=== PATIENT | female | born 1975 | race Caucasian/White ===

== ENCOUNTER 2023-04-03 15:00 | Oncology outpatient (recurring) (ONCR) | payer MEDICARE, OTHER, SELFPAY ==
[2023-03-27 15:33] VITALS: BP 137/63; PULSE 91; RESP 17; TEMP 36.7; O2SAT 95
[2023-03-27] MEDS: sodium chloride 0.9% 250 ML 35 ML IV (16:10)
[2023-03-27] MEDS: ferric carboxy (IVPB) 750 MG in sodium chloride 0.9% (100 ml) 100 ML 345 MG IV (16:11)
[2023-03-27 16:50] VITALS: BP 132/68; PULSE 84; RESP 18; TEMP 36.6; O2SAT 98
[2023-04-03 15:00] VITALS: BP 132/61; PULSE 77; RESP 16; TEMP 36.9; O2SAT 95
[2023-04-03] MEDS: ferric carboxy (IVPB) 750 MG in sodium chloride 0.9% (100 ml) 100 ML 345 MG IV (15:15)
[2023-04-03] MEDS: sodium chloride 0.9% 250 ML 75 ML IV (15:15)
[2023-04-03 15:56] VITALS: BP 117/72; PULSE 76; TEMP 36.7; O2SAT 94
== END 2023-04-11 23:59 | disposition home or self-care (01) ==
PROVIDERS: PCP Nurse Practitioner; Visit Provider Internal Medicine Medical Oncology
DX: K50.90 Crohn's disease, unspecified, without complications (principal); D50.9 Iron deficiency anemia, unspecified; Z79.899 Other long term (current) drug therapy
CPT/HCPCS: 96365; 99204; J1439; J7050

== ENCOUNTER 2023-07-22 11:00 | Oncology outpatient (recurring) (ONCR) | payer MEDICARE, OTHER, SELFPAY ==
[2023-07-18 14:13] LABS: Basophils % 0.2 %; Eosinophils # 0.3 10^3/uL (0.0-0.8); Eosinophils % 4.2 %; Hematocrit 22.8 % (36-47); Mean Corpuscular HGB Conc 31.6 g/dL (30-55); Mean Corpuscular Hemoglobin 35.1 pg (27-33); Mean Corpuscular Volume 111.2 fl (85-98); Mean Platelet Volume 10.8 fL (7.4-10.4); Monocytes # 0.5 10^3/uL (0.2-0.9); Monocytes % 7.9 %; Neutrophils # 3.38 10^3/uL (1.8-7.7); Neutrophils % 52.4 %; Nucleated Red Blood Cells # 0.1 /100WBC; Nucleated Red Blood Cells % 1.7 %; Platelet Count 36 10^3/cmm (157-399); Red Blood Count 2.05 10^6/uL (3.85-5.65); Red Cell Distribution Width 21.2 % (12.1-15.1); White Blood Count 6.45 10^3/uL (3.29-11.43)
[2023-07-18 14:14] LABS: Reticulocyte % 3.9 % (0.5-2.0)
[2023-07-18 14:25] LABS: LAB Peripheral Smear Sent for Review
[2023-07-18 14:43] LABS: Alanine Aminotransferase 11 U/L (0-33); Albumin Level 3.4 g/dL (3.5-5.2); Alkaline Phosphatase 99 U/L (35-105); Anion Gap 14.3 (5-19); Aspartate Amino Transferase 23 U/L (0-32); Blood Urea Nitrogen 8 mg/dL (6-20); Calcium 8.5 mg/dL (8.5-10.5); Carbon Dioxide 22 mmol/L (22-29); Chloride 105 mmol/L (98-107); Glomerular Filtration Rate 75.9 mL/min (90-130); Glucose 120 mg/dL (65-115); Lactate Dehydrogenase 901 U/L (135-214); Osmolality Calculated 286 mOsm/kg (285-295); Potassium 3.3 mmol/L (3.5-5.1); Sodium 138 mmol/L (136-145); Total Bilirubin 0.6 mg/dL (0.15-1.2); Total Protein 6.4 g/dL (6.6-8.7)
[2023-07-18 14:58] LABS: Vitamin B12 1169 pg/mL (232-1245)
[2023-07-19] VITALS (11 sets, daily range): BP systolic 82–139; BP diastolic 47–71; PULSE 62–78; RESP 16; TEMP 36.3–36.9; O2SAT 93–97
[2023-07-19] MEDS: acetaminophen 325 mg Tablet 650 MG PO (08:32)
[2023-07-19] MEDS: diphenhydrAMINE 25 mg Capsule PO (08:32)
[2023-07-19] MEDS: sodium chloride 0.9% 500 ML 999 ML IV (08:34)
[2023-07-22 11:19] VITALS: BP 105/71; PULSE 64; RESP 18; TEMP 36.4; O2SAT 94
[2023-07-22 11:51] LABS: Reticulocyte % 8.8 % (0.5-2.0)
[2023-07-22 11:52] LABS: Basophils % 0.4 %; Eosinophils # 0.3 10^3/uL (0.0-0.8); Hematocrit 32.5 % (36-47); Lymphocytes # 1.4 10^3/uL (0.8-4.8); Lymphocytes % 20.6 %; Mean Corpuscular HGB Conc 31.4 g/dL (30-55); Mean Corpuscular Hemoglobin 32.5 pg (27-33); Mean Corpuscular Volume 103.5 fl (85-98); Mean Platelet Volume 9.8 fL (7.4-10.4); Monocytes # 0.8 10^3/uL (0.2-0.9); Monocytes % 11.1 %; Neutrophils # 4.37 10^3/uL (1.8-7.7); Neutrophils % 62.5 %; Nucleated Red Blood Cells % 0.3 %; Platelet Count 86 10^3/cmm (157-399); Red Blood Count 3.14 10^6/uL (3.85-5.65); Red Cell Distribution Width 26.2 % (12.1-15.1)
[2023-07-22 12:09] LABS: Lactate Dehydrogenase 548 U/L (135-214)
[2023-07-22 12:58] LABS: Folate Level 3.5 ng/mL (4.8-37.3)
[2023-07-22 21:35] LABS: Methylmalonic Acid 564 nmol/L (87-318)
== END 2023-08-11 23:59 | disposition home or self-care (01) ==
PROVIDERS: PCP Nurse Practitioner; Visit Provider Internal Medicine Medical Oncology
DX: D64.9 Anemia, unspecified (principal)
CPT/HCPCS: 36415; 36430; 80053; 80503; 82607; 82746; 83010; 83615; 83921; 85025; 85045; 86850; 86870; 86880; 86900; 86902; 86920; 96365; 99215; J0640; J7040; P9016

== ENCOUNTER 2023-08-29 09:43 | Oncology outpatient (recurring) (ONCR) | payer MEDICARE, OTHER, SELFPAY ==
[2023-08-29 10:00] VITALS: BP 119/69; PULSE 73; RESP 16; TEMP 36.7; O2SAT 97
[2023-08-29 10:09] LABS: Basophils # 0.1 10^3/uL (0.0-0.1); Eosinophils # 0.4 10^3/uL (0.0-0.8); Eosinophils % 5.9 %; Hematocrit 35.7 % (36-47); Lymphocytes # 1.4 10^3/uL (0.8-4.8); Mean Corpuscular HGB Conc 31.4 g/dL (30-55); Mean Corpuscular Hemoglobin 29.9 pg (27-33); Mean Corpuscular Volume 95.5 fl (85-98); Mean Platelet Volume 9.6 fL (7.4-10.4); Monocytes # 0.4 10^3/uL (0.2-0.9); Monocytes % 7.2 %; Neutrophils # 3.85 10^3/uL (1.8-7.7); Neutrophils % 62.6 %; Nucleated Red Blood Cells % 0 %; Platelet Count 81 10^3/cmm (157-399); Red Blood Count 3.74 10^6/uL (3.85-5.65); Red Cell Distribution Width 16.9 % (12.1-15.1); White Blood Count 6.14 10^3/uL (3.29-11.43)
[2023-08-29 10:23] LABS: Alanine Aminotransferase 10 U/L (0-33); Albumin Level 3.4 g/dL (3.5-5.2); Alkaline Phosphatase 92 U/L (35-105); Anion Gap 12.7 (5-19); Aspartate Amino Transferase 21 U/L (0-32); Blood Urea Nitrogen 7 mg/dL (6-20); Carbon Dioxide 24 mmol/L (22-29); Chloride 108 mmol/L (98-107); Globulin 3.5 g/dL (1.3-4.6); Glomerular Filtration Rate 75.9 mL/min (90-130); Glucose 139 mg/dL (65-115); Lactate Dehydrogenase 214 U/L (135-214); Osmolality Calculated 292 mOsm/kg (285-295); Potassium 3.7 mmol/L (3.5-5.1); Sodium 141 mmol/L (136-145); Total Bilirubin 0.6 mg/dL (0.15-1.2); Total Protein 6.9 g/dL (6.6-8.7)
== END 2023-09-11 23:59 | disposition home or self-care (01) ==
PROVIDERS: PCP Nurse Practitioner; Visit Provider Internal Medicine Medical Oncology
DX: D50.8 Other iron deficiency anemias (principal)
CPT/HCPCS: 36415; 80053; 82746; 83615; 85025

== ENCOUNTER 2025-01-08 08:00 | Oncology outpatient (recurring) (ONCR) | payer MEDICARE, OTHER, SELFPAY ==
[2025-01-01 10:17] VITALS: BP 104/63; PULSE 53; RESP 18; TEMP 36.3; O2SAT 93
[2025-01-01] MEDS: iron sucrose 300 MG in sodium chloride 0.9% (100 ml) 100 ML 200 MG IV (11:18)
== END 2025-01-09 23:59 | disposition home or self-care (01) ==
PROVIDERS: PCP Nurse Practitioner; Visit Provider Internal Medicine
DX: Z53.9 Procedure and treatment not carried out, unspecified reason (principal)
CPT/HCPCS: 96365; J1756

== ENCOUNTER 2025-01-09 15:02 | Inpatient (IN) | payer MEDICARE, OTHER, SELFPAY ==
[2025-01-09] VITALS (30 sets, daily range): BP systolic 74–131; BP diastolic 47–75; PULSE 112–170; RESP 22–35; TEMP 37.1–39.4; O2SAT 93–96
--- NOTE | 2025-01-09 15:21 | XRR_ITS ---
PROCEDURE INFORMATION: Exam: XR Chest Exam date and time: 01/09/2025 4:03 PM Age: 49 years old Clinical indication: Other: Possible sepsis TECHNIQUE: Imaging protocol: Radiologic exam of the chest. Views: 1 view. COMPARISON: No relevant prior studies available. FINDINGS: Lungs: Unremarkable. No consolidation or mass. Pleural spaces: Unremarkable. No pleural effusion. No pneumothorax. Heart/Mediastinum: Unremarkable. No cardiomegaly. Bones/joints: Unremarkable. XR/XR chest 1V portable [id number] IMPRESSION: No acute findings.
--- NOTE | 2025-01-09 15:25 | W.ED.WEAKNES ---
HPI - Weakness General: Chief complaint: Weakness Stated complaint: n/v, fever, lethargy Time Seen by Provider: 01/09/25 15:11 History of Present Illness: Patient states that she has whole body aches and pain and fever. She states this all started the night after she had iron transfusion done Saturday 8 days ago. She states that she hurts all over. Her entire body hurts. She has achiness fever. She has abdominal pain. No itching or rash. PFSH ED PFSH: Medical History Hypothyroidism History of anemia due to vitamin B12 deficiency History of sepsis (2013) History of supraventricular tachycardia Iron deficiency anemia Crohn's disease Psoriasis Lupus Fibromyalgia Hypertension Hyperlipemia Hemorrhoids GERD (gastroesophageal reflux disease) Surgical History History of section History of cholecystectomy H/O partial resection of colon Ileocolonic resection in 2001, in 2009, and in 2014 History of total hysterectomy with bilateral salpingo-oophorectomy (BSO) (07/2015) IRENE/BSO with redo of ileocolonic anastomosis History of ventral hernia repair History of hemorrhoidectomy Social History Smoking and tobacco/nicotine status: current every day tobacco/nicotine user cigarettes Packs smoked per day: 0.05 Alcohol intake: never Physical Exam Narrative: EXAM NARRATIVE: Patient appears uncomfortable and anxious in moderate distress. Neck is supple and she is moving her neck freely and nodding her head and she touches her chin to her chest that she sits up. No signs of trauma to her head. She has very dry mucous membranes. Normal conjunctiva. Patient very anxious and constantly moving in the bed. She has diminished breath sounds with bilateral expiratory wheezing bilaterally. Heart regular rhythm with tachycardia. No murmur on auscultation. Abdomen is soft with no significant tenderness guarding or rebound. Skin is free of evident rash in exposed areas. No calf tenderness or pitting edema. She moves her arms and legs freely. No tenderness on her legs. No CVA tenderness. No vertebral tenderness on her neck or back. No pharyngeal erythema. Speech is clear. Course Vital Signs: Vital signs: Vital Signs Temperature 103.0 F H 01/09/25 15:05 Pulse Rate 115 H 01/09/25 17:45 Respiratory Rate 22 H 01/09/25 16:25 Blood Pressure 99/47 01/09/25 17:45 Pulse Oximetry 94 01/09/25 17:45 Oxygen Delivery Me thod Room Air 01/09/25 17:45 MDM - Weakness Medical Decision Making Patient presents complaining of bad reaction to an iron infusion which she received on Saturday 8 days ago. She states she did fine during the infusion and that night developed fever body aches and malaise and hurting all over and has been still feeling bad since then. She denies vomiting or diarrhea. Denies dysuria. On review of systems she has had some tick bites off and on but denies any rash. She does have a headache on review of systems but she states everything hurts. She has no meningeal signs. She does states she has had coughing runny nose sore throat. Patient is tachycardic. She states she is on an immune suppressant for her Crohn's. Differential would include sepsis, adverse reaction to the iron infusion, pneumonia, viral illness, intra-abdominal infection, extremity broad differential. I ordered 30 cc/kg normal saline IV fluid bolus, hydrocodone 5 mg p.o. with acetaminophen, CBC CMP blood cultures lactic. Certainly patient could have bacteremia from her iron infusion as well. Will empirically treat with Zosyn 4.5 g IV. Patient has a reported history of rash to iodine so we will get a noncontrast CT abdomen pelvis. Patient reports abdominal pain but has a benign exam. 16:29 01/09/25 pt hemodynamic status and tissue perfusion reassessed. Patient's heart rate is improved. Patient lactic was elevated. Patient INR is elevated despite patient stating that she is not anticoagulated and denies liver disease. Liver enzymes are elevated. Digoxin level was not elevated. White blood cell count was within normal limits. Patient is anemic and has significant thrombocytopenia. now present. Has been and patient denies any history of liver problems although they do remember that she had splenomegaly in the past. She has no alcohol history. Patient CT showed splenomegaly and cirrhosis of the liver and possible early pneumonia with some groundglass opacities. No other definite acute process per radiology. Plan to admit the patient for probable sepsis. I added vancomycin. I consulted with Dr. Viera who will accept and continue patient care. Lab Data 01/09/25 15:20 01/09/25 15:20 Radiology Impressions Chest X-Ray 01/09/25 15:21 IMPRESSION: No acute findings. Abdomen/Pelvis CT 01/09/25 15:33 IMPRESSION: 1. Findings suggesting hepatic cirrhosis 2. Prominent splenomegaly which could be related to portal hypertension 3. Periumbilical hernia next lines small areas of ground-glass density in the right lung base could represent developing pneumonia Laboratory Results WBC 5.47 10^3/uL (3.29-11.43) 01/09/25 15:20 RBC 4.41 10^6/uL (3.85-5.65) 01/09/25 15:20 Hgb 9.10 g/dL (11.27-16.99) L 01/09/25 15:20 Hct 28.8 % (36-47) L 01/09/25 15:20 MCV 65.3 fl (85-98) L 01/09/25 15:20 MCH 20.6 pg (27-33) L 01/09/25 15:20 MCHC 31.6 g/dL (30-55) 01/09/25 15:20 RDW 24.5 % (12.1-15.1) H 01/09/25 15:20 Plt Count 30 10^3/cmm (157-399) L 01/09/25 15:20 MPV Not Reportable 01/09/25 15:20 Neut % (Auto) 65.0 % 01/09/25 15:20 Lymph % (Auto) 28.7 % 01/09/25 15:20 [place] % (Auto) 4.6 % 01/09/25 15:20 Eos % (Auto) 0.2 % 01/09/25 15:20 Baso % (Auto) 0.4 % 01/09/25 15:20 Neut # (Auto) 3.56 10^3/uL (1.8-7.7) 01/09/25 15:20 Lymph # (Auto) 1.6 10^3/uL (0.8-4.8) 01/09/25 15:20 [place] # (Auto) 0.3 10^3/uL (0.2-0.9) 01/09/25 15:20 Eos # (Auto) 0.0 10^3/uL (0.0-0.8) 01/09/25 15:20 Baso # (Auto) 0.0 10^3/uL (0.0-0.1) 01/09/25 15:20 Nucleated RBC % (auto) 0 % 01/09/25 15:20 Nucleated RBCs # 0.0 /100WBC 01/09/25 15:20 PT 28.20 SECONDS (12.1-14.9) H 01/09/25 15:20 INR 2.47 (0.8-1.2) H 01/09/25 15:20 APTT 52.0 SECONDS (23.9-36.7) H 01/09/25 15:20 Sodium 123 mmol/L (136-145) L 01/09/25 15:20 Potassium 2.6 mmol/L (3.5-5.1) L* 01/09/25 15:20 Chloride 87 mmol/L (98-107) L 01/09/25 15:20 Carbon Dioxide 21 mmol/L (22-29) L 01/09/25 15:20 Anion Gap 17.6 (5-19) 01/09/25 15:20 BUN 8 mg/dL (6-20) 01/09/25 15:20 Creatinine 0.9 mg/dL (0.5-0.9) 01/09/25 15:20 GFR Calculation 66.0 mL/min (90-130) L 01/09/25 15:20 Glucose 79 mg/dL (65-115) 01/09/25 15:20 Calculated Osmolality 253 mOsm/kg (285-295) L 01/09/25 15:20 Lactic Acid 4.3 mmol/L (0.5-2.2) H* 01/09/25 15:20 Calcium 7.6 mg/dL (8.5-10.5) L 01/09/25 15:20 Total Bilirubin 1.6 mg/dL (0.15-1.2) H 01/09/25 15:20 AST 331 U/L (0-32) H 01/09/25 15:20 ALT 96 U/L (0-33) H 01/09/25 15:20 Alkaline Phosphatase 137 U/L (35-105) H 01/09/25 15:20 Total Protein 5.8 g/dL (6.6-8.7) L 01/09/25 15:20 Albumin 2.8 g/dL (3.5-5.2) L 01/09/25 15:20 Globulin 3.0 g/dL (1.3-4.6) 01/09/25 15:20 Urine Color Dark yellow (Yellow) A 01/09/25 15:50 Urine Appearance Cloudy (CLEAR) A 01/09/25 15:50 Urine pH 5.5 (5-7) 01/09/25 15:50 Ur Specific [place] 1.016 (1.005-1.030) 01/09/25 15:50 Urine Protein 1+ (Negative) A 01/09/25 15:50 Urine Glucose (UA) Negative (Normal) 01/09/25 15:50 Urine Ketones Negative (Negative) 01/09/25 15:50 Urine Blood 2+ (Negative) A 01/09/25 15:50 Urine Nitrate Negative (Negative) 01/09/25 15:50 Urine Bilirubin 1+ (Negative) H 01/09/25 15:50 Urine Urobilinogen 1.0 mg/dL (Negative) 01/09/25 15:50 Ur Leukocyte Esterase Negative (Negative) 01/09/25 15:50 Urine RBC 11-20 /hpf (0-2) H 01/09/25 15:50 Urine WBC 0-5 /hpf (0-5) 01/09/25 15:50 Ur Squamous Epith Cells 0-5 /hpf (0-5) 01/09/25 15:50 Amorphous Sediment Not Reportable 01/09/25 15:50 Urine Bacteria None seen /hpf (NONE) 01/09/25 15:50 Hyaline Casts 9.51 /lpf 01/09/25 15:50 Fine Granular Casts 0-4 /lpf H 01/09/25 15:50 Urine Mucus Trace /hpf 01/09/25 15:50 Digoxin 0.5 ng/mL (0.6-1.2) L 01/09/25 15:20 Influenza A (PCR) Negative (Negative) 01/09/25 15:59 Influenza Type B (PCR) Negative (Negative) 01/09/25 15:59 RSV (PCR) Negative (Negative) 01/09/25 15:59 SARS-CoV-2 (PCR) Negative (Negative) 01/09/25 15:59 All radiology interpretation(s) finalized by discharge Discharge Plan Discharge Patient Disposition: Admitted As Inpatient Clinical Impression: Sepsis Condition: Stable Coding Level of Care Code ED 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 [employer]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 Related Data Home Medications ?Medication ?Instructions ?Recorded ?Confirmed cholecalciferol (vitamin D3) 50 50 mcg PO .weekly 03/26/23 07/19/23 mcg (2,000 unit) capsule cyanocobalamin (vitamin B-12) See Rx Instructions PO .weekly 03/26/23 07/19/23 1,000 mcg capsule digoxin 250 mcg (0.25 mg) tablet 250 mcg PO DAILY 03/26/23 07/19/23 diltiazem HCl 120 mg capsule,24 120 mg PO DAILY 03/26/23 07/19/23 hr,extended release hydrocortisone acetate 25 mg 25 mg [place] DAILY 03/26/23 07/19/23 rectal suppository (Anucort-HC) levothyroxine 50 mcg tablet 50 mcg PO DAILY 03/26/23 07/19/23 (Synthroid) lidocaine swish and swallow 2% PO 03/26/23 07/19/23 mesalamine 1.2 gram tablet,delayed 2.4 g PO DAILY 03/26/23 07/19/23 release methotrexate sodium 2.5 mg tablet 2.5 mg PO DAILY 03/26/23 07/19/23 metoprolol succinate 100 mg 100 mg PO DAILY 03/26/23 07/19/23 tablet,extended release 24 hr omeprazole 20 mg capsule,delayed 20 mg PO DAILY 03/26/23 07/19/23 release ondansetron HCl 8 mg tablet 8 mg PO Q12H 03/26/23 07/19/23 pregabalin 150 mg capsule 150 mg PO BID 03/26/23 07/19/23 prenat.vits,otto,lbu-zpes-thqqp 1 tab PO DAILY 03/26/23 07/19/23 sulfasalazine 500 mg tablet 0.5 g PO TID PRN 03/26/23 07/19/23 tizanidine 4 mg capsule 4 mg PO BID PRN 03/26/23 07/19/23 tramadol 50 mg tablet 50 mg PO TID PRN 03/26/23 07/19/23 ustekinumab 90 mg/mL subcutaneous See Rx Instructions SUBCUT .COMPLEX 03/26/23 07/19/23 syringe (Stelara) Allergies Allergy/AdvReac Type Severity Reaction Status Date / Time vedolizumab (From [facility]) Allergy Severe anaphylaxis Verified 07/19/23 10:40 iodine Allergy rash Verified 07/19/23 10:40 Mercaptiourine analogues Allergy Severe Unknown Uncoded 07/19/23 10:40 Norflex Allergy Severe hives Uncoded 07/19/23 10:40 Protonix Allergy Severe hives Uncoded 07/19/23 10:40 Remicade Allergy Severe anaphylaxis Uncoded 07/19/23 10:40 Humira Allergy Intermediate Unknown Uncoded 07/19/23 10:40 Orphenadrine Allergy Intermediate unknown Uncoded 07/19/23 10:40 cimzia Allergy Unknown Uncoded 07/19/23 10:40 lasix Allergy hives Uncoded 07/19/23 10:40
--- NOTE | 2025-01-09 15:30 | ECG_ITS ---
[facility] Test Date: 2025-01-09 Pat Name: Lilian Mabry Department: Room: Gender: Female Vp Site: : 1975 Requested By: Blayne Mullins Order Number: [id number] Macario MD: MICKEY FERGUSON Measurements Intervals [place] Rate: 112 P: 82 [place]: 153 QRS: -11 QRSD: 121 T: 70 QT: 314 QTc: 429 Interpretive Statements SINUS TACHYCARDIA POSSIBLE LEFT ATRIAL ENLARGEMENT [-0.1mV P-WAVE IN V1/V2] MODERATE INTRAVENTRICULAR CONDUCTION DELAY [110+ ms QRS DURATION] MINIMAL ST DEPRESSION [0.025+ mV ST DEPRESSION] ABNORMAL RHYTHM ECG No previous ECG available for comparison Electronically Signed On 01-13-2025 23:01:29 CDT by MICKEY FERGUSON [email or web address]
--- NOTE | 2025-01-09 15:33 | CTR_ITS ---
PROCEDURE INFORMATION: Exam: CT Abdomen And Pelvis Without Contrast Exam date and time: 01/09/2025 4:15 PM Age: 49 years old Clinical indication: Abdominal pain; Generalized TECHNIQUE: Imaging protocol: Computed tomography of the abdomen and pelvis without contrast. Radiation optimization: All CT scans at this facility use at least one of these dose optimization techniques: automated exposure control; mA and/or kV adjustment per patient size (includes targeted exams where dose is matched to clinical indication); or iterative reconstruction. COMPARISON: CR (CHEST, ) 01/09/2025 4:03 PM RADIATION DOSE METRICS: Total DLP (mGy-cm): 806.12 FINDINGS: Lungs: A few small areas of ground-glass density can be seen in the right lung base laterally. Liver: The liver demonstrates an irregular contour and parenchymal heterogeneity consistent with cirrhosis. I see no liver mass. Gallbladder and biliary ducts: The gallbladder has been resected. Pancreas: Normal. No ductal dilation. Spleen: Prominent splenomegaly is noted. Adrenal glands: Normal. No mass. Kidneys and ureters: Normal. No hydronephrosis. Stomach and bowel: Unremarkable. No obstruction. No mucosal thickening. Appendix: No evidence of appendicitis. Intraperitoneal space: Unremarkable. No free air. No significant fluid collection. Vasculature: Unremarkable. No abdominal aortic aneurysm. Lymph nodes: Unremarkable. No enlarged lymph nodes. Urinary bladder: A Chery catheter is in good position within the bladder. Reproductive: Unremarkable as visualized. Bones/joints: Unremarkable. No acute fracture. Soft tissues: There is a small periumbilical hernia containing mesenteric fat. CT/CT abdomen pelvis wo con [id number] IMPRESSION: 1. Findings suggesting hepatic cirrhosis 2. Prominent splenomegaly which could be related to portal hypertension 3. Periumbilical hernia next lines small areas of ground-glass density in the right lung base could represent developing pneumonia
[2025-01-09 15:38] LABS: Basophils % 0.4 %; Eosinophils % 0.2 %; Hematocrit 28.8 % (36-47); Lymphocytes # 1.6 10^3/uL (0.8-4.8); Lymphocytes % 28.7 %; Mean Corpuscular HGB Conc 31.6 g/dL (30-55); Mean Corpuscular Hemoglobin 20.6 pg (27-33); Mean Corpuscular Volume 65.3 fl (85-98); Monocytes # 0.3 10^3/uL (0.2-0.9); Monocytes % 4.6 %; Neutrophils # 3.56 10^3/uL (1.8-7.7); Nucleated Red Blood Cells % 0 %; Platelet Count 30 10^3/cmm (157-399); Red Blood Count 4.41 10^6/uL (3.85-5.65); Red Cell Distribution Width 24.5 % (12.1-15.1); White Blood Count 5.47 10^3/uL (3.29-11.43)
[2025-01-09 15:52] LABS: INR 2.47 (0.8-1.2)
[2025-01-09 15:58] LABS: Alanine Aminotransferase 96 U/L (0-33); Albumin Level 2.8 g/dL (3.5-5.2); Alkaline Phosphatase 137 U/L (35-105); Anion Gap 17.6 (5-19); Aspartate Amino Transferase 331 U/L (0-32); Blood Urea Nitrogen 8 mg/dL (6-20); Calcium 7.6 mg/dL (8.5-10.5); Carbon Dioxide 21 mmol/L (22-29); Chloride 87 mmol/L (98-107); Creatinine Clr Calc Pharmacy 81.7375; Glucose 79 mg/dL (65-115); Osmolality Calculated 253 mOsm/kg (285-295); Sodium 123 mmol/L (136-145); Total Bilirubin 1.6 mg/dL (0.15-1.2); Total Protein 5.8 g/dL (6.6-8.7)
[2025-01-09 15:59] LABS: Digoxin 0.5 ng/mL (0.6-1.2)
[2025-01-09 16:05] LABS: Lactic Sepsis W/Reflex 4.3 mmol/L (0.5-2.2); Potassium 2.6 mmol/L (3.5-5.1)
[2025-01-09 16:07] LABS: Bilirubin Urine 1+ (Negative); Blood Urine 2+ (Negative); Glucose Urine UA Negative (Normal); Ketones Urine Negative (Negative); Leukocyte Esterase Urine Negative (Negative); Nitrate Urine Negative (Negative); Protein Urine 1+ (Negative); Specific Gravity, Urine 1.016 (1.005-1.030); Urine Appearance Cloudy (CLEAR); Urine Color Dark Yellow (Yellow); pH Urine 5.5 (5-7)
[2025-01-09 16:12] LABS: Add Urine Microscopic? YES; Bacteria Urine None Seen /hpf; Hyaline Casts Urine 9.51 /lpf; Squamous Epithelial Cell Urine 0-5 /hpf (0-5); WBC Urine 0-5 /hpf (0-5)
[2025-01-09 16:18] LABS: Reflex Lactate Order REFLEX LACTIC ORDERD
[2025-01-09] MEDS: HYDROcodone-acetaminophen 5-325 mg Tablet 1 TAB PO (16:21)
[2025-01-09] MEDS: piperacillin-tazobactam 4.5 GM in sodium chloride 0.9% (plus) 50 ML IV (16:21)
[2025-01-09] MEDS: potassium chloride ER 20 mEq Tablet 40 MEQ PO (16:21)
[2025-01-09 16:30] LABS: Add Urine Culture? Yes; Fine Granular Casts Urine 0-4 /lpf; Mucus Urine TRACE /hpf; UA Slide Review UA Slide Review Perf
[2025-01-09 17:00] LABS: Influenza A NEGATIVE (Negative); Influenza B NEGATIVE (Negative); Respiratory Syncytial Virus Ce NEGATIVE (Negative); SARS-CoV-2 PCR NEGATIVE (Negative)
[2025-01-09] MEDS: sodium chloride 0.9% 500 ML 999 ML IV (18:19)
[2025-01-09] MEDS: vancomycin 1,500 MG/300 ML PIGGYBACK 200 MG IV (18:19)
--- NOTE | 2025-01-09 18:27 | W.ED.WEAKNES ---
HPI - Weakness General: Chief complaint: Weakness Stated complaint: n/v, fever, lethargy Time Seen by Provider: 01/09/25 15:11 PFSH ED PFSH: Medical History Hypothyroidism History of anemia due to vitamin B12 deficiency History of sepsis (2013) History of supraventricular tachycardia Iron deficiency anemia Crohn's disease Psoriasis Lupus Fibromyalgia Hypertension Hyperlipemia Hemorrhoids GERD (gastroesophageal reflux disease) Surgical History History of section History of cholecystectomy H/O partial resection of colon Ileocolonic resection in 2001, in 2009, and in 2014 History of total hysterectomy with bilateral salpingo-oophorectomy (BSO) (07/2015) IRENE/BSO with redo of ileocolonic anastomosis History of ventral hernia repair History of hemorrhoidectomy Social History Smoking and tobacco/nicotine status: current every day tobacco/nicotine user cigarettes Packs smoked per day: 0.05 Alcohol intake: never Course Vital Signs: Vital signs: Vital Signs Temperature 103.0 F H 01/09/25 15:05 Pulse Rate 115 H 01/09/25 17:45 Respiratory Rate 22 H 01/09/25 16:25 Blood Pressure 99/47 01/09/25 17:45 Pulse Oximetry 94 01/09/25 17:45 Oxygen Delivery Me thod Room Air 01/09/25 17:45 MDM - Weakness Lab Data 01/09/25 15:20 01/09/25 15:20 Radiology Impressions Chest X-Ray 01/09/25 15:21 IMPRESSION: No acute findings. Abdomen/Pelvis CT 01/09/25 15:33 IMPRESSION: 1. Findings suggesting hepatic cirrhosis 2. Prominent splenomegaly which could be related to portal hypertension 3. Periumbilical hernia next lines small areas of ground-glass density in the right lung base could represent developing pneumonia Laboratory Results WBC 5.47 10^3/uL (3.29-11.43) 01/09/25 15:20 RBC 4.41 10^6/uL (3.85-5.65) 01/09/25 15:20 Hgb 9.10 g/dL (11.27-16.99) L 01/09/25 15:20 Hct 28.8 % (36-47) L 01/09/25 15:20 MCV 65.3 fl (85-98) L 01/09/25 15:20 MCH 20.6 pg (27-33) L 01/09/25 15:20 MCHC 31.6 g/dL (30-55) 01/09/25 15:20 RDW 24.5 % (12.1-15.1) H 01/09/25 15:20 Plt Count 30 10^3/cmm (157-399) L 01/09/25 15:20 MPV Not Reportable 01/09/25 15:20 Neut % (Auto) 65.0 % 01/09/25 15:20 Lymph % (Auto) 28.7 % 01/09/25 15:20 [place] % (Auto) 4.6 % 01/09/25 15:20 Eos % (Auto) 0.2 % 01/09/25 15:20 Baso % (Auto) 0.4 % 01/09/25 15:20 Neut # (Auto) 3.56 10^3/uL (1.8-7.7) 01/09/25 15:20 Lymph # (Auto) 1.6 10^3/uL (0.8-4.8) 01/09/25 15:20 [place] # (Auto) 0.3 10^3/uL (0.2-0.9) 01/09/25 15:20 Eos # (Auto) 0.0 10^3/uL (0.0-0.8) 01/09/25 15:20 Baso # (Auto) 0.0 10^3/uL (0.0-0.1) 01/09/25 15:20 Nucleated RBC % (auto) 0 % 01/09/25 15:20 Nucleated RBCs # 0.0 /100WBC 01/09/25 15:20 PT 28.20 SECONDS (12.1-14.9) H 01/09/25 15:20 INR 2.47 (0.8-1.2) H 01/09/25 15:20 APTT 52.0 SECONDS (23.9-36.7) H 01/09/25 15:20 Sodium 123 mmol/L (136-145) L 01/09/25 15:20 Potassium 2.6 mmol/L (3.5-5.1) L* 01/09/25 15:20 Chloride 87 mmol/L (98-107) L 01/09/25 15:20 Carbon Dioxide 21 mmol/L (22-29) L 01/09/25 15:20 Anion Gap 17.6 (5-19) 01/09/25 15:20 BUN 8 mg/dL (6-20) 01/09/25 15:20 Creatinine 0.9 mg/dL (0.5-0.9) 01/09/25 15:20 GFR Calculation 66.0 mL/min (90-130) L 01/09/25 15:20 Glucose 79 mg/dL (65-115) 01/09/25 15:20 Calculated Osmolality 253 mOsm/kg (285-295) L 01/09/25 15:20 Lactic Acid 4.3 mmol/L (0.5-2.2) H* 01/09/25 15:20 Calcium 7.6 mg/dL (8.5-10.5) L 01/09/25 15:20 Total Bilirubin 1.6 mg/dL (0.15-1.2) H 01/09/25 15:20 AST 331 U/L (0-32) H 01/09/25 15:20 ALT 96 U/L (0-33) H 01/09/25 15:20 Alkaline Phosphatase 137 U/L (35-105) H 01/09/25 15:20 Total Protein 5.8 g/dL (6.6-8.7) L 01/09/25 15:20 Albumin 2.8 g/dL (3.5-5.2) L 01/09/25 15:20 Globulin 3.0 g/dL (1.3-4.6) 01/09/25 15:20 Urine Color Dark yellow (Yellow) A 01/09/25 15:50 Urine Appearance Cloudy (CLEAR) A 01/09/25 15:50 Urine pH 5.5 (5-7) 01/09/25 15:50 Ur Specific [place] 1.016 (1.005-1.030) 01/09/25 15:50 Urine Protein 1+ (Negative) A 01/09/25 15:50 Urine Glucose (UA) Negative (Normal) 01/09/25 15:50 Urine Ketones Negative (Negative) 01/09/25 15:50 Urine Blood 2+ (Negative) A 01/09/25 15:50 Urine Nitrate Negative (Negative) 01/09/25 15:50 Urine Bilirubin 1+ (Negative) H 01/09/25 15:50 Urine Urobilinogen 1.0 mg/dL (Negative) 01/09/25 15:50 Ur Leukocyte Esterase Negative (Negative) 01/09/25 15:50 Urine RBC 11-20 /hpf (0-2) H 01/09/25 15:50 Urine WBC 0-5 /hpf (0-5) 01/09/25 15:50 Ur Squamous Epith Cells 0-5 /hpf (0-5) 01/09/25 15:50 Amorphous Sediment Not Reportable 01/09/25 15:50 Urine Bacteria None seen /hpf (NONE) 01/09/25 15:50 Hyaline Casts 9.51 /lpf 01/09/25 15:50 Fine Granular Casts 0-4 /lpf H 01/09/25 15:50 Urine Mucus Trace /hpf 01/09/25 15:50 Digoxin 0.5 ng/mL (0.6-1.2) L 01/09/25 15:20 Influenza A (PCR) Negative (Negative) 01/09/25 15:59 Influenza Type B (PCR) Negative (Negative) 01/09/25 15:59 RSV (PCR) Negative (Negative) 01/09/25 15:59 SARS-CoV-2 (PCR) Negative (Negative) 01/09/25 15:59 Discharge Plan Discharge Patient Disposition: Admitted As Inpatient Clinical Impression: Sepsis Condition: Stable Coding Level of Care Code 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 Fwd Related Data Home Medications ?Medication ?Instructions ?Recorded ?Confirmed cholecalciferol (vitamin D3) 50 50 mcg PO .weekly 03/26/23 07/19/23 mcg (2,000 unit) capsule cyanocobalamin (vitamin B-12) See Rx Instructions PO .weekly 03/26/23 07/19/23 1,000 mcg capsule digoxin 250 mcg (0.25 mg) tablet 250 mcg PO DAILY 03/26/23 07/19/23 diltiazem HCl 120 mg capsule,24 120 mg PO DAILY 03/26/23 07/19/23 hr,extended release hydrocortisone acetate 25 mg 25 mg [place] DAILY 03/26/23 07/19/23 rectal suppository (Anucort-HC) levothyroxine 50 mcg tablet 50 mcg PO DAILY 03/26/23 07/19/23 (Synthroid) lidocaine swish and swallow 2% PO 03/26/23 07/19/23 mesalamine 1.2 gram tablet,delayed 2.4 g PO DAILY 03/26/23 07/19/23 release methotrexate sodium 2.5 mg tablet 2.5 mg PO DAILY 03/26/23 07/19/23 metoprolol succinate 100 mg 100 mg PO DAILY 03/26/23 07/19/23 tablet,extended release 24 hr omeprazole 20 mg capsule,delayed 20 mg PO DAILY 03/26/23 07/19/23 release ondansetron HCl 8 mg tablet 8 mg PO Q12H 03/26/23 07/19/23 pregabalin 150 mg capsule 150 mg PO BID 03/26/23 07/19/23 prenat.vits,otto,pmz-pvqz-coxds 1 tab PO DAILY 03/26/23 07/19/23 sulfasalazine 500 mg tablet 0.5 g PO TID PRN 03/26/23 07/19/23 tizanidine 4 mg capsule 4 mg PO BID PRN 03/26/23 07/19/23 tramadol 50 mg tablet 50 mg PO TID PRN 03/26/23 07/19/23 ustekinumab 90 mg/mL subcutaneous See Rx Instructions SUBCUT .COMPLEX 03/26/23 07/19/23 syringe (Stelara) Allergies Allergy/AdvReac Type Severity Reaction Status Date / Time vedolizumab (From [facility]) Allergy Severe anaphylaxis Verified 07/19/23 10:40 iodine Allergy rash Verified 07/19/23 10:40 Mercaptiourine analogues Allergy Severe Unknown Uncoded 07/19/23 10:40 Norflex Allergy Severe hives Uncoded 07/19/23 10:40 Protonix Allergy Severe hives Uncoded 07/19/23 10:40 Remicade Allergy Severe anaphylaxis Uncoded 07/19/23 10:40 Humira Allergy Intermediate Unknown Uncoded 07/19/23 10:40 Orphenadrine Allergy Intermediate unknown Uncoded 07/19/23 10:40 cimzia Allergy Unknown Uncoded 07/19/23 10:40 lasix Allergy hives Uncoded 07/19/23 10:40
--- NOTE | 2025-01-09 18:29 | PM.HP ---
Providers/Chief Complaint Chief Complaint: n/v, lethargy, ams History of Present Illness Lilian Mabry is a 49 year old female with a past medical history of hypothyroidism, history of Crohn's disease, history of psoriasis on Stelara, on methotrexate, history of hypertension, hyperlipidemia, GERD, history of septic shock in 2013 resulting in cardiac arrest and prolonged intubation source of infection was potentially a port. Patient has a history of iron deficiency anemia, she chronically gets iron infusions, she had iron infusion on Saturday, after receiving iron infusion family reports that she was reporting feeling sick, fatigue, malaise. Her symptoms persisted throughout the week, fatigue, malaise, body aches and pains,, they tell me that she looked well yesterday, they played cards yesterday evening, she went to bed, she woke up a couple times throughout the night which is not unusual for her, but when she woke up this morning, she was confused, lethargic at times, complaining of fatigue, malaise, fevers, chills, throughout the week she has not had any other specific complaints no headache, blurry vision, no neck pain, no chest pain, no shortness of breath, currently patient is alert to person, not to place, time, she is diffusely encephalopathic fever of 103, pulse 115, blood pressure is 80/60, MAP is 55, respiratory is 22, she is 94% on room air -Discussed with family members at bedside, currently patient is in septic shock -Etiology possibly related to pneumonia seen on CT of the chest -But I believe she needs a further workup for the source of infection - She is immunocompromise as she is on Stelara, methotrexate - She does have reported tick bites according to family - She has not had any dysuria, no hematuria, CT scan of abdomen pelvis does not have any evidence of obstructive uropathy, her UA is relatively within normal limits - Currently Kernig sign negative, Brudzinski sign negative, no significant neck stiffness on examination - She did receive an iron infusion on Saturday, bilateral arms look clean and dry, - No history of IV drug use - Discussed with family her transaminitis, will do liver ultrasound, further workup - Her INR is also elevated 2.47, her CT scan shows evidence of liver cirrhosis profoundly does not report any history of liver cirrhosis, -Discussed her thrombocytopenia, no current signs of bleeding -Her thrombocytopenia, and transaminitis could be indicator of a tickborne illness, no visible rashes on examination -[place], no cat bites, no dog bites, does not have any other animals - Respiratory viral, within normal limits - Jourdan with family that currently her status is critical, prognosis guarded, will admit to ICU for septic shock - Discussed with ER provider, for central line placement as patient is likely going to require pressors - She has been given the sepsis bolus, given vancomycin, Zosyn Review of Systems General: Reports: ROS unobtainable due to mental status Medications/Allergies Home Medications ?Medication ?Instructions ?Recorded ?Confirmed ?Last Taken ?Type cholecalciferol (vitamin D3) 50 50 mcg PO .weekly 03/26/23 07/19/23 Unknown History mcg (2,000 unit) capsule cyanocobalamin (vitamin B-12) See Rx Instructions PO .weekly 03/26/23 07/19/23 Unknown History 1,000 mcg capsule digoxin 250 mcg (0.25 mg) tablet 250 mcg PO DAILY 03/26/23 07/19/23 Unknown History diltiazem HCl 120 mg capsule,24 120 mg PO DAILY 03/26/23 07/19/23 Unknown History hr,extended release hydrocortisone acetate 25 mg 25 mg AK DAILY 03/26/23 07/19/23 Unknown History rectal suppository (Anucort-HC) levothyroxine 50 mcg tablet 50 mcg PO DAILY 03/26/23 07/19/23 Unknown History (Synthroid) lidocaine swish and swallow 2% PO 03/26/23 07/19/23 Unknown History mesalamine 1.2 gram tablet,delayed 2.4 g PO DAILY 03/26/23 07/19/23 Unknown History release methotrexate sodium 2.5 mg tablet 2.5 mg PO DAILY 03/26/23 07/19/23 Unknown History metoprolol succinate 100 mg 100 mg PO DAILY 03/26/23 07/19/23 Unknown History tablet,extended release 24 hr omeprazole 20 mg capsule,delayed 20 mg PO DAILY 03/26/23 07/19/23 Unknown History release ondansetron HCl 8 mg tablet 8 mg PO Q12H 03/26/23 07/19/23 Unknown History pregabalin 150 mg capsule 150 mg PO BID 03/26/23 07/19/23 Unknown History prenat.vits,otto,clo-gvoa-eeafe 1 tab PO DAILY 03/26/23 07/19/23 Unknown History sulfasalazine 500 mg tablet 0.5 g PO TID PRN 03/26/23 07/19/23 Unknown History tizanidine 4 mg capsule 4 mg PO BID PRN 03/26/23 07/19/23 Unknown History tramadol 50 mg tablet 50 mg PO TID PRN 03/26/23 07/19/23 Unknown History ustekinumab 90 mg/mL subcutaneous See Rx Instructions SUBCUT .COMPLEX 03/26/23 07/19/23 Unknown History syringe (Stelara) Allergies Allergy/AdvReac Type Severity Reaction Status Date / Time vedolizumab (From [facility]) Allergy Severe anaphylaxis Verified 07/19/23 10:40 iodine Allergy rash Verified 07/19/23 10:40 Mercaptiourine analogues Allergy Severe Unknown Uncoded 07/19/23 10:40 Norflex Allergy Severe hives Uncoded 07/19/23 10:40 Protonix Allergy Severe hives Uncoded 07/19/23 10:40 Remicade Allergy Severe anaphylaxis Uncoded 07/19/23 10:40 Humira Allergy Intermediate Unknown Uncoded 07/19/23 10:40 Orphenadrine Allergy Intermediate unknown Uncoded 07/19/23 10:40 cimzia Allergy Unknown Uncoded 07/19/23 10:40 lasix Allergy hives Uncoded 07/19/23 10:40 PFSH Acute PFSH: Medical History Hypothyroidism History of anemia due to vitamin B12 deficiency History of sepsis (2013) History of supraventricular tachycardia Iron deficiency anemia Crohn's disease Psoriasis Lupus Fibromyalgia Hypertension Hyperlipemia Hemorrhoids GERD (gastroesophageal reflux disease) Surgical History History of section History of cholecystectomy H/O partial resection of colon Ileocolonic resection in 2001, in 2009, and in 2014 History of total hysterectomy with bilateral salpingo-oophorectomy (BSO) (07/2015) IRENE/BSO with redo of ileocolonic anastomosis History of ventral hernia repair History of hemorrhoidectomy Social History Smoking and tobacco/nicotine status: current every day tobacco/nicotine user cigarettes Packs smoked per day: 0.05 Alcohol intake: never Vitals/I&O/Wt Last Vital Signs Temp 103.0 F H 01/09/25 15:05 Pulse 115 H 01/09/25 17:45 Resp 22 H 01/09/25 16:25 BP 99/47 01/09/25 17:45 Pulse Ox 94 01/09/25 17:45 O2 Del Method Room Air 01/09/25 17:45 01/09/25 01/09/25 01/09/25 06:59 14:59 22:59 Intake Total 2839.58 / 2839.58 Balance 2839.58 / 2839.58 Weight last 48 hrs Weight 92.986 kg Physical Exam Const: COMMON NORMALS: no acute distress EXAM LIMITATIONS: altered mental status ORIENTATION/CONSCIOUSNESS: Yes awake, Yes confused and Yes patient obtunded; not oriented to person, not oriented to place and not oriented to time HENMT: COMMON NORMALS: normocephalic HEAD & SCALP: normocephalic Eye: COMMON NORMALS: Equal, round and reactive pupils present Neck/C-Spine: COMMON NORMALS: no JVD Lymph: LYMPHATIC: lymphedema Chest: COMMONS NORMALS: normal inspection of the chest Resp: COMMON NORMALS: normal respiratory effort, No retractions, No use of accessory muscles and clear to auscultation bilaterally AUSCULTATION: crackles and wheezes Cardio: COMMON NORMALS: regular rate, regular rhythm, S1 normal heart sound present and S2 normal heart sound present RATE: tachycardic RHYTHM: regular rhythm HEART SOUNDS: S1 normal heart sound present and S2 normal heart sound present GI: COMMON NORMALS: Normal to inspection, nondistended, normoactive bowel sounds present and Soft to palpation : COMMON NORMALS: Yes no CVA tenderness Extremity: COMMON NORMALS: no calf tenderness and no pedal edema Neuro: OTHER: Cannot do neurologic testing due to diffuse encephalopathy Skin: NARRATIVE SKIN EXAM: Sepsis examination, completed 01/09/2025 at 6:20 PM DP PT pulses diminished bilaterally, cap refill less than 2 seconds, mottling bilateral extremities Urinary Catheter Management: Chery: Cath Placed During This Visit: yes Reason for Continuing Indwelling Catheter: Accurate Measurement of Urinary Output in Critically Ill Patients Urinary Catheter Date of Insertion: 01/09/25 Data 01/09/25 15:20 01/09/25 15:20 Micro: Microbiology 01/09/25 15:30 Blood Culture - Preliminary Blood SPECIMEN COLLECTED 01/09/25 15:20 Blood Culture - Preliminary Blood SPECIMEN COLLECTED A&P Assessment and plan (1) Septic shock: (2) Tick borne fever: (3) Transaminitis: (4) Thrombocytopenia: (5) Elevated INR: (6) Hyponatremia: (7) Pneumonia: (8) Lactic acid acidosis: (9) Encephalopathy: Plan Septic shock - Etiology unclear - Potentially due to pneumonia, given CT abdomen findings - Potentially tickborne illness, given transaminitis, thrombocytopenia - She does report symptoms started when she had her iron infusions, possible blood borne infection after infusion? - Kernig's sign, Brudunski sign negative, but certainly is encephalopathic, meningitis could be playing a role given her immunocompromise state - Admit to ICU -Follow blood cultures, sputum cultures, urine cultures - Placed on Levophed - Patient MAP in the 65 - Status post sepsis bolus in the emergency room - Vancomycin, Zosyn Pneumonia - Seen on CT scan abdomen pelvis - She is on room air - Sputum culture - Blood culture - Vancomycin - Zosyn Tickborne illness -With thrombocytopenia, transaminitis - Could not find a tick on her but family reports recent tick bites - Tick panel - Start IV doxycycline Acute hyponatremia, monitor serum sodiums every 4 hours Hypokalemia, replace IV Acute on chronic anemia, monitor - LDH, haptoglobin, peripheral smear Lactic acidosis, likely secondary to sepsis Transaminitis - HIV, acute hep panel, liver ultrasound Acute encephalopathy - Neurochecks, NIH stroke scale - Possible meningitis? Vancomycin, Zosyn, Decadron - Will consider LP based on clinical progress - Also could be tickborne encephalitis Symptoms started after iron transfusion? - Possible blood-borne infection - Possible endocarditis, cardiac echo fullcode lovenox for dvt prophylaxis rerelatively contraindicated given thrombocytopenia PDMP PDMP Reviewed: Not Reviewed Attestations Medical Necessity Statement*: Patient requires hospitalization, inpatient, greater than 2 midnights for septic shock, acute encephalopathy, transaminitis, SHAWN, acute renal failure, Coding Level of Care Code Critical Care >/= 30 minutes Critical care time (in minutes): 45 The high probability of a clinically significant, sudden or life threatening deterioration, as referenced in this documentation, required my full and direct attention, intervention and personal management. The critical care time shown is in addition to time spent performing any reported separately billable procedures and includes the following: [x] Data and vital sign review and interpretation [x] Patient assessment, examination and intervention [x] Medication orders and management [x] Patient/Family updates as able [x] Care Coordination and Documentation. Diagnoses Septic shock A41.9; R65.21 Tick borne fever A93.8 Transaminitis R74.01 Thrombocytopenia D69.6 Elevated INR R79.1 Hyponatremia E87.1 Pneumonia J18.9 Lactic acid acidosis E87.20 Encephalopathy G93.40
--- NOTE | 2025-01-09 18:31 | CTR_ITS ---
PROCEDURE INFORMATION: Exam: CT Chest Without Contrast; Diagnostic Exam date and time: 01/09/2025 7:14 PM Age: 49 years old Clinical indication: Shortness of breath; Prior surgery; Surgery date: 6+ months; Surgery type: Gb; SOB with hypoxia and sepsis. RT central line in place. TECHNIQUE: Imaging protocol: Diagnostic computed tomography of the chest without contrast. Radiation optimization: All CT scans at this facility use at least one of these dose optimization techniques: automated exposure control; mA and/or kV adjustment per patient size (includes targeted exams where dose is matched to clinical indication); or iterative reconstruction. COMPARISON: CR (CHEST, ) 01/09/2025 7:05 PM RADIATION DOSE METRICS: Total DLP (mGy-cm): 472.47 FINDINGS: Tubes, catheters and devices: There is a right jugular venous catheter with tip in the right atrium. Lungs: Patchy multifocal alveolar opacities present throughout the left and right lung. Pleural spaces: Unremarkable. No pneumothorax. No pleural effusion. Heart: Unremarkable. No cardiomegaly. No pericardial effusion. Coronary arteries: No significant coronary artery calcification appreciated. Lymph nodes: Unremarkable. No enlarged lymph nodes. Vasculature: Unremarkable. No aortic aneurysm. Bones/joints: Unremarkable. No acute fracture. Soft tissues: Unremarkable. Other findings: Incompletely imaged hepatosplenomegaly. Examination limited by respiratory motion artifact. CT/CT chest wo con [id number] IMPRESSION: Bilateral patchy multifocal airspace disease concerning for multifocal pneumonia.
--- NOTE | 2025-01-09 18:31 | CTR_ITS ---
PROCEDURE INFORMATION: Exam: CT Head Without Contrast Exam date and time: 01/09/2025 7:11 PM Age: 49 years old Clinical indication: Altered mental status/memory loss; Lethargy with sepsis. ; Additional info: AMS TECHNIQUE: Imaging protocol: Computed tomography of the head without contrast. Radiation optimization: All CT scans at this facility use at least one of these dose optimization techniques: automated exposure control; mA and/or kV adjustment per patient size (includes targeted exams where dose is matched to clinical indication); or iterative reconstruction. COMPARISON: No relevant prior studies available. RADIATION DOSE METRICS: Total DLP (mGy-cm): 1055.51 FINDINGS: Brain: Normal. No hemorrhage. Unremarkable white matter. No mass effect. Cerebral ventricles: No ventriculomegaly. Paranasal sinuses: Visualized sinuses are unremarkable. No fluid levels. Mastoid air cells: Visualized mastoid air cells are well aerated. Bones: Unremarkable. No acute fracture. Soft tissues: Unremarkable. CT/CT head wo con* [id number] IMPRESSION: No acute intracranial abnormality.
[2025-01-09 18:34] LABS: Reticulocyte % 1.5 % (0.5-2.0)
[2025-01-09 18:40] LABS: Erythrocyte Sedimentation Rate 23 mm/hr (0-15); LAB Peripheral Smear Sent for Review
[2025-01-09] MEDS: lidocaine 1% 5 ML in potassium chloride premix 100 ML 26.25 ML IV (18:45)
[2025-01-09 18:48] LABS: HIV 1 & 2 Antibody Non-Reactive (Non-Reactiv); HIV 1 & 2 Antigen Non-Reactive (Non-Reactiv)
[2025-01-09 18:54] LABS: Thyroid Stimulating Hormone 1.78 uIU/mL (0.27-4.20)
[2025-01-09 19:04] LABS: Reflex FDPQ test REFLEX FDP QUEST TES
[2025-01-09 19:05] LABS: C Reactive Protein 43.7 mg/L (0.0-4.9); Iron 29 ug/dL (37-145); Lactate Dehydrogenase 671 U/L (135-214); Lipase 189 U/L (13-60); Sodium 125 mmol/L (136-145)
--- NOTE | 2025-01-09 19:05 | XRR_ITS ---
PROCEDURE INFORMATION: Exam: XR Chest Exam date and time: 01/09/2025 7:05 PM Age: 49 years old Clinical indication: Other vascular access device placement or adjustment; Central line, non-tunnelled; Central line confirmation; Additional info: Central line placement TECHNIQUE: Imaging protocol: Radiologic exam of the chest. Views: 1 view. COMPARISON: CR (CHEST, ) 01/09/2025 4:03 PM FINDINGS: Tubes, catheters and devices: There is a new right-sided venous catheter with tip in the region of the right atrium. Lungs: Patchy bilateral multifocal alveolar opacities present. Pleural spaces: Unremarkable. No pleural effusion. No pneumothorax. Heart/Mediastinum: Unremarkable. No cardiomegaly. Bones/joints: Unremarkable. XR/XR chest 1V portable [id number] IMPRESSION: 1. Right-sided venous catheter as detailed. 2. Multifocal airspace disease.
[2025-01-09 19:18] LABS: Ferritin 1149 ng/mL (15-150)
[2025-01-09 19:25] LABS: Partial Thromboplastin Time 57.6 SECONDS (23.9-36.7)
[2025-01-09 19:26] LABS: Fibrinogen 212 mg/dL (174-498)
[2025-01-09 19:27] LABS: INR 2.99 (0.8-1.2)
[2025-01-09 19:28] LABS: Gamma Glutamyl Transferase 27 U/L (5-36)
[2025-01-09 19:28] LABS: D Dimer 2.73 ug/mLFEU (0-0.59)
[2025-01-09 19:29] LABS: Troponin(5th) Baseline 13 ng/L (0-10)
[2025-01-09 19:31] LABS: Lactic Acid level (Lactate) 3.3 mmol/L (0.5-2.2)
[2025-01-09 19:44] LABS: ABG PCO2 24.8 mmHg (35-45); ABG PH Result 7.48 (7.35-7.45); Arterial Blood Gas Hematocrit 25.4 % (37-47); Base Excess ABG -4.4 mmol/L (-2.0-2.0); Blood Gas Allen Test Pos; Blood Gas Operator Identificat gerca; Blood Gas Sample Site Radial, left; Blood Gas Sample Type Arterial; HCO3 ABG 18.3 mmol/L (22-26); Oxygen Device ROOM AIR; PO2 FiO2 Ratio Arterial Blood 342
--- NOTE | 2025-01-09 20:20 | ECG_ITS ---
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
[2025-01-09] MEDS: dexamethasone 10 mg/mL INJ IVP (20:24)
[2025-01-09] MEDS: doxycycline 100 MG in sodium chloride 0.9% (plus) 100 ML IV (20:24)
[2025-01-09 20:49] LABS: Troponin 5 2HR 15.85 ng/L (0-10); Troponin 5 2HR Delta 2.85 ABS# (0-10)
[2025-01-09] MEDS: albumin 25 G/100 ML BAG 60 G IV (22:04)
[2025-01-09] MEDS: famotidine 20 mg/2 mL INJ IVP (22:04)
[2025-01-09 23:26] LABS: MRSA PCR OZH (swab) NOT DETECTED (Not Detecte)
[2025-01-09] MEDS: sodium chlor 0.9% + KCl 40 mEq 40 MEQ/1,000 ML BAG 250 MEQ IV (23:28)
[2025-01-10] VITALS (86 sets, daily range): BP systolic 93–154; BP diastolic 45–71; PULSE 76–123; RESP 15–37; TEMP 36.3–36.9; O2SAT 91–100
--- NOTE | 2025-01-10 00:40 | P.PN_ITS ---
Subjective 2 Subjective: Called to evaluate patient with altered mental status, possible septic picture and severe electrolyte abnormalities patient had IV and oral potassium in the ER but last several hours in the ICU had been withdrawn and nearly obtunded. On my evaluation she is answering questions and tells me that she has some abdominal pain worse than usual. She has had headache and pain in her neck but not really stiffness. Patient has history of lupus and Crohn's disease. She tells me she has had 5 abdominal surgeries Patient noted to develop while in my presence SVT with heart rate 170. This was treated with 9 mg of adenosine to sinus tachycardia Vitals/I&O/Wt Last Vital Signs Temp 98.8 F 01/09/25 19:40 Pulse 114 H 01/10/25 00:15 Resp 28 H 01/10/25 00:15 BP 119/51 01/10/25 00:15 Pulse Ox 94 01/10/25 00:15 O2 Del Method Room Air 01/09/25 23:38 01/09/25 01/09/25 01/10/25 14:59 22:59 06:59 Intake Total 3639.58 / 3639.58 Balance 3639.58 / 3639.58 Weight last 48 hrs Weight 96.5 kg Weight 92.986 kg Physical Exam 2 Narrative: General well-developed chronically ill-appearing female in no acute cardiopulmonary distress CV regular rhythm tachycardic Lungs clear to auscultation bilaterally Abdomen diminished bowel tones soft tender mostly in the right abdomen. Negative for rebound Calves skin turgor diminished Urinary Catheter Management: Chery: Cath Placed During This Visit: yes Reason for Continuing Indwelling Catheter: Accurate Measurement of Urinary Output in Critically Ill Patients Urinary Catheter Date of Insertion: 01/09/25 Data 01/09/25 15:20 01/09/25 15:20 Micro: Microbiology 01/09/25 15:30 Blood Culture - Preliminary Blood SPECIMEN COLLECTED 01/09/25 15:20 Blood Culture - Preliminary Blood SPECIMEN COLLECTED A&P Assessment and plan (1) Septic shock: Last sodium 125 potassium 2.6 this was at 1500. Will draw new labs including magnesium and phosphorus. Replace with sodium chloride +40 mg potassium chloride per liter at 250 cc an hour for [address] with contrast scan of the abdomen with abdominal pain history of Crohn's and elevated lipase and LFTs. Pancreas read as normal (2) Tick borne fever: Suspected tickborne fever with thrombocytopenia and elevated LFTs elevated sed rate (3) Transaminitis: As above consider CT scan of the abdomen (4) Thrombocytopenia: Platelet count 30 heparin stopped (5) Elevated INR: INR 2.99 (6) Hyponatremia: Saline bolus as above consider hypertonic saline though mentation has cleared (7) Pneumonia: Continue with antibiotics (8) Lactic acid acidosis: Repeat lactic acid pending (9) Encephalopathy: Improved (10) Hypokalemia: Aggressive replacement and check magnesium level (11) SVT (supraventricular tachycardia): This was treated successfully with adenosine 9 mg PDMP PDMP Reviewed: Not Reviewed Attestations 2 Medical Necessity Statement*: Patient is critically ill and will require greater than 2 additional midnights in hospital Coding Level of Care Code Critical Care >/= 30 minutes Diagnoses Septic shock A41.9; R65.21 Tick borne fever A93.8 Transaminitis R74.01 Thrombocytopenia D69.6 Elevated INR R79.1 Hyponatremia E87.1 Pneumonia J18.9 Lactic acid acidosis E87.20 Encephalopathy G93.40 Hypokalemia E87.6 SVT (supraventricular tachycardia) I47.10 Time Spent (min) 45
[2025-01-10] MEDS: adenosine 3 mg/mL SDV 2mL 9 MG IVP (00:45)
[2025-01-10] MEDS: dexamethasone 10 mg/mL INJ IVP ×5 (00:45→23:50)
[2025-01-10] MEDS: piperacillin-tazobactam 3.375 GM in sodium chloride 0.9% (plus) 50 ML IV ×4 (00:46→23:51)
[2025-01-10] MEDS: morphine 4 mg/mL SDV 1 mL 2 MG IVP ×2 (00:46→20:37)
[2025-01-10 00:57] LABS: Chol HDL Ratio 5.33 mg/dL (0.0-4.40); Cholesterol 32 mg/dL (0-200); HDL Cholesterol 6 mg/dL (60-100); LDL Cholesterol Calculated 10 mg/dL (50-129); LDL HDL Ratio 1.67 RATIO (0.00-3.22); Sodium 129 mmol/L (136-145); Triglycerides 81 mg/dL (0-150)
[2025-01-10 00:58] LABS: Amphetamines Screen Urine Negative (Negative); Barbiturates Screen Urine Negative (Negative); Benzodiazepines Screen Urine Negative (Negative); Cocaine Screen Urine Negative (Negative); Opiate Screen Urine Positive (Negative); PCP Screen Urine Negative (Negative); THC Screen Urine Negative (Negative)
[2025-01-10 01:36] LABS: Basophils % 0.2 %; Hematocrit 22.2 % (36-47); Lymphocytes # 1.6 10^3/uL (0.8-4.8); Lymphocytes % 32.2 %; Mean Corpuscular HGB Conc 31.1 g/dL (30-55); Mean Corpuscular Hemoglobin 20.6 pg (27-33); Mean Corpuscular Volume 66.3 fl (85-98); Monocytes # 0.2 10^3/uL (0.2-0.9); Monocytes % 3.7 %; Neutrophils # 3.05 10^3/uL (1.8-7.7); Neutrophils % 62.7 %; Nucleated Red Blood Cells % 0 %; Platelet Count 45 10^3/cmm (157-399); Red Blood Count 3.35 10^6/uL (3.85-5.65); Red Cell Distribution Width 24.7 % (12.1-15.1); White Blood Count 4.87 10^3/uL (3.29-11.43)
[2025-01-10 01:59] LABS: Alanine Aminotransferase 76 U/L (0-33); Albumin Level 2.6 g/dL (3.5-5.2); Alkaline Phosphatase 92 U/L (35-105); Aspartate Amino Transferase 234 U/L (0-32); Blood Urea Nitrogen 7 mg/dL (6-20); Calcium 6.8 mg/dL (8.5-10.5); Carbon Dioxide 15 mmol/L (22-29); Chloride 98 mmol/L (98-107); Creatinine Clr Calc Pharmacy 125.0677; Globulin 2.3 g/dL (1.3-4.6); Glomerular Filtration Rate 105.4 mL/min (90-130); Glucose 81 mg/dL (65-115); Lactic Sepsis W/Reflex 3.1 mmol/L (0.5-2.2); Osmolality Calculated 265 mOsm/kg (285-295); Sodium 129 mmol/L (136-145); Total Bilirubin 1.7 mg/dL (0.15-1.2); Total Protein 4.9 g/dL (6.6-8.7)
[2025-01-10 02:02] LABS: Troponin 5 6HR 15.37 ng/L (0-10); Troponin 5 6HR Delta 2.37 ng/L (0-12)
[2025-01-10] MEDS: potassium chloride ER 20 mEq Tablet 40 MEQ PO (02:05)
[2025-01-10 02:08] LABS: Anion Gap 19.6 (5-19); Potassium 3.6 mmol/L (3.5-5.1)
--- NOTE | 2025-01-10 02:11 | XRR_ITS ---
PROCEDURE INFORMATION: Exam: XR Chest Exam date and time: 01/10/2025 2:11 AM Age: 49 years old Clinical indication: Other vascular access device placement or adjustment; Central line, non-tunnelled; Prior surgery; Surgery date: 6+ months; Surgery type: Gb; Check S/P retraction of RT central line. ; Additional info: Placement verify TECHNIQUE: Imaging protocol: Radiologic exam of the chest. Views: 1 view. COMPARISON: CT chest [facility] [id number] 01/09/2025 7:14 PM FINDINGS: Tubes, catheters and devices: Right-sided venous catheter with tip in the region of the low SVC. Lungs: Continued subtle patchy alveolar opacities noted throughout the lungs. Pleural spaces: Unremarkable. No pleural effusion. No pneumothorax. Heart/Mediastinum: The heart is stable in size. Bones/joints: Unremarkable. XR/XR chest 1V portable [id number] IMPRESSION: Right-sided venous catheter as detailed.
[2025-01-10 02:12] LABS: NT Pro B Type Natriuretic Pept 482 pg/mL (0-125); Procalcitonin 0.69 ng/mL (0-0.5)
[2025-01-10] MEDS: adenosine 3 mg/mL SDV 2mL 6 MG IVP (02:14)
[2025-01-10 02:24] LABS: Magnesium 1.5 mg/dL (1.7-2.3); Phosphorus 1.5 mg/dL (2.5-4.5)
[2025-01-10 02:28] LABS: Slide Review Slide Review Perform
[2025-01-10 02:29] LABS: Creatine Phosphokinase 339 U/L (26-192)
--- NOTE | 2025-01-10 02:35 | PC.NURSE ---
Patient came to ICU unit with central line placed. When drawing blood from line patient went into SVT with heart rate ranging from 175-185. Pads placed on patient and Dr. Joens at bedside ordered 9 of adenosine. Patient responded well and Heart rate went back to 90's. More labs were ordered and upon pulling second blood draw, patient then went into SVT again. 6 of adenosine ordered and also successful. Dr. Jones reviewed xray and pulled line back 6 cm. Line flushed and drawn from with no issues. new xray obtained for verification.
[2025-01-10 03:17] LABS: Reflex Lactate Order REFLEX LACTIC ORDERD
[2025-01-10 03:36] LABS: Adenovirus Not Detected (NOT DETECT); Chlamydia Pneumoniae Not Detected (NOT DETECT); Coronavirus 229E,HKU1,NL63,OC4 Not Detected (NOT DETECT); Human Metapneumovirus Not Detected (NOT DETECT); Human Rhinovirus/Enterovirus Not Detected (NOT DETECT); Influenza A Not Detected (NOT DETECT); Influenza A H1 Not Detected (NOT DETECT); Influenza A H1-2009 Not Detected (NOT DETECT); Influenza A H3 Not Detected (NOT DETECT); Influenza B Not Detected (NOT DETECT); Mycoplasma Pneumoniae Not Detected (NOT DETECT); Parainfluenza Virus Type 1 Not Detected (NOT DETECT); Parainfluenza Virus Type 2 Not Detected (NOT DETECT); Parainfluenza Virus Type 3 Not Detected (NOT DETECT); Parainfluenza Virus Type 4 Not Detected (NOT DETECT); Respiratory Syncytial Virus A Not Detected (NOT DETECT); Respiratory Syncytial Virus B Not Detected (NOT DETECT); SARS-COV-2 Not Detected (NOT DETECT)
[2025-01-10] MEDS: albumin 25 G/100 ML BAG 60 G IV ×3 (03:45→20:30)
[2025-01-10] MEDS: sodium chlor 0.9% + KCl 40 mEq 40 MEQ/1,000 ML BAG 250 MEQ IV (04:04)
[2025-01-10] MEDS: magnesium sulfate premix 4 GM/100 ML PREMIX IV (04:28)
[2025-01-10 04:39] LABS: Estmated Average Glucose 97
[2025-01-10 04:56] LABS: Basophils % 0.4 %; Hematocrit 21.6 % (36-47); Lymphocytes # 1.7 10^3/uL (0.8-4.8); Lymphocytes % 36.6 %; Mean Corpuscular Hemoglobin 20.7 pg (27-33); Mean Corpuscular Volume 66.9 fl (85-98); Monocytes # 0.1 10^3/uL (0.2-0.9); Monocytes % 2.8 %; Neutrophils # 2.72 10^3/uL (1.8-7.7); Neutrophils % 58.9 %; Nucleated Red Blood Cells % 0 %; Platelet Count 42 10^3/cmm (157-399); Red Blood Count 3.23 10^6/uL (3.85-5.65); Red Cell Distribution Width 24.6 % (12.1-15.1); White Blood Count 4.62 10^3/uL (3.29-11.43)
[2025-01-10 05:07] LABS: INR 3.54 (0.8-1.2)
--- NOTE | 2025-01-10 05:10 | ECG_ITS ---
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1975 Requested By: Chin Viera Order Number: [id number] Renaldo MD: MICKEY FERGUSON Measurements Intervals [place] Rate: 111 P: 82 ME: 151 QRS: -9 QRSD: 108 T: 52 QT: 371 QTc: 506 Interpretive Statements SINUS TACHYCARDIA POSSIBLE LEFT ATRIAL ENLARGEMENT [-0.1mV P-WAVE IN V1/V2] MINIMAL ST DEPRESSION [0.025+ mV ST DEPRESSION] ABNORMAL RHYTHM ECG Compared to ECG 01/09/2025 22:39:56 ST (T wave) deviation now present T-wave abnormality no longer present Electronically Signed On 01-13-2025 23:02:12 CDT by MICKEY FERGUSON [email or web address]
[2025-01-10 05:17] LABS: Alanine Aminotransferase 70 U/L (0-33); Albumin Level 2.6 g/dL (3.5-5.2); Alkaline Phosphatase 112 U/L (35-105); Aspartate Amino Transferase 215 U/L (0-32); Blood Urea Nitrogen 7 mg/dL (6-20); C Reactive Protein 41.5 mg/L (0.0-4.9); Calcium 6.8 mg/dL (8.5-10.5); Carbon Dioxide 17 mmol/L (22-29); Creatinine Clr Calc Pharmacy 125.0677; Globulin 2.5 g/dL (1.3-4.6); Glomerular Filtration Rate 105.4 mL/min (90-130); Glucose 89 mg/dL (65-115); Magnesium 1.5 mg/dL (1.7-2.3); Phosphorus 1.4 mg/dL (2.5-4.5); Total Bilirubin 1.7 mg/dL (0.15-1.2); Total Protein 5.1 g/dL (6.6-8.7)
[2025-01-10 05:25] LABS: Lactic Acid level (Lactate) 2.6 mmol/L (0.5-2.2)
[2025-01-10] MEDS: vancomycin 1,250 MG/250 ML PIGGYBACK 166.67 MG IV (05:38)
[2025-01-10 05:40] LABS: Hepatitis A Antibody IgM Non-Reactive (Nonreactive); Hepatitis B Core IgM Non-Reactive (Nonreactive); Hepatitis B Surface Antigen Non-Reactive (Nonreactive); Hepatitis C Virus Antibody Non-Reactive (Nonreactive)
[2025-01-10 05:53] LABS: Chloride 100 mmol/L (98-107); Osmolality Calculated 267 mOsm/kg (285-295); Sodium 130 mmol/L (136-145)
[2025-01-10] MEDS: doxycycline 100 MG in sodium chloride 0.9% (plus) 100 ML IV ×2 (06:03→17:35)
[2025-01-10 06:21] LABS: Slide Review Slide Review Perform
[2025-01-10 08:32] LABS: Sodium 131 mmol/L (136-145)
[2025-01-10] MEDS: levothyroxine 100 mcg SDV 25 MCG IVP (08:38)
[2025-01-10] MEDS: famotidine 20 mg/2 mL INJ IVP ×2 (08:39→20:31)
[2025-01-10] MEDS: potassium phosphate (mMol PO4) 30 MMOL in sodium chloride 0.9% (100 ml) 100 ML 25 MMOL IV (08:50)
--- NOTE | 2025-01-10 09:43 | PHA.VACGOAL ---
Vancomycin Goal - Goal Vancomycin Goal:: 15-20 mg/L Vancomycin Indication:: Other (SEPSIS) - Therapy Current therapy:: Pip/Tazo Day of therpy:: Day [1]of [] . Actual body weight (kg): 101 kg - Data Labs: WBC 4.62 10^3/uL (3.29-11.43) 01/10/25 04:00 RBC 3.23 10^6/uL (3.85-5.65) L 01/10/25 04:00 Hgb 6.70 g/dL (11.27-16.99) L 01/10/25 04:00 Hct 21.6 % (36-47) L 01/10/25 04:00 MCV 66.9 fl (85-98) L 01/10/25 04:00 MCH 20.7 pg (27-33) L 01/10/25 04:00 MCHC 31.0 g/dL (30-55) 01/10/25 04:00 RDW 24.6 % (12.1-15.1) H 01/10/25 04:00 Sodium 131 mmol/L (136-145) L 01/10/25 07:51 Potassium 4.0 mmol/L (3.5-5.1) 01/10/25 04:00 Chloride 100 mmol/L (98-107) 01/10/25 04:00 Carbon Dioxide 17 mmol/L (22-29) L 01/10/25 04:00 Anion Gap 17.0 (5-19) 01/10/25 04:00 BUN 7 mg/dL (6-20) 01/10/25 04:00 Creatinine 0.6 mg/dL (0.5-0.9) 01/10/25 04:00 GFR Calculation 105.4 mL/min (90-130) 01/10/25 04:00 Treatment plan:: new consult Regimen:: New start vancomycin for sepsis. Load dose of 1500 mg given in ER. Started on maintenance dose of 1250 mg q12h received one dose @0530. Due to improvement in renal function dose adjusted to 1500 mg q12h.
[2025-01-10] MEDS: acyclovir 1,000 MG in sodium chloride 0.9% 250 ML 270 MG IV ×2 (11:57→20:30)
--- NOTE | 2025-01-10 13:30 | P.PN_ITS ---
Subjective 2 Subjective: - Overnight events noted - Patient was seen this morning she is a lert to person, not to place, not to time she can follow commands - She is much more alert awake - She does report tick bites, denies any neck pain, no chest pain, no shortness of breath, does have abdominal pain complaints, denies drug use - Does have a cough, - Had a discussion with patient's iraida bingham about patient's clinical status Vitals/I&O/Wt Last Vital Signs Temp 98 F 01/10/25 12:00 Pulse 104 H 01/10/25 12:15 Resp 31 H 01/10/25 12:15 BP 125/58 01/10/25 12:15 Pulse Ox 97 01/10/25 12:15 O2 Del Method Room Air 01/09/25 23:38 01/09/25 01/10/25 01/10/25 22:59 06:59 14:59 Intake Total 3639.58 / 3639.58 1430 / 5069.58 1605 / 1605 Output Total 1700 / 1700 Balance 3639.58 / 3639.58 -270 / 3369.58 1605 / 1605 Weight last 48 hrs Weight 101 kg Weight 96.5 kg Weight 92.986 kg Physical Exam 2 Const: COMMON NORMALS: no acute distress EXAM LIMITATIONS: altered mental status ORIENTATION/CONSCIOUSNESS: Yes awake, Yes oriented to person and Yes confused; not oriented to place and not oriented to time Eye: OTHER: Pupils equal round reactive to light Neck/C-Spine: OTHER: Oral lesions seen, on the roof of the mouth, herpetic like lesions Lymph: OTHER: # Cervical lymphadenopathy Resp: COMMON NORMALS: normal respiratory effort, No retractions and No use of accessory muscles AUSCULTATION: crackles and wheezes Cardio: COMMON NORMALS: regular rate, regular rhythm, S1 normal heart sound present and S2 normal heart sound present RATE: regular rate RHYTHM: r egular rhythm HEART SOUNDS: S1 normal heart sound present and S2 normal heart sound present GI: COMMON NORMALS: Normal to inspection, nondistended, normoactive bowel sounds present and non-tender Extremity: COMMON NORMALS: no pedal edema Neuro: SENSORIUM/ORIENTATION: Yes oriented to person, No oriented to place and No oriented to time Skin: NARRATIVE SKIN EXAM: No visible tics OTHER: Sepsis examination, done 01/10/2025 at 9 AM, DP PT pulses are palpable, cap refill less than 2 seconds, no mottling Urinary Catheter Management: Chery: Cath Placed During This Visit: yes Reason for Continuing Indwelling Catheter: Accurate Measurement of Urinary Output in Critically Ill Patients Urinary Catheter Date of Insertion: 01/09/25 Data 01/10/25 13:26 01/10/25 07:51 Micro: Microbiology 01/09/25 15:50 Urine Culture - Preliminary Urine,Clean Catch 01/09/25 15:30 Blood Culture - Preliminary Blood SPECIMEN COLLECTED 01/09/25 15:20 Blood Culture - Preliminary Blood SPECIMEN COLLECTED A&P Assessment and plan (1) Septic shock: (2) Tick borne fever: (3) Transaminitis: (4) Thrombocytopenia: (5) Elevated INR: (6) Hyponatremia: (7) Pneumonia: (8) Lactic acid acidosis: (9) Encephalopathy: (10) Herpetic lesion: (11) SVT (supraventricular tachycardia): (12) Acute anemia: Plan Septic shock -Immunocompromise state on Stelara - Etiology -Multifactorial from multifocal pneumonia seen on CT chest - Potentially tickborne illness, given transaminitis, thrombocytopenia - She does report symptoms started when she had her iron infusions, possible blood borne infection after infusion? - Kernig's sign, Brudunski sign negative, but certainly is encephalopathic, meningitis could be playing a role given her immunocompromise state - Admit to ICU -Follow blood cultures, sputum cultures, urine cultures - Currently off Levophed - Patient MAP in the 65 - Status post sepsis bolus in the emergency room - Vancomycin, Zosyn Multifocal pneumonia CT chest - CT/CT chest wo con [id number] IMPRESSION: Bilateral patchy multifocal airspace disease concerning for multifocal pneumonia. - She is on room air - Sputum culture - Blood culture - Vancomycin - Zosyn - Given that she is on Stelara, will do fungal workup, Aspergillus, histo, blasto, coccidioidomycosis, PCP Tickborne illness -With thrombocytopenia, transaminitis - Could not find a tick on her but family reports recent tick bites - Tick panel - IV doxycycline Oral herpetic like lesions - The roof of her mouth - History of immunocompromise state on Stelara - Start IV acyclovir Acute hyponatremia, monitor serum sodiums every 4 hours Hypokalemia, hypophosphatemia, hypomagnesemia replace overnight Acute on chronic anemia, -Receiving 2 units PRBC - LDH 671, haptoglobin 98, peripheral smear Lactic acidosis, likely secondary to sepsis Transaminitis - HIV within normal limits, acute hep panel within normal limits, liver ultrasound hepatic steatosis Acute encephalopathy - Neurochecks, NIH stroke scale - Possible meningitis? Vancomycin, Zosyn, for now continue Decadron - Will consider LP based on clinical progress - Also could be tickborne encephalitis Symptoms started after iron transfusion? - Possible blood-borne infection -Follow blood cultures - Possible endocarditis, cardiac echo no significant valvular vegetations seen fullcode lovenox for dvt prophylaxis rerelatively contraindicated given thrombocytopenia, anemia PDMP PDMP Reviewed: Not Reviewed Attestations 2 Medical Necessity Statement*: Patient requires hospitalization for pneumonia, septic shock, tickborne illness, acute hyponatremia acute anemia, acute thrombocytopenia, acute encephalopathy Diagnoses Septic shock A41.9; R65.21 Tick borne fever A93.8 Transaminitis R74.01 Thrombocytopenia D69.6 Elevated INR R79.1 Hyponatremia E87.1 Pneumonia J18.9 Lactic acid acidosis E87.20 Encephalopathy G93.40 Herpetic lesion B00.9 SVT (supraventricular tachycardia) I47.10 Acute anemia D64.9
[2025-01-10 14:00] LABS: Sodium 131 mmol/L (136-145)
--- NOTE | 2025-01-10 16:28 | PC.PHAR ---
Addendum entered by Lashanda Fitch 01/11/25 16:20: Pt gets medications through [facility] [phone] ( for Life) Pts tramadol 50mg tid 90day supply 12/24/24 #240 delivered, and Lyrica 150mg bid 90day supply #180 delivered. Original Note: Patient states she is taking some medications listed. Some patient wasn't sure of. I called [facility] listed on Profile and Lucas has no medication current for patient. I also phoned [facility],since that is who Patient stats she uses. I spoke to multiple people and they couldn't Verfy with me ,since the address and Phone number didn't match what they had on file .
[2025-01-10] MEDS: vancomycin 1,500 MG/300 ML PIGGYBACK 200 MG IV (16:50)
[2025-01-10] MEDS: water for injection-sterile 10 ML 10000 ML (16:51)
--- NOTE | 2025-01-10 18:19 | USR_ITS ---
PROCEDURE INFORMATION: Exam: US Abdomen, Limited; Right Upper Quadrant Exam date and time: 01/10/2025 8:54 AM Age: 49 years old Clinical indication: Condition or disease; Liver condition; Other: Tranamnitis; Prior surgery; Surgery date: 6+ months; Surgery type: Unsure of dates. Patient had gb removed and has history of multiple colon surgeries TECHNIQUE: Imaging protocol: Real time ultrasound of the abdomen with image documentation. Limited exam focused on the right upper quadrant. COMPARISON: CT abdomen pelvis con [id number] 01/09/2025 4:15 PM FINDINGS: Liver: Hepatic steatosis. No masses. Liver span is 17 cm. Gallbladder: Cholecystectomy. Biliary ducts: Normal. No stones. CBD 6 mm. Pancreas: Not visible due to bowel gas.. Right kidney: Normal. No mass. No hydronephrosis. 3.9 cm x 4.5 cm x 12 cm US/US liver [id number] IMPRESSION: 1. No acute findings. 2. Hepatic steatosis. 3. Status post cholecystectomy
--- NOTE | 2025-01-10 18:19 | PC.NURSE ---
2 units of blood transfused today some confusion at times but more awake, has had lg soft bm ramon in color linen change and jaycee care done here and talked with doctor about status at this time small amts of thicken liquids taken
[2025-01-10 18:28] LABS: Sodium 130 mmol/L (136-145)
--- NOTE | 2025-01-10 18:31 | USCV_ITS ---
Raghavendra Lilian Age: 49 Gender: F : 1975 Exam Date: 01/10/2025 09:15 Ordering Phys: Chin Viera MD Technologist: Tito Clark Exam Location[place] [facility] [place]ication: edocarditis BP: 131 / 63 HR: 108 Rhythm: Sinus Technical Quality: Adequate MEASUREMENTS (Male / Female) Normal Values 2D ECHO LV Diastolic Diameter PLAX 4.0 cm 4.2 - 5.9 / 3.9 - 5.3 cm IVS Diastolic Thickness 1.0 cm 0.6 - 1.0 / 0.6 - 0.9 cm IVS Systolic Thickness 1.3 cm LVPW Diastolic Thickness 2.1 cm 0.6 - 1.0 / 0.6 - 0.9 cm LVPW Systolic Thickness 2.3 cm LVOT Diameter 2.0 cm LV Ejection Fraction 2D Teich 68.3 % LV Ejection Fraction MOD 4C 78.4 % LV Ejection Fraction MOD 2C 68.3 % LV Ejection Fraction 2C AL 67.2 % LA Diameter 3.4 cm RA Systolic Volume 4C AL 50.4 ml RA Systolic Volume 4C MOD 49.2 ml LA Sys Volume AL 60.3 cm cubed LA Sys Volume Index AL 27.6 cm cubed/m squared Aorta at Sinotubular Diameter 2.0 cm IVC Diameter 2.0 cm M-MODE LA Ao Ratio MM 1.2 AV Cusp Separation MM 1.9 cm DOPPLER AV Peak Velocity 251.3 cm/s LVOT Peak Velocity 167.0 cm/s AV Area Cont Eq vti 2.5 cm squared AV Area Cont Eq pk 2.2 cm squared MV Peak Velocity 118.0 cm/s MV Area PHT 6.9 cm squared Mitral E to A Ratio 1.0 TV Peak Velocity 370.5 cm/s TR Peak Velocity 437.0 cm/s TR Peak Gradient 76.4 mmHg TR Mean Velocity 347.0 cm/s TR Mean Gradient 50.5 mmHg TR Velocity Time Integral 86.8 cm PV Peak Velocity 219.0 cm/s RV Ejection Time 0.3 s FINDINGS Left Ventricle Left ventricle is normal size. LV systolic function is normal with EF of 60-65%. No regional wall abnormalities are seen. Right Ventricle Normal in size and function Right Atrium Normal in size Left Atrium Dilated Mitral Valve Structurally normal valve. Trace mitral regurgitation. Aortic Valve Grossly normal. Mild aortic stenosis with mean gradient of 12 mmHg Tricuspid Valve Mild tricuspid regurgitation. RVSP is 35-40 mmHg. This is consistent with mild pulmonary hypertension. Pulmonic Valve Not well visualized. Pericardium Normal Aorta Normal in size IVC Appears to be normal CONCLUSIONS LV systolic function is normal with EF of 60-65% Left atrial dilation Trace mitral regurgitation Mild aortic stenosis Mild tricuspid regurgitation Mild pulmonary hypertension No comparison studies are available. Chandler Alaniz MD (Electronically Signed) Final Date: 10 January 2025 11:51 S
[2025-01-10 19:32] LABS: Hematocrit 25.3 % (36-47)
[2025-01-10 19:50] LABS: Sodium 131 mmol/L (136-145)
[2025-01-11] VITALS (98 sets, daily range): BP systolic 114–158; BP diastolic 60–115; PULSE 95–119; RESP 16–32; TEMP 36.6–37.2; O2SAT 74–100
[2025-01-11 00:21] LABS: Sodium 134 mmol/L (136-145)
[2025-01-11 03:21] LABS: Procalcitonin 0.54 ng/mL (0-0.5)
[2025-01-11 03:22] LABS: Creatine Phosphokinase 244 U/L (26-192); Sodium 135 mmol/L (136-145)
[2025-01-11] MEDS: acyclovir 1,000 MG in sodium chloride 0.9% 250 ML 270 MG IV ×3 (04:10→20:56)
[2025-01-11] MEDS: albumin 25 G/100 ML BAG 60 G IV ×2 (04:10→11:57)
[2025-01-11] MEDS: vancomycin 1,500 MG/300 ML PIGGYBACK 200 MG IV ×2 (04:10→15:05)
[2025-01-11 05:34] LABS: Basophils % 0.2 %; Hematocrit 22.5 % (36-47); Lymphocytes # 2.7 10^3/uL (0.8-4.8); Lymphocytes % 45.8 %; Mean Corpuscular HGB Conc 31.6 g/dL (30-55); Mean Corpuscular Hemoglobin 21.7 pg (27-33); Mean Corpuscular Volume 68.8 fl (85-98); Monocytes # 0.3 10^3/uL (0.2-0.9); Monocytes % 4.2 %; Neutrophils # 2.89 10^3/uL (1.8-7.7); Neutrophils % 48.3 %; Nucleated Red Blood Cells % 0 %; Platelet Count 60 10^3/cmm (157-399); Red Blood Count 3.27 10^6/uL (3.85-5.65); Red Cell Distribution Width 25.5 % (12.1-15.1); White Blood Count 5.98 10^3/uL (3.29-11.43)
[2025-01-11 05:56] LABS: Alanine Aminotransferase 49 U/L (0-33); Albumin Level 3.2 g/dL (3.5-5.2); Alkaline Phosphatase 78 U/L (35-105); Anion Gap 16.8 (5-19); Aspartate Amino Transferase 99 U/L (0-32); Blood Urea Nitrogen 8 mg/dL (6-20); C Reactive Protein 29.6 mg/L (0.0-4.9); Calcium 7.6 mg/dL (8.5-10.5); Carbon Dioxide 16 mmol/L (22-29); Chloride 107 mmol/L (98-107); Creatinine Clr Calc Pharmacy 153.8637; Globulin 2.4 g/dL (1.3-4.6); Glomerular Filtration Rate 130.1 mL/min (90-130); Glucose 125 mg/dL (65-115); INR 3.45 (0.8-1.2); Magnesium 2.5 mg/dL (1.7-2.3); Osmolality Calculated 282 mOsm/kg (285-295); Phosphorus 1.3 mg/dL (2.5-4.5); Potassium 3.8 mmol/L (3.5-5.1); Sodium 136 mmol/L (136-145); Total Bilirubin 2.1 mg/dL (0.15-1.2); Total Protein 5.6 g/dL (6.6-8.7)
[2025-01-11] MEDS: doxycycline 100 MG in sodium chloride 0.9% (plus) 100 ML IV ×2 (06:12→18:07)
[2025-01-11] MEDS: dexamethasone 10 mg/mL INJ IVP ×2 (06:12→11:58)
[2025-01-11 06:44] LABS: Slide Review Slide Review Perform
[2025-01-11] MEDS: levothyroxine 100 mcg SDV 25 MCG IVP (07:52)
[2025-01-11] MEDS: piperacillin-tazobactam 3.375 GM in sodium chloride 0.9% (plus) 50 ML IV ×2 (07:52→15:06)
[2025-01-11] MEDS: famotidine 20 mg/2 mL INJ IVP ×2 (07:52→20:57)
[2025-01-11] MEDS: potassium phosphate (mMol PO4) 30 MMOL in sodium chloride 0.9% (100 ml) 100 ML 25 MMOL IV ×2 (07:52→11:57)
[2025-01-11 11:37] LABS: C.Diff PCR (Lab) NEGATIVE (Negative)
--- NOTE | 2025-01-11 11:47 | PC.SOCIAL ---
IMM Updated Updated pt on IMM. No questions voiced. Provided pt a copy. Initialed, dated, & timed a copy & placed in chart.
[2025-01-11] MEDS: HYDROmorphone 0.5 MG/0.5 ML INJ IVP (12:46)
--- NOTE | 2025-01-11 16:08 | P.PN_ITS ---
Subjective 2 Subjective: -Patient seen this morning - She is alert to person, to place, not to time, she follows commands - Denies any fevers, chills, no cough - Has no abdominal pain complaints - Nursing staff actually found a [place] [address] [place] tick on patient's right chest which was removed - Patient PDMKendrick was seen, she is given tr amadol 90-day supply, 540 tablets which works up to 6 tabs a day - Confirm with patient's that cassy hartmann uses 100 mg of tramadol every 8 hours - Confirmed with patient's that she uses Lyrica 150 mg every 8 hours - Potentially patient has persistent enc ephalopathy could be from drug withdrawals, will resume her home medications Vitals/I&O/Wt Last Vital Signs Temp 99.0 F 01/11/25 12:00 Pulse 98 01/11/25 13:47 Resp 16 01/11/25 12:15 BP 123/70 01/11/25 12:15 Pulse Ox 100 01/11/25 12:00 O2 Del Method Room Air 01/11/25 04:00 01/11/25 01/11/25 01/11/25 06:59 14:59 22:59 Intake Total 720 / 4435 1040 / 1040 Output Total 1400 / 1700 Balance -680 / 2735 1040 / 1040 Weight last 48 hrs Weight 100.5 kg Weight 101 kg Weight 96.5 kg Physical Exam 2 Const: COMMON NORMALS: no acute distress ORIENTATION/CONSCIOUSNESS: Yes awake, Yes oriented to person and Yes oriented to place; not oriented to time Resp: COMMON NORMALS: normal respiratory effort, No retractions, No use of accessory muscles and clear to auscultation bilaterally AUSCULTATION: clear to auscultation bilaterally Cardio: COMMON NORMALS: regular rate, regular rhythm, S1 normal heart sound present and S2 normal heart sound present RATE: regular rate RHYTHM: r egular rhythm HEART SOUNDS: S1 normal heart sound present and S2 normal heart sound present GI: COMMON NORMALS: Normal to inspection, nondistended, normoactive bowel sounds present and non-tender Extremity: COMMON NORMALS: no pedal edema Neuro: SENSORIUM/ORIENTATION: Yes oriented to person, Yes oriented to place and No oriented to time Psych: COMMON NORMALS: mental status grossly normal Urinary Catheter Management: Chery: Cath Placed During This Visit: yes Reason for Continuing Indwelling Catheter: Accurate Measurement of Urinary Output in Critically Ill Patients Urinary Catheter Date of Insertion: 01/09/25 Data 01/11/25 04:30 01/11/25 04:30 Micro: Microbiology 01/09/25 15:50 Urine Culture - Final Urine,Clean Catch 01/09/25 15:30 Blood Culture - Preliminary Blood NEGATIVE TO DATE 01/09/25 15:20 Blood Culture - Preliminary Blood NEGATIVE TO DATE 01/10/25 12:05 Bacterial Antigens - Final Urine,Clean Catch A&P Assessment and plan (1) Septic shock: (2) Tick borne fever: (3) Transaminitis: (4) Thrombocytopenia: (5) Elevated INR: (6) Hyponatremia: (7) Pneumonia: (8) Lactic acid acidosis: (9) Encephalopathy: (10) Herpetic lesion: (11) SVT (supraventricular tachycardia): (12) Acute anemia: Plan Septic shock, resolving -Immunocompromise state on Stelara - Etiology -Multifactorial from multifocal pneumonia seen on CT chest - tickborne illness, given transaminitis, thrombocytopenia, tickborne encephalitis - She does report symptoms started when she had her iron infusions, possible blood borne infection after infusion? - Kernig's sign, Brudunski sign negative, but certainly is encephalopathic, meningitis could be playing a role given her immunocompromise state - Admit to ICU -Follow blood cultures, sputum cultures, urine cultures - Currently off Levophed - Patient MAP in the 65 - Status post sepsis bolus in the emergency room - Vancomycin, Zosyn Multifocal pneumonia CT chest - CT/CT chest wo con [id number] IMPRESSION: Bilateral patchy multifocal airspace disease concerning for multifocal pneumonia. - She is on room air - Sputum culture - Blood culture - Vancomycin - Zosyn - Given that she is on Stelara, will do fungal workup, Aspergillus, histo, blasto, coccidioidomycosis, PCP Tickborne illness -With thrombocytopenia, transaminitis -Potentially tickborne encephalitis - Tape was removed off patient 01/11/2025, [place] tick - Tick panel - IV doxycycline Oral herpetic like lesions - The roof of her mouth - History of immunocompromise state on Stelara - Start IV acyclovir Acute hyponatremia, resolving Hypokalemia, hypophosphatemia, hypomagnesemia Acute on chronic anemia, -Receiving 2 units PRBC, hemoglobin 7.1 - LDH 671, haptoglobin 98, peripheral smear Lactic acidosis, likely secondary to sepsis Transaminitis - HIV within normal limits, acute hep panel within normal limits, liver ultrasound hepatic steatosis Acute encephalopathy - Neurochecks, NIH stroke scale - Possible meningitis? unlikely - Will consider LP based on clinical progress - Also could be tickborne encephalitis -possible drug withdrawal, will resume Lyrica, resume tramadol Symptoms started after iron transfusion? - Possible blood-borne infection -Follow blood cultures - Possible endocarditis, cardiac echo no significant valvular vegetations seen fullcode lovenox for dvt prophylaxis rerelatively contraindicated given thrombocytopenia, anemia Plan IV antibiotics, resume home Lyrica, Ultram, monitor clinical status PDMP PDMP Reviewed: Last Reviewed 01/11/25 15:44 by Chin Viera MD Attestations 2 Medical Necessity Statement*: Patient requires hospitalization for acute encephalopathy, multifocal pneumonia, tickborne illness,, septic shock, transaminitis Diagnoses Septic shock A41.9; R65.21 Tick borne fever A93.8 Transaminitis R74.01 Thrombocytopenia D69.6 Elevated INR R79.1 Hyponatremia E87.1 Pneumonia J18.9 Lactic acid acidosis E87.20 Encephalopathy G93.40 Herpetic lesion B00.9 SVT (supraventricular tachycardia) I47.10 Acute anemia D64.9
[2025-01-11] MEDS: pregabalin 150 mg Capsule PO (16:53)
[2025-01-11 17:00] LABS: HSV 1 IGG Type Specific AB <0.90 index; HSV 2 IGG Type Specific AB <0.90 index
--- NOTE | 2025-01-11 21:35 | ECG_ITS ---
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 Measurements Intervals [place] Rate: 106 P: 73 [place]: 151 QRS: -4 QRSD: 113 T: 52 QT: 386 QTc: 515 Interpretive Statements SINUS TACHYCARDIA MODERATE INTRAVENTRICULAR CONDUCTION DELAY [110+ ms QRS DURATION] Compared to ECG 01/10/2025 05:10:44 Intraventricular conduction delay now present ST (T wave) deviation no longer present Electronically Signed On 01-12-2025 11:35:05 CDT by Chandler Alaniz M.D. [email or web address]
[2025-01-11] MEDS: TRAMadol 50 mg Tablet 100 MG PO (22:03)
[2025-01-12] VITALS (100 sets, daily range): BP systolic 97–161; BP diastolic 49–95; PULSE 79–128; RESP 16–101; TEMP 36.2–37.2; O2SAT 88–100
[2025-01-12] MEDS: pregabalin 150 mg Capsule PO ×3 (00:31→15:17)
[2025-01-12] MEDS: piperacillin-tazobactam 3.375 GM in sodium chloride 0.9% (plus) 50 ML IV ×3 (00:31→15:17)
[2025-01-12 03:00] LABS: Basophils % 0.2 %; Lymphocytes # 2.9 10^3/uL (0.8-4.8); Lymphocytes % 48.7 %; Mean Corpuscular HGB Conc 32.2 g/dL (30-55); Mean Corpuscular Hemoglobin 22.9 pg (27-33); Mean Corpuscular Volume 71.1 fl (85-98); Mean Platelet Volume 9.9 fL (7.4-10.4); Monocytes # 0.3 10^3/uL (0.2-0.9); Monocytes % 5.2 %; Neutrophils # 2.63 10^3/uL (1.8-7.7); Neutrophils % 44.4 %; Nucleated Red Blood Cells % 0 %; Platelet Count 69 10^3/cmm (157-399); Red Blood Count 2.53 10^6/uL (3.85-5.65); Red Cell Distribution Width 25.8 % (12.1-15.1); White Blood Count 5.93 10^3/uL (3.29-11.43)
[2025-01-12 03:16] LABS: INR 3.88 (0.8-1.2)
[2025-01-12 03:34] LABS: Alanine Aminotransferase 40 U/L (0-33); Albumin Level 3.3 g/dL (3.5-5.2); Alkaline Phosphatase 64 U/L (35-105); Anion Gap 14.7 (5-19); Aspartate Amino Transferase 70 U/L (0-32); Blood Urea Nitrogen 6 mg/dL (6-20); C Reactive Protein 14.3 mg/L (0.0-4.9); Calcium 7.9 mg/dL (8.5-10.5); Carbon Dioxide 18 mmol/L (22-29); Chloride 110 mmol/L (98-107); Creatinine Clr Calc Pharmacy 127.8695; Globulin 1.9 g/dL (1.3-4.6); Glomerular Filtration Rate 105.4 mL/min (90-130); Glucose 113 mg/dL (65-115); Magnesium 2.2 mg/dL (1.7-2.3); Osmolality Calculated 286 mOsm/kg (285-295); Phosphorus 1.7 mg/dL (2.5-4.5); Potassium 3.7 mmol/L (3.5-5.1); Sodium 139 mmol/L (136-145); Total Bilirubin 1.8 mg/dL (0.15-1.2); Total Protein 5.2 g/dL (6.6-8.7)
[2025-01-12 03:35] LABS: Creatine Phosphokinase 209 U/L (26-192); Lactate (Lactic Acid level) 1.9 mmol/L (0.5-2.2); Vancomycin Trough 14.9 ug/mL (10-15)
[2025-01-12 03:36] LABS: Procalcitonin 0.35 ng/mL (0-0.5)
[2025-01-12 03:57] LABS: Slide Review Slide Review Perform
[2025-01-12] MEDS: FUROsemide 10 mg/mL SDV 4mL 40 MG IVP (05:18)
[2025-01-12] MEDS: vancomycin 1,500 MG/300 ML PIGGYBACK 200 MG IV ×2 (05:34→15:17)
[2025-01-12] MEDS: acyclovir 1,000 MG in sodium chloride 0.9% 250 ML 270 MG IV ×3 (05:35→19:18)
[2025-01-12] MEDS: doxycycline 100 MG in sodium chloride 0.9% (plus) 100 ML IV ×2 (06:11→17:54)
[2025-01-12] MEDS: levothyroxine 100 mcg SDV 25 MCG IVP (07:47)
[2025-01-12] MEDS: TRAMadol 50 mg Tablet 100 MG PO ×3 (07:47→20:10)
[2025-01-12] MEDS: famotidine 20 mg/2 mL INJ IVP ×2 (07:47→20:10)
[2025-01-12 08:19] LABS: Lyme AB Screen <0.90 index
[2025-01-12] MEDS: HYDROmorphone 0.5 MG/0.5 ML INJ 0.25 MG IVP (10:26)
[2025-01-12] MEDS: FUROsemide 10 mg/mL SDV 2mL 20 MG IVP (14:02)
--- NOTE | 2025-01-12 15:16 | P.PN_ITS ---
Subjective 2 Subjective: Patient was seen this morning, she is much more alert to person, to place, not to time, she can follow commands, she tells me that she uses Lyrica 150 mg twice daily, but when she is in severe pain she increases it to 3 times daily and may be she tells me that she does that a few times a week, she does tell me that she uses tramadol 100 mg 3 times daily scheduled for her pain, she also uses mesalamine for her pain, without it she continues to have significant pain, denies any knowledge of liver dysfunction, no history of hemoptysis, Vitals/I&O/Wt Last Vital Signs Temp 98.9 F 01/12/25 15:01 Pulse 119 H 01/12/25 15:01 Resp 18 01/12/25 15:01 BP 153/95 01/12/25 15:01 Pulse Ox 95 01/12/25 14:44 O2 Del Method Room Air 01/11/25 04:00 01/12/25 01/12/25 01/12/25 06:59 14:59 22:59 Intake Total 390 / 2280 1711 / 1711 Output Total 1000 / 2850 3000 / 3000 Balance -610 / -570 -1289 / -1289 Weight last 48 hrs Weight 99.5 kg Weight 100.5 kg Physical Exam 2 Const: COMMON NORMALS: no acute distress ORIENTATION/CONSCIOUSNESS: Yes awake, Yes oriented to person, Yes oriented to place and Yes confused; not oriented to time Resp: COMMON NORMALS: normal respiratory effort, No retractions, No use of accessory muscles and clear to auscultation bilaterally AUSCULTATION: clear to auscultation bilaterally Cardio: COMMON NORMALS: regular rate, regular rhythm, S1 normal heart sound present and S2 normal heart sound present RATE: regular rate RHYTHM: r egular rhythm HEART SOUNDS: S1 normal heart sound present and S2 normal heart sound present GI: COMMON NORMALS: Normal to inspection, nondistended, normoactive bowel sounds present and non-tender Extremity: COMMON NORMALS: no pedal edema Neuro: SENSORIUM/ORIENTATION: Yes oriented to person, Yes oriented to place and No oriented to time Psych: COMMON NORMALS: mental status grossly normal Urinary Catheter Management: Chery: Cath Placed During This Visit: yes Reason for Continuing Indwelling Catheter: Accurate Measurement of Urinary Output in Critically Ill Patients Urinary Catheter Date of Insertion: 01/09/25 Data 01/12/25 02:55 01/12/25 02:55 A&P Assessment and plan (1) Septic shock: (2) Tick borne fever: (3) Transaminitis: (4) Thrombocytopenia: (5) Elevated INR: (6) Hyponatremia: (7) Pneumonia: (8) Lactic acid acidosis: (9) Encephalopathy: (10) Herpetic lesion: (11) SVT (supraventricular tachycardia): (12) Acute anemia: Plan Septic shock, resolved -Immunocompromise state on Stelara - Etiology -Multifactorial from multifocal pneumonia seen on CT chest - tickborne illness, given transaminitis, thrombocytopenia, tickborne encephalitis - She does report symptoms started when she had her iron infusions, possible blood borne infection after infusion? - Kernig's sign, Brudunski sign negative, but certainly is encephalopathic, meningitis could be playing a role given her immunocompromise state - If hemoglobin trend is reasonable will moved to medical floors -Follow blood cultures, sputum cultures, urine cultures - Currently off Levophed - Patient MAP in the 65 - Status post sepsis bolus in the emergency room - Vancomycin, Zosyn Multifocal pneumonia CT chest - CT/CT chest wo con [id number] IMPRESSION: Bilateral patchy multifocal airspace disease concerning for multifocal pneumonia. - She is on room air - Sputum culture - Blood culture - Vancomycin - Zosyn - Given that she is on Stelara, will do fungal workup, Aspergillus, histo, blasto, coccidioidomycosis, PCP Tickborne illness -With thrombocytopenia, transaminitis, anemia -Potentially tickborne encephalitis - Tape was removed off patient 01/11/2025, [place] tick - Tick panel - IV doxycycline Oral herpetic like lesions - The roof of her mouth - History of immunocompromise state on Stelara - IV acyclovir Acute hyponatremia, resolving Hypokalemia, hypophosphatemia, hypomagnesemia, will replace Liver dysfunction/liver cirrhosis -INR 3.88 -PLT 69K -hemoglobin 5.8 -albumin 3.3 - Acute on chronic anemia - History of Crohn's disease, history of macrocytosis, history of anemia associate with methotrexate and sulfasalazine, -She has received blood transfusion in the past -Receiving 2 units PRBC, hemoglobin 7.1 -Hemoglobin 5.4 will need another 4 units of PRBC - LDH 671, haptoglobin 98, peripheral smear Lactic acidosis, likely secondary to sepsis, resolving Transaminitis - HIV within normal limits, acute hep panel within normal limits, liver ultrasound hepatic steatosis Acute encephalopathy, resolving - Neurochecks, NIH stroke scale - Possible meningitis? unlikely - Will consider LP based on clinical progress - Also could be tickborne encephalitis, likely given tick found on patient -possible drug withdrawal, will resume Lyrica, resume tramadol, mentation significantly improved after resuming home medications Symptoms started after iron transfusion? - Possible blood-borne infection -Follow blood cultures - Possible endocarditis, cardiac echo no significant valvular vegetations seen fullcode lovenox for dvt prophylaxis rerelatively contraindicated given thrombocytopenia, anemia Plan IV antibiotics, resume home Lyrica, Ultram, monitor clinical status, consult general surgery for EGD, transfuse to units PRBC, 1 unit FFP, vitamin K, spoke to general surgery PDMP PDMP Reviewed: Last Reviewed 01/11/25 15:44 by Chin Viera MD Attestations 2 Medical Necessity Statement*: Patient requires hospitalization for acute anemia, pneumonia, tickborne illness, thrombocytopenia, concern for liver dysfunction, acute encephalopathy Diagnoses Septic shock A41.9; R65.21 Tick borne fever A93.8 Transaminitis R74.01 Thrombocytopenia D69.6 Elevated INR R79.1 Hyponatremia E87.1 Pneumonia J18.9 Lactic acid acidosis E87.20 Encephalopathy G93.40 Herpetic lesion B00.9 SVT (supraventricular tachycardia) I47.10 Acute anemia D64.9
--- NOTE | 2025-01-12 16:39 | PM.CONSULT ---
Providers/Reason For Consult Consulting Physician/Specialty*: General Surgery Reason for Consult*: Possible upper GI bleed Attending Physician: Chin Viera MD History of Present Illness History of Present Illness Lilian Mabry is a 49 year old female With multiple comorbidities who was admitted to the hospital with tickborne fever and sepsis. She has been noted to have iron deficiency anemia, negative bloody stools. Patient has required multiple blood transfusions during admission. Due to this findings I have been requested to proceed with upper endoscopy to rule out upper GI bleeding as a source of anemia. Patient endorses not seeing any blood in the stool having no abdominal pain but she states that she has had additional endoscopies in the past. Review of Systems General: Reports: 10 or more systems reviewed and unremarkable except in HPI and below Medications/Allergies Home Medications ?Medication ?Instructions ?Recorded ?Confirmed ?Last Taken ?Type cholecalciferol (vitamin D3) 50 50 mcg PO .weekly 03/26/23 01/10/25 Unknown History mcg (2,000 unit) capsule cyanocobalamin (vitamin B-12) See Rx Instructions PO .weekly 03/26/23 01/10/25 Unknown History 1,000 mcg capsule digoxin 250 mcg (0.25 mg) tablet 250 mcg PO DAILY 03/26/23 01/10/25 Unknown History diltiazem HCl 120 mg capsule,24 120 mg PO DAILY 03/26/23 01/10/25 Unknown History hr,extended release levothyroxine 50 mcg tablet 50 mcg PO DAILY 03/26/23 01/10/25 Unknown History (Synthroid) mesalamine 1.2 gram tablet,delayed 2.4 g PO DAILY 03/26/23 01/10/25 Unknown History release methotrexate sodium 2.5 mg tablet 2.5 mg PO DAILY 03/26/23 01/10/25 Unknown History metoprolol succinate 100 mg 100 mg PO DAILY 03/26/23 01/10/25 Unknown History tablet,extended release 24 hr omeprazole 20 mg capsule,delayed 20 mg PO DAILY 03/26/23 01/10/25 Unknown History release pregabalin 150 mg capsule 150 mg PO BID 03/26/23 01/10/25 Unknown History sulfasalazine 500 mg tablet 0.5 g PO TID 03/26/23 01/10/25 Unknown History tizanidine 4 mg capsule 4 mg PO BID PRN Pain 03/26/23 01/10/25 Unknown History tramadol 50 mg tablet 50 mg PO TID PRN Sleep 03/26/23 01/10/25 Unknown History ustekinumab 90 mg/mL subcutaneous See Rx Instructions SUBCUT .COMPLEX 03/26/23 01/10/25 Unknown History syringe (Stelara) vit no.95-ferrous 1 tab PO DAILY 01/10/25 01/10/25 Unknown History fumarate 28 mg-folic acid 800 mcg tablet () Allergies Allergy/AdvReac Type Severity Reaction Status Date / Time vedolizumab (From [employer]) Allergy Severe anaphylaxis Verified 07/19/23 10:40 iodine Allergy rash Verified 07/19/23 10:40 Mercaptiourine analogues Allergy Severe Unknown Uncoded 07/19/23 10:40 Norflex Allergy Severe hives Uncoded 07/19/23 10:40 Protonix Allergy Severe hives Uncoded 07/19/23 10:40 Remicade Allergy Severe anaphylaxis Uncoded 07/19/23 10:40 Humira Allergy Intermediate Unknown Uncoded 07/19/23 10:40 Orphenadrine Allergy Intermediate unknown Uncoded 07/19/23 10:40 cimzia Allergy Unknown Uncoded 07/19/23 10:40 lasix Allergy hives Uncoded 07/19/23 10:40 Current Medications Generic Name Dose Route Start Last Admin Trade Name Freq PRN Reason Stop Dose Admin Famotidine 20 mg 01/09/25 21:08 01/12/25 07:47 Famotidine 20 Mg/2 Ml Inj IVP 20 mg Q12H ALISIA Administration Hydromorphone HCl 0.25 mg 01/12/25 08:49 01/12/25 10:26 Hydromorphone 0.5 Mg/0.5 Ml Inj IVP 0.25 mg Q12H PRN Administration break through pain Doxycycline Hyclate 100 mg/ 100 mls @ 100 mls/hr 01/09/25 18:30 01/12/25 08:18 Sodium Chloride IV Infused Q12H ALISIA Infusion Protocol Piperacillin Sod/Tazobactam 50 mls @ 12.5 mls/hr 01/10/25 00:01 01/12/25 15:17 Sod 3.375 gm/ Sodium Chloride IV 12.5 mls/hr Q8H ALISIA Administration Vancomycin HCl 1,500 mg in 300 mls @ 200 mls/hr 01/10/25 16:00 01/12/25 15:17 Vancocin IV 200 mls/hr Q12H ALISIA Administration Acyclovir 1,000 mg/ Sodium 270 mls @ 270 mls/hr 01/10/25 11:30 01/12/25 12:59 Chloride IV Infused Q8H ALISIA Infusion Levothyroxine Sodium 25 mcg 01/10/25 09:00 01/12/25 07:47 Levothyroxine 100 Mcg Sdv IVP 25 mcg DAILY ALISIA Administration Tramadol HCl 100 mg 01/12/25 15:00 01/12/25 14:02 Tramadol 50 Mg Tablet PO 100 mg TID ALISIA Administration PFSH Acute PFSH: Medical History Hypothyroidism History of anemia due to vitamin B12 deficiency History of sepsis (2013) History of supraventricular tachycardia Iron deficiency anemia Crohn's disease Psoriasis Lupus Fibromyalgia Hypertension Hyperlipemia Hemorrhoids GERD (gastroesophageal reflux disease) Surgical History History of section History of cholecystectomy H/O partial resection of colon Ileocolonic resection in 2001, in 2009, and in 2014 History of total hysterectomy with bilateral salpingo-oophorectomy (BSO) (07/2015) IRENE/BSO with redo of ileocolonic anastomosis History of ventral hernia repair History of hemorrhoidectomy Social History Smoking and tobacco/nicotine status: current every day tobacco/nicotine user cigarettes Packs smoked per day: 0.05 Alcohol intake: never Vitals/I&O/Wt Last Vital Signs Temp 98.9 F 01/12/25 15:01 Pulse 119 H 01/12/25 15:01 Resp 18 01/12/25 15:01 BP 153/95 01/12/25 15:01 Pulse Ox 95 01/12/25 14:44 O2 Del Method Room Air 01/11/25 04:00 01/12/25 01/12/25 01/12/25 06:59 14:59 22:59 Intake Total 390 / 2280 1711 / 1711 Output Total 1000 / 2850 3000 / 3000 Balance -610 / -570 -1289 / -1289 Weight last 48 hrs Weight 219 lb 5.759 oz Weight 221 lb 9.033 oz Physical Exam GI: OTHER: Abdomen soft nontender nondistended Urinary Catheter Management: Chery: Cath Placed During This Visit: yes Reason for Continuing Indwelling Catheter: Accurate Measurement of Urinary Output in Critically Ill Patients Urinary Catheter Date of Insertion: 01/09/25 Data 01/12/25 02:55 01/12/25 02:55 A&P Assessment and plan (1) Transaminitis: (2) Elevated INR: (3) Lactic acid acidosis: (4) Acute anemia: Plan This is a 49-year-old female with possible anemia due to GI bleeding. Requested to proceed with upper endoscopy. After discussion of all risk benefits including the risk of perforation, injury to adjacent structures, injury to soft tissue of mouth and pharynx, injury to teeth, lack of bleeding control. I have decided to proceed with upper endoscopy with possible bleeding control. Patient will be kept n.p.o. after midnight and we will proceed with endoscopic evaluation tomorrow morning. In the interim she is receiving blood transfusion we will continue to monitor the hemoglobin and hemodynamic status PDMP PDMP Reviewed: Not Reviewed Coding Level of Care Code Acute Code for Chg Fwd Diagnoses Transaminitis R74.01 Elevated INR R79.1 Lactic acid acidosis E87.20 Acute anemia D64.9
[2025-01-12] MEDS: phytonadione (ADULT) 10 MG in sodium chloride 0.9% 50 ML 153 MG IV (17:04)
[2025-01-12] MEDS: dilTIAZem 30 mg Tablet PO ×2 (17:05→21:34)
[2025-01-12 17:21] LABS: Vitamin B12 905 pg/mL (232-1245)
[2025-01-12 19:00] LABS: Hematocrit 29.7 % (36-47)
[2025-01-12] MEDS: acetaminophen 325 mg Tablet 650 MG PO (19:16)
[2025-01-13] VITALS (10 sets, daily range): BP systolic 98–128; BP diastolic 47–72; PULSE 80–114; RESP 16–20; TEMP 36.1–37.2; O2SAT 90–93
[2025-01-13] MEDS: piperacillin-tazobactam 3.375 GM in sodium chloride 0.9% (plus) 50 ML IV ×3 (00:05→14:55)
[2025-01-13] MEDS: dilTIAZem 30 mg Tablet PO ×4 (03:39→21:05)
[2025-01-13] MEDS: acyclovir 1,000 MG in sodium chloride 0.9% 250 ML 270 MG IV ×3 (03:39→21:05)
[2025-01-13] MEDS: vancomycin 1,500 MG/300 ML PIGGYBACK 200 MG IV ×2 (04:44→14:54)
[2025-01-13 05:33] LABS: Basophils % 0.4 %; Eosinophils # 0.1 10^3/uL (0.0-0.8); Eosinophils % 0.6 %; Hematocrit 28.5 % (36-47); Lymphocytes # 5.7 10^3/uL (0.8-4.8); Lymphocytes % 60.8 %; Mean Corpuscular HGB Conc 31.9 g/dL (30-55); Mean Corpuscular Hemoglobin 23.8 pg (27-33); Mean Corpuscular Volume 74.4 fl (85-98); Mean Platelet Volume 9.5 fL (7.4-10.4); Monocytes # 0.5 10^3/uL (0.2-0.9); Monocytes % 5.5 %; Neutrophils # 2.81 10^3/uL (1.8-7.7); Neutrophils % 30.3 %; Nucleated Red Blood Cells # 0.1 /100WBC; Nucleated Red Blood Cells % 0.9 %; Platelet Count 94 10^3/cmm (157-399); Red Blood Count 3.83 10^6/uL (3.85-5.65); White Blood Count 9.29 10^3/uL (3.29-11.43)
[2025-01-13 06:04] LABS: Anion Gap 15.2 (5-19); Blood Urea Nitrogen 5 mg/dL (6-20); Carbon Dioxide 20 mmol/L (22-29); Chloride 104 mmol/L (98-107); Glomerular Filtration Rate 88.2 mL/min (90-130); Glucose 68 mg/dL (65-115); Osmolality Calculated 278 mOsm/kg (285-295); Potassium 3.2 mmol/L (3.5-5.1); Sodium 136 mmol/L (136-145)
[2025-01-13 06:06] LABS: C Reactive Protein 14.7 mg/L (0.0-4.9)
[2025-01-13] MEDS: doxycycline 100 MG in sodium chloride 0.9% (plus) 100 ML IV ×2 (06:25→17:23)
[2025-01-13 06:45] LABS: Slide Review Slide Review Perform
--- NOTE | 2025-01-13 06:59 | W.PM.OPSUD ---
Surgery/Procedure H&P Update DATE OF PROCEDURE: January 13, 2025 DATE H&P PERFORMED: 01/12/25 H&P UPDATE INFORMATION: I have reviewed H&P completed within last 30 days, I have examined patient prior to procedure, No changes to prior documentation, Changes to prior documentation as noted here and Risks and benefits of the procedure reviewed PLANNED PROCEDURE: Operation Date: 01/13/25 13:05 Proposed Procedures p EGD WITH POSS BX AND BLEEDING CONTROL(Not Applicable) - Cristobal Frazier MD
[2025-01-13] MEDS: pregabalin 150 mg Capsule PO ×2 (08:45→21:05)
[2025-01-13] MEDS: TRAMadol 50 mg Tablet 100 MG PO ×3 (08:45→21:06)
[2025-01-13] MEDS: potassium chloride ER 20 mEq Tablet 40 MEQ PO (08:45)
[2025-01-13] MEDS: levothyroxine 100 mcg SDV 25 MCG IVP (08:46)
[2025-01-13] MEDS: famotidine 20 mg/2 mL INJ IVP ×2 (08:46→21:06)
--- NOTE | 2025-01-13 09:33 | PC.NURSE ---
This nurse gave report to HUY Carcamo in GI lab at 932am.
--- NOTE | 2025-01-13 09:42 | PC.SOCIAL ---
IMM Update Pg 2 of IMM updated. Copy provided at bedside.
--- NOTE | 2025-01-13 11:47 | PC.NURSE ---
Pt taken down to GI lab at 1140am.
[2025-01-13] MEDS: sodium chloride 0.9% 500 ML 999 ML IV (11:50)
--- NOTE | 2025-01-13 11:52 | ANES.PREANE2 ---
Pre-Anesthetic Assessment Height/Weight: Height 1.63 m Weight 95.708 kg Temp Pulse Resp BP Pulse Ox O2 Del Method 98.2 F 114 H 18 117/66 92 Room Air 01/13/25 07:46 01/13/25 07:46 01/13/25 07:46 01/13/25 07:46 01/13/25 07:46 01/13/25 07:46 Preop Diagnosis: anemia Operation Date: 01/13/25 13:05 Proposed Procedures p EGD WITH POSS BX AND BLEEDING CONTROL(Not Applicable) - Cristobal Frazier MD Familial anesthetic complications: none Was Beta Edith taken within 24 hours: Yes Was Clonidine taken within 24 hours: N/A Social Tobacco (hasnt smoked in 1 month) and No alcohol Exam alert and oriented x 3 Airway Submandibular: within normal limits Cervical ROM: within normal limits Mallampati: Class IV (very small mouth opening) Dentition: false Pulmonary Shortness of Breath CV/HEM Arrythmia (orthostatic SVT ) and Hypertension 2014 admitted with sepsis, coded in ICU once. None reported Hepatic None reported GI Gastroesophageal Reflux Disease Metabolic Thyroid Disease [facility] [place], [place] Fibromyalgia Lupus Neuropsych None reported Anesthetic Plan ASA status: 3 Anesthesia: Anesthesia Evaluation and MAC Medications/Allergies Home Medications ?Medication ?Instructions ?Recorded ?Confirmed ?Last Taken ?Type cholecalciferol (vitamin D3) 50 50 mcg PO .weekly 03/26/23 01/10/25 Unknown History mcg (2,000 unit) capsule cyanocobalamin (vitamin B-12) See Rx Instructions PO .weekly 03/26/23 01/10/25 Unknown History 1,000 mcg capsule digoxin 250 mcg (0.25 mg) tablet 250 mcg PO DAILY 03/26/23 01/10/25 Unknown History diltiazem HCl 120 mg capsule,24 120 mg PO DAILY 03/26/23 01/10/25 Unknown History hr,extended release levothyroxine 50 mcg tablet 50 mcg PO DAILY 03/26/23 01/10/25 Unknown History (Synthroid) mesalamine 1.2 gram tablet,delayed 2.4 g PO DAILY 03/26/23 01/10/25 Unknown History release methotrexate sodium 2.5 mg tablet 2.5 mg PO DAILY 03/26/23 01/10/25 Unknown History metoprolol succinate 100 mg 50 mg PO DAILY 03/26/23 01/13/25 Unknown History tablet,extended release 24 hr omeprazole 20 mg capsule,delayed 20 mg PO DAILY 03/26/23 01/10/25 Unknown History release pregabalin 150 mg capsule 150 mg PO BID 03/26/23 01/10/25 Unknown History sulfasalazine 500 mg tablet 0.5 g PO TID 03/26/23 01/10/25 Unknown History tizanidine 4 mg capsule 4 mg PO BID PRN Pain 03/26/23 01/10/25 Unknown History tramadol 50 mg tablet 50 mg PO TID PRN Sleep 03/26/23 01/10/25 Unknown History ustekinumab 90 mg/mL subcutaneous See Rx Instructions SUBCUT .COMPLEX 03/26/23 01/10/25 Unknown History syringe (Stelara) vit no.95-ferrous 1 tab PO DAILY 01/10/25 01/10/25 Unknown History fumarate 28 mg-folic acid 800 mcg tablet () Allergies Allergy/AdvReac Type Severity Reaction Status Date / Time vedolizumab (From [employer]) Allergy Severe anaphylaxis Verified 07/19/23 10:40 iodine Allergy rash Verified 07/19/23 10:40 Mercaptiourine analogues Allergy Severe Unknown Uncoded 07/19/23 10:40 Norflex Allergy Severe hives Uncoded 07/19/23 10:40 Protonix Allergy Severe hives Uncoded 07/19/23 10:40 Remicade Allergy Severe anaphylaxis Uncoded 07/19/23 10:40 Humira Allergy Intermediate Unknown Uncoded 07/19/23 10:40 Orphenadrine Allergy Intermediate unknown Uncoded 07/19/23 10:40 cimzia Allergy Unknown Uncoded 07/19/23 10:40 lasix Allergy hives Uncoded 07/19/23 10:40 Current Medications Generic Name Dose Route Start Last Admin Trade Name Freq PRN Reason Stop Dose Admin Acetaminophen 650 mg 01/09/25 21:08 01/12/25 19:16 Acetaminophen 325 Mg Tablet PO 650 mg On Hold: 01/13/25 11:45 Q6H PRN Administration Comment: Order held by Process Mild/Mod Pain Or Temp >/= 101 Transfer Diltiazem HCl 30 mg 01/12/25 16:00 01/13/25 08:45 Diltiazem 30 Mg Tablet PO 30 mg On Hold: 01/13/25 11:45 Q6H ALISIA Administration Comment: Order held by Process Transfer Famotidine 20 mg 01/09/25 21:08 01/13/25 08:46 Famotidine 20 Mg/2 Ml Inj IVP 20 mg On Hold: 01/13/25 11:45 Q12H ALISIA Administration Comment: Order held by Process Transfer Hydromorphone HCl 0.25 mg 01/12/25 08:49 01/12/25 10:26 Hydromorphone 0.5 Mg/0.5 Ml Inj IVP 0.25 mg On Hold: 01/13/25 11:45 Q12H PRN Administration Comment: Order held by Process break through pain Transfer Doxycycline Hyclate 100 mg/ 100 mls @ 100 mls/hr 01/09/25 18:30 01/13/25 07:33 Sodium Chloride IV Infused On Hold: 01/13/25 11:45 Q12H ALISIA Infusion Comment: Order held by Process Protocol Transfer Piperacillin Sod/Tazobactam 50 mls @ 12.5 mls/hr 01/10/25 00:01 01/13/25 08:47 Sod 3.375 gm/ Sodium Chloride IV 12.5 mls/hr On Hold: 01/13/25 11:45 Q8H ALISIA Administration Comment: Order held by Process Transfer Vancomycin HCl 1,500 mg in 300 mls @ 200 mls/hr 01/10/25 16:00 01/13/25 06:09 Vancocin IV Infused On Hold: 01/13/25 11:45 Q12H ALISIA Infusion Comment: Order held by Process Transfer Acyclovir 1,000 mg/ Sodium 270 mls @ 270 mls/hr 01/10/25 11:30 01/13/25 04:45 Chloride IV Infused On Hold: 01/13/25 11:45 Q8H ALISIA Infusion Comment: Order held by Process Transfer Sodium Chloride 500 mls @ 999 mls/hr 01/13/25 11:48 01/13/25 11:50 Sodium Chloride 0.9% IV 01/13/25 12:18 999 mls/hr .Q31M ONE Administration Levothyroxine Sodium 25 mcg 01/10/25 09:00 01/13/25 08:46 Levothyroxine 100 Mcg Sdv IVP 25 mcg On Hold: 01/13/25 11:45 DAILY ALISIA Administration Comment: Order held by Process Transfer Pregabalin 150 mg 01/13/25 08:00 01/13/25 08:45 Pregabalin 150 Mg Capsule PO 150 mg On Hold: 01/13/25 11:45 Q12H ALISIA Administration Comment: Order held by Process Transfer Tramadol HCl 100 mg 01/12/25 15:00 01/13/25 08:45 Tramadol 50 Mg Tablet PO 100 mg On Hold: 01/13/25 11:45 TID ALISIA Administration Comment: Order held by Process Transfer [facility] Anesthesia Medical History Hypothyroidism History of anemia due to vitamin B12 deficiency History of sepsis (2013) History of supraventricular tachycardia Iron deficiency anemia Crohn's disease Psoriasis Lupus Fibromyalgia Hypertension Hyperlipemia Hemorrhoids GERD (gastroesophageal reflux disease) Surgical History History of section History of cholecystectomy H/O partial resection of colon Ileocolonic resection in 2001, in 2009, and in 2014 History of total hysterectomy with bilateral salpingo-oophorectomy (BSO) (07/2015) IRENE/BSO with redo of ileocolonic anastomosis History of ventral hernia repair History of hemorrhoidectomy Social History Smoking and tobacco/nicotine status: current every day tobacco/nicotine user cigarettes Packs smoked per day: 0.05 Alcohol intake: never Data Anesthesia 01/13/25 04:57 01/13/25 04:57 Short CBC 01/12/25 01/12/25 01/13/25 Range/Units 02:55 18:45 04:57 WBC 5.93 9.29 (3.29-11.43) 10^3/uL Hgb 5.80 L* 9.40 L D 9.10 L (11.27-16.99) g/dL Hct 18.0 L* 29.7 L D 28.5 L (36-47) % MCV 71.1 L 74.4 L (85-98) fl Plt Count 69 L 94 L D (157-399) 10^3/cmm Neut % (Auto) 44.4 30.3 % Neut # (Auto) 2.63 2.81 (1.8-7.7) 10^3/uL BMP 01/12/25 01/13/25 02:55 04:57 Sodium 139 136 Potassium 3.7 3.2 L Chloride 110 H 104 Carbon Dioxide 18 L 20 L BUN 6 5 L Creatinine 0.6 0.7 Glucose 113 68 Calcium 7.9 L 8.0 L Cardiac Enzymes 01/12/25 Range/Units 02:55 Creatine Kinase 209 H (26-192) U/L Liver Function 01/12/25 Range/Units 02:55 Total Bilirubin 1.8 H (0.15-1.2) mg/dL AST 70 H (0-32) U/L ALT 40 H (0-33) U/L Alkaline Phosphatase 64 (35-105) U/L Albumin 3.3 L (3.5-5.2) g/dL Blood Bank 01/10/25 04:00 Blood Type A Positive Rho(D) Type Rh positive Antibody Screen Positive Coags 01/12/25 01/13/25 02:55 04:57 PT 40.10 H 20.00 H D INR 3.88 H 1.60 H C-Reactive Protein 14.3 H 14.7 H Cardiac Studies: Echocardiogram 01/10/25
--- NOTE | 2025-01-13 12:40 | ANE.PACU2 ---
Inpatient post-anesthesia follow up: Airway intact: Yes Vital signs: Temperature 98.3 F Pulse Rate 112 Respiratory Rate 18 Blood Pressure 115/72 Pulse Oximetry 93 Oxygen Delivery Me thod Room Air Oxygen Flow Rate Fraction of Inspir ed Oxygen Hydration adequate: Yes Nausea and vomiting: No Pain level: 1 Mental status: Baseline
[2025-01-13] MEDS: metoprolol tartrate 25 mg Tablet PO ×2 (13:26→21:15)
[2025-01-13] MEDS: HYDROmorphone 0.5 MG/0.5 ML INJ 0.25 MG IVP (13:27)
--- NOTE | 2025-01-13 16:27 | P.PN_ITS ---
Subjective 2 Subjective: Patient was seen this morning, she is alert awake, following all commands, family members are at bedside, denies any fevers, chills, no cough, no nausea, no vomiting, plans on EGD today Vitals/I&O/Wt Last Vital Signs Temp 98.7 F 01/13/25 16:08 Pulse 89 01/13/25 16:08 Resp 19 H 01/13/25 16:08 BP 125/71 01/13/25 16:08 Pulse Ox 93 01/13/25 16:08 O2 Del Method Room Air 01/13/25 16:08 01/13/25 01/13/25 01/13/25 06:59 14:59 22:59 Intake Total 620 / 4152 920 / 920 Output Total 800 / 6000 Balance -180 / -1848 920 / 920 Weight last 48 hrs Weight 95.708 kg Weight 99.5 kg Physical Exam 2 Const: COMMON NORMALS: no acute distress and patient oriented x3 Neck/C-Spine: OTHER: Right IJ central line in Resp: COMMON NORMALS: normal respiratory effort, No retractions, No use of accessory muscles and clear to auscultation bilaterally AUSCULTATION: clear to auscultation bilaterally Cardio: COMMON NORMALS: regular rate, regular rhythm, S1 normal heart sound present and S2 normal heart sound present RATE: regular rate RHYTHM: r egular rhythm HEART SOUNDS: S1 normal heart sound present and S2 normal heart sound present GI: COMMON NORMALS: Normal to inspection, nondistended, normoactive bowel sounds present and non-tender Extremity: COMMON NORMALS: no pedal edema Neuro: COMMON NORMALS: patient oriented x3 Psych: COMMON NORMALS: mental status grossly normal Urinary Catheter Management: Chery: Cath Placed During This Visit: yes Reason for Continuing Indwelling Catheter: Accurate Measurement of Urinary Output in Critically Ill Patients Urinary Catheter Date of Insertion: 01/09/25 Data 01/13/25 04:57 01/13/25 04:57 A&P Assessment and plan (1) Septic shock: (2) Tick borne fever: (3) Transaminitis: (4) Thrombocytopenia: (5) Elevated INR: (6) Hyponatremia: (7) Pneumonia: (8) Lactic acid acidosis: (9) Encephalopathy: (10) Herpetic lesion: (11) SVT (supraventricular tachycardia): (12) Acute anemia: Plan Septic shock, resolved -Immunocompromise state on Stelara - Etiology -Multifactorial from multifocal pneumonia seen on CT chest - tickborne illness, given transaminitis, thrombocytopenia, tickborne encephalitis - She does report symptoms started when she had her iron infusions, possible blood borne infection after infusion? - Kernig's sign, Brudunski sign negative, but certainly is encephalopathic, meningitis could be playing a role given her immunocompromise state -Follow blood cultures, sputum cultures, urine cultures - Currently off Levophed - Patient MAP in the 65 - Status post sepsis bolus in the emergency room - Vancomycin, Zosyn Multifocal pneumonia CT chest - CT/CT chest wo con [id number] IMPRESSION: Bilateral patchy multifocal airspace disease concerning for multifocal pneumonia. - She is on room air - Sputum culture - Blood culture - Vancomycin - Zosyn - Given that she is on Stelara, will do fungal workup, Aspergillus, histo, blasto, coccidioidomycosis, PCP Tickborne illness -With thrombocytopenia, transaminitis, anemia -Potentially tickborne encephalitis - Tape was removed off patient 01/11/2025, [place] tick - Tick panel - IV doxycycline Oral herpetic like lesions - The roof of her mouth - History of immunocompromise state on Stelara - IV acyclovir Acute hyponatremia, resolving Hypokalemia, hypophosphatemia, hypomagnesemia, will replace Liver dysfunction/liver cirrhosis -INR 3.88 -PLT 69K -hemoglobin 5.8 -albumin 3.3 - Acute on chronic anemia - History of Crohn's disease, history of macrocytosis, history of anemia associate with methotrexate and sulfasalazine, -She has received blood transfusion in the past -Receiving 2 units PRBC, hemoglobin 7.1 -Hemoglobin 5.4 will need another 2 units of PRBC, hgb 9, INR 1.6 - LDH 671, haptoglobin 98, peripheral smear - Plan for EGD today Lactic acidosis, likely secondary to sepsis, resolving Transaminitis - HIV within normal limits, acute hep panel within normal limits, liver ultrasound hepatic steatosis Acute encephalopathy, resolved - Neurochecks, NIH stroke scale - Possible meningitis? unlikely - Will consider LP based on clinical progress - Also could be tickborne encephalitis, likely given tick found on patient -possible drug withdrawal, will resume Lyrica, resume tramadol, mentation significantly improved after resuming home medications Symptoms started after iron transfusion? - Possible blood-borne infection -Follow blood cultures - Possible endocarditis, cardiac echo no significant valvular vegetations seen fullcode lovenox for dvt prophylaxis rerelatively contraindicated given thrombocytopenia, anemia, requiring 4 units of blood, Plan IV antibiotics, resume home Lyrica, Ultram, monitor clinical status, EGD, monitor hemoglobin, PT OT, plan on discharging today PDMP PDMP Reviewed: Last Reviewed 01/11/25 15:44 by Chin Viera MD Attestations 2 Medical Necessity Statement*: Patient requires hospitalization for septic shock, multifocal pneumonia, tickborne illness, oral hepatic lesion, acute on chronic anemia, acute encephalopathy Diagnoses Septic shock A41.9; R65.21 Tick borne fever A93.8 Transaminitis R74.01 Thrombocytopenia D69.6 Elevated INR R79.1 Hyponatremia E87.1 Pneumonia J18.9 Lactic acid acidosis E87.20 Encephalopathy G93.40 Herpetic lesion B00.9 SVT (supraventricular tachycardia) I47.10 Acute anemia D64.9
[2025-01-13 22:07] LABS: Fungitell 1-3-B Glucan Assay <31 pg/mL (<60); Interpretation Negative (Negative)
[2025-01-14] VITALS: BP 118/72; PULSE 80; RESP 16; TEMP 36.9; O2SAT 93
[2025-01-14] MEDS: piperacillin-tazobactam 3.375 GM in sodium chloride 0.9% (plus) 50 ML IV ×2 (00:32→07:13)
[2025-01-14] MEDS: HYDROmorphone 0.5 MG/0.5 ML INJ 0.25 MG IVP (02:12)
[2025-01-14] MEDS: vancomycin 1,500 MG/300 ML PIGGYBACK 200 MG IV (03:52)
[2025-01-14] MEDS: acyclovir 1,000 MG in sodium chloride 0.9% 250 ML 270 MG IV (03:52)
[2025-01-14] MEDS: dilTIAZem 30 mg Tablet PO ×2 (03:52→08:36)
[2025-01-14 04:00] VITALS: BP 118/60; PULSE 95; RESP 17; TEMP 37.1; O2SAT 91
[2025-01-14] MEDS: doxycycline 100 MG in sodium chloride 0.9% (plus) 100 ML IV (05:56)
[2025-01-14 06:41] LABS: Hematocrit 24.9 % (36-47); Mean Corpuscular HGB Conc 31.7 g/dL (30-55); Mean Corpuscular Hemoglobin 24.5 pg (27-33); Mean Corpuscular Volume 77.1 fl (85-98); Mean Platelet Volume 9.4 fL (7.4-10.4); Platelet Count 96 10^3/cmm (157-399); Red Blood Count 3.23 10^6/uL (3.85-5.65); Red Cell Distribution Width 26.2 % (12.1-15.1); White Blood Count 10.61 10^3/uL (3.29-11.43)
[2025-01-14 06:59] LABS: C Reactive Protein 38.8 mg/L (0.0-4.9)
[2025-01-14 07:02] LABS: INR 1.85 (0.8-1.2)
[2025-01-14 07:03] LABS: Anion Gap 13.4 (5-19); Blood Urea Nitrogen 5 mg/dL (6-20); Calcium 7.9 mg/dL (8.5-10.5); Carbon Dioxide 20 mmol/L (22-29); Chloride 104 mmol/L (98-107); Creatinine Clr Calc Pharmacy 107.5425; Glomerular Filtration Rate 88.2 mL/min (90-130); Glucose 83 mg/dL (65-115); Osmolality Calculated 274 mOsm/kg (285-295); Potassium 3.4 mmol/L (3.5-5.1); Sodium 134 mmol/L (136-145)
[2025-01-14 07:10] LABS: Procalcitonin 0.12 ng/mL (0-0.5)
[2025-01-14] MEDS: metoprolol tartrate 25 mg Tablet PO (07:12)
[2025-01-14] MEDS: levothyroxine 50 mcg Tablet PO (07:13)
[2025-01-14] MEDS: pregabalin 150 mg Capsule PO (07:13)
[2025-01-14] MEDS: TRAMadol 50 mg Tablet 100 MG PO (07:13)
[2025-01-14] MEDS: famotidine 20 mg/2 mL INJ IVP (07:13)
[2025-01-14 07:14] VITALS: BP 103/63; PULSE 98; RESP 16; TEMP 37; O2SAT 92
[2025-01-14 07:15] VITALS: PULSE 95
[2025-01-14] MEDS: digoxin 250 mcg Tablet PO (07:15)
[2025-01-14 07:53] LABS: Slide Review Slide Review Perform
[2025-01-14 07:56] LABS: Absolute Eosinophils 0.1 10^3/cmm (0.0-0.7); Eosinophils 1 %; Lymphocytes 44 %; Lymphocytes Absolute 4.7 10^3/cmm (1.2-3.4); Monocytes Absolute 0.7 10^3/cmm (0.1-0.6); Segmented Neutrophils 47 %; Total Cells Counted 100 (0-100)
[2025-01-14 07:57] LABS: Anisocytosis 1+; Microcytosis 1+; Platelet Estimate Decreased (Normal); Poikilocytosis Trace
--- NOTE | 2025-01-14 08:04 | P.DS_ITS ---
Discharge Providers Date of Admission: 01/09/25 18:06 Date of Discharge: January 14, 2025 Attending Provider at Admission: Chin Viera MD Attending Provider at Discharge: Chin Viera MD Diagnoses at Discharge Discharge Diagnosis (1) Septic shock: Status: Acute (2) Tick borne fever: Status: Acute (3) Transaminitis: Status: Acute (4) Thrombocytopenia: Status: Acute (5) Elevated INR: Status: Acute (6) Hyponatremia: Status: Acute (7) Pneumonia: Status: Acute (8) Lactic acid acidosis: Status: Acute (9) Encephalopathy: Status: Acute (10) Herpetic lesion: Status: Acute (11) SVT (supraventricular tachycardia): Status: Acute (12) Acute anemia: Status: Acute Reason for Visit Reason for Visit: n/v, lethargy, ams Hospital Course Hospital Course Lilian Mabry is a 49 year old female with a past medical history of hypothyroi dism, history of Crohn's disease, history of POTS syndrome on beta- blocke,/calcium channel joon/ digoxin history of psoriasis on Stelara, on methotrexate, history of hypertension, hyperlipidemia, GERD, history of septic shock in 2013 resulting in cardiac arrest and prolonged intubation source of infection was potentially a port. Patient has a history of iron deficiency anemia, she chronically gets iron infusions, she had iron infusion on Saturday, after receiving iron infusion family reports that she was reporting feeling sick, fatigue, malaise. Her symptoms persisted throughout the week, fatigue, malaise, body aches and pains,, they tell me that she looked well yesterday, they played cards yesterday evening, she went to bed, she woke up a couple times throughout the night which is not unusual for her, but when she woke up this morning, she was confused, lethargic at times, complaining of fatigue, malaise, fevers, chills, throughout the week she has not had any other specific compla ints no headache, blurry vision, no neck pain, no chest pain, no shortness of breath, currently patient is alert to person, not to place, time, she is diffusely encephalopathic fever of 103, pulse 115, blood pressure is 80/60, MAP is 55, respiratory is 22, she is 94% on room air -Discussed with family members at bedside, currently patient is in septic shock -Etiology possibly related to pneumonia seen on CT of the chest -But I believe she needs a further workup for the source of infection - She is immunocompromise as she is on Stelara, methotrexate - She does have reported tick bites according to family - She has not had any dysuria, no hematuria, CT scan of abdomen pelvis does not have any evidence of obstructive uropathy, her UA is relatively within normal limits - Currently Kernig sign negative, Brudzinski sign negative, no significant neck stiffness on examination - She did receive an iron infusion on Saturday, bilateral arms look clean and dry, - No history of IV drug use - Discussed with family her transaminitis, will do liver ultrasound, further workup - Her INR is also elevated 2.47, her CT scan shows evidence of liver cirrhosis profoundly does not report any history of liver cirrhosis, -Discussed her thrombocytopenia, no current signs of bleeding -Her thrombocytopenia, and transaminitis could be indicator of a tickborne illness, no visible rashes on examination -[place], no cat bites, no dog bites, does not have any other animals - Respiratory viral, within normal limits - Jourdan with family that currently her status is critical, prognosis guarded, will admit to ICU for septic shock - Discussed with ER provider, for central line placement as patient is likely going to require pressors - She has been given the sepsis bolus, given vancomycin, Zosyn Patient was admitted to [facility] for septic shock, with immunocompromised state on Stelara, etiology multifactorial from multifocal pneumonia, tickborne illness, monitor in the ICU. Multifocal pneumonia, blood culture negative, remains afebrile, completed IV antibiotic, discharged on p.o. antibiotics For tickborne illness, thrombocytopenia, transaminitis, anemia, concerns for tickborne encephalitis. Overall Clini improved with IV doxycycline, discharged on p.o. doxycycline, with close follow-up with primary care provider as outpatient. Patient was advised to monitor for ticks and remove them promptly. Patient was found to have oral hepatic like lesions, the roof of her mouth, with history of immunocompromise state on Stelara, managed on IV acyclovir, oral hepatic lesion has resolved discharged on p.o. acyclovir For liver dysfunction, liver cirrhosis, - Follow-up with primary care - Monitor INR, hemoglobin as outpatient Acute on chronic anemia - History of Crohn's disease, history of macrocytosis, history of anemia associate with methotrexate and sulfasalazine, -She has received blood transfusion in the past -Status post 4 units PRBC - LDH 661, haptoglobin 98, peripheral smear pending on discharge - EGD no significant evidence of bleeding - Concern for possible bone marrow pathology and iron deficiency anemia - Patient was advised to follow-up with primary care, referred to oncology for consideration of bone marrow biopsy Acute encephalopathy, resolved on discharge - Likely multifactorial from drug withdrawal, Lyrica/tramadol - Possible tickborne encephalitis -Sepsis from pneumonia - Alert and oriented x 3 on discharge, following all commands Patient's symptomatology started after a iron transfusion, her blood cultures so far negative, transthoracic echocardiogram showed no valvular vegetations Transaminitis, likely secondary to tickborne illness, monitor as outpatient Physical Exam Const: COMMON NORMALS: no acute distress and patient oriented x3 Eye: COMMON NORMALS: Equal, round and reactive pupils present PUPIL: Yes Equal, round and reactive pupils present Resp: COMMON NORMALS: normal respiratory effort, No retractions, No use of accessory muscles and clear to auscultation bilaterally AUSCULTATION: clear to auscultation bilaterally GI: COMMON NORMALS: Normal to inspection, nondistended, normoactive bowel sounds present and non-tender Extremity: COMMON NORMALS: no pedal edema Neuro: COMMON NORMALS: patient oriented x3, CN's II-XII intact bilaterally and moves all extremities Psych: COMMON NORMALS: mental status grossly normal Urinary Catheter Management: Chery: Cath Placed During This Visit: yes Reason for Continuing Indwelling Catheter: Other Urinary Catheter Date of Insertion: 01/09/25 Discharge Data Studies Completed and Pending Completed Studies During Hospitalization Category Date Time Status CT abdomen pelvis wo con [id number] Stat Cat Scan 01/09/25 15:[address] chest wo con [id number] Stat Cat Scan 01/09/25 18:[address] head wo con* [id number] Stat Cat Scan 01/09/25 18:31 Completed XR chest 1V portable [id number] Stat Exams 01/09/25 15:21 Completed XR chest 1V portable [id number] Stat Exams 01/09/25 19:05 Completed XR chest 1V portable [id number] Stat Exams 01/10/25 02:11 Completed CV. echo complete* [id number] Stat Ultrasound 01/10/25 18:31 Completed US liver [id number] Stat Ultrasound 01/10/25 18:19 Completed Pending at discharge Category Date Time Status Aspergillus AG,EIA,Serum Stat Lab 01/10/25 17:42 Received Basic Metabolic Panel AM LABS Lab 01/15/25 04:00 Ordered Blood Culture Stat Lab 01/09/25 15:30 Results C Reactive Protein AM LABS Lab 01/15/25 04:00 Ordered Coccidioides AB Immunodiffusio Routine Lab 01/10/25 17:42 Received Complete Blood Count w/Auto AM LABS Lab 01/15/25 04:00 Ordered Fibrinogen Degradation Product Routine Lab 01/09/25 19:04 Received Histoplasma Galactomannan Ag Routine Lab 01/10/25 13:43 Received MVista Blastomyces AG Quant Routine Lab 01/10/25 17:42 Received Occult Blood Stool [Immunochemical Fecal OCB] Routine Lab 01/12/25 07:44 Uncollected Pneumocystis PCP [Pneumocystis jiroveci Qual PCR] Lab 01/10/25 13:43 Ordered Routine Procalcitonin AM LABS Lab 01/15/25 04:00 Ordered Prothrombin Time INR AM LABS Lab 01/15/25 04:00 Ordered Uurjzdeksgu-NM-Ackq Plus Routine Lab 01/10/25 13:43 Received Sputum Culture and Gram Stain Stat Lab 01/09/25 18:19 Uncollected Tick Panel Stat Lab 01/09/25 18:01 Results Venous Blood Gas Stat Lab 01/10/25 01:26 Received Radiology Impressions Abdomen/Pelvis CT 01/09/25 15:33 IMPRESSION: 1. Findings suggesting hepatic cirrhosis 2. Prominent splenomegaly which could be related to portal hypertension 3. Periumbilical hernia next lines small areas of ground-glass density in the right lung base could represent developing pneumonia Chest CT 01/09/25 18:31 IMPRESSION: Bilateral patchy multifocal airspace disease concerning for multifocal pneumonia. Head CT 01/09/25 18:31 IMPRESSION: No acute intracranial abnormality. Chest X-Ray 01/10/25 02:11 IMPRESSION: Right-sided venous catheter as detailed. Liver Ultrasound 01/10/25 18:19 IMPRESSION: 1. No acute findings. 2. Hepatic steatosis. 3. Status post cholecystectomy Laboratory Results WBC 10.61 10^3/uL (3.29-11.43) 01/14/25 05:28 RBC 3.23 10^6/uL (3.85-5.65) L 01/14/25 05:28 Hgb 7.90 g/dL (11.27-16.99) L 01/14/25 05:28 Hct 24.9 % (36-47) L 01/14/25 05:28 MCV 77.1 fl (85-98) L 01/14/25 05:28 MCH 24.5 pg (27-33) L 01/14/25 05:28 MCHC 31.7 g/dL (30-55) 01/14/25 05:28 RDW 26.2 % (12.1-15.1) H 01/14/25 05:28 Plt Count 96 10^3/cmm (157-399) L 01/14/25 05:28 MPV 9.4 fL (7.4-10.4) 01/14/25 05:28 Neut % (Auto) 30.3 % 01/13/25 04:57 Lymph % (Auto) Not Reportable 01/14/25 05:28 [place] % (Auto) Not Reportable 01/14/25 05:28 Eos % (Auto) 0.6 % 01/13/25 04:57 Baso % (Auto) 0.4 % 01/13/25 04:57 Reticulocyte % (Auto) 1.5 % (0.5-2.0) 01/09/25 15:20 Neut # (Auto) 2.81 10^3/uL (1.8-7.7) 01/13/25 04:57 Lymph # (Auto) Not Reportable 01/14/25 05:28 [place] # (Auto) Not Reportable 01/14/25 05:28 Eos # (Auto) 0.1 10^3/uL (0.0-0.8) 01/13/25 04:57 Baso # (Auto) 0.0 10^3/uL (0.0-0.1) 01/13/25 04:57 Nucleated RBC % (auto) 0.9 % 01/13/25 04:57 Total Counted 100 (0-100) 01/14/25 05:28 Atypical Lymphs % 0.0 % (0-5) 01/14/25 05:28 Absolute Neutrophils 5.0 10^3/cmm (1.4-6.5) 01/14/25 05:28 Segmented Neutrophils 47 % 01/14/25 05:28 Band Neutrophils 0.0 % 01/14/25 05:28 Absolute Lymphocytes 4.7 10^3/cmm (1.2-3.4) H 01/14/25 05:28 Lymphocytes (Manual) 44 % 01/14/25 05:28 Monocytes (Manual) 7.0 % 01/14/25 05: Absolute Monocytes 0.7 10^3/cmm (0.1-0.6) H 01/14/25 05:28 Eosinophils (Manual) 1 % 01/14/25 05: Absolute Eosinophils 0.1 10^3/cmm (0.0-0.7) 01/14/25 05:28 Basophils (Manual) 0.0 % 01/14/25 05: Absolute Basophils 0.0 10^3/cmm (0.0-0.2) 01/14/25 05: Myelocytes 1.0 % 01/14/25 05: Nucleated RBCs 1.0 /100WBC (0-1) 01/14/25 05: Nucleated RBCs # 0.1 /100WBC 01/13/25 04:57 Platelet Estimate Decreased (Normal) L 01/14/25 05:28 Poikilocytosis Trace 01/14/25 05:28 Anisocytosis 1+ H 01/14/25 05:28 Microcytosis 1+ H 01/14/25 05:28 Peripher Smr Path Cons Sent for review 01/09/25 15:20 ESR 23 mm/hr (0-15) H 01/09/25 15:20 Haptoglobin 98.0 mg/L (30-200) 01/09/25 15:20 PT 22.40 SECONDS (12.1-14.9) H 01/14/25 05:28 INR 1.85 (0.8-1.2) H 01/14/25 05:28 APTT 57.6 SECONDS (23.9-36.7) H 01/09/25 18:01 Fibrinogen 212 mg/dL (174-498) 01/09/25 18:01 D-Dimer 2.73 ug/mLFEU (0-0.59) H 01/09/25 18:01 Specimen Type Arterial 01/09/25 19:32 Sample Site Radial, left 01/09/25 19:32 ABG pH 7.48 (7.35-7.45) H 01/09/25 19:32 ABG pCO2 24.8 mmHg (35-45) L 01/09/25 19:32 ABG pO2 72.0 mmHg (80.0-100.0) L 01/09/25 19:32 ABG PO2/FiO2 Ratio 342 01/09/25 19:32 ABG HCO3 18.3 mmol/L (22-26) L 01/09/25 19:32 ABG Base Excess -4.4 mmol/L (-2.0-2.0) L 01/09/25 19:32 Keanu Test Pos 01/09/25 19:32 Hematocrit 25.4 % (37-47) L 01/09/25 19:32 O2 Delivery Device Room air 01/09/25 19:32 FiO2 21.0 % 01/09/25 19:32 Information Systems Security Developer ID [email or web address] 01/09/25 19:32 Sodium 134 mmol/L (136-145) L 01/14/25 05:28 Potassium 3.4 mmol/L (3.5-5.1) L 01/14/25 05:28 Chloride 104 mmol/L (98-107) 01/14/25 05:28 Carbon Dioxide 20 mmol/L (22-29) L 01/14/25 05:28 Anion Gap 13.4 (5-19) 01/14/25 05:28 BUN 5 mg/dL (6-20) L 01/14/25 05:28 Creatinine 0.7 mg/dL (0.5-0.9) 01/14/25 05:28 GFR Calculation 88.2 mL/min (90-130) L 01/14/25 05:28 Glucose 83 mg/dL (65-115) 01/14/25 05:28 Estimat Average Glucose 97 01/09/25 15:20 Hemoglobin A1c 5.0 % (4.0-6.0) 01/09/25 15:20 Calculated Osmolality 274 mOsm/kg (285-295) L 01/14/25 05:28 Lactic Acid 3.1 mmol/L (0.5-2.2) H 01/10/25 01:26 Lactic Acid (Sepsis) 2.6 mmol/L (0.5-2.2) H 01/10/25 04:00 Lactate 1.9 mmol/L (0.5-2.2) 01/12/25 02:55 Calcium 7.9 mg/dL (8.5-10.5) L 01/14/25 05:28 Phosphorus 1.7 mg/dL (2.5-4.5) L 01/12/25 02:55 Magnesium 2.2 mg/dL (1.7-2.3) 01/12/25 02:55 Iron 29 ug/dL (37-145) L 01/09/25 15:20 Ferritin 1149 ng/mL (15-150) H 01/09/25 15:20 Total Bilirubin 1.8 mg/dL (0.15-1.2) H 01/12/25 02:55 GGT 27 U/L (5-36) 01/09/25 15:20 AST 70 U/L (0-32) H 01/12/25 02:55 ALT 40 U/L (0-33) H 01/12/25 02:55 Alkaline Phosphatase 64 U/L (35-105) 01/12/25 02:55 Lactate Dehydrogenase 671 U/L (135-214) H 01/09/25 15:20 Creatine Kinase 209 U/L (26-192) H 01/12/25 02:55 Troponin T Baseline 13 ng/L (0-10) H 01/09/25 18:01 Troponin T 120 Minute 15.85 ng/L (0-10) H 01/09/25 20:24 Delta Troponin T 2.85 ABS# (0-10) 01/09/25 20:24 Troponin T Hi Sens 6Hr 15.37 ng/L (0-10) H 01/10/25 01:26 Troponin T Hi Sens 6Hr Delta 2.37 ng/L (0-12) 01/10/25 01:26 C-Reactive Protein 38.8 mg/L (0.0-4.9) H 01/14/25 05:28 NT-Pro-B Natriuret Pep 482 pg/mL (0-125) H 01/10/25 01:26 Total Protein 5.2 g/dL (6.6-8.7) L 01/12/25 02:55 Albumin 3.3 g/dL (3.5-5.2) L 01/12/25 02:55 Globulin 1.9 g/dL (1.3-4.6) 01/12/25 02:55 Triglycerides 81 mg/dL (0-150) 01/09/25 00:23 Cholesterol 32 mg/dL (0-200) 01/09/25 00:23 LDL Cholesterol, Calc 10 mg/dL (50-129) L 01/09/25 00:23 HDL Cholesterol 6 mg/dL (60-100) L 01/09/25 00:23 LDL/HDL Ratio 1.67 RATIO (0.00-3.22) 01/09/25 00:23 Cholesterol/HDL Ratio 5.33 mg/dL (0.0-4.40) H 01/09/25 00:23 Lipase 189 U/L (13-60) H 01/09/25 15:20 Vitamin B12 905 pg/mL (232-1245) 01/12/25 02:55 Folate 2.0 ng/mL (4.8-37.3) L 01/12/25 02:55 Procalcitonin 0.12 ng/mL (0-0.5) 01/14/25 05:28 TSH 1.78 uIU/mL (0.27-4.20) 01/09/25 15:20 Urine Color Dark yellow (Yellow) A 01/09/25 15:50 Urine Appearance Cloudy (CLEAR) A 01/09/25 15:50 Urine pH 5.5 (5-7) 01/09/25 15:50 Ur Specific [place] 1.016 (1.005-1.030) 01/09/25 15:50 Urine Protein 1+ (Negative) A 01/09/25 15:50 Urine Glucose (UA) Negative (Normal) 01/09/25 15:50 Urine Ketones Negative (Negative) 01/09/25 15:50 Urine Blood 2+ (Negative) A 01/09/25 15:50 Urine Nitrate Negative (Negative) 01/09/25 15:50 Urine Bilirubin 1+ (Negative) H 01/09/25 15:50 Urine Urobilinogen 1.0 mg/dL (Negative) 01/09/25 15:50 Ur Leukocyte Esterase Negative (Negative) 01/09/25 15:50 Urine RBC 11-20 /hpf (0-2) H 01/09/25 15:50 Urine WBC 0-5 /hpf (0-5) 01/09/25 15:50 Ur Squamous Epith Cells 0-5 /hpf (0-5) 01/09/25 15:50 Amorphous Sediment Not Reportable 01/09/25 15:50 Urine Bacteria None seen /hpf (NONE) 01/09/25 15:50 Hyaline Casts 9.51 /lpf 01/09/25 15:50 Fine Granular Casts 0-4 /lpf H 01/09/25 15:50 Urine Mucus Trace /hpf 01/09/25 15:50 Nasal MRSA (PCR) Not detected (Not Detecte) 01/09/25 21:44 Vancomycin Trough 14.9 ug/mL (10-15) 01/12/25 02:55 Digoxin 0.5 ng/mL (0.6-1.2) L 01/09/25 15:20 Urine Opiates Screen Positive ng/mL (Negative) H 01/09/25 00:19 Ur Barbiturates Screen Negative ng/mL (Negative) 01/09/25 00:19 Ur Phencyclidine Scrn Negative ng/mL (Negative) 01/09/25 00:19 Ur Amphetamines Screen Negative ng/mL (Negative) 01/09/25 00:19 U Benzodiazepines Scrn Negative ng/mL (Negative) 01/09/25 00:19 Urine Cocaine Screen Negative ng/mL (Negative) 01/09/25 00:19 U Marijuana (THC) Screen Negative ng/mL (Negative) 01/09/25 00:19 Adenovirus (PCR) Not detected (NOT DETECT) 01/09/25 21:44 Lyme Ab (Western Blot) <0.90 index 01/09/25 18:01 C. pneumoniae DNA (PCR) Not detected (NOT DETECT) 01/09/25 21:44 C. difficile (PCR) Negative (Negative) 01/11/25 10:03 Coronavirus 229E (PCR) Not detected (NOT DETECT) 01/09/25 21:44 Hepatitis A IgM Ab Non-reactive (Nonreactive) 01/09/25 15:20 Hep Bs Antigen Non-reactive (Nonreactive) 01/09/25 15:20 Hep B Core IgM Ab Non-reactive (Nonreactive) 01/09/25 15:20 Hepatitis C Antibody Non-reactive (Nonreactive) 01/09/25 15:20 HSV I IgG Ab <0.90 index 01/10/25 13:26 HSV II IgG <0.90 index 01/10/25 13:26 HIV 1&2 Ab & HIV 1 Ag Non-reactive (Non-Reactiv) 01/09/25 15:20 HIV 1&2 Antibody Non-reactive (Non-Reactiv) 01/09/25 15:20 Human Metapneumovir PCR Not detected (NOT DETECT) 01/09/25 21:44 Influenza A (H1) PCR Not detected (NOT DETECT) 01/09/25 21:44 Influenza A (PCR) Negative (Negative) 01/09/25 15:59 Influ A (H1/09) PCR Not detected (NOT DETECT) 01/09/25 21:44 Influenza A (H3) PCR Not detected (NOT DETECT) 01/09/25 21:44 Influenza Type A (PCR) Not detected (NOT DETECT) 01/09/25 21:44 Influenza Type B (PCR) Not detected (NOT DETECT) 01/09/25 21:44 M. pneumoniae (PCR) Not detected (NOT DETECT) 01/09/25 21:44 Parainfluenza 1 (PCR) Not detected (NOT DETECT) 01/09/25 21:44 Parainfluenza 2 (PCR) Not detected (NOT DETECT) 01/09/25 21:44 Parainfluenza 3 (PCR) Not detected (NOT DETECT) 01/09/25 21:44 Parainfluenza 4 (PCR) Not detected (NOT DETECT) 01/09/25 21:44 RSV (PCR) Negative (Negative) 01/09/25 15:59 RSV Type A (PCR) Not detected (NOT DETECT) 01/09/25 21:44 RSV Type B (PCR) Not detected (NOT DETECT) 01/09/25 21:44 Entero/Rhino (PCR) Not detected (NOT DETECT) 01/09/25 21:44 SARS-CoV-2 (PCR) Not detected (NOT DETECT) 01/09/25 21:44 Beta-(1,3)-D-Glucan <31 pg/mL (<60) 01/09/25 18:01 B-(1,3)-D-Glucan Intrp Negative (Negative) 01/09/25 18:01 Blood Type A Positive 01/10/25 04:00 Rho(D) Type Rh positive 01/10/25 04:00 Antibody Screen Positive 01/10/25 04:00 Antibody Identification Anti-E 01/10/25 04:00 TONIA, Poly Interpret Negative 01/09/25 15:20 Crossmatch See Detail 01/10/25 04:00 Vitals Last Vital Signs Temp 98.6 F 01/14/25 07:14 Pulse 95 01/14/25 07:15 Resp 16 01/14/25 07:14 BP 103/63 01/14/25 07:14 Pulse Ox 92 01/14/25 07:14 O2 Del Method Room Air 01/14/25 07:14 Discharge Plan Discharge Patient Disposition: Home Condition: Stable Prescriptions: New metoprolol succinate 50 mg tablet extended release 24 hr 25 mg PO BID 30 Days Qty: 30 0RF doxycycline hyclate 100 mg tablet 100 mg PO BID 10 Days Qty: 20 0RF amoxicillin-pot clavulanate 875-125 mg tablet 1 tab PO BID 3 Days Qty: 6 0RF acyclovir 400 mg tablet 400 mg PO Q8H 5 Days Qty: 15 0RF Continued omeprazole 20 mg capsule,delayed release(DR/EC) 20 mg PO DAILY cholecalciferol (vitamin D3) 50 mcg (2,000 unit) capsule 50 mcg PO .weekly digoxin 250 mcg (0.25 mg) tablet 250 mcg PO DAILY pregabalin 150 mg capsule 150 mg PO BID tizanidine 4 mg capsule 4 mg PO BID PRN (Reason: Pain) sulfasalazine 500 mg tablet 0.5 g PO TID Rx Instructions: give with food (meal/snack) cyanocobalamin (vitamin B-12) 1,000 mcg capsule See Rx Instructions PO .weekly Rx Instructions: 1 ml inj orally WEEKLY; mesalamine 1.2 gram tablet,delayed release (DR/EC) 2.4 g PO DAILY diltiazem HCl 120 mg capsule,extended release 24 hr 120 mg PO DAILY levothyroxine [Synthroid] 50 mcg tablet 50 mcg PO DAILY PNV cmb#95-ferrous fumarate-FA [] 28 mg iron- 800 mcg Tablet 1 tab PO DAILY tramadol 100 mg Tablet 100 mg PO TID PRN (Reason: Pain (Scale Score 4-6)) Held Stelara 90 mg/mL syringe See Rx Instructions SUBCUT .COMPLEX Hold Instructions: Resume on 02/08/25. Rx Instructions: Q 28 days subcutaneously; Discontinued methotrexate sodium 2.5 mg tablet 2.5 mg PO DAILY metoprolol succinate 100 mg tablet extended release 24 hr 50 mg PO DAILY Discharge Orders: Discharge Order (Routine); Ordered 01/14/25 Ordered By: Chin Viera Other Ambulatory Orders: DME: Walker (Order) Location: None Selected Ordered By: Chin Viera Physical Therapy Eval and Treat Outpatient (Order) Timeframe: 2 Weeks Facility: [facility] - Location: Physical Therapy Ordered By: Chin Viera Physical Therapy Eval and Treat Outpatient (Order) Timeframe: 2 Weeks Facility: [facility] - Location: Physical Therapy Ordered By: Chin Viera Referrals: [facility] [Other] - 01/25/25 1:30 pm Referral Note: You have been referred to complete your physical therapy at the [facility]. Your first appt is on January 25. Leah Bermudez MD [Hospitalist, Oncology] - 01/20/25 7:30 am Referral Note: bone marrow biopsy appointment 7:30 for labs APPOINTMENT AT 8:30 WITH DOCTOR Discharge Diet: Cardiac Discharge Activity: Resume usual activity Patient Instructions: Anemia, Metoprolol (By mouth), Doxycycline (By mouth), Acyclovir (By mouth), Amoxicillin/Clavulanate Potassium (By mouth), Supraventricular Tachycardia (GEN), Hypokalemia (GEN), Sepsis (GEN), GI Post Discharge Instructions w/ Anesthesia, Opioid Safety Activity Restrictions/Additional Instructions: - Please follow-up with primary care provider - Please follow-up with oncology for anemia for consideration of bone marrow biopsy Discharge Attestations Time Spent in Discharge Care*: greater than 30 min Quality Metrics Clinical Quality Measures [ No reported AMI, CVA or VTE this stay] Coding Level of Care Code 96327 Total time (in minutes) for Discharge: 45 Diagnoses Septic shock A41.9; R65.21 Tick borne fever A93.8 Transaminitis R74.01 Thrombocytopenia D69.6 Elevated INR R79.1 Hyponatremia E87.1 Pneumonia J18.9 Lactic acid acidosis E87.20 Encephalopathy G93.40 Herpetic lesion B00.9 SVT (supraventricular tachycardia) I47.10 Acute anemia D64.9
[2025-01-14 09:05] LABS: Quantiferon Mitogen 0.54 IU/mL; Quantiferon Nil 0.03 IU/mL; Quantiferon Plus TB1 <0.00 IU/mL; Quantiferon Plus TB2 <0.00 IU/mL; Quantiferon TB Gold NEGATIVE (NEGATIVE)
--- NOTE | 2025-01-14 09:12 | PC.NURSE ---
D/C pending delivery of walker and ride home. to pick pt up.
[2025-01-14 11:13] VITALS: BP 110/60; PULSE 96; O2SAT 93
[2025-01-14 18:04] LABS: Blastomyces Antigen Interpret NEGATIVE; Blastomyces Antigen Result NONE DETECTED
[2025-01-14 19:04] LABS: RMSF IGG NOT DETECTED; RMSF IGM NOT DETECTED
[2025-01-14 21:14] LABS: E. Chaffeensis AB IGG <1:64; E. Chaffeensis AB IGM <1:20
[2025-01-15 17:58] LABS: Aspergillus AG,EIA,Serum NOT DETECTED; Aspergillus Galactomannan Inde <0.50
[2025-01-15 22:54] LABS: Histoplasma Galactomannan Ag <0.2 ng/mL
[2025-01-16 17:34] LABS: Coccidioides IgG Antibody NEGATIVE; Coccidioides IgM Antibody NEGATIVE
[2025-01-21 01:30] LABS: Fibrinogen Degradation Product 10 mcg/mL (LESS THAN 5)
== END 2025-01-14 11:14 | disposition home or self-care (01) | DRG 871 ==
LOC: ER 18:23 → ICU 18:35 → MEDSURG 01-12 23:39
PROVIDERS: Internal Medicine; Surgery; Admitting Provider Family Medicine; Emergency Provider Emergency Medicine; Visit Provider Family Medicine
PROC: 0DJ08ZZ Inspection of Upper Intestinal Tract, Via Natural or Artificial Opening Endoscopic (ICD-10-PCS; principal; 2025-01-13 13:05)
DX: A41.9 Sepsis, unspecified organism (principal); J18.9 Pneumonia, unspecified organism; R65.21 Severe sepsis with septic shock; K50.90 Crohn's disease, unspecified, without complications; G93.49 Other encephalopathy; E87.20 Acidosis, unspecified; A93.8 Other specified arthropod-borne viral fevers; E87.1 Hypo-osmolality and hyponatremia; I47.10 Supraventricular tachycardia, unspecified; D84.9 Immunodeficiency, unspecified; E03.9 Hypothyroidism, unspecified; M32.9 Systemic lupus erythematosus, unspecified; K21.9 Gastro-esophageal reflux disease without esophagitis; I10 Essential (primary) hypertension; R74.01 Elevation of levels of liver transaminase levels; B00.9 Herpesviral infection, unspecified; D69.6 Thrombocytopenia, unspecified; D64.9 Anemia, unspecified; D50.9 Iron deficiency anemia, unspecified; Z79.899 Other long term (current) drug therapy; Z88.8 Allergy status to other drugs, medicaments and biological substances; F17.210 Nicotine dependence, cigarettes, uncomplicated; E87.6 Hypokalemia
CPT/HCPCS: 12345; 36415; 36430; 36592; 36600; 43239; 51702; 70450; 71045; 71250; 74176; 76705; 80048; 80053; 80061; 80074; 80162; 80202; 80306; 80503; 81001; 82550; 82607; 82728; 82746; 82803; 82977; 83010; 83036; 83540; 83605; 83615; 83690; 83735; 83880; 84100; 84145; 84295; 84443; 84484; 85007; 85014; 85018; 85025; 85045; 85362; 85378; 85384; 85610; 85651; 85730; 86140; 86403; 86480; 86618; 86635; 86666; 86695; 86696; 86757; 86850; 86870; 86880; 86900; 86902; 86920; 86927; 87040; 87086; 87305; 87385; 87449; 87486; 87493; 87581; 87633; 87637; 87806; 92507; 92523; 92526; 92610; 93005; 93306; 94664; 96365; 96366; 96367; 96375; 96376; 97116; 97162; 97166; 97530; 97535; 99291; J0133; J0153; J1100; J1171; J1938; J2270; J2543; J2704; J3370; J3430; J3475; J3480; J3490; J7030; J7040; J7050; J9999; P9016; P9017; P9046

== ENCOUNTER 2025-01-10 05:00 | Outpatient (RCR) | payer MEDICARE, OTHER, SELFPAY | END 2025-02-08 23:59 | disposition home or self-care (01) | LOC: APT 05:00 | PROVIDERS: Visit Provider Family Medicine | DX: R53.1 Weakness (principal) | CPT/HCPCS: 97110; 97161 ==

== ENCOUNTER 2025-01-27 10:11 | Oncology outpatient (recurring) (ONCR) | payer MEDICARE, OTHER, SELFPAY ==
[2025-01-27 10:45] LABS: Basophils % 0.9 %; Eosinophils % 0.6 %; Hematocrit 29.7 % (36-47); Lymphocytes # 2.2 10^3/uL (0.8-4.8); Mean Corpuscular HGB Conc 30.6 g/dL (30-55); Mean Corpuscular Hemoglobin 27.6 pg (27-33); Monocytes # 0.2 10^3/uL (0.2-0.9); Monocytes % 6.2 %; Nucleated Red Blood Cells % 0 %; Platelet Count 31 10^3/cmm (157-399); Red Cell Distribution Width 31.6 % (12.1-15.1); White Blood Count 3.22 10^3/uL (3.29-11.43)
[2025-01-27 11:06] LABS: Alanine Aminotransferase 32 U/L (0-33); Albumin Level 2.9 g/dL (3.5-5.2); Alkaline Phosphatase 86 U/L (35-105); Anion Gap 16.1 (5-19); Aspartate Amino Transferase 60 U/L (0-32); Blood Urea Nitrogen 9 mg/dL (6-20); Calcium 8.5 mg/dL (8.5-10.5); Carbon Dioxide 21 mmol/L (22-29); Chloride 104 mmol/L (98-107); Ferritin 162 ng/mL (15-150); Glucose 130 mg/dL (65-115); Iron 66 ug/dL (37-145); Lactate Dehydrogenase 247 U/L (135-214); Osmolality Calculated 286 mOsm/kg (285-295); Percent Saturation 41.7 % (20-50); Potassium 3.1 mmol/L (3.5-5.1); Sodium 138 mmol/L (136-145); Total Bilirubin 1.3 mg/dL (0.15-1.2); Total Iron Binding Capacity 158 mcg/dl; Total Protein 5.9 g/dL (6.6-8.7); Unsaturated Iron Binding 92 ug/dL (112-347)
[2025-01-27 11:12] LABS: Neutrophils # 0.77 10^3/uL (1.8-7.7)
[2025-01-27 11:22] LABS: Vitamin B12 1419 pg/mL (232-1245)
== END 2025-02-08 23:59 | disposition home or self-care (01) ==
PROVIDERS: Internal Medicine; Visit Provider Internal Medicine
DX: D50.8 Other iron deficiency anemias (principal); D61.818 Other pancytopenia; D69.6 Thrombocytopenia, unspecified; K50.90 Crohn's disease, unspecified, without complications; E53.8 Deficiency of other specified B group vitamins; Z79.899 Other long term (current) drug therapy; Z72.0 Tobacco use
CPT/HCPCS: 36415; 80053; 82607; 82728; 82746; 83010; 83540; 83550; 83615; 85025; 99213

== ENCOUNTER 2025-02-09 05:00 | Outpatient (RCR) | payer MEDICARE, OTHER, SELFPAY | END 2025-03-11 23:59 | disposition home or self-care (01) | LOC: APT 05:00 | PROVIDERS: PCP Family Medicine; Visit Provider Family Medicine | DX: R53.1 Weakness (principal) | CPT/HCPCS: 97110 ==

== ENCOUNTER 2025-02-14 17:07 | Emergency (ER) | payer MEDICARE, OTHER, SELFPAY ==
[2025-02-14] VITALS (7 sets, daily range): BP systolic 102–141; BP diastolic 53–82; PULSE 61–109; RESP 18–24; TEMP 36.6–36.7; O2SAT 94–98; BMI 33.7
--- NOTE | 2025-02-14 17:20 | XRR_ITS ---
PROCEDURE INFORMATION: Exam: XR Right Wrist Exam date and time: 02/14/2025 5:43 PM Age: 49 years old Clinical indication: Injury or trauma; Fall; Other: RT wrist pain; Additional info: Trauma/fall/pain TECHNIQUE: Imaging protocol: Radiologic exam of the right wrist. Views: 3 or more views. COMPARISON: No relevant prior studies available. FINDINGS: Bones/joints: Comminuted intra-articular fracture of the distal right radial metaphysis and avulsion fracture of the right ulnar styloid. Soft tissues: Normal. XR/XR wrist RT min 3V* [id number] IMPRESSION: Comminuted intra-articular fracture of the distal right radial metaphysis and avulsion fracture of the right ulnar styloid.
--- OUTSIDE RECORDS SUMMARY | 2025-02-14 17:22 | XMS_ITS | Encounter Summary ---
Author Organization [facility] Address [address] [place] [address] Care Team Providers Care Heel Pricker Name Role Phone Kendrick Escobedo MD Primary Care Provider [phone] Encounter Details Date Type Department Care Team (Latest Contact Info) Description 12/22/[address] [facility] [address] [place] [id number] Cristobal Johnson MD NO ADDRESS ON FILE REGIONAL ENTERITIS NOS (CMS/HCC) (Primary Dx) Social History Tobacco Use Types Packs/Day Years Used Date Smoking Tobacco: Never Assessed Comments Unknown Sex and Gender Information Value Date Recorded Sex Assigned at Not on file Legal Sex Female 5:24 AM [employer]PLIT[employer] Gender Identity Not on file Sexual Orientation Not on file documented as of this encounter Plan of Treatment Not on file documented as of this encounter Visit Diagnoses Diagnosis Regional enteritis of unspecified site (CMS/HCC)- Primary Regional enteritis of unspecified site documented in this encounter Care Teams Heel Pricker Relationship Specialty Start Date End Date Kendrick Escobedo MD [address] [place] [address] [place] [id number] PCP - General Family Practice 05/09/15 documented as of this encounter
--- OUTSIDE RECORDS SUMMARY | 2025-02-14 17:22 | XMS_ITS | Encounter Summary ---
Author Organization [facility] Address [address] [place] [address] Care Team Providers Care Marking Clerk Name Role Phone Kendrick Escobedo MD Primary Care Provider [phone] Encounter Details Date Type Department Care Team (Latest Contact Info) Description 01/06/2005 Outpatient Historical [facility] Endoscopy [address] [place] [address] Cristobal Johnson MD NO ADDRESS ON FILE REGIONAL ENTERITIS NOS (CMS/HCC) (Primary Dx) Social History Tobacco Use Types Packs/Day Years Used Date Smoking Tobacco: Never Assessed Comments Unknown Sex and Gender Information Value Date Recorded Sex Assigned at Not on file Legal Sex Female 5:24 AM 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
--- OUTSIDE RECORDS SUMMARY | 2025-02-14 17:23 | XMS_ITS | Encounter Summary ---
Author Organization [facility] Address [address] [place] [address] Care Team Providers Care Loom Fixer Name Role Phone Kendrick Escobedo MD Primary Care Provider [phone] Encounter Details Date Type Department Care Team (Latest Contact Info) Description 11/21/2004 Outpatient [facility] Gastroenterology[address] [place] [address] Cristobal Johnson MD NO ADDRESS ON FILE REGIONAL ENTERITIS NOS (CMS/HCC) (Primary Dx) Social History Tobacco Use Types Packs/Day Years Used Date Smoking Tobacco: Never Assessed Comments Unknown Sex and Gender Information Value Date Recorded Sex Assigned at Not on file 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
--- OUTSIDE RECORDS SUMMARY | 2025-02-14 17:23 | XMS_ITS | Encounter Summary ---
Author Organization [facility] Address [address] [place] [address] Care Team Providers Care Artist Suspect Name Role Phone Kendrick Escobedo MD Primary Care Provider [phone] Encounter Details Date Type Department Care Team (Latest Contact Info) Description 06/19/2004 Outpatient Historical [facility] [place] [address] [place] [address] Maximilian Silverman MD NO ADDRESS ON FILE Excessive menstruation (Primary Dx) Social History Tobacco Use Types Packs/Day Years Used Date Smoking Tobacco: Never Assessed Comments Unknown Sex and Gender Information Value Date Recorded Sex Assigned at Not on file 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
--- OUTSIDE RECORDS SUMMARY | 2025-02-14 17:23 | XMS_ITS | Encounter Summary ---
Author Organization [facility] Address [address] [place] [address] Care Team Providers Care Structural Welder Name Role Phone Kendrick Escobedo MD Primary Care Provider [phone] Encounter Details Date Type Department Care Team (Latest Contact Info) Description 03/16/2004 Outpatient [facility] Gastroenterology[address] [place] [address] Cristobal Johnson MD NO ADDRESS ON FILE REGIONAL ENTERITIS NOS (CMS/HCC) (Primary Dx) Social History Tobacco Use Types Packs/Day Years Used Date Smoking Tobacco: Never Assessed Comments Unknown Sex and Gender Information Value Date Recorded Sex Assigned at Not on file 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
--- OUTSIDE RECORDS SUMMARY | 2025-02-14 17:23 | XMS_ITS | Encounter Summary ---
Author Organization [facility] Address [address] [place] [address] Care Team Providers Care Credit Collection Associate Name Role Phone Kendrick Escobedo MD Primary Care Provider [phone] Encounter Details Date Type Department Care Team (Latest Contact Info) Description 01/30/2005 Outpatient [facility] Gastroenterology[address] [place] [address] Cristobal Johnson MD NO ADDRESS ON FILE REGIONAL ENTERITIS NOS (CMS/HCC) (Primary Dx) Social History Tobacco Use Types Packs/Day Years Used Date Smoking Tobacco: Never Assessed Comments Unknown Sex and Gender Information Value Date Recorded Sex Assigned at Not on file 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
--- OUTSIDE RECORDS SUMMARY | 2025-02-14 17:23 | XMS_ITS | Encounter Summary ---
Author Organization [facility] Address [address] [place] [address] Care Team Providers Care Repairer Name Role Phone Kendrick Escobedo MD Primary Care Provider [phone] Encounter Details Date Type Department Care Team (Latest Contact Info) Description 09/09/2007 Outpatient Historical [facility] [place] [address] [place] [address] Cristobal Johnson MD NO ADDRESS ON FILE Regional Enteritis of Unspecified Site (CMS/HCC) Social History Tobacco Use Types Packs/Day Years Used Date Smoking Tobacco: Never Assessed Comments Unknown Sex and Gender Information Value Date Recorded Sex Assigned at Not on file 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 Gender Identity Not on file Sexual Orientation Not on file documented as of this encounter Plan of Treatment Not on file documented as of this encounter Procedures Procedure Name Priority Date/Time Associated Diagnosis Comments CT ABDOMEN PELVIS W CONTRAST Routine 09/10/2007 12:15 PM FIRE MARSHAL REFINERY POC CREATININE Routine 09/10/2007 12:12 PM FIRE MARSHAL REFINERY documented in this encounter Results * CT ABDOMEN PELVIS W CONTRAST (09/10/2007 12:15 PM FIRE MARSHAL REFINERY) Anatomical Region Laterality Modality Abdomen Other 09/10/2007 12:1 5 PM FIRE MARSHAL REFINERY Narrative 09/10/2007 12:[address] of the abdomen and pelvis was performed after 100 mL Optiray-240 contrast. The prior exam is September 24, 2005. There is some mild dependent atelectasis in the lung bases. There is no pleural or pericardial effusion. The adrenal glands are normal in size. The kidneys demonstrate symmetric and homogeneous enhancement. The abdominal aorta is normal in size. The gallbladder is contracted. The pancreas and spleen are unremarkable. The liver is homogeneous and there is no duct dilatation. No pathologically enlarged lymph nodes are identified in the retrocrural space, retroperitoneum or abdomen. There is a tiny fat-filled umbilical hernia. The there is abundant colonic stool. No focal bowel thickening or inflammatory changes are identified. There is a trace amount of fluid in the pelvis. Multiple small subcentimeter ovarian cysts are noted. The largest cyst is identified on the left with the greatest measurement of 1.4 cm. The bladder is nearly contracted but smooth in contour. No bony destructive changes are identified. Impression: 1. Ovarian follicular cyst with a trace amount of fluid in the pelvis. Otherwise unremarkable exam. No focal inflammatory changes or active inflammatory changes of Crohn's disease are identified. - Procedure Note Emma Cook - 09/10/2007 CT of the abdomen and pelvis was performed after 100 mL Optiray-240contrast. The prior exam is September 24, 2005. There is some mild dependent atelectasis in the lung bases. There is nopleural or pericardial effusion. The adrenal glands are normal in size. The kidneys demonstratesymmetric and homogeneous enhancement. The abdominal aorta is normal in size. The gallbladder iscontracted. The pancreas and spleen are unremarkable. The liver is homogeneous and there is no ductdilatation. No pathologically enlarged lymph nodes are identified in the retrocruralspace, retroperitoneum or abdomen. There is a tiny fat-filled umbilical hernia. The there isabundant colonic stool. No focal bowel thickening or inflammatory changes are identified. There is a traceamount of fluid in the pelvis. Multiple small subcentimeter ovarian cysts are noted. The largestcyst is identified on the left with the greatest measurement of 1.4 cm. The bladder is nearlycontracted but smooth in contour. No bony destructive changes are identified. Impression: 1. Ovarian follicular cyst with a trace amount of fluid in the pelvis.Otherwise unremarkable exam. No focal inflammatory changes or active inflammatory changes of Crohn'sdisease are identified. - Cristobal Johnson MD CT ORDERABLES Final Result * (ABNORMAL) POC CREATININE (09/10/2007 12:12 PM FIRE MARSHAL REFINERY) CREATININE POC 0.6(L) 0.7 - 1.2 mg/dL INTERFACE SYSTEM 09/10/2007 12:1 2 PM FIRE MARSHAL REFINERY Cristobal Johnson MD POINT OF CARE TESTING Edited INTERFACE SYSTEM Refer to clinic/hospital department documented in this encounter Visit Diagnoses Diagnosis Regional enteritis of unspecified site (CMS/HCC) Regional enteritis of unspecified site documented in this encounter Care Teams Repairer Relationship Specialty Start Date End Date Kendrick Escobedo MD [address] [place] [address] [place] [phone] PCP - General Family Practice 05/09/15 documented as of this encounter
--- OUTSIDE RECORDS SUMMARY | 2025-02-14 17:23 | XMS_ITS | Encounter Summary ---
Author Organization [facility] Address [address] [place] [address] Care Team Providers Care Telephone Worker Name Role Phone Kendrick Escobedo MD Primary Care Provider [phone] Encounter Details Date Type Department Care Team (Latest Contact Info) Description 07/24/2005 Outpatient [facility] Gastroenterology[address] [place] [address] Cristobal Johnson MD NO ADDRESS ON FILE REGIONAL ENTERITIS NOS (CMS/HCC) (Primary Dx) Social History Tobacco Use Types Packs/Day Years Used Date Smoking Tobacco: Never Assessed Comments Unknown Sex and Gender Information Value Date Recorded Sex Assigned at Not on file 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
--- OUTSIDE RECORDS SUMMARY | 2025-02-14 17:23 | XMS_ITS | Encounter Summary ---
Author Organization [facility] Address [address] [place] [address] Care Team Providers Care Tobacco Prevention Health Educator Name Role Phone Kendrick Escobedo MD Primary Care Provider [phone] Encounter Details Date Type Department Care Team (Latest Contact Info) Description 12/12/2004 Outpatient [facility] Gastroenterology[address] [place] [address] Cristobal Johnson MD NO ADDRESS ON FILE REGIONAL ENTERITIS NOS (CMS/HCC) (Primary Dx) Social History Tobacco Use Types Packs/Day Years Used Date Smoking Tobacco: Never Assessed Comments Unknown Sex and Gender Information Value Date Recorded Sex Assigned at Not on file 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
--- OUTSIDE RECORDS SUMMARY | 2025-02-14 17:23 | XMS_ITS | Encounter Summary ---
Author Organization [facility] Address [address] [place] [address] Care Team Providers Care Professor Of Theater Name Role Phone Kendrick Escobedo MD Primary Care Provider Encounter Details Date Type Department Care Team (Late st Contact Info) Description 04/08/2007 Outpatient Historical [facility] Endoscopy [address] 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
--- OUTSIDE RECORDS SUMMARY | 2025-02-14 17:23 | XMS_ITS | Encounter Summary ---
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
--- OUTSIDE RECORDS SUMMARY | 2025-02-14 17:23 | XMS_ITS | Encounter Summary ---
Author Organization [facility] Address [address] [place] [address] Care Team Providers Care Student Finance Advisor Name Role Phone Kendrick Escobedo MD Primary Care Provider [phone] Encounter Details Date Type Department Care Team (Latest Contact Info) Description 01/21/2007 Outpatient [facility] Gastroenterology[address] [place] [address] Cristobal Johnson MD NO ADDRESS ON FILE Regional Enteritis of Unspecified Site (CMS/HCC) (Primary Dx) Social History Tobacco Use Types Packs/Day Years Used Date Smoking Tobacco: Never Assessed Comments Unknown Sex and Gender Information Value Date Recorded Sex Assigned at Not on file 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
--- OUTSIDE RECORDS SUMMARY | 2025-02-14 17:23 | XMS_ITS | Encounter Summary ---
Author Organization [facility] Address [address] [place] [address] Care Team Providers Care Human Resources Temp Name Role Phone Kendrick Escobedo MD Primary Care Provider [phone] Encounter Details Date Type Department Care Team (Latest Contact Info) Description 08/17/2004 Outpatient Historical [facility] Multidisciplinary Chronic Pain [address] [place] [address] Tonny Olson MD [address] [facility] [address] [place] [address] HEADACHE (Primary Dx) Social History Tobacco Use Types Packs/Day Years Used Date Smoking Tobacco: Never Assessed Comments Unknown Sex and Gender Information Value Date Recorded Sex Assigned at Not on file 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
--- OUTSIDE RECORDS SUMMARY | 2025-02-14 17:23 | XMS_ITS | Encounter Summary ---
Author Organization [facility] Address [address] [place] [address] Care Team Providers Care Technical Services Manager Name Role Phone Kendrick Escobedo MD Primary Care Provider Encounter Details Date Type Department Care Team (Latest Contact Info) Description 09/25/2004 Outpatient Historical [facility] Multidisciplinary Chronic Pain [address] [place] [address] Timoteo Carmona MD [address] [place] [id number] CLASS MIGRAIN W/O MENTN INTRACTABLE (Primary Dx) Social History Tobacco Use Types Packs/Day Years Used Date Smoking Tobacco: Never Assessed Comments Unknown Sex and Gender Information Value Date Recorded Sex Assigned at Not on file 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
--- OUTSIDE RECORDS SUMMARY | 2025-02-14 17:23 | XMS_ITS | Encounter Summary ---
Author Organization [facility] Address [address] [place] [address] Care Team Providers Care Lead Former Name Role Phone Kendrick Escobedo MD Primary Care Provider [phone] Encounter Details Date Type Department Care Team (Late st Contact Info) Description 09/08/2007 Outpatient [facility] Gastroenterology[address] [place] [address] Cristobal Johnson MD NO ADDRESS ON FILE Social History Tobacco Use Types Packs/Day Years Used Date Smoking Tobacco: Never Assessed Comments Unknown Sex and Gender Information Value Date Recorded Sex Assigned at Not on file Legal Sex Female 5:24 AM FORENSIC PSYCHIATRIST Gender Identity Not on file Sexual Orientation Not on file documented as of this encounter Progress Notes * Cristobal Johnson MD - 09/08/2007 12:00 AM CST Patient Name: Lilian Mabry DOS: 09/08/2007 : 1975 VITALS: Weight: 189.0 pounds. Pulse: 80. BP: 110/70. HISTORY OF PRESENT ILLNESS: Lilian has had side effects with the Humira. She has joint pains and swelling. She stopped it and the joint pains and swelling got much better but the diarrhea comes back after stopping the Humira. She thinks the side effects with the Humira are too great to continue it. CURRENT MEDICATIONS: Pentasa 500 mg four tablets daily Ultram p.r.n. Nexium 40 mg daily Zoloft 50 mg daily PHYSICAL EXAMINATION: HEART: Regular rate and rhythm. LUNGS: Are clear to auscultation. ABDOMEN: Is soft but tender throughout. No guarding or rebound. EXTREMITIES: No clubbing, cyanosis, or edema. IMPRESSION: 1) Side effects from Humira including joint pain and swelling. 2) Active Crohns disease. PLAN: 1) Add Prednisone 10 mg daily, stop Humira, continue Pentasa. Get CT scan abdomen and pelvis. Follow up in the office in four weeks or sooner if needed. Cristobal Johnson M.D. Gastroenterology Electronically Signed by Cristobal Johnson M.D. 09/12/2007 16:36 , P, 220 Job #: Document #: [id number] cc: NSIC PSYCHIATRIST documented in this encounter Plan of Treatment Not on file documented as of this encounter Visit Diagnoses Not on filedocumented in this encounter Care Teams Lead Former Relationship Specialty Start Date End Date Kendrick Escobedo MD [address] [place] [address] [place] [phone] PCP - General Family Practice 05/09/15 documented as of this encounter
--- OUTSIDE RECORDS SUMMARY | 2025-02-14 17:23 | XMS_ITS | Encounter Summary ---
Author Organization [facility] Address [address] [place] [address] Care Team Providers Care Cad Manager Name Role Phone Kendrick Escobedo MD Primary Care Provider [phone] Encounter Details Date Type Department Care Team (Latest Contact Info) Description 04/18/2004 Outpatient [facility] Gastroenterology[address] [place] [address] Cristobal Johnson MD NO ADDRESS ON FILE REGIONAL ENTERITIS NOS (CMS/HCC) (Primary Dx) Social History Tobacco Use Types Packs/Day Years Used Date Smoking Tobacco: Never Assessed Comments Unknown Sex and Gender Information Value Date Recorded Sex Assigned at Not on file 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
--- OUTSIDE RECORDS SUMMARY | 2025-02-14 17:23 | XMS_ITS | Encounter Summary ---
Author Organization [facility] Address [address] [place] [address] Care Team Providers Care Detective Chief Name Role Phone Kendrick Escobedo MD Primary Care Provider [phone] Encounter Details Date Type Department Care Team (Latest Contact Info) Description 03/08/2005 Outpatient [facility] Gastroenterology[address] [place] [address] Cristobal Johnson MD NO ADDRESS ON FILE REGIONAL ENTERITIS NOS (CMS/HCC) (Primary Dx) Social History Tobacco Use Types Packs/Day Years Used Date Smoking Tobacco: Never Assessed Comments Unknown Sex and Gender Information Value Date Recorded Sex Assigned at Not on file 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
--- OUTSIDE RECORDS SUMMARY | 2025-02-14 17:23 | XMS_ITS | Encounter Summary ---
Author Organization [facility] Address [address] [place] [address] Care Team Providers Care Electric Motor Mechanic Name Role Phone Kendrick Escobedo MD Primary Care Provider [phone] Encounter Details Date Type Department Care Team (Late st Contact Info) Description 11/23/2004 Outpatient [facility] Gastroenterology[address] [place] [address] Cristobal Johnson MD NO ADDRESS ON FILE Social History Tobacco Use Types Packs/Day Years Used Date Smoking Tobacco: Never Assessed Comments Unknown Sex and Gender Information Value Date Recorded Sex Assigned at Not on file 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
--- OUTSIDE RECORDS SUMMARY | 2025-02-14 17:23 | XMS_ITS | Encounter Summary ---
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
--- OUTSIDE RECORDS SUMMARY | 2025-02-14 17:23 | XMS_ITS | Encounter Summary ---
Author Organization [facility] Address [address] [place] [address] Care Team Providers Care Conference And Event Organiser Name Role Phone Kendrick Escobedo MD Primary Care Provider [phone] Encounter Details Date Type Department Care Team (Late st Contact Info) Description 08/14/[address] 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
--- OUTSIDE RECORDS SUMMARY | 2025-02-14 17:23 | XMS_ITS | Encounter Summary ---
Author Organization [facility] Address [address] [place] [address] Care Team Providers Care Echo Technician Name Role Phone Kendrick Escobedo MD Primary Care Provider [phone] Encounter Details Date Type Department Care Team (Latest Contact Info) Description 07/16/2007 Inpatient Historical [facility] Endoscopy [address] 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
--- OUTSIDE RECORDS SUMMARY | 2025-02-14 17:23 | XMS_ITS | Clinical Summary ---
Author Organization [facility] Address [address] [facility] Attn: Epic Prelude ADT [place]EWEL [place]EVES [address] Care Team Providers Care Pets Salesperson Name Role Phone Kendrick Escobedo MD Primary Care Provider [phone] Allergies Active Allergy Reactions Criticality Noted Date Comments Adalimumab Rash Low 01/15/2008 Azathioprine Other (See Comments) 05/27/2008 Pancreatitis Certolizumab Pegol Other (See Comments) 015 Pt states brought on lupus Furosemide Hives High 01/06/2008 Infliximab Anaphylaxis High Influenza Virus Vaccines Itching,Nausea and Vomiting,Swelling Low Iodine Rash Low 08/03/2008 Mercaptopurine Analogues (Thiopurines) Pancytopenia Medium 12/30/2008 Orphenadrine Citrate Rash Low Pantoprazole Hives,Swelling,Cough High 09/06/2008 Pt states it is a severe reaction Vedolizumab Other (See Comments) 05/09/2015 Pt reports brought on coma Medications diltiaZEM (CARDIZEM) 120 mg Tablet Take 120 mg by mouth every 12 hours. 05/09/2015 Active pregabalin (LYRICA) 100 mg Capsule Take 100 mg by mouth every 12 hours. 07/08/2015 Active ondansetron (ZOFRAN) 4 mg Tablet Take 1 Tablet (4 mg) by mouth every 6 hours as needed for Nausea/Emes is. 30 Tablet 0 05/31/2015 Active tiZANidine (ZANAFLEX) 4 mg Tablet Take 4 mg by mouth 3 times daily. 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 Urticaria with remicade, imuran and 6mp caused nausea and increased lipase. Humira resulted in joint pain and swelling. TPMT activity is normal. Immunizations Immunization Administration Dates Next Due Influenza Seasonal Unspecified Formulation IM Social History Tobacco Use Types Packs/Day Years Used Date Smoking Tobacco: Every Day Cigarettes Smokeless Tobacco: Never Comments:Quit smoking: proce ss of quiting Alcohol Use Standard Drinks/Week Comments No 0 (1 standard drink = 0.6 oz pur e alcohol) Comments Unknown Sex and Gender Information Value Date Recorded Sex Assigned at Not on file Legal Sex Female 10:18 AM FURNITURE MOVER Gender Identity Not on file Sexual Orientation Not on file Last Filed Vital Signs Vital Sign Reading Time Taken Comments Blood Pressure 114/51 09/12/2015 10:41 AM FURNITURE MOVER Pulse 83 09/12/2015 10:41 AM FURNITURE MOVER Temperature 36.8 C (98.3 F) 07/18/2015 11:06 AM FURNITURE MOVER Respiratory Rate 16 07/18/2015 11:06 AM FURNITURE MOVER Oxygen Saturation - - Inhaled Oxygen Concentration - - Weight 89.4 kg (197 lb) 09/12/2015 10:41 AM FURNITURE MOVER Height 162.6 cm (5' 4 ) 09/12/2015 10:41 AM FURNITURE MOVER Body Mass Index 33.82 09/12/2015 10:41 AM FURNITURE MOVER Plan of Treatment Health Maintenance Due Date Last Done Comments DTAP/TDAP/TD VACCINES (1 - Tdap) 1992 HEPATITIS B VACCINES (1 of 3 - 19+ 3-dose series) 12/1991 BREAST CANCER SCREENING 12/05/2016 12/06/2015 FIT-DNA Q 3 years 2018 FIT/FOBT Q 1 year 2018 Flex Sig/CT Colonography Q 5 years 2018 ZOSTER VACCINE (1 of 2) 2023 COLORECTAL SCREENING 03/08/2025 03/08/2015 Colorectal Cancer Screening 03/08/2025 INFLUENZA VACCINE (#1) 2025 09/19/2005 Insurance MEDICARE PART A AND B FOR LIFE Care Teams Pets Salesperson Relationship Specialty Start Date End Date Kendrick Escobedo MD [address] [place] [address] [place] [phone] PCP - General Family Practice 05/09/15
--- OUTSIDE RECORDS SUMMARY | 2025-02-14 17:23 | XMS_ITS | Encounter Summary ---
Author Organization [facility] Address [address] [place] [address] Care Team Providers Care Senior Pricing Analyst Name Role Phone Kendrick Escobedo MD Primary Care Provider [phone] Encounter Details Date Type Department Care Team (Latest Contact Info) Description 06/19/2004 Outpatient Historical [facility] [address] [place] [address] Maximilian Silverman MD NO ADDRESS ON FILE Excessive menstruation (Primary Dx) Social History Tobacco Use Types Packs/Day Years Used Date Smoking Tobacco: Never Assessed Comments Unknown Sex and Gender Information Value Date Recorded Sex Assigned at Not on file 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
--- OUTSIDE RECORDS SUMMARY | 2025-02-14 17:23 | XMS_ITS | Encounter Summary ---
Author Organization [facility] Address [address] [place] [address] Care Team Providers Care R&D Engineer Name Role Phone Kendrick Escobedo MD Primary Care Provider [phone] Encounter Details Date Type Department Care Team (Late st Contact Info) Description 12/01/2004 Inpatient Historical [facility] Cristobal Johnson MD NO ADDRESS ON FILE ABDOMINAL PAIN EPIGASTRIC (Primary Dx) Social History Tobacco Use Types Packs/Day Years Used Date Smoking Tobacco: Never Assessed Comments Unknown Sex and Gender Information Value Date Recorded Sex Assigned at Not on file Legal Sex Female 5:24 AM FINANCE ADVISOR Gender Identity Not on file Sexual Orientation Not on file documented as of this encounter Plan of Treatment Not on file documented as of this encounter Procedures Procedure Name Priority Date/Time Associated Diagnosis Comments CBC WITH DIFFERENTIAL Routine 12/02/2004 3:30 AM CDT BASIC METABOLIC PANEL Routine 12/02/2004 3:30 AM CDT CBC WITH DIFFERENTIAL Routine 12/01/2004 10:36 AM CDT SEDIMENTATION RATE Routine 12/01/2004 10 :36 AM CDT LIPASE Routine 12/01/2004 10:36 AM CDT AMYLASE Routine 12/01/2004 10:36 AM CDT COMPREHENSIVE METABOLIC PANEL Routine 12/01/2004 10:36 AM CDT documented in this encounter Results * (ABNORMAL) BASIC METABOLIC PANEL (12/02/2004 3:30 AM CDT) GLUCOSE 129(H) 70 - 110 mg/dL INTERFACE SYSTEM BUN 6(L) 7 - 17 mg/dL INTERFACE SYSTEM CREATININE 0.9 0.7 - 1.2 mg/dL INTERFACE SYSTEM SODIUM 139 136 - 145 mEq/L INTERFACE SYSTEM POTASSIUM 4.0 3.5 - 5.0 mEq/L INTERFACE SYSTEM CHLORIDE 116(H) 95 - 110 mEq/L INTERFACE SYSTEM CO2 18(L) 22 - 32 mmol/l INTERFACE SYSTEM ANION GAP 9 9 - 20 mEq/L INTERFACE SYSTEM OSMOLALITY, CALCULATED 285 275 - 295 mOsm/Kg INTERFACE SYSTEM CALCIUM 8.8 8.4 - 10.5 mg/dL INTERFACE SYSTEM 12/02/2004 3:30 AM CDT Cristobal Johnson MD CHEMISTRY ORDERABLES Final Resu lt INTERFACE SYSTEM Refer to clinic/hospital department * (ABNORMAL) CBC WITH DIFFERENTIAL (12/02/2004 3:30 AM CDT) WBC 13.5(H) 4.5 - 11.0 K/ul INTERFACE SYSTEM RBC 4.45 4.20 - 5.40 Mil/ul INTERFACE SYSTEM HEMOGLOBIN 11.9(L) 12.0 - 16.0 g/dL INTERFACE SYSTEM HEMATOCRIT 39.7 36.0 - 46.0 % INTERFACE SYSTEM MCV 89.2 84.0 - 103.0 Fl INTERFACE SYSTEM MCH 26.7(L) 27.0 - 34.0 pg INTERFACE SYSTEM MCHC 30.0 30.0 - 35.0 g/dL INTERFACE SYSTEM RDW 13.9 11.0 - 14.5 percent(i nactive) INTERFACE SYSTEM PLATELETS 176 140 - 440 K/ul INTERFACE SYSTEM MPV 10.9 8.9 - 12.8 Fl INTERFACE SYSTEM NEUTROPHILS 76.8(H) 42.2 - 75.2 percent(i nactive) INTERFACE SYSTEM LYMPHOCYTES 17.4(L) 24.0 - 44.0 percent(i nactive) INTERFACE SYSTEM MONOCYTES 5.6 2.0 - 10.0 percent(i nactive) INTERFACE SYSTEM EOSINOPHILS 0.1 0.0 - 7.0 % INTERFACE SYSTEM BASOPHILS 0.1 0.0 - 1.0 percent(i nactive) INTERFACE SYSTEM NEUTROPHIL ABSOLUTE 10.3(H) 2.0 - 8.0 K/uL INTERFACE SYSTEM LYMPHOCYTE ABSOLUTE 2.3 1.2 - 4.0 K/ul INTERFACE SYSTEM MONOCYTE ABSOLUTE 0.8(H) 0.1 - 0.6 K/ul INTERFACE SYSTEM EOSINOPHIL ABSOLUTE 0.0 0.0 - 0.7 K/ul INTERFACE SYSTEM BASOPHILS ABSOLUTE 0.0 0.0 - 0.2 K/ul INTERFACE SYSTEM PERIPHERAL BLOOD SMEAR REVIEW Automated Diff INTERFACE SYSTEM 12/02/2004 3:30 AM CDT us Cristobal Johnson MD HEMATOLOGY ORDERABLES Final Res ult Performing Organization Address [facility] Phone Number INTERFACE SYSTEM Refer to clinic/hospital department * LIPASE (12/01/2004 10:36 AM CDT) LIPASE 56 23 - 300 IU/L INTERFACE SYSTEM 12/01/2004 10:3 6 AM CDT Cristobal Johnson MD CHEMISTRY ORDERABLES Final Resu lt Performing Organization Address [facility] Phone Number INTERFACE SYSTEM Refer to clinic/hospital department * (ABNORMAL) AMYLASE (12/01/2004 10:36 AM CDT) AMYLASE <30(L) 30 - 120 IU/L INTERFACE SYSTEM 12/01/2004 10:3 6 AM CDT us Cristobal Johnson MD CHEMISTRY ORDERABLES Final Resu lt Performing Organization Address [facility] Phone Number INTERFACE SYSTEM Refer to clinic/hospital department * (ABNORMAL) COMPREHENSIVE METABOLIC PANEL (12/01/2004 10:36 AM CDT) GLUCOSE 99 70 - 110 mg/dL INTERFACE SYSTEM BUN 8 7 - 17 mg/dL INTERFACE SYSTEM CREATININE 0.8 0.7 - 1.2 mg/dL INTERFACE SYSTEM SODIUM 141 136 - 145 mEq/L INTERFACE SYSTEM POTASSIUM 3.7 3.5 - 5.0 mEq/L INTERFACE SYSTEM CO2 20(L) 22 - 32 mmol/l INTERFACE SYSTEM CHLORIDE 112(H) 95 - 110 mEq/L INTERFACE SYSTEM CALCIUM 9.2 8.4 - 10.5 mg/dL INTERFACE SYSTEM ALKALINE PHOSPHATASE 66 38 - 126 IU/L INTERFACE SYSTEM TOTAL PROTEIN 7.1 6.3 - 8.2 g/dL INTERFACE SYSTEM ALBUMIN 3.9 3.5 - 5.0 g/dL INTERFACE SYSTEM AST 14 14 - 36 IU/L INTERFACE SYSTEM ALT 12 9 - 52 IU/L INTERFACE SYSTEM BILIRUBIN TOTAL 0.5 0.2 - 1.4 mg/dL INTERFACE SYSTEM GLOBULIN (CALC) 3.2 2.4 - 3.9 g/dL INTERFACE SYSTEM ANION GAP 13 9 - 20 mEq/L INTERFACE SYSTEM ALBUMIN/GLOBULIN RATIO 1.2 1.0 - 2.3 INTERFACE SYSTEM OSMOLALITY, CALCULATED 287 275 - 295 mOsm/Kg INTERFACE SYSTEM 12/01/2004 10:3 6 AM CDT Cristobal Johnson MD CHEMISTRY ORDERABLES Final Resu lt Performing Organization Address [facility] Phone Number INTERFACE SYSTEM Refer to clinic/hospital department * SEDIMENTATION RATE (12/01/2004 10:36 AM CDT) ESR (SEDIMENTATION RATE) 7 0 - 22 mm/hr INTERFACE SYSTEM 12/01/2004 10:3 6 AM CDT Cristobal Johnson MD HEMATOLOGY ORDERABLES Final Res ult Performing Organization Address [facility] Phone Number INTERFACE SYSTEM Refer to clinic/hospital department * (ABNORMAL) CBC WITH DIFFERENTIAL (12/01/2004 10:36 AM CDT) WBC 13.9(H) 4.5 - 11.0 K/ul INTERFACE SYSTEM RBC 4.76 4.20 - 5.40 Mil/ul INTERFACE SYSTEM HEMOGLOBIN 12.8 12.0 - 16.0 g/dL INTERFACE SYSTEM HEMATOCRIT 40.4 36.0 - 46.0 % INTERFACE SYSTEM MCV 84.9 84.0 - 103.0 Fl INTERFACE SYSTEM MCH 26.9(L) 27.0 - 34.0 pg INTERFACE SYSTEM MCHC 31.7 30.0 - 35.0 g/dL INTERFACE SYSTEM RDW 13.3 11.0 - 14.5 percent(i nactive) INTERFACE SYSTEM PLATELETS 286 140 - 440 K/ul INTERFACE SYSTEM MPV 9.9 8.9 - 12.8 Fl INTERFACE SYSTEM NEUTROPHILS 81.3(H) 42.2 - 75.2 percent(i nactive) INTERFACE SYSTEM LYMPHOCYTES 12.2(L) 24.0 - 44.0 percent(i nactive) INTERFACE SYSTEM MONOCYTES 6.0 2.0 - 10.0 percent(i nactive) INTERFACE SYSTEM EOSINOPHILS 0.3 0.0 - 7.0 % INTERFACE SYSTEM BASOPHILS 0.2 0.0 - 1.0 percent(i nactive) INTERFACE SYSTEM NEUTROPHIL ABSOLUTE 11.3(H) 2.0 - 8.0 K/uL INTERFACE SYSTEM LYMPHOCYTE ABSOLUTE 1.7 1.2 - 4.0 K/ul INTERFACE SYSTEM MONOCYTE ABSOLUTE 0.8(H) 0.1 - 0.6 K/ul INTERFACE SYSTEM EOSINOPHIL ABSOLUTE 0.0 0.0 - 0.7 K/ul INTERFACE SYSTEM BASOPHILS ABSOLUTE 0.0 0.0 - 0.2 K/ul INTERFACE SYSTEM PERIPHERAL BLOOD SMEAR REVIEW Automated Diff INTERFACE SYSTEM 12/01/2004 10:3 6 AM CDT us Cristobal Johnson MD HEMATOLOGY ORDERABLES Final Res ult INTERFACE SYSTEM Refer to clinic/hospital department documented in this encounter Visit Diagnoses Diagnosis Abdominal pain, epigastric- Primary documented in this encounter Care Teams R&D Engineer Relationship Specialty Start Date End Date Kendrick Escobedo MD [address] [place] [address] [place] [phone] PCP - General Family Practice 05/09/15 documented as of this encounter
--- OUTSIDE RECORDS SUMMARY | 2025-02-14 17:23 | XMS_ITS | Encounter Summary ---
Author Organization [facility] Address [address] [place] [address] Care Team Providers Care English Composition Teacher Name Role Phone Kendrick Escobedo MD Primary Care Provider [phone] Encounter Details Date Type Department Care Team (Latest Contact Info) Description 05/21/2005 Outpatient [facility] Gastroenterology[address] [place] [address] Cristobal Johnson MD NO ADDRESS ON FILE REGIONAL ENTERITIS NOS (CMS/HCC) (Primary Dx) Social History Tobacco Use Types Packs/Day Years Used Date Smoking Tobacco: Never Assessed Comments Unknown Sex and Gender Information Value Date Recorded Sex Assigned at Not on file Legal Sex Female 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
--- OUTSIDE RECORDS SUMMARY | 2025-02-14 17:23 | XMS_ITS | Encounter Summary ---
Author Organization [facility] Address [address] [place] [address] Care Team Providers Care Service Car Operator Name Role Phone Kendrick Escobedo MD Primary Care Provider Encounter Details Date Type Department Care Team (Latest Contact Info) Description 03/26/2005 Outpatient [facility] Gastroenterology[address] [place] [address] Cristobal Johnson MD NO ADDRESS ON FILE REGIONAL ENTERITIS NOS (CMS/HCC) (Primary Dx); Routine medical exam Social History Tobacco Use Types Packs/Day Years Used Date Smoking Tobacco: Never Assessed Comments Unknown Sex and Gender Information Value Date Recorded Sex Assigned at Not on file Legal Sex Female 5:24 AM SPRING INTERNSHIP Gender Identity Not on file Sexual Orientation Not on file documented as of this encounter Plan of Treatment Not on file documented as of this encounter Visit Diagnoses Diagnosis Regional enteritis of unspecified site (CMS/HCC)- Primary Regional enteritis of unspecified site Routine medical exam Routine general medical examination at a health care facility documented in this encounter Care Teams Service Car Operator Relationship Specialty Start Date End Date Kendrick Escobedo MD [address] [place] [address] [place] [address] PCP - General Family Practice 05/09/15 documented as of this encounter
--- OUTSIDE RECORDS SUMMARY | 2025-02-14 17:23 | XMS_ITS | Encounter Summary ---
Author Organization [facility] Address [address] [place] [address] Care Team Providers Care Loom Control Chain Builder Name Role Phone Kendrick Escobedo MD Primary Care Provider [phone] Encounter Details Date Type Department Care Team (Late st Contact Info) Description 04/06/2005 Inpatient Historical HIS IN BED Cristobal Johnson MD NO ADDRESS ON FILE JOINT PAIN-UNSPEC (Primary Dx) Social History Tobacco Use Types Packs/Day Years Used Date Smoking Tobacco: Never Assessed Comments Unknown Sex and Gender Information Value Date Recorded Sex Assigned at Not on file 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 Gender Identity Not on file Sexual Orientation Not on file documented as of this encounter Plan of Treatment Not on file documented as of this encounter Procedures Procedure Name Priority Date/Time Associated Diagnosis Comments URINALYSIS MICROSCOPY ONLY Routine 04/08/2005 8:29 AM CDT URINALYSIS W/REFLEX MICROSCOPIC Routine 04/08/2005 8:29 AM CDT DIFFERENTIAL, MANUAL Routine 04/08/2005 5:20 AM CDT CBC WITH DIFFERENTIAL Routine 04/08/2005 5:20 AM CDT COMPREHENSIVE METABOLIC PANEL Routine 04/08/2005 5:20 AM CDT RAPID STREP SCREEN WITH REFLEX CULTURE Routine 04/07/2005 9:57 AM CDT FATUMA SCREEN W/REFLEX Routine 04/06/2005 9 :53 AM CDT CBC WITH DIFFERENTIAL Routine 04/06/2005 9:49 AM CDT PROTIME-INR Routine 04/06/2005 9:49 AM CDT COMPREHENSIVE METABOLIC PANEL Routine 04/06/2005 9:49 AM CDT documented in this encounter Results * (ABNORMAL) URINALYSIS (04/08/2005 8:29 AM CDT) COLOR UA Pale Yellow Straw INTERFAC E SYSTEM CLARITY UA Clear Clear INTERFACE SYSTEM LEUKOCYTE ESTERASE UA NEGATIVE NEGATIVE INTERFACE SYSTEM NITRITE UA NEGATIVE NEGATIVE INTERFACE SYSTEM PH UA 6.5 5.0 - 9.0 INTERFACE SYSTEM PROTEIN UA NEGATIVE NEGATIVE INTERFACE SYSTEM Comment: As of 05 positive protein results obtained on routine urinalysis will not be confirmed by sulfosalicylic acid (SSA) precipitation. Current methodology for protein detection is highly sensitive for detection of albumin; therefore, confirmation is not necessary. GLUCOSE UA NEGATIVE NEGATIVE INTERFACE SYSTEM KETONES UA NEGATIVE NEGATIVE INTERFACE SYSTEM UROBILINOGEN UA 0.2 0.2 INTE RFACE SYSTEM BILIRUBIN UA NEGATIVE NEGATIVE INTERFA CE SYSTEM BLOOD UA Trace(A) NEGATIVE INTERFACE SYSTEM SPECIFIC GRAVITY UA 1.010 1.005 - 1.030 INTERFACE SYSTEM MICRO EXAM Yes(A) No INTERFACE SYSTEM 04/08/2005 8:29 AM CDT Cristobal Johnson MD URINE ORDERABLES Final Result INTERFACE SYSTEM Refer to clinic/hospital department * URINALYSIS MICROSCOPY ONLY (04/08/2005 8:29 AM CDT) WBC URINE 0-2 0 - 2 INTERFACE SYSTEM RBC UA 0-2 0 - 2 INTERFACE SYSTEM HYALINE CAST None Seen 0 - 2 INTERFA CE SYSTEM BACTERIA UA None Seen None Seen INTERFAC E SYSTEM 04/08/2005 8:29 AM CDT Cristobal Johnson MD URINE ORDERABLES Final Result Performing Organization Address [facility] de Phone Number INTERFACE SYSTEM Refer to clinic/hospital department * (ABNORMAL) DIFFERENTIAL, MANUAL (04/08/2005 5:20 AM CDT) NEUTROPHILS, SEG 83(H) 36 - 66 % INT ERFACE SYSTEM LYMPHOCYTES 13(L) 24 - 44 % INTERFAC E SYSTEM MONOCYTE 4 4 - 10 % INTERFACE SYSTEM PLATELET EST. Normal Normal INTERF FRANCHESCA SYSTEM RBC MORPHOLOGY Normal Normal INTER FACE SYSTEM 04/08/2005 5:20 AM CDT Cristobal Johnson MD HEMATOLOGY ORDERABLES COM Final Result Performing Organization Address [facility] Phone Number INTERFACE SYSTEM Refer to clinic/hospital department * (ABNORMAL) COMPREHENSIVE METABOLIC PANEL (04/08/2005 5:20 AM CDT) GLUCOSE 136(H) 70 - 110 mg/dL INTERFACE SYSTEM BUN 8 7 - 17 mg/dL INTERFACE SYSTEM CREATININE 0.7 0.7 - 1.2 mg/dL INTERFACE SYSTEM SODIUM 138 136 - 145 mEq/L INTERFACE SYSTEM POTASSIUM 3.8 3.5 - 5.0 mEq/L INTERFACE SYSTEM CO2 25 22 - 32 mmol/l INTERFACE SYSTEM CHLORIDE 102 95 - 110 mEq/L INTERFACE SYSTEM CALCIUM 9.1 8.4 - 10.5 mg/dL INTERFACE SYSTEM ALKALINE PHOSPHATASE 66 38 - 126 IU/L INTERFACE SYSTEM TOTAL PROTEIN 7.5 6.3 - 8.2 g/dL INTERFACE SYSTEM ALBUMIN 3.6 3.5 - 5.0 g/dL INTERFACE SYSTEM AST 34 14 - 36 IU/L INTERFACE SYSTEM ALT 18 9 - 52 IU/L INTERFACE SYSTEM BILIRUBIN TOTAL 0.4 0.2 - 1.4 mg/dL INTERFACE SYSTEM GLOBULIN (CALC) 3.9 2.4 - 3.9 g/dL INTERFACE SYSTEM ANION GAP 15 9 - 20 mEq/L INTERFACE SYSTEM ALBUMIN/GLOBULIN RATIO 0.9(L) 1.0 - 2.3 INTERFACE SYSTEM OSMOLALITY, CALCULATED 284 275 - 295 mOsm/Kg INTERFACE SYSTEM 04/08/2005 5:20 AM CDT Cristobal Johnson MD CHEMISTRY ORDERABLES Final Resu lt INTERFACE SYSTEM Refer to clinic/hospital department * (ABNORMAL) CBC WITH DIFFERENTIAL (04/08/2005 5:20 AM CDT) WBC 21.0(H) 4.5 - 11.0 K/ul INTERFACE SYSTEM RBC 4.18(L) 4.20 - 5.40 Mil/ul INTERFACE SYSTEM HEMOGLOBIN 11.0(L) 12.0 - 16.0 g/dL INTERFACE SYSTEM HEMATOCRIT 33.9(L) 36.0 - 46.0 % INTERFACE SYSTEM MCV 81.1(L) 84.0 - 103.0 Fl INTERFACE SYSTEM MCH 26.3(L) 27.0 - 34.0 pg INTERFACE SYSTEM MCHC 32.4 30.0 - 35.0 g/dL INTERFACE SYSTEM RDW 13.1 11.0 - 14.5 % INTERFACE SYSTEM PLATELETS 221 140 - 440 K/ul INTERFACE SYSTEM MPV 10.5 8.9 - 12.8 Fl INTERFACE SYSTEM NEUTROPHILS 86.2(H) 42.2 - 75.2 % INTERFACE SYSTEM LYMPHOCYTES 9.4(L) 24.0 - 44.0 % INTERFACE SYSTEM MONOCYTES 4.4 2.0 - 10.0 % INTERFACE SYSTEM NEUTROPHIL ABSOLUTE 18.1(H) 2.0 - 8.0 K/uL INTERFACE SYSTEM LYMPHOCYTE ABSOLUTE 2.0 1.2 - 4.0 K/ul INTERFACE SYSTEM MONOCYTE ABSOLUTE 0.9(H) 0.1 - 0.6 K/ul INTERFACE SYSTEM EOSINOPHIL ABSOLUTE 0.0 0.0 - 0.7 K/ul INTERFACE SYSTEM BASOPHILS ABSOLUTE 0.0 0.0 - 0.2 K/ul INTERFACE SYSTEM 04/08/2005 5:20 AM CDT Cristobal Johnson MD HEMATOLOGY ORDERABLES Final Res ult INTERFACE SYSTEM Refer to clinic/hospital department * RAPID STREP SCREEN WITH REFLEX CULTURE (04/07/2005 9:57 AM CDT) RAPID STREP SCREEN WITH REFLEX CULTURE Negative Negative INTERFACE SYSTEM 04/07/2005 9:57 AM CDT Cristobal Johnson MD MICROBIOLOGY - GENERAL ORDERABL ES Final Result Performing Organization Address City/[facility]/ZIP Co de Phone Number INTERFACE SYSTEM Refer to clinic/hospital department * FATUMA (04/06/2005 9:53 AM CDT) FATUMA Negative Negative INTERFACE SYSTEM 04/06/2005 9:53 AM CDT Physician Sj Ed CHEMISTRY ORDERABLES Final Resul t Performing Organization Address City/[facility] Co de Phone Number INTERFACE SYSTEM Refer to clinic/hospital department * PROTIME-INR (04/06/2005 9:49 AM CDT) PROTIME 13.7 12.4 - 14.9 Secs INTERFACE SYSTEM Comment: As of 04 note change in normal range. INR 1.0 INTERFACE SYSTEM Comment: Expected Values for INR: DVT/PE Goal INR 2.5; range 2.0 - 3.0 Valve Replacement Tissue Goal INR 2.5; range 2.0 - 3.0 Mechanical Goal INR 3.0; range 2.5 - 3.5 POST-AL Goal INR 2.5; range 2.0 - 3.0 or Goal 3.0; range 2.5 - 3.5 Atrial Fibrillation Goal INR 2.5; range 2.0 - 3.0 Ischemic Stroke Goal INR 2.5; range 2.0 - 3.0 For additional information see Guidelines for Anticoagulation available from the pharmacy [facility]. 04/06/2005 9:49 AM CDT us Physician Sj Ed HEMATOLOGY ORDERABLES Final Resu lt Performing Organization Address City/[facility] Co de Phone Number INTERFACE SYSTEM Refer to clinic/hospital department * (ABNORMAL) COMPREHENSIVE METABOLIC PANEL (04/06/2005 9:49 AM CDT) GLUCOSE 116(H) 70 - 110 mg/dL INTERFACE SYSTEM BUN 5(L) 7 - 17 mg/dL INTERFACE SYSTEM CREATININE 0.7 0.7 - 1.2 mg/dL INTERFACE SYSTEM SODIUM 141 136 - 145 mEq/L INTERFACE SYSTEM POTASSIUM 3.9 3.5 - 5.0 mEq/L INTERFACE SYSTEM CO2 19(L) 22 - 32 mmol/l INTERFACE SYSTEM CHLORIDE 112(H) 95 - 110 mEq/L INTERFACE SYSTEM CALCIUM 9.2 8.4 - 10.5 mg/dL INTERFACE SYSTEM ALKALINE PHOSPHATASE 65 38 - 126 IU/L INTERFACE SYSTEM TOTAL PROTEIN 7.7 6.3 - 8.2 g/dL INTERFACE SYSTEM ALBUMIN 4.1 3.5 - 5.0 g/dL INTERFACE SYSTEM AST 19 14 - 36 IU/L INTERFACE SYSTEM ALT 14 9 - 52 IU/L INTERFACE SYSTEM BILIRUBIN TOTAL 0.6 0.2 - 1.4 mg/dL INTERFACE SYSTEM GLOBULIN (CALC) 3.6 2.4 - 3.9 g/dL INTERFACE SYSTEM ANION GAP 14 9 - 20 mEq/L INTERFACE SYSTEM ALBUMIN/GLOBULIN RATIO 1.1 1.0 - 2.3 INTERFACE SYSTEM OSMOLALITY, CALCULATED 288 275 - 295 mOsm/Kg INTERFACE SYSTEM 04/06/2005 9:49 AM CDT Physician Sj Ed CHEMISTRY ORDERABLES Final Resul t Performing Organization Address City/State/[facility] Co de Phone Number INTERFACE SYSTEM Refer to clinic/hospital department * (ABNORMAL) CBC WITH DIFFERENTIAL (04/06/2005 9:49 AM CDT) WBC 21.2(H) 4.5 - 11.0 K/ul INTERFACE SYSTEM RBC 4.98 4.20 - 5.40 Mil/ul INTERFACE SYSTEM HEMOGLOBIN 13.3 12.0 - 16.0 g/dL INTERFACE SYSTEM HEMATOCRIT 40.3 36.0 - 46.0 % INTERFACE SYSTEM MCV 80.9(L) 84.0 - 103.0 Fl INTERFACE SYSTEM MCH 26.7(L) 27.0 - 34.0 pg INTERFACE SYSTEM MCHC 33.0 30.0 - 35.0 g/dL INTERFACE SYSTEM RDW 13.0 11.0 - 14.5 % INTERFACE SYSTEM PLATELETS 233 140 - 440 K/ul INTERFACE SYSTEM MPV 10.5 8.9 - 12.8 Fl INTERFACE SYSTEM NEUTROPHILS 84.3(H) 42.2 - 75.2 % INTERFACE SYSTEM LYMPHOCYTES 9.6(L) 24.0 - 44.0 % INTERFACE SYSTEM MONOCYTES 6.0 2.0 - 10.0 % INTERFACE SYSTEM BASOPHILS 0.1 0.0 - 1.0 % INTERFACE SYSTEM NEUTROPHIL ABSOLUTE 17.8(H) 2.0 - 8.0 K/uL INTERFACE SYSTEM LYMPHOCYTE ABSOLUTE 2.0 1.2 - 4.0 K/ul INTERFACE SYSTEM MONOCYTE ABSOLUTE 1.3(H) 0.1 - 0.6 K/ul INTERFACE SYSTEM EOSINOPHIL ABSOLUTE 0.0 0.0 - 0.7 K/ul INTERFACE SYSTEM BASOPHILS ABSOLUTE 0.0 0.0 - 0.2 K/ul INTERFACE SYSTEM PERIPHERAL BLOOD SMEAR REVIEW Automated Diff INTERFACE SYSTEM 04/06/2005 9:49 AM CDT us Physician Sj Ed HEMATOLOGY ORDERABLES Final Resu lt INTERFACE SYSTEM Refer to clinic/hospital department documented in this encounter Visit Diagnoses Diagnosis Pain in joint, site unspecified- Primary documented in this encounter Care Teams Loom Control Chain Builder Relationship Specialty Start Date End Date Kendrick Escobedo MD [address] [place] [address] [place] [address] PCP - General Family Practice 05/09/15 documented as of this encounter
--- OUTSIDE RECORDS SUMMARY | 2025-02-14 17:23 | XMS_ITS | Encounter Summary ---
Author Organization [facility] Address [address] [place] [address] Care Team Providers Care Remote Sensing Surveyor Name Role Phone Kendrick Escobedo MD Primary Care Provider [phone] Encounter Details Date Type Department Care Team (Late st Contact Info) Description 08/28/2004 Outpatient Historical [facility] Neurology [address], [address] [place] [address] Timoteo Carmona MD [address] [place] [address] CLASS MIGRAIN W/O MENTN INTRACTABLE (Primary Dx); Skin sensation disturb Social History Tobacco Use Types Packs/Day Years Used Date Smoking Tobacco: Never Assessed Comments Unknown Sex and Gender Information Value Date Recorded Sex Assigned at Not on file 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 Gender Identity Not on file Sexual Orientation Not on file documented as of this encounter Plan of Treatment Not on file documented as of this encounter Visit Diagnoses Diagnosis Migraine with aura, without mention of intractable migraine without mention of status migrainosus- Primary Skin sensation disturb Disturbance of skin sensation documented in this encounter Care Teams Remote Sensing Surveyor Relationship Specialty Start Date End Date Kendrick Escobedo MD [address] [place] [address] [place] [phone] PCP - General Family Practice 05/09/15 documented as of this encounter
--- OUTSIDE RECORDS SUMMARY | 2025-02-14 17:23 | XMS_ITS | Encounter Summary ---
Author Organization [facility] Address [address] [place] [address] Care Team Providers Care Burlap Bag Sewer Name Role Phone Kendrick Escobedo MD Primary Care Provider [phone] Encounter Details Date Type Department Care Team (Latest Contact Info) Description 12/21/2005 Outpatient [facility] Gastroenterology[address] [place] [address] Cristobal Johnson MD NO ADDRESS ON FILE Abdominal Pain, Unspecified Site (Primary Dx) Social History Tobacco Use Types Packs/Day Years Used Date Smoking Tobacco: Never Assessed Comments Unknown Sex and Gender Information Value Date Recorded Sex Assigned at Not on file 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
--- OUTSIDE RECORDS SUMMARY | 2025-02-14 17:23 | XMS_ITS | Encounter Summary ---
Author Organization [facility] Address [address] [place] [address] Care Team Providers Care Technician Automatic Name Role Phone Kendrick Escobedo MD Primary Care Provider [phone] Encounter Details Date Type Department Care Team (Latest Contact Info) Description 02/21/2004 Outpatient Historical HIS CANCELLED ADMISSION Cristobal Johnson MD NO ADDRESS ON FILE ADMINISTRTVE ENCOUNT NOS (Primary Dx) Social History Tobacco Use Types Packs/Day Years Used Date Smoking Tobacco: Never Assessed Comments Unknown Sex and Gender Information Value Date Recorded Sex Assigned at Not on file 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
--- OUTSIDE RECORDS SUMMARY | 2025-02-14 17:23 | XMS_ITS | Encounter Summary ---
Author Organization [facility] Address [address] [place] [address] Care Team Providers Care Dental Technician Metal Name Role Phone Kendrick Escobedo MD Primary Care Provider [phone] Encounter Details Date Type Department Care Team (Latest Contact Info) Description 04/13/2004 Outpatient Historical [facility] Imaging Services-[facility] [place] [address] [place] [address] Cristobal Johnson MD NO ADDRESS ON FILE OTHER LUNG DISEASE NEC (Primary Dx) Social History Tobacco Use Types Packs/Day Years Used Date Smoking Tobacco: Never Assessed Comments Unknown Sex and Gender Information Value Date Recorded Sex Assigned at Not on file 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
--- OUTSIDE RECORDS SUMMARY | 2025-02-14 17:23 | XMS_ITS | Encounter Summary ---
Author Organization [facility] Address [address] [place] [address] Care Team Providers Care Office Copy Selector Name Role Phone Kendrick Escobedo MD Primary Care Provider [phone] Encounter Details Date Type Department Care Team (Late st Contact Info) Description 10/31/2006 Outpatient Historical [facility] [address] [place] [address] Social History Tobacco Use Types Packs/Day Years Used Date Smoking Tobacco: Never Assessed Comments Unknown Sex and Gender Information Value Date Recorded Sex Assigned at Not on file 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
--- OUTSIDE RECORDS SUMMARY | 2025-02-14 17:23 | XMS_ITS | Encounter Summary ---
Author Organization [facility] Address [address] [place] [address] Care Team Providers Care Outpatient Coordinator Name Role Phone Kendrick Escobedo MD Primary Care Provider [phone] Encounter Details Date Type Department Care Team (Late st Contact Info) Description 10/03/2004 [facility] [address] [facility] [place] [address] Timoteo Carmona MD [address] [place] [address] Skin sensation disturb (Primary Dx) Social History Tobacco Use Types Packs/Day Years Used Date Smoking Tobacco: Never Assessed Comments Unknown Sex and Gender Information Value Date Recorded Sex Assigned at Not on file 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
--- OUTSIDE RECORDS SUMMARY | 2025-02-14 17:23 | XMS_ITS | Encounter Summary ---
Author Organization [facility] Address [address] [place] [address] Care Team Providers Care Spring Former Hand Name Role Phone Kendrick Escobedo MD Primary Care Provider [phone] Encounter Details Date Type Department Care Team (Latest Contact Info) Description 12/25/2005 Outpatient [facility] Gastroenterology[address] [place] [address] Cristobal Johnson MD NO ADDRESS ON FILE Abdominal Pain, Epigastric (Primary Dx); Regional Enteritis of Unspecified Site (CMS/HCC) Social History Tobacco Use Types Packs/Day Years Used Date Smoking Tobacco: Never Assessed Comments Unknown Sex and Gender Information Value Date Recorded Sex Assigned at Not on file 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
--- OUTSIDE RECORDS SUMMARY | 2025-02-14 17:23 | XMS_ITS | Encounter Summary ---
Author Organization [facility] Address [address] [place] [address] Care Team Providers Care Veterinary Toxicologist Name Role Phone Kendrick Escobedo MD Primary Care Provider [phone] Encounter Details Date Type Department Care Team (Latest Contact Info) Description 03/05/2005 Outpatient Historical [facility] Internal Medicine- [place] [address] [place] [address] Tonny Olson MD [address] [facility] [address] [place] [phone] ACUTE SINUSITIS NOS (Primary Dx) Social History Tobacco Use Types Packs/Day Years Used Date Smoking Tobacco: Never Assessed Comments Unknown Sex and Gender Information Value Date Recorded Sex Assigned at Not on file 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
--- OUTSIDE RECORDS SUMMARY | 2025-02-14 17:23 | XMS_ITS | Encounter Summary ---
Author Organization [facility] Address [address] [place] [address] Care Team Providers Care Surgeon Partner Name Role Phone Kendrick Escobedo MD Primary Care Provider [phone] Encounter Details Date Type Department Care Team (Latest Contact Info) Description 06/09/2004 Outpatient Historical [facility] Imaging Services-[place] [place] [address] [place] [address] Maximilian Silverman MD NO ADDRESS ON FILE EXCESSIVE MENSTRUATION (Primary Dx) Social History Tobacco Use Types Packs/Day Years Used Date Smoking Tobacco: Never Assessed Comments Unknown Sex and Gender Information Value Date Recorded Sex Assigned at Not on file 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
--- OUTSIDE RECORDS SUMMARY | 2025-02-14 17:23 | XMS_ITS | Encounter Summary ---
Author Organization [facility] Address [address] [place] [address] Care Team Providers Care Cable Systems Installer Name Role Phone Kendrick Escobedo MD Primary Care Provider [phone] Encounter Details Date Type Department Care Team (Late st Contact Info) Description 08/09/2008 Outpatient Historical [facility] Endoscopy [place] [address] [place] [address] Cristobal Johnson MD NO ADDRESS ON FILE Social History Tobacco Use Types Packs/Day Years Used Date Smoking Tobacco: Never Assessed Comments No Sex and Gender Information Value Date Recorded Sex Assigned at Not on file 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 Gender Identity Not on file Sexual Orientation Not on file documented as of this encounter Plan of Treatment Not on file documented as of this encounter Procedures Procedure Name Priority Date/Time Associated Diagnosis Comments PATHOLOGY Routine 08/17/2008 3:02 PM PAY STATION ATTENDANT documented in this encounter Results * PATHOLOGY (08/17/2008 3:02 PM PAY STATION ATTENDANT) PATHOLOGY/CYT OLOGY REPORT [facility] Anatomic Pathology Dept [address] [facility] [address] Patient: PASTOR BARBA Accn No: [id number] Collected: 08/17/2008 3:02:00 PM SURGICAL PATHOLOGY FINAL REPORT Diagnosis A. Small intestine, duodenal bulb, biopsy - mild nonspecific acute duodenitis. / B. Stomach, antrum, biopsy - mild chronic inflammation - no Helicobacter-lik e organisms identified with a Giemsa stain. Lena Craven M.D. (Electronically signed by) Verified: 08/18/08 RIMMAW/PRAVEEN Clinical Information None. Specimen Source ASmall Intestine, DUODENAL BULB BStomach, ANTRUM Microscopic Description Microscopic examination was performed. Gross Description Part A. Submitted in a container of formalin labelled Barba - #1 duodenal bulb biopsy are three bay tissue fragments ranging in size from 0.4 to 0.6 cm. The specimen is submitted entirely in A1. Part B. Submitted in a container of formalin labelled Barba - #2 antral biopsies are two bay tissue fragments measuring up to 0.8 cm. The specimen is submitted entirely in B1 with a Giemsa stain ordered. DLS/WLS INTERFACE SYSTEM 08/17/2008 3:02 PM PAY STATION ATTENDANT us Cristobal Johnson MD PATHOLOGY/CYTOLOGY ORDERABLES F inal Result INTERFACE SYSTEM Refer to clinic/hospital department documented in this encounter Visit Diagnoses Not on filedocumented in this encounter Care Teams Cable Systems Installer Relationship Specialty Start Date End Date Kendrick Escobedo MD [address] [place] [address] [place] [phone] PCP - General Family Practice 05/09/15 documented as of this encounter
--- OUTSIDE RECORDS SUMMARY | 2025-02-14 17:23 | XMS_ITS | Encounter Summary ---
Author Organization [facility] Address [address] [place] [address] Care Team Providers Care Document Management Analyst Name Role Phone Kendrick Escobedo MD Primary Care Provider [phone] Encounter Details Date Type Department Care Team (Latest Contact Info) Description 07/27/2004 Outpatient Historical [facility] Internal Medicine- [place] [address] [place] [phone] Tonny Olson MD [address] [facility] [address] [place] [phone] HEADACHE (Primary Dx) Social History Tobacco Use Types Packs/Day Years Used Date Smoking Tobacco: Never Assessed Comments Unknown Sex and Gender Information Value Date Recorded Sex Assigned at Not on file 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
--- OUTSIDE RECORDS SUMMARY | 2025-02-14 17:23 | XMS_ITS | Encounter Summary ---
Author Organization [facility] Address [address] [place] [address] Care Team Providers Care Clinical Informatics Spec Name Role Phone Kendrick Escobedo MD Primary Care Provider [phone] Encounter Details Date Type Department Care Team (Latest Contact Info) Description 11/06/2005 Outpatient [facility] Gastroenterology[address] [place] [address] Cristobal Johnson MD NO ADDRESS ON FILE Regional Enteritis of Unspecified Site (CMS/HCC) (Primary Dx) Social History Tobacco Use Types Packs/Day Years Used Date Smoking Tobacco: Never Assessed Comments Unknown Sex and Gender Information Value Date Recorded Sex Assigned at Not on file 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
--- OUTSIDE RECORDS SUMMARY | 2025-02-14 17:23 | XMS_ITS | Encounter Summary ---
Author Organization [facility] Address [address] [place] [address] Care Team Providers Care Landing Scaler Name Role Phone Kendrick Escobedo MD Primary Care Provider [phone] Encounter Details Date Type Department Care Team (Late st Contact Info) Description 07/16/2005 Outpatient Historical [facility] OBGYN-[place] A[place] [address] [place] [phone] Maximilian Silverman MD NO ADDRESS ON FILE Social History Tobacco Use Types Packs/Day Years Used Date Smoking Tobacco: Never Assessed Comments Unknown Sex and Gender Information Value Date Recorded Sex Assigned at Not on file 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
--- OUTSIDE RECORDS SUMMARY | 2025-02-14 17:23 | XMS_ITS | Encounter Summary ---
Author Organization [facility] Address [address] [place] [address] Care Team Providers Care Roll Or Tape Edge Machine Operator Name Role Phone Kendrick Escobedo MD Primary Care Provider [phone] Encounter Details Date Type Department Care Team (Latest Contact Info) Description 09/24/2005 Outpatient Historical 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
--- OUTSIDE RECORDS SUMMARY | 2025-02-14 17:23 | XMS_ITS | Encounter Summary ---
Author Organization [facility] Address [address] [place] [address] Care Team Providers Care Lending Advisor Name Role Phone Kendrick Escobedo MD Primary Care Provider [phone] Encounter Details Date Type Department Care Team (Late st Contact Info) Description 11/05/2003 Outpatient Historical [facility] Employee Health [address] [place] [phone] Norberto Mayes MD [address] [place] [address] Social History Tobacco Use Types Packs/Day Years Used Date Smoking Tobacco: Never Assessed Comments Unknown Sex and Gender Information Value Date Recorded Sex Assigned at Not on file Legal Sex Female 5:24 AM 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
--- OUTSIDE RECORDS SUMMARY | 2025-02-14 17:23 | XMS_ITS | Encounter Summary ---
Author Organization [facility] Address [address] [place] [address] Care Team Providers Care High School Football Coach Name Role Phone Kendrick Escobedo MD Primary Care Provider [phone] Encounter Details Date Type Department Care Team (Latest Contact Info) Description 12/19/2004 Outpatient [facility] Gastroenterology[address] [place] [address] Cristobal Johnson MD NO ADDRESS ON FILE REGIONAL ENTERITIS NOS (CMS/HCC) (Primary Dx) Social History Tobacco Use Types Packs/Day Years Used Date Smoking Tobacco: Never Assessed Comments Unknown Sex and Gender Information Value Date Recorded Sex Assigned at Not on file 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
--- OUTSIDE RECORDS SUMMARY | 2025-02-14 17:23 | XMS_ITS | Encounter Summary ---
Author Organization [facility] Address [address] [place] [address] Care Team Providers Care Truckload Checker Name Role Phone Kendrick Escobedo MD Primary Care Provider [phone] Encounter Details Date Type Department Care Team (Late st Contact Info) Description 03/23/2004 Outpatient [facility] Gastroenterology[address] [place] [address] Social History Tobacco Use Types Packs/Day Years Used Date Smoking Tobacco: Never Assessed Comments Unknown Sex and Gender Information Value Date Recorded Sex Assigned at Not on file Legal Sex Female 5:24 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
--- OUTSIDE RECORDS SUMMARY | 2025-02-14 17:23 | XMS_ITS | Encounter Summary ---
Author Organization [facility] Address [address] [place] [address] Care Team Providers Care Cone Runner Name Role Phone Kendrick Escobedo MD Primary Care Provider [phone] Encounter Details Date Type Department Care Team (Latest Contact Info) Description 03/05/2006 Outpatient Historical [facility] Endoscopy [address] [place] [address] Cristobal Johnson MD NO ADDRESS ON FILE Ulceration of Intestine (Primary Dx) Social History Tobacco Use Types Packs/Day Years Used Date Smoking Tobacco: Never Assessed Comments Unknown Sex and Gender Information Value Date Recorded Sex Assigned at Not on file Legal Sex Female 5:24 AM CSW Gender Identity Not on file Sexual Orientation Not on file documented as of this encounter Plan of Treatment Not on file documented as of this encounter Visit Diagnoses Diagnosis Ulceration of intestine- Primary documented in this encounter Care Teams Cone Runner Relationship Specialty Start Date End Date Kendrick Escobedo MD [address] [place] [address] [place] [phone] PCP - General Family Practice 05/09/15 documented as of this encounter
--- OUTSIDE RECORDS SUMMARY | 2025-02-14 17:23 | XMS_ITS | Encounter Summary ---
Author Organization [facility] Address [address] [place] [address] Care Team Providers Care Screen Tender Name Role Phone Kendrick Escobedo MD Primary Care Provider [phone] Encounter Details Date Type Department Care Team (Latest Contact Info) Description 10/24/2006 Outpatient Historical [facility] [address] [place] [address] Cristobal Johnson MD NO ADDRESS ON FILE Encounter for Long-Term (Current) Use of Steroids (Primary Dx) Social History Tobacco Use Types Packs/Day Years Used Date Smoking Tobacco: Never Assessed Comments Unknown Sex and Gender Information Value Date Recorded Sex Assigned at Not on file 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
--- OUTSIDE RECORDS SUMMARY | 2025-02-14 17:23 | XMS_ITS | Encounter Summary ---
Author Organization [facility] Address [address] [place] [address] Care Team Providers Care Inspector Integrated Circuits Name Role Phone Kendrick Escoebdo MD Primary Care Provider [phone] Encounter Details Date Type Department Care Team (Latest Contact Info) Description 07/13/2005 Outpatient Historical [facility] Imaging [facility] [address] [place] [address] Cristobal Johnson MD NO ADDRESS ON FILE REGIONAL ENTERITIS NOS (CMS/HCC) (Primary Dx) Social History Tobacco Use Types Packs/Day Years Used Date Smoking Tobacco: Never Assessed Comments Unknown Sex and Gender Information Value Date Recorded Sex Assigned at Not on file Legal Sex Female 5:24 AM FAMILY 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
--- OUTSIDE RECORDS SUMMARY | 2025-02-14 17:23 | XMS_ITS | Encounter Summary ---
Author Organization [facility] Address [address] [facility] Attn: Epic [place] [address] Care Team Providers Care Classroom Aide Name Role Phone Kendrick Escobedo MD Primary Care Provider [phone] Encounter Details Date Type Department Care Team (Late st Contact Info) Description 02/22/2006 Outpatient Historical Norberto Mayes MD [address] [place] [address] Social History Tobacco Use Types Packs/Day Years Used Date Smoking Tobacco: Never Assessed Comments Unknown Sex and Gender Information Value Date Recorded Sex Assigned at Not on file Legal Sex Female 5:24 AM MOVING PICTURE 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 Gender Identity Not on file Sexual Orientation Not on file documented as of this encounter Plan of Treatment Not on file documented as of this encounter Procedures Procedure Name Priority Date/Time Associated Diagnosis Comments RUBELLA IGG Routine 02/22/2006 8:23 PM CDT VARICELLA ZOSTER IGG Routine 02/22/2006 8:23 PM CDT documented in this encounter Results * VARICELLA ZOSTER IGG (02/22/2006 8:23 PM CDT) VZV IGG See Sep Report INTERFACE SYSTEM 02/22/2006 8:23 PM CDT us Norberto Mayes MD CHEMISTRY ORDERABLES Final Re sult Performing Organization Address City/[facility] de Phone Number INTERFACE SYSTEM Refer to clinic/hospital department * RUBELLA IGG (02/22/2006 8:23 PM CDT) RUBELLA IGG Immune Immune INTERFAC E SYSTEM 02/22/2006 8:23 PM CDT Norberto Mayes MD CHEMISTRY ORDERABLES Final Re sult Performing Organization Address [facility] de Phone Number INTERFACE SYSTEM Refer to clinic/hospital department documented in this encounter Visit Diagnoses Not on filedocumented in this encounter Care Teams Classroom Aide Relationship Specialty Start Date End Date Kendrick Escobedo MD [address] [place] [address] [place] [phone] PCP - General Family Practice 05/09/15 documented as of this encounter
--- OUTSIDE RECORDS SUMMARY | 2025-02-14 17:23 | XMS_ITS | Encounter Summary ---
Author Organization [facility] Address [address] [place] [address] Care Team Providers Care Car Stower Name Role Phone Kendrick Escobedo MD Primary Care Provider [phone] Encounter Details Date Type Department Care Team (Latest Contact Info) Description 10/26/2004 Outpatient Historical [facility] Internal Medicine- [place] [address] [facility] [address] [facility] [address] [place] [phone] Tonny Olson MD [address] [facility] [address] [place] [phone] LUMBAGO (Primary Dx) Social History Tobacco Use Types Packs/Day Years Used Date Smoking Tobacco: Never Assessed Comments Unknown Sex and Gender Information Value Date Recorded Sex Assigned at Not on file Legal Sex Female 5:24 AM 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
--- OUTSIDE RECORDS SUMMARY | 2025-02-14 17:23 | XMS_ITS | Encounter Summary ---
Author Organization [facility] Address [address] [place] [address] Care Team Providers Care Senior Ui Web Developer Name Role Phone Kendrick Escobedo MD Primary Care Provider [phone] Encounter Details Date Type Department Care Team (Latest Contact Info) Description 02/11/2004 Outpatient [facility] Gastroenterology[address] [place] [address] Cristobal Johnson MD NO ADDRESS ON FILE REGIONAL ENTERITIS NOS (CMS/HCC) (Primary Dx); GASTRODUODENAL DIS NEC; ABDOMINAL PAIN EPIGASTRIC Social History Tobacco Use Types Packs/Day Years Used Date Smoking Tobacco: Never Assessed Comments Unknown Sex and Gender Information Value Date Recorded Sex Assigned at Not on file 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 Sex Female 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 Gender Identity Not on file Sexual Orientation Not on file documented as of this encounter Plan of Treatment Not on file documented as of this encounter Visit Diagnoses Diagnosis Regional enteritis of unspecified site (CMS/HCC)- Primary Regional enteritis of unspecified site Other specified disorder of stomach and duodenum Abdominal pain, epigastric documented in this encounter Care Teams Senior Ui Web Developer Relationship Specialty Start Date End Date Kendrick Escobedo MD [address] [place] [address] [place] [address] PCP - General Family Practice 05/09/15 documented as of this encounter
--- OUTSIDE RECORDS SUMMARY | 2025-02-14 17:23 | XMS_ITS | Encounter Summary ---
Author Organization [facility] Address [address] [place] [address] Care Team Providers Care Digital Project Manager Name Role Phone Kendrick Escobedo MD Primary Care Provider Encounter Details Date Type Department Care Team (Late st Contact Info) Description 06/24/2008 Inpatient Historical HIS IN BED Cristobal Johnson MD NO ADDRESS ON FILE Regional Enteritis of Unspecified Site (CMS/HCC); Unspecified Migraine without Mention of Intractable Migraine; Tobacco Use Disorder; Dehydration; Intestinal Bypass or Anastomosis Status; Other Specified Disorder of Intestines; Encounter for Long-Term (Current) Use of Steroids Social History Tobacco Use Types Packs/Day Years Used Date Smoking Tobacco: Never Assessed Comments No Sex and Gender Information Value Date Recorded Sex Assigned at Not on file Legal Sex Female 5:24 AM OFFSET PLATE PREPARATION SUPERVISOR Gender Identity Not on file Sexual Orientation Not on file documented as of this encounter Plan of Treatment Not on file documented as of this encounter Procedures Procedure Name Priority Date/Time Associated Diagnosis Comments CBC WITH DIFFERENTIAL Routine 07/04/2008 4:11 AM OFFSET PLATE PREPARATION SUPERVISOR COMPREHENSIVE METABOLIC PANEL Routine 07/04/2008 4:11 AM OFFSET PLATE PREPARATION SUPERVISOR CBC WITH DIFFERENTIAL Routine 07/03/2008 6:41 AM OFFSET PLATE PREPARATION SUPERVISOR COMPREHENSIVE METABOLIC PANEL Routine 07/03/2008 6:41 AM OFFSET PLATE PREPARATION SUPERVISOR CBC WITH DIFFERENTIAL Routine 07/02/2008 6:13 AM OFFSET PLATE PREPARATION SUPERVISOR COMPREHENSIVE METABOLIC PANEL Routine 07/02/2008 6:13 AM OFFSET PLATE PREPARATION SUPERVISOR CBC WITH DIFFERENTIAL Routine 07/01/2008 5:41 AM OFFSET PLATE PREPARATION SUPERVISOR COMPREHENSIVE METABOLIC PANEL Routine 07/01/2008 5:41 AM OFFSET PLATE PREPARATION SUPERVISOR PATHOLOGY Routine 06/30/2008 8:03 AM OFFSET PLATE PREPARATION SUPERVISOR CBC WITH DIFFERENTIAL Routine 06/30/2008 5:40 AM OFFSET PLATE PREPARATION SUPERVISOR COMPREHENSIVE METABOLIC PANEL Routine 06/30/2008 5:40 AM OFFSET PLATE PREPARATION SUPERVISOR CBC WITH DIFFERENTIAL Routine 06/29/2008 5:24 AM OFFSET PLATE PREPARATION SUPERVISOR COMPREHENSIVE METABOLIC PANEL Routine 06/29/2008 5:24 AM OFFSET PLATE PREPARATION SUPERVISOR CT ABDOMEN PELVIS WO CONTRAST Routine 06/28/2008 1:34 PM OFFSET PLATE PREPARATION SUPERVISOR BASIC METABOLIC PANEL Routine 06/28/2008 6:25 AM OFFSET PLATE PREPARATION SUPERVISOR OCCULT BLOOD GUAIAC DIAGNOSTIC Routine 06/28/2008 2:15 AM OFFSET PLATE PREPARATION SUPERVISOR XR CHEST PA OR AP 1 VW Routine 8 5:16 PM OFFSET PLATE PREPARATION SUPERVISOR XR ABDOMEN W DECUB AND OR ERECT 2 VW Routine 06/27/2008 2:36 PM OFFSET PLATE PREPARATION SUPERVISOR LACTIC ACID Routine 06/27/2008 10:30 AM OFFSET PLATE PREPARATION SUPERVISOR CBC WITH DIFFERENTIAL Routine 06/27/2008 10:30 AM OFFSET PLATE PREPARATION SUPERVISOR C. DIFFICILE DETECTION Routine 8 4:00 PM OFFSET PLATE PREPARATION SUPERVISOR CBC WITH DIFFERENTIAL Routine 06/26/2008 6:23 AM OFFSET PLATE PREPARATION SUPERVISOR PROTIME-INR Routine 06/26/2008 6:23 AM OFFSET PLATE PREPARATION SUPERVISOR COMPREHENSIVE METABOLIC PANEL Routine 06/26/2008 6:23 AM OFFSET PLATE PREPARATION SUPERVISOR CT ABDOMEN PELVIS W CONTRAST Routine 06/25/2008 5:36 PM OFFSET PLATE PREPARATION SUPERVISOR US RIGHT UPR QUADRANT Routine 06/25/2008 10:47 AM OFFSET PLATE PREPARATION SUPERVISOR C. DIFFICILE DETECTION Routine 8 9:40 AM OFFSET PLATE PREPARATION SUPERVISOR CRYPTOSPORIDIUM ANTIGEN Routine 06/25/20 08 9:40 AM OFFSET PLATE PREPARATION SUPERVISOR GIARDIA ANTIGEN Routine 06/25/2008 9:40 AM OFFSET PLATE PREPARATION SUPERVISOR STOOL CULTURE W/SHIGA TOXIN Routine 06/25/2008 9:40 AM OFFSET PLATE PREPARATION SUPERVISOR LIPASE Routine 06/25/2008 4:52 AM OFFSET PLATE PREPARATION SUPERVISOR AMYLASE Routine 06/25/2008 4:52 AM OFFSET PLATE PREPARATION SUPERVISOR COMPREHENSIVE METABOLIC PANEL Routine 06/25/2008 4:52 AM OFFSET PLATE PREPARATION SUPERVISOR URINALYSIS MICROSCOPY ONLY Routine 06/24/2008 7:48 PM OFFSET PLATE PREPARATION SUPERVISOR URINALYSIS W/REFLEX MICROSCOPIC Routine 06/24/2008 7:48 PM OFFSET PLATE PREPARATION SUPERVISOR CBC WITH DIFFERENTIAL Stat 06/24/2008 3:45 PM OFFSET PLATE PREPARATION SUPERVISOR PROTIME-INR Stat 06/24/2008 3:45 PM OFFSET PLATE PREPARATION SUPERVISOR COMPREHENSIVE METABOLIC PANEL Stat 06/24/2008 3:45 PM OFFSET PLATE PREPARATION SUPERVISOR documented in this encounter Results * (ABNORMAL) COMPREHENSIVE METABOLIC PANEL (07/04/2008 4:11 AM OFFSET PLATE PREPARATION SUPERVISOR) ALKALINE PHOSPHATASE 41 25 - 100 U/L [facility] BUN 5(L) 7 - 17 mg/dL [facility] POTASSIUM 3.5 3.5 - 5.0 mEq/L [facility] TOTAL PROTEIN 5.6(L) 6.3 - 8.2 g/dL [facility] ANION GAP 10 9 - 20 mEq/L [facility] ALBUMIN/GLOBULIN RATIO 1.4 1.0 - 2.3 [facility] BILIRUBIN TOTAL 0.1(L) 0.3 - 1.2 mg/dL [facility] CREATININE 0.6(L) 0.7 - 1.2 mg/dL [facility] CHLORIDE 110 95 - 110 mEq/L [facility] AST 16 8 - 33 U/L [facility] SODIUM 140 136 - 145 mEq/L [facility] GLUCOSE 98 70 - 110 mg/dL [facility] OSMOLALITY, CALCULATED 284 275 - 295 mOsm/Kg [facility] ALBUMIN 3.3(L) 3.5 - 5.0 g/dL [facility] GLOBULIN (CALC) 2.3(L) 2.4 - 3.9 g/dL [facility] ALT 12 4 - 36 IU/L [facility] CALCIUM 8.5 8.4 - 10.5 mg/dL [facility] CO2 24 22 - 32 mmol/l [facility] Blood specimen (specimen) 07/04/2008 4:11 AM OFFSET PLATE PREPARATION SUPERVISOR 07/04/2008 4:22 AM OFFSET PLATE PREPARATION SUPERVISOR Cristobal Johnson MD CHEMISTRY ORDERABLES Edited INTERFACE SYSTEM Refer to clinic/hospital department [facility] CLIA# [id number] [address] [place] [address] * (ABNORMAL) CBC WITH DIFFERENTIAL (07/04/2008 4:11 AM OFFSET PLATE PREPARATION SUPERVISOR) WBC 13.5(H) 4.5 - 11.0 K/ul [facility] MCH 26.2(L) 27.0 - 34.[address] [facility] NEUTROPHIL ABSOLUTE 8.5(H) 2.0 - 8.0 K/ul [facility] NEUTROPHILS 62.7 42.2 - 75.2 % [facility] HEMATOCRIT 32.0(L) 36.0 - 46.0 % [facility] EOSINOPHILS 2.7 0.0 - 7.0 % [facility] PLATELETS 275 140 - 440 K/ul [facility] EOSINOPHIL ABSOLUTE 0.4 0.0 - 0.7 K/ul [facility] RBC 3.90(L) 4.20 - 5.40 Mil/ul [facility] LYMPHOCYTES 24.3 24.0 - 44.0 % [facility] MCHC 31.9 30.0 - 35.0 g/dL [facility] LYMPHOCYTE ABSOLUTE 3.3 1.2 - 4.0 K/ul [facility] MCV 82.1(L) 84.0 - 103.[address] [facility] MPV 9.4 8.9 - 12.[address] [facility] BASOPHILS ABSOLUTE 0.1 0.0 - 0.2 K/ul [facility] BASOPHILS 0.4 0.0 - 1.0 % [facility] HEMOGLOBIN 10.2(L) 12.0 - 16.0 g/dL [facility] RDW 14.4 11.0 - 14.5 % [facility] MONOCYTE ABSOLUTE 1.3(H) 0.1 - 0.6 K/ul [facility] MONOCYTES 9.9 2.0 - 10.0 % [facility] Blood specimen (specimen) 07/04/2008 4:11 AM OFFSET PLATE PREPARATION SUPERVISOR 07/04/2008 4:22 AM OFFSET PLATE PREPARATION SUPERVISOR us Cristobal Johnson MD HEMATOLOGY ORDERABLES Final Res ult INTERFACE SYSTEM Refer to clinic/hospital department [facility] CLIA# [id number] [address] [place] [phone] * (ABNORMAL) COMPREHENSIVE METABOLIC PANEL (07/03/2008 6:41 AM OFFSET PLATE PREPARATION SUPERVISOR) ALKALINE PHOSPHATASE 53 25 - 100 U/L [facility] CHLORIDE 109 95 - 110 mEq/L [facility] OSMOLALITY, CALCULATED 284 275 - 295 mOsm/Kg [facility] GLOBULIN (CALC) 2.4 2.4 - 3.9 g/dL [facility] TOTAL PROTEIN 6.0(L) 6.3 - 8.2 g/dL [facility] SODIUM 140 136 - 145 mEq/L [facility] BILIRUBIN TOTAL 0.2(L) 0.3 - 1.2 mg/dL [facility] CO2 25 22 - 32 mmol/l [facility] BUN 6(L) 7 - 17 mg/dL [facility] AST 21 8 - 33 U/L [facility] ALBUMIN/GLOBULIN RATIO 1.5 1.0 - 2.3 [facility] POTASSIUM 3.6 3.5 - 5.0 mEq/L [facility] Comment: Specimen slightly hemolyzed ANION GAP 10 9 - 20 mEq/L [facility] ALBUMIN 3.6 3.5 - 5.0 g/dL [facility] CREATININE 0.7 0.7 - 1.2 mg/dL [facility] ALT 11 4 - 36 IU/L [facility] CALCIUM 8.6 8.4 - 10.5 mg/dL [facility] GLUCOSE 92 70 - 110 mg/dL [facility] Blood specimen (specimen) 07/03/2008 6:41 AM OFFSET PLATE PREPARATION SUPERVISOR 07/03/2008 7:00 AM OFFSET PLATE PREPARATION SUPERVISOR us Cristobal Johnson MD CHEMISTRY ORDERABLES Final Resu lt INTERFACE SYSTEM Refer to clinic/hospital department [facility] CLIA# [id number] [address] [place] [phone] * (ABNORMAL) CBC WITH DIFFERENTIAL (07/03/2008 6:41 AM OFFSET PLATE PREPARATION SUPERVISOR) BASOPHILS ABSOLUTE 0.0 0.0 - 0.2 K/ul [facility] BASOPHILS 0.3 0.0 - 1.0 % [facility] HEMOGLOBIN 10.6(L) 12.0 - 16.0 g/dL [facility] RDW 14.4 11.0 - 14.5 % [facility] MONOCYTE ABSOLUTE 1.6(H) 0.1 - 0.6 K/ul [facility] MONOCYTES 11.8(H) 2.0 - 10.0 % [facility] WBC 13.4(H) 4.5 - 11.0 K/ul [facility] MCH 26.7(L) 27.0 - 34.[address] [facility] NEUTROPHIL ABSOLUTE 7.5 2.0 - 8.0 K/ul [facility] NEUTROPHILS 56.0 42.2 - 75.2 % [facility] HEMATOCRIT 32.9(L) 36.0 - 46.0 % [facility] EOSINOPHILS 2.4 0.0 - 7.0 % [facility] PLATELETS 271 140 - 440 K/ul [facility] EOSINOPHIL ABSOLUTE 0.3 0.0 - 0.7 K/ul [facility] RBC 3.97(L) 4.20 - 5.40 Mil/ul [facility] LYMPHOCYTES 29.5 24.0 - 44.0 % [facility] MCHC 32.2 30.0 - 35.0 g/dL [facility] LYMPHOCYTE ABSOLUTE 3.9 1.2 - 4.0 K/ul [facility] MCV 82.9(L) 84.0 - 103.[address] [facility] MPV 9.7 8.9 - 12.[address] [facility] Blood specimen (specimen) 07/03/2008 6:41 AM OFFSET PLATE PREPARATION SUPERVISOR 07/03/2008 7:00 AM OFFSET PLATE PREPARATION SUPERVISOR us Cristobal Johnson MD HEMATOLOGY ORDERABLES Final Res ult INTERFACE SYSTEM Refer to clinic/hospital department [facility] CLIA# [id number] [address] [place] [phone] * (ABNORMAL) COMPREHENSIVE METABOLIC PANEL (07/02/2008 6:13 AM OFFSET PLATE PREPARATION SUPERVISOR) BUN 6(L) 7 - 17 mg/dL [facility] AST 25 8 - 33 U/L [facility] CO2 28 22 - 32 mmol/l [facility] ALBUMIN/GLOBULIN RATIO 1.6 1.0 - 2.3 [facility] ALBUMIN 3.6 3.5 - 5.0 g/dL [facility] POTASSIUM 3.7 3.5 - 5.0 mEq/L [facility] Comment: Specimen slightly hemolyzed ANION GAP 7(L) 9 - 20 mEq/L [facility] CALCIUM 8.6 8.4 - 10.5 mg/dL [facility] CREATININE 0.7 0.7 - 1.2 mg/dL [facility] ALT 14 4 - 36 IU/L [facility] GLUCOSE 91 70 - 110 mg/dL [facility] CHLORIDE 109 95 - 110 mEq/L [facility] OSMOLALITY, CALCULATED 284 275 - 295 mOsm/Kg [facility] ALKALINE PHOSPHATASE 47 25 - 100 U/L [facility] GLOBULIN (CALC) 2.3(L) 2.4 - 3.9 g/dL [facility] SODIUM 140 136 - 145 mEq/L [facility] BILIRUBIN TOTAL 0.2(L) 0.3 - 1.2 mg/dL [facility] TOTAL PROTEIN 5.9(L) 6.3 - 8.2 g/dL [facility] Blood specimen (specimen) 07/02/2008 6:13 AM OFFSET PLATE PREPARATION SUPERVISOR 07/02/2008 6:31 AM OFFSET PLATE PREPARATION SUPERVISOR us Cristobal Johnson MD CHEMISTRY ORDERABLES Final Resu lt INTERFACE SYSTEM Refer to clinic/hospital department [facility] CLIA# [id number] [address] [place] [id number] * (ABNORMAL) CBC WITH DIFFERENTIAL (07/02/2008 6:13 AM OFFSET PLATE PREPARATION SUPERVISOR) [facility] Signature HEMOGLOBIN 10.8(L) 12.0 - 16.0 g/dL [facility] RDW 14.4 11.0 - 14.5 % [facility] MONOCYTE ABSOLUTE 1.5(H) 0.1 - 0.6 K/ul [facility] MONOCYTES 10.4(H) 2.0 - 10.0 % [facility] WBC 14.3(H) 4.5 - 11.0 K/ul [facility] MCH 26.3(L) 27.0 - 34.[address] [facility] NEUTROPHIL ABSOLUTE 9.3(H) 2.0 - 8.0 K/ul [facility] NEUTROPHILS 65.2 42.2 - 75.2 % [facility] HEMATOCRIT 34.2(L) 36.0 - 46.0 % [facility] EOSINOPHILS 1.1 0.0 - 7.0 % [facility] PLATELETS 293 140 - 440 K/ul [facility] EOSINOPHIL ABSOLUTE 0.2 0.0 - 0.7 K/ul [facility] RBC 4.11(L) 4.20 - 5.40 Mil/ul [facility] LYMPHOCYTES 23.0(L) 24.0 - 44.0 % [facility] MCHC 31.6 30.0 - 35.0 g/dL [facility] LYMPHOCYTE ABSOLUTE 3.3 1.2 - 4.0 K/ul [facility] MCV 83.2(L) 84.0 - 103.[address] [facility] MPV 9.6 8.9 - 12.[address] [facility] BASOPHILS ABSOLUTE 0.0 0.0 - 0.2 K/ul [facility] BASOPHILS 0.3 0.0 - 1.0 % [facility] Blood specimen (specimen) 07/02/2008 6:13 AM OFFSET PLATE PREPARATION SUPERVISOR 07/02/2008 6:31 AM OFFSET PLATE PREPARATION SUPERVISOR Cristobal Johnson MD HEMATOLOGY ORDERABLES Final Res ult INTERFACE SYSTEM Refer to clinic/hospital department [facility] CLIA# [id number] [facility] [address] [place] [address] * (ABNORMAL) COMPREHENSIVE METABOLIC PANEL (07/01/2008 5:41 AM OFFSET PLATE PREPARATION SUPERVISOR) CREATININE 0.7 0.7 - 1.2 mg/dL [facility] CALCIUM 9.0 8.4 - 10.5 mg/dL [facility] OSMOLALITY, CALCULATED 285 275 - 295 mOsm/Kg [facility] ALT 15 4 - 36 IU/L [facility] GLUCOSE 99 70 - 110 mg/dL [facility] CHLORIDE 107 95 - 110 mEq/L [facility] ALBUMIN/GLOBULIN RATIO 1.5 1.0 - 2.3 [facility] ALKALINE PHOSPHATASE 47 25 - 100 U/L [facility] SODIUM 140 136 - 145 mEq/L [facility] BILIRUBIN TOTAL 0.3 0.3 - 1.2 mg/dL [facility] TOTAL PROTEIN 6.3 6.3 - 8.2 g/dL [facility] BUN 6(L) 7 - 17 mg/dL [facility] AST 19 8 - 33 U/L [facility] CO2 26 22 - 32 mmol/l [facility] ANION GAP 11 9 - 20 mEq/L [facility] ALBUMIN 3.8 3.5 - 5.0 g/dL [facility] POTASSIUM 3.9 3.5 - 5.0 mEq/L [facility] GLOBULIN (CALC) 2.5 2.4 - 3.9 g/dL [facility] Blood specimen (specimen) 07/01/2008 5:41 AM OFFSET PLATE PREPARATION SUPERVISOR 07/01/2008 5:41 AM OFFSET PLATE PREPARATION SUPERVISOR us Cristobal Johnson MD CHEMISTRY ORDERABLES Final Resu lt INTERFACE SYSTEM Refer to clinic/hospital department [facility] CLIA# [id number] [facility] [place] [address] * (ABNORMAL) CBC WITH DIFFERENTIAL (07/01/2008 5:41 AM OFFSET PLATE PREPARATION SUPERVISOR) HEMOGLOBIN 11.3(L) 12.0 - 16.0 g/dL [facility] MONOCYTES 8.7 2.0 - 10.0 % [facility] RDW 14.1 11.0 - 14.5 % [facility] EOSINOPHIL ABSOLUTE 0.0 0.0 - 0.7 K/ul [facility] WBC 21.8(H) 4.5 - 11.0 K/ul [facility] NEUTROPHILS 78.2(H) 42.2 - 75.2 % [facility] MCH 26.5(L) 27.0 - 34.[address] [facility] LYMPHOCYTE ABSOLUTE 2.8 1.2 - 4.0 K/ul [facility] HEMATOCRIT 35.6(L) 36.0 - 46.0 % [facility] PLATELETS 354 140 - 440 K/ul [facility] BASOPHILS ABSOLUTE 0.0 0.0 - 0.2 K/ul [facility] BASOPHILS 0.1 0.0 - 1.0 % [facility] RBC 4.27 4.20 - 5.40 Mil/ul [facility] MCHC 31.7 30.0 - 35.0 g/dL [facility] MONOCYTE ABSOLUTE 1.9(H) 0.1 - 0.6 K/ul [facility] LYMPHOCYTES 13.0(L) 24.0 - 44.0 % [facility] MCV 83.4(L) 84.0 - 103.[address] [facility] NEUTROPHIL ABSOLUTE 17.0(H) 2.0 - 8.0 K/ul [facility] MPV 9.9 8.9 - 12.[address] [facility] Blood specimen (specimen) 07/01/2008 5:41 AM OFFSET PLATE PREPARATION SUPERVISOR 07/01/2008 5:41 AM OFFSET PLATE PREPARATION SUPERVISOR us Cristobal Johnson MD HEMATOLOGY ORDERABLES Final Res ult INTERFACE SYSTEM Refer to clinic/hospital department [facility] CLIA# [id number] [address] [place] [id number] * PATHOLOGY (06/30/2008 8:03 AM OFFSET PLATE PREPARATION SUPERVISOR) PATHOLOGY/CYT OLOGY REPORT [facility] Anatomic Pathology Dept [address] [place] [id number] Patient: LILIAN BARBA Accn No: [id number] Collected: 06/30/2008 8:03:00 AM SURGICAL PATHOLOGY FINAL REPORT Diagnosis A. Ileocolonic anastomosis, segmental resection - focal superficial colonic mucosal ulceration with benign lymphoid aggregates (see comment) - no other significant pathologic abnormalities identified. REV:Alcides Scott M.D. (Electronically signed by) Verified: 07/02/08 DD /[place] Pathologist Comment The features are nonspecific but may possibly represent focal residual Crohn's disease, given this patient's history. No perforation or features of pneumotosis intestinalis are identified. Clinical Information Pneumatosis. Specimen Source AColon, ILEOCOLIC ANASTOMOSIS Microscopic Description Microscopic examination was performed. Gross Description Part A. Submitted in a container of formalin labelled Barba, #1 ileocolic anastomosis is a bay segment of bowel measuring approximately 12 cm in length and up to 2.5 cm in diameter. The mucosal resection margins have been stapled closed. A fibrinous exudate is present on the serosal surface. Sectioning reveals a small amount of hemorrhagic fecal material. A previous anastomosis is identified located 2.5 cm from the nearest resection margin and 5.6 cm from the opposite resection margin. Surrounding the anastomosis are three erythematous ulcerations measuring up to 0.5 cm in diameter. The bowel wall measures up to 0.6 cm in thickness. No mass lesions are identified. Cassette Summary: A1-A2 - resection margins A3 - sections of anastomosis A4-A5 - sections of ulcerations A6 - random sections of bowel wall. DLS/TKB INTERFACE SYSTEM 06/30/2008 8:03 AM OFFSET PLATE PREPARATION SUPERVISOR us Calvin Manning MD PATHOLOGY/CYTOLOGY ORDERAB LES Final Result INTERFACE SYSTEM Refer to clinic/hospital department * (ABNORMAL) COMPREHENSIVE METABOLIC PANEL (06/30/2008 5:40 AM OFFSET PLATE PREPARATION SUPERVISOR) ANION GAP 7(L) 9 - 20 mEq/L [facility] CALCIUM 8.9 8.4 - 10.5 mg/dL [facility] CREATININE 0.7 0.7 - 1.2 mg/dL [facility] ALT 14 4 - 36 IU/L [facility] GLUCOSE 95 70 - 110 mg/dL [facility] CHLORIDE 109 95 - 110 mEq/L [facility] OSMOLALITY, CALCULATED 284 275 - 295 mOsm/Kg [facility] ALKALINE PHOSPHATASE 48 25 - 100 U/L [facility] GLOBULIN (CALC) 2.3(L) 2.4 - 3.9 g/dL [facility] SODIUM 140 136 - 145 mEq/L [facility] BILIRUBIN TOTAL 0.1(L) 0.3 - 1.2 mg/dL [facility] TOTAL PROTEIN 5.8(L) 6.3 - 8.2 g/dL [facility] BUN 5(L) 7 - 17 mg/dL [facility] AST 20 8 - 33 U/L [facility] CO2 28 22 - 32 mmol/l [facility] ALBUMIN/GLOBULIN RATIO 1.5 1.0 - 2.3 [facility] ALBUMIN 3.5 3.5 - 5.0 g/dL [facility] POTASSIUM 3.7 3.5 - 5.0 mEq/L [facility] Blood specimen (specimen) 06/30/2008 5:40 AM OFFSET PLATE PREPARATION SUPERVISOR 06/30/2008 5:56 AM OFFSET PLATE PREPARATION SUPERVISOR us Cristobal Johnson MD CHEMISTRY ORDERABLES Final Resu lt INTERFACE SYSTEM Refer to clinic/hospital department [facility] CLIA# [id number] [address] [place] [id number] * (ABNORMAL) CBC WITH DIFFERENTIAL (06/30/2008 5:40 AM OFFSET PLATE PREPARATION SUPERVISOR) MONOCYTES 8.1 2.0 - 10.0 % [facility] RDW 14.1 11.0 - 14.5 % [facility] MONOCYTE ABSOLUTE 1.3(H) 0.1 - 0.6 K/ul [facility] WBC 15.9(H) 4.5 - 11.0 K/ul [facility] NEUTROPHILS 63.4 42.2 - 75.2 % [facility] MCH 26.3(L) 27.0 - 34.[address] [facility] NEUTROPHIL ABSOLUTE 10.1(H) 2.0 - 8.0 K/ul [facility] HEMATOCRIT 35.4(L) 36.0 - 46.0 % [facility] PLATELETS 270 140 - 440 K/ul [facility] EOSINOPHIL ABSOLUTE 0.2 0.0 - 0.7 K/ul [facility] EOSINOPHILS 1.3 0.0 - 7.0 % [facility] PERIPHERAL BLOOD SMEAR REVIEW Automated Diff [facility] RBC 4.26 4.20 - 5.40 Mil/ul [facility] MCHC 31.6 30.0 - 35.0 g/dL [facility] LYMPHOCYTE ABSOLUTE 4.3(H) 1.2 - 4.0 K/ul [facility] LYMPHOCYTES 26.8 24.0 - 44.0 % [facility] MCV 83.1(L) 84.0 - 103.[address] [facility] BASOPHILS 0.4 0.0 - 1.0 % [facility] MPV 9.8 8.9 - 12.[address] [facility] BASOPHILS ABSOLUTE 0.1 0.0 - 0.2 K/ul [facility] HEMOGLOBIN 11.2(L) 12.0 - 16.0 g/dL [facility] Blood specimen (specimen) 06/30/2008 5:40 AM OFFSET PLATE PREPARATION SUPERVISOR 06/30/2008 5:56 AM OFFSET PLATE PREPARATION SUPERVISOR us Cristobal Johnson MD HEMATOLOGY ORDERABLES Final Res ult INTERFACE SYSTEM Refer to clinic/hospital department [facility] CLIA# [id number] [address] [place] [id number] * (ABNORMAL) COMPREHENSIVE METABOLIC PANEL (06/29/2008 5:24 AM OFFSET PLATE PREPARATION SUPERVISOR) GLOBULIN (CALC) 2.5 2.4 - 3.9 g/dL [facility] CREATININE 0.7 0.7 - 1.2 mg/dL [facility] CALCIUM 8.9 8.4 - 10.5 mg/dL [facility] OSMOLALITY, CALCULATED 287 275 - 295 mOsm/Kg [facility] ALT 12 4 - 36 IU/L [facility] GLUCOSE 94 70 - 110 mg/dL [facility] CHLORIDE 110 95 - 110 mEq/L [facility] ALBUMIN/GLOBULIN RATIO 1.4 1.0 - 2.3 [facility] ALKALINE PHOSPHATASE 54 25 - 100 U/L [facility] SODIUM 142 136 - 145 mEq/L [facility] BILIRUBIN TOTAL 0.1(L) 0.3 - 1.2 mg/dL [facility] TOTAL PROTEIN 6.1(L) 6.3 - 8.2 g/dL [facility] BUN 3(L) 7 - 17 mg/dL [facility] AST 20 8 - 33 U/L [facility] CO2 27 22 - 32 mmol/l [facility] ANION GAP 8(L) 9 - 20 mEq/L [facility] ALBUMIN 3.6 3.5 - 5.0 g/dL [facility] POTASSIUM 3.3(L) 3.5 - 5.0 mEq/L [facility] Blood specimen (specimen) 06/29/2008 5:24 AM OFFSET PLATE PREPARATION SUPERVISOR 06/29/2008 5:30 AM OFFSET PLATE PREPARATION SUPERVISOR Cristobal Johnson MD CHEMISTRY ORDERABLES Final Resu lt INTERFACE SYSTEM Refer to clinic/hospital department [facility] CLIA# [id number] [address] [place] [id number] * (ABNORMAL) CBC WITH DIFFERENTIAL (06/29/2008 5:24 AM OFFSET PLATE PREPARATION SUPERVISOR) WBC 14.4(H) 4.5 - 11.0 K/ul [facility] NEUTROPHILS 62.5 42.2 - 75.2 % [facility] MCH 26.7(L) 27.0 - 34.[address] [facility] NEUTROPHIL ABSOLUTE 9.0(H) 2.0 - 8.0 K/ul [facility] HEMATOCRIT 35.9(L) 36.0 - 46.0 % [facility] PLATELETS 309 140 - 440 K/ul [facility] EOSINOPHIL ABSOLUTE 0.2 0.0 - 0.7 K/ul [facility] EOSINOPHILS 1.4 0.0 - 7.0 % [facility] PERIPHERAL BLOOD SMEAR REVIEW Automated Diff [facility] RBC 4.31 4.20 - 5.40 Mil/ul [facility] MCHC 32.0 30.0 - 35.0 g/dL [facility] LYMPHOCYTE ABSOLUTE 4.0 1.2 - 4.0 K/ul [facility] LYMPHOCYTES 28.0 24.0 - 44.0 % [facility] MCV 83.3(L) 84.0 - 103.[address] [facility] BASOPHILS 0.3 0.0 - 1.0 % [facility] MPV 9.9 8.9 - 12.[address] [facility] BASOPHILS ABSOLUTE 0.0 0.0 - 0.2 K/ul [facility] HEMOGLOBIN 11.5(L) 12.0 - 16.0 g/dL [facility] MONOCYTES 7.8 2.0 - 10.0 % [facility] RDW 13.8 11.0 - 14.5 % [facility] MONOCYTE ABSOLUTE 1.1(H) 0.1 - 0.6 K/ul [facility] Blood specimen (specimen) 06/29/2008 5:24 AM OFFSET PLATE PREPARATION SUPERVISOR 06/29/2008 5:30 AM OFFSET PLATE PREPARATION SUPERVISOR us Cristobal Johnson MD HEMATOLOGY ORDERABLES Final Res ult Performing Organization Address City/State/[facility] Co de Phone Number INTERFACE SYSTEM Refer to clinic/hospital department [facility]# [id number] [address] [place] [address] * CT ABDOMEN PELVIS WO CONTRAST (06/28/2008 1:34 PM OFFSET PLATE PREPARATION SUPERVISOR) Anatomical Region Laterality Modality Abdomen Other 06/28/2008 1:3 4 PM OFFSET PLATE PREPARATION SUPERVISOR Narrative 06/28/2008 7:23 PM OFFSET PLATE PREPARATION SUPERVISOR Exam: CT Abdomen, Pelvis w/o Date/Time of Exam: Jun 28, 2008 1:34:18 PM History: Please see order comments. Crohn's. Abdominal pain. Vomiting. Technique: Examination consists of a helical CT scan of the abdomen and pelvis performed without IV contrast on a [employer] VCT helical CT scanner. No IV contrast was used. Comparison: 06/25/2008. Findings: Lung bases are unremarkable. Heart size appears within normal limits. Evaluation of the solid organs of the abdomen and pelvis is limited secondary to lack of IV contrast. The liver, gallbladder, pancreas, spleen, left and right adrenal glands and left and right kidneys are unremarkable in appearance. The stomach appears within normal limits. The small intestines appear within normal limits. Pneumatosis is present in the cecum. The colon and rectum appear within normal limits. The urinary bladder is unremarkable. The uterus appears within normal limits. No ventral or inguinal hernias are identified. No free intraperitoneal air is identified. Osseous structures appear within normal limits. No suspicious masses, fluid collections or lymphadenopathy is identified. Impressions: 1. Pneumatosis of the cecum, stable. 2. Remainder of examination is unremarkable. These findings were discussed with Dr. Truong Manning on 06/28/2008 at completion of dictation. - Dictated By: Maximilian Novak M.D., Ph.D. Electronically Signed By: Maximilian Novak M.D., Ph.D. Date Signed: 06/28/08 ABIEL Procedure Note Maximilian Novak - 06/28/2008 Exam: CT Abdomen, Pelvis w/o Date/Time of Exam: Jun 28, 2008 1:34:18 PM History: Please see order comments. Crohn's. Abdominal pain. Vomiting. Technique: Examination consists of a helical CT scan of the abdomen andpelvis performed without IV contrast on a [employer] VCT helical CT scanner. No IV contrast wasused. Comparison: 06/25/2008. Findings: Lung bases are unremarkable. Heart size appears within normallimits. Evaluation of the solid organs of the abdomen and pelvis is limitedsecondary to lack of IV contrast. The liver, gallbladder, pancreas, spleen, left and right adrenal glands andleft and right kidneys are unremarkable in appearance. The stomach appears within normal limits. Thesmall intestines appear within normal limits. Pneumatosis is present in the cecum. The colon and rectumappear within normal limits. The urinary bladder is unremarkable. The uterus appears within normal limits.No ventral or inguinal hernias are identified. No free intraperitoneal air is identified. Osseousstructures appear within normal limits. No suspicious masses, fluid collections or lymphadenopathy isidentified. Impressions: 1. Pneumatosis of the cecum, stable. 2. Remainder of examination is unremarkable. These findings were discussed with Dr. Truong Manning on 06/28/2008 atcompletion of dictation. - Dictated By: Maximilian Novak M.D., Ph.D. Electronically Signed By: Maximilian Novak M.D., Ph.D. Date Signed: 06/28/08 ABIEL us Cristobal Johnson MD CT ORDERABLES Final Result * (ABNORMAL) BASIC METABOLIC PANEL (06/28/2008 6:25 AM OFFSET PLATE PREPARATION SUPERVISOR) BUN 3(L) 7 - 17 mg/dL [facility] CO2 23 22 - 32 mmol/l [facility] OSMOLALITY, CALCULATED 290 275 - 295 mOsm/Kg [facility] POTASSIUM 3.3(L) 3.5 - 5.0 mEq/L [facility] CREATININE 0.7 0.7 - 1.2 mg/dL [facility] CALCIUM 8.7 8.4 - 10.5 mg/dL [facility] GLUCOSE 151(H) 70 - 110 mg/dL [facility] CHLORIDE 111(H) 95 - 110 mEq/L [facility] SODIUM 142 136 - 145 mEq/L [facility] ANION GAP 11 9 - 20 mEq/L [facility] Blood specimen (specimen) 06/28/2008 6:25 AM OFFSET PLATE PREPARATION SUPERVISOR 06/28/2008 6:32 AM OFFSET PLATE PREPARATION SUPERVISOR Cristobal Johnson MD CHEMISTRY ORDERABLES Final Resu lt Performing Organization Address [facility] de Phone Number INTERFACE SYSTEM Refer to clinic/hospital department [facility] CLIA# [id number] [facility] [place] [address] * OCCULT BLOOD, STOOL (06/28/2008 2:15 AM OFFSET PLATE PREPARATION SUPERVISOR) OCCULT BLOOD #[address] [facility] Stool specimen (specimen) 06/28/2008 2:15 AM OFFSET PLATE PREPARATION SUPERVISOR 06/28/2008 2:35 AM OFFSET PLATE PREPARATION SUPERVISOR Cristobal Johnson MD BODY FLUIDS AND STOOLS Final Re sult Performing Organization Address [facility] de Phone Number INTERFACE SYSTEM Refer to clinic/hospital department [facility] CLIA# [id number] [address] [place] [address] * XR CHEST PA OR AP (06/27/2008 5:16 PM OFFSET PLATE PREPARATION SUPERVISOR) Anatomical Region Laterality Modality Chest Other 06/27/2008 5:16 PM OFFSET PLATE PREPARATION SUPERVISOR Narrative 06/27/2008 6:16 PM OFFSET PLATE PREPARATION SUPERVISOR A portable chest at 1713 was obtained and no old study is available. There is a right subclavian central line with tip in the superior vena cava. No pneumothorax is identified. There is an indistinct patchy airspace opacity versus volume loss partially obscuring the left costophrenic angle. There is also a slightly more density in the medial aspect of the right lung base just inferior to the hilum concerning for additional area of airspace opacity in the medial aspect of the right lower lobe. These findings are new since the prior exam of April 06, 2005. Impression: 1. Central line as above. No pneumothorax. 2. Patchy hazy airspace opacities bilaterally. This is concerning for infiltrates. Continued followup is recommended. - Dictated By: Emma Cook M.D. Electronically Signed By: Emma Cook M.D. Date Signed: 06/27/08 Procedure Note Emma Cook - 06/27/2008 A portable chest at 1713 was obtained and no old study is available. There is a right subclavian central line with tip in the superior venacava. No pneumothorax is identified. There is an indistinct patchy airspace opacity versus volumeloss partially obscuring the left costophrenic angle. There is also a slightly more density in themedial aspect of the right lung base just inferior to the hilum concerning for additional area of airspaceopacity in the medial aspect of the right lower lobe. These findings are new since the prior exam ofApril 06, 2005. Impression: 1. Central line as above. No pneumothorax. 2. Patchy hazy airspace opacities bilaterally. This is concerning forinfiltrates. Continued followup is recommended. - Dictated By: Emma Cook M.D. Electronically Signed By: Emma Cook M.D. Date Signed: 06/27/08 Cristobal Johnson MD DIAGNOSTIC IMAGING ORDERABLES F inal Result * XR ABDOMEN W DECUB AND OR ERECT (06/27/2008 2:36 PM OFFSET PLATE PREPARATION SUPERVISOR) Anatomical Region Laterality Modality Abdomen Other 06/27/2008 2:36 PM OFFSET PLATE PREPARATION SUPERVISOR Narrative 06/28/2008 1:03 PM OFFSET PLATE PREPARATION SUPERVISOR No free air is identified on the upright view. Bowel gas pattern is unremarkable. Contrast in the left-sided of the abdomen apparently lies in the appendix. Apparent air persists in the wall. Some bowel wall thickening is probably present overlying the iliac crest of the right. Impression: Possible edema of the small bowel on the right. Clinical correlation is necessary. No free air is seen in the peritoneal cavity. - Dictated By: Darwin Delgado M.D. Electronically Signed By: Darwin Delgado M.D. Date Signed: 06/27/08 Procedure Note Darwin Delgado - 06/28/2008 No free air is identified on the upright view. Bowel gas pattern isunremarkable. Contrast in the left-sided of the abdomen apparently lies in the appendix. Apparent airpersists in the wall. Some bowel wall thickening is probably present overlying the iliac crestof the right. Impression: Possible edema of the small bowel on the right. Clinicalcorrelation is necessary. No free air is seen in the peritoneal cavity. - Dictated By: Darwin Delgado M.D. Electronically Signed By: Darwin Delgado M.D. Date Signed: 06/27/08 Cristobal Johnson MD DIAGNOSTIC IMAGING ORDERABLES F inal Result * LACTIC ACID (06/27/2008 10:30 AM OFFSET PLATE PREPARATION SUPERVISOR) LACTIC ACID 1.5 0.5 - 2.2 mEq/L [facility] Blood specimen (specimen) 06/27/2008 10:30 AM OFFSET PLATE PREPARATION SUPERVISOR 06/27/2008 10:38 AM OFFSET PLATE PREPARATION SUPERVISOR Cristobal Johnson MD CHEMISTRY ORDERABLES Final Resu lt INTERFACE SYSTEM Refer to clinic/hospital department [facility] CLIA# [id number] [address] [place] [address] * (ABNORMAL) CBC WITH DIFFERENTIAL (06/27/2008 10:30 AM OFFSET PLATE PREPARATION SUPERVISOR) LYMPHOCYTES 24.7 24.0 - 44.0 % [facility] MCHC 31.9 30.0 - 35.0 g/dL [facility] LYMPHOCYTE ABSOLUTE 2.4 1.2 - 4.0 K/ul [facility] MCV 83.5(L) 84.0 - 103.[address] [facility] MPV 9.5 8.9 - 12.[address] [facility] BASOPHILS ABSOLUTE 0.0 0.0 - 0.2 K/ul [facility] BASOPHILS 0.4 0.0 - 1.0 % [facility] HEMOGLOBIN 11.6(L) 12.0 - 16.0 g/dL [facility] RDW 13.9 11.0 - 14.5 % [facility] MONOCYTE ABSOLUTE 0.6 0.1 - 0.6 K/ul [facility] MONOCYTES 5.9 2.0 - 10.0 % [facility] WBC 9.8 4.5 - 11.0 K/ul [facility] MCH 26.6(L) 27.0 - 34.[address] [facility] NEUTROPHIL ABSOLUTE 6.7 2.0 - 8.0 K/ul [facility] NEUTROPHILS 68.3 42.2 - 75.2 % [facility] HEMATOCRIT 36.4 36.0 - 46.0 % [facility] EOSINOPHILS 0.7 0.0 - 7.0 % [facility] PLATELETS 273 140 - 440 K/ul [facility] EOSINOPHIL ABSOLUTE 0.1 0.0 - 0.7 K/ul [facility] RBC 4.36 4.20 - 5.40 Mil/ul [facility] Blood specimen (specimen) 06/27/2008 10:30 AM OFFSET PLATE PREPARATION SUPERVISOR 06/27/2008 10:35 AM OFFSET PLATE PREPARATION SUPERVISOR us Cristobal Johnson MD HEMATOLOGY ORDERABLES Final Res ult INTERFACE SYSTEM Refer to clinic/hospital department [facility] CLIA# [id number] [address] [place] [address] * CLOSTRIDIUM DIFFICILE TOXIN (06/26/2008 4:00 PM OFFSET PLATE PREPARATION SUPERVISOR) Pathologist [facility] C DIFFICILE TOXIN Negative Negative [facility] 06/26/2008 4:00 PM OFFSET PLATE PREPARATION SUPERVISOR 06/26/2008 4:27 PM OFFSET PLATE PREPARATION SUPERVISOR Cristobal Johnson MD MICROBIOLOGY - GENERAL ORDERABL ES Final Result INTERFACE SYSTEM Refer to clinic/hospital department [facility] CLIA# [id number] [address] [place] [address] * (ABNORMAL) COMPREHENSIVE METABOLIC PANEL (06/26/2008 6:23 AM OFFSET PLATE PREPARATION SUPERVISOR) Pathologist [facility] BILIRUBIN TOTAL 0.2(L) 0.3 - 1.2 mg/dL [facility] TOTAL PROTEIN 6.5 6.3 - 8.2 g/dL [facility] BUN 5(L) 7 - 17 mg/dL [facility] AST 25 8 - 33 U/L [facility] CO2 20(L) 22 - 32 mmol/l [facility] ALBUMIN/GLOBULIN RATIO 1.3 1.0 - 2.3 [facility] ALBUMIN 3.7 3.5 - 5.0 g/dL [facility] POTASSIUM 3.3(L) 3.5 - 5.0 mEq/L [facility] Comment: Slightly hemolyzed specimen; can cause a positive bias on test result. ANION GAP 12 9 - 20 mEq/L [facility] CALCIUM 9.1 8.4 - 10.5 mg/dL [facility] CREATININE 0.8 0.7 - 1.2 mg/dL [facility] ALT 17 4 - 36 IU/L [facility] GLUCOSE 102 70 - 110 mg/dL [facility] CHLORIDE 113(H) 95 - 110 mEq/L [facility] OSMOLALITY, CALCULATED 288 275 - 295 mOsm/Kg [facility] ALKALINE PHOSPHATASE 50 25 - 100 U/L [facility] GLOBULIN (CALC) 2.8 2.4 - 3.9 g/dL [facility] SODIUM 142 136 - 145 mEq/L [facility] Blood specimen (specimen) 06/26/2008 6:23 AM OFFSET PLATE PREPARATION SUPERVISOR 06/26/2008 6:30 AM OFFSET PLATE PREPARATION SUPERVISOR us Cristobal Johnson MD CHEMISTRY ORDERABLES Final Resu lt INTERFACE SYSTEM Refer to clinic/hospital department [facility] CLIA# [id number] [facility] [place] [address] * (ABNORMAL) CBC WITH DIFFERENTIAL (06/26/2008 6:23 AM OFFSET PLATE PREPARATION SUPERVISOR) EOSINOPHILS 0.1 0.0 - 7.0 % [facility] PLATELETS 296 140 - 440 K/ul [facility] EOSINOPHIL ABSOLUTE 0.0 0.0 - 0.7 K/ul [facility] RBC 4.48 4.20 - 5.40 Mil/ul [facility] LYMPHOCYTES 20.5(L) 24.0 - 44.0 % [facility] MCHC 31.8 30.0 - 35.0 g/dL [facility] LYMPHOCYTE ABSOLUTE 3.0 1.2 - 4.0 K/ul [facility] MCV 82.8(L) 84.0 - 103.[address] [facility] MPV 10.0 8.9 - 12.[address] [facility] BASOPHILS ABSOLUTE 0.0 0.0 - 0.2 K/ul [facility] BASOPHILS 0.2 0.0 - 1.0 % [facility] HEMOGLOBIN 11.8(L) 12.0 - 16.0 g/dL [facility] RDW 14.0 11.0 - 14.5 % [facility] MONOCYTE ABSOLUTE 1.4(H) 0.1 - 0.6 K/ul [facility] MONOCYTES 9.5 2.0 - 10.0 % [facility] WBC 14.4(H) 4.5 - 11.0 K/ul [facility] MCH 26.3(L) 27.0 - 34.[address] [facility] NEUTROPHIL ABSOLUTE 10.1(H) 2.0 - 8.0 K/ul [facility] NEUTROPHILS 69.7 42.2 - 75.2 % [facility] HEMATOCRIT 37.1 36.0 - 46.0 % [facility] Blood specimen (specimen) 06/26/2008 6:23 AM OFFSET PLATE PREPARATION SUPERVISOR 06/26/2008 6:30 AM OFFSET PLATE PREPARATION SUPERVISOR us Cristobal Johnson MD HEMATOLOGY ORDERABLES Final Res ult Performing Organization Address City/State/[facility] Co de Phone Number INTERFACE SYSTEM Refer to clinic/hospital department [facility]# [id number] [address] [place] [address] * PROTIME-INR (06/26/2008 6:23 AM OFFSET PLATE PREPARATION SUPERVISOR) PROTIME 15.8 12.8 - 15.[address] [facility] Comment:As of 2007 not e change in normal range. INR 1.1 [facility] Comment: Expected Values for INR: DVT/PE Goal INR 2.5; range 2.0 - 3.0 Valve Replacement Tissue Goal INR 2.5; range 2.0 - 3.0 Mechanical Goal INR 3.0; range 2.5 - 3.5 POST-AZ Goal INR 2.5; range 2.0 - 3.0 or Goal 3.0; range 2.5 - 3.5 Atrial Fibrillation Goal INR 2.5; range 2.0 - 3.0 Ischemic Stroke Goal INR 2.5; range 2.0 - 3.0 For additional information see Guidelines for Anticoagulation available from the pharmacy [facility] [phone] Blood specimen (specimen) 06/26/2008 6:23 AM OFFSET PLATE PREPARATION SUPERVISOR 06/26/2008 6:30 AM OFFSET PLATE PREPARATION SUPERVISOR us Cristobal Johnson MD HEMATOLOGY ORDERABLES Final Res ult INTERFACE SYSTEM Refer to clinic/hospital department [facility] CLIA# [id number] [facility] [place] [address] * CT ABDOMEN PELVIS W CONTRAST (06/25/2008 5:36 PM OFFSET PLATE PREPARATION SUPERVISOR) Anatomical Region Laterality Modality Abdomen Other 06/25/2008 5:36 PM OFFSET PLATE PREPARATION SUPERVISOR Narrative 06/26/2008 6:22 PM OFFSET PLATE PREPARATION SUPERVISOR CT of the abdomen and pelvis was performed after injection of 100 mL Optiray-240 contrast. The patient has pneumatosis of the cecum. Prominent gas in the wall of the cecum adjacent to a postoperative suture line is identified best seen on series 2 image 31 through 46. No definite extraluminal gas or free air is identified. The proximal ascending colon and transverse colon are unremarkable. Descending and sigmoid colon are also appropriate. There is no ileus or obstruction and no free fluid or abscess is identified. The lung bases are clear except for some mild dependent atelectasis. The liver is homogeneous in density and there is no duct dilatation. There is no portal venous gas. The spleen is homogeneous. The adrenal glands are normal in size. Gallbladder is fluid filled and the pancreas is unremarkable. The kidneys demonstrate symmetric and homogeneous enhancement. No adenopathy is identified. There are no thickened or dilated loops of small bowel. There is no free fluid in the pelvis. The bladder is smooth in contour. There is no inguinal hernia. Impression: 1. Pneumatosis of the cecum with postoperative changes. No free intraperitoneal air. No additional abnormality is identified. 2. The findings and/or imaging diagnoses in the above impression have been deemed a critical result by the interpreting radiologist and immediately reported as such to the ordering physician or appropriate licensed caregiver in accordance with current radiology department policy. - Dictated By: Emma Cook M.D. Electronically Signed By: Emma Cook M.D. Date Signed: 06/26/08 Procedure Note Emma Cook - 06/26/2008 CT of the abdomen and pelvis was performed after injection of 100 mLOptiray-240 contrast. The patient has pneumatosis of the cecum. Prominent gas in the wall of thececum adjacent to a postoperative suture line is identified best seen on series 2 image 31through 46. No definite extraluminal gas or free air is identified. The proximal ascending colonand transverse colon are unremarkable. Descending and sigmoid colon are also appropriate. There isno ileus or obstruction and no free fluid or abscess is identified. The lung bases are clear except for some mild dependent atelectasis. Theliver is homogeneous in density and there is no duct dilatation. There is no portal venous gas. The spleenis homogeneous. The adrenal glands are normal in size. Gallbladder is fluid filled and the pancreas isunremarkable. The kidneys demonstrate symmetric and homogeneous enhancement. No adenopathy isidentified. There are no thickened or dilated loops of small bowel. There is no free fluid in the pelvis. Thebladder is smooth in contour. There is no inguinal hernia. Impression: 1. Pneumatosis of the cecum with postoperative changes. No freeintraperitoneal air. No additional abnormality is identified. 2. The findings and/or imaging diagnoses in the above impression have beendeemed a critical result by the interpreting radiologist and immediately reported as such to theordering physician or appropriate licensed caregiver in accordance with current radiology departmentpolicy. - Dictated By: Emma Cook M.D. Electronically Signed By: Emma Cook M.D. Date Signed: 06/26/[address] ORDERABLES Final Result * US RIGHT UPR QUADRANT (06/25/2008 10:47 AM OFFSET PLATE PREPARATION SUPERVISOR) Anatomical Region Laterality Modality Abdomen Other 06/25/2008 10:4 7 AM OFFSET PLATE PREPARATION SUPERVISOR Narrative 06/26/2008 7:20 PM OFFSET PLATE PREPARATION SUPERVISOR Right Upper Quadrant Ultrasound Jun 25, 2008 10:47:45 AM Comparisons: 12/01/2004; 09/10/2007 (CT abdomen and pelvis). Clinical History: Regional enteritis. Findings: The liver is of coarsened echotexture. No focal hepatic lesions or perihepatic fluid collections are identified. There is no evidence for intra or extrahepatic biliary dilatation. Common bile duct measures 2.6 mm in diameter which is within normal limits. Gallbladder contains mild sludge. No gallbladder wall thickening or pericholecystic fluid collections are identified. A negative sonographic Martino's sign was noted. Right kidney is unremarkable in appearance and measures 11.3 cm in length which is within normal limits. The head and body of the pancreas appear within normal limits. The tail of the pancreas is obscured by overlying bowel gas. The upper abdominal aorta is unremarkable in appearance. Impressions: 1. Coarsened liver echotexture most consistent with fatty liver infiltration. However, other infiltrating processes may have same appearance and clinical correlation is suggested. 2. Gallbladder sludge. 3. The tail of the pancreas is obscured by overlying bowel gas. - Dictated By: Maximilian Novak M.D., Ph.D. Electronically Signed By: Maximilian Novak M.D., Ph.D. Date Signed: 06/26/08 HUGO Procedure Note Maximilian Novak - 06/26/2008 Right Upper Quadrant Ultrasound Jun 25, 2008 10:47:45 AM Comparisons: 12/01/2004; 09/10/2007 (CT abdomen and pelvis). Clinical History: Regional enteritis. Findings: The liver is of coarsened echotexture. No focal hepatic lesionsor perihepatic fluid collections are identified. There is no evidence for intra orextrahepatic biliary dilatation. Common bile duct measures 2.6 mm in diameter which is within normal limits.Gallbladder contains mild sludge. No gallbladder wall thickening or pericholecystic fluid collections areidentified. A negative sonographic Martino's sign was noted. Right kidney is unremarkable in appearance andmeasures 11.3 cm in length which is within normal limits. The head and body of the pancreas appearwithin normal limits. The tail of the pancreas is obscured by overlying bowel gas. The upper abdominalaorta is unremarkable in appearance. Impressions: 1. Coarsened liver echotexture most consistent with fatty liverinfiltration. However, other infiltrating processes may have same appearance and clinical correlation issuggested. 2. Gallbladder sludge. 3. The tail of the pancreas is obscured by overlying bowel gas. - Dictated By: Maximilian Novak M.D., Ph.D. Electronically Signed By: Maximilian Novak M.D., Ph.D. Date Signed: 06/26/08 JAW Cristobal Johnson MD US ORDERABLES Final Result * CRYPTOSPORIDIUM ANTIGEN (06/25/2008 9:40 AM OFFSET PLATE PREPARATION SUPERVISOR) FINAL REPORT EIA negative for Cryptosporidium Note: According to our policy, we have performed the Giardia and Cryptosporidium Specific Antigen test only. If clinical suspicion of a parasitic infection other than Giardia or Cryptosporidium is high, please notify the Microbiology lab at [phone] within 5 days to request a full O&P exam and include additional specimens if desired. INTERFACE SYSTEM 06/25/2008 9:40 AM OFFSET PLATE PREPARATION SUPERVISOR 06/25/2008 10:47 AM OFFSET PLATE PREPARATION SUPERVISOR Cristobal Johnson MD MICRO - GEN ORDERABLES COM Mari l Result Performing Organization Address [facility] Co de Phone Number INTERFACE SYSTEM Refer to clinic/hospital department * STOOL CULTURE (06/25/2008 9:40 AM OFFSET PLATE PREPARATION SUPERVISOR) FINAL REPORT Negative for Salmonella/Sh igella/Vibrio / Campylobacter /E. coli 0157:H7 (Note: If Yersinia culture or Shiga toxin testing for E.coli indicated, these require special orders and additional samples be submitted.) INTERFACE SYSTEM 06/25/2008 9:40 AM OFFSET PLATE PREPARATION SUPERVISOR 06/25/2008 10:47 AM OFFSET PLATE PREPARATION SUPERVISOR Cristobal Johnson MD MICROBIOLOGY - GENERAL ORDERABL ES Final Result Performing Organization Address [facility] Co de Phone Number INTERFACE SYSTEM Refer to clinic/hospital department * GIARDIA ANTIGEN (06/25/2008 9:40 AM OFFSET PLATE PREPARATION SUPERVISOR) FINAL REPORT EIA negative for Giardia Specific Antigen Note: According to our policy, we have performed the Giardia and Cryptosporidium Specific Antigen test only. If clinical suspicion of a parasitic infection other than Giardia or Cryptosporidium is high, please notify the Microbiology lab at [phone] within 5 days to request a full O&P exam and include additional specimens if desired. INTERFACE SYSTEM 06/25/2008 9:40 AM OFFSET PLATE PREPARATION SUPERVISOR 06/25/2008 10:47 AM OFFSET PLATE PREPARATION SUPERVISOR Cristobal Johnson MD MICRO - GEN ORDERABLES COM Mari l Result Performing Organization Address [facility] de Phone Number INTERFACE SYSTEM Refer to clinic/hospital department * CLOSTRIDIUM DIFFICILE TOXIN (06/25/2008 9:40 AM OFFSET PLATE PREPARATION SUPERVISOR) C DIFFICILE TOXIN Negative Negative [facility] 06/25/2008 9:40 AM OFFSET PLATE PREPARATION SUPERVISOR 06/25/2008 10:47 AM OFFSET PLATE PREPARATION SUPERVISOR Cristobal Johnson MD MICROBIOLOGY - GENERAL ORDERABL ES Final Result Performing Organization Address [facility] Phone Number INTERFACE SYSTEM Refer to clinic/hospital department [facility] CLIA# [id number] [address] [id number] * (ABNORMAL) AMYLASE (06/25/2008 4:52 AM OFFSET PLATE PREPARATION SUPERVISOR) AMYLASE 19(L) 20 - 104 U/L [facility] Blood specimen (specimen) 06/25/2008 4:52 AM OFFSET PLATE PREPARATION SUPERVISOR 06/25/2008 9:38 AM OFFSET PLATE PREPARATION SUPERVISOR Cristobal Johnson MD CHEMISTRY ORDERABLES Final Resu lt Performing Organization Address [facility] Phone Number INTERFACE SYSTEM Refer to clinic/hospital [facility] CLIA# [id number] [address] [place] [address] * LIPASE (06/25/2008 4:52 AM OFFSET PLATE PREPARATION SUPERVISOR) LIPASE 41 6 - 51 U/L [facility] Blood specimen (specimen) 06/25/2008 4:52 AM OFFSET PLATE PREPARATION SUPERVISOR 06/25/2008 9:38 AM OFFSET PLATE PREPARATION SUPERVISOR Narrative INTERFACE SYSTEM - 06/25/2008 10:01 AM OFFSET PLATE PREPARATION SUPERVISOR may use blood in lab Cristobal Johnson MD CHEMISTRY ORDERABLES Final Resu lt Performing Organization Address [facility] de Phone Number INTERFACE SYSTEM Refer to clinic/hospital department [facility] CLIA# [id number] [place] [address] * (ABNORMAL) COMPREHENSIVE METABOLIC PANEL (06/25/2008 4:52 AM OFFSET PLATE PREPARATION SUPERVISOR) CALCIUM 9.0 8.4 - 10.5 mg/dL [facility] CREATININE 0.6(L) 0.7 - 1.2 mg/dL [facility] ALT 17 4 - 36 IU/L [facility] GLUCOSE 149(H) 70 - 110 mg/dL [facility] CHLORIDE 113(H) 95 - 110 mEq/L [facility] OSMOLALITY, CALCULATED 289 275 - 295 mOsm/Kg [facility] ALKALINE PHOSPHATASE 51 25 - 100 U/L [facility] GLOBULIN (CALC) 2.9 2.4 - 3.9 g/dL [facility] SODIUM 140 136 - 145 mEq/L [facility] BILIRUBIN TOTAL 0.3 0.3 - 1.2 mg/dL [facility] TOTAL PROTEIN 7.0 6.3 - 8.2 g/dL [facility] BUN 5(L) 7 - 17 mg/dL [facility] AST 49(H) 8 - 33 U/L [facility] CO2 22 22 - 32 mmol/l [facility] ALBUMIN/GLOBULIN RATIO 1.4 1.0 - 2.3 [facility] ALBUMIN 4.1 3.5 - 5.0 g/dL [facility] POTASSIUM 4.7 3.5 - 5.0 mEq/L [facility] Comment: Specimen moderately hemolyzed ANION GAP 10 9 - 20 mEq/L [facility] Blood specimen (specimen) 06/25/2008 4:52 AM OFFSET PLATE PREPARATION SUPERVISOR 06/25/2008 4:58 AM OFFSET PLATE PREPARATION SUPERVISOR us Cristobal Johnson MD CHEMISTRY ORDERABLES Final Resu lt INTERFACE SYSTEM Refer to clinic/hospital department [facility] CLIA# [id number] [address] [place] [address] * (ABNORMAL) URINALYSIS MICROSCOPY ONLY (06/24/2008 7:48 PM OFFSET PLATE PREPARATION SUPERVISOR) RBC UA 0-2 0 - 2 [facility] HYALINE CAST None Seen 0 - [address] [facility] BACTERIA UA Few(A) None Seen [facility] WBC URINE 0-2 0 - 2 [facility] Urine specimen (specimen) 06/24/2008 7:48 PM OFFSET PLATE PREPARATION SUPERVISOR 06/24/2008 7:57 PM OFFSET PLATE PREPARATION SUPERVISOR Narrative INTERFACE SYSTEM - 06/24/2008 8:19 PM OFFSET PLATE PREPARATION SUPERVISOR Microscopic ordered by policy Cristobal Johnson MD URINE ORDERABLES Final Result INTERFACE SYSTEM Refer to clinic/hospital department [facility] CLIA# [id number] [address] [place] [address] * (ABNORMAL) URINALYSIS (06/24/2008 7:48 PM OFFSET PLATE PREPARATION SUPERVISOR) COLOR UA Yellow Straw [facility] PROTEIN UA NEGATIVE NEGATIVE [facility] BLOOD UA Trace(A) NEGATIVE [facility] NITRITE UA NEGATIVE NEGATIVE [facility] UROBILINOGEN UA 0.[address] [facility] CLARITY UA Clear Clear [facility] SPECIFIC GRAVITY UA <=1.005(A) <=1.005 [facility] GLUCOSE UA NEGATIVE NEGATIVE [facility] PH UA 5.5 5.0 - 9.0 [facility] BILIRUBIN UA NEGATIVE NEGATIVE [facility] LEUKOCYTE ESTERASE UA NEGATIVE NEGATIVE [facility] KETONES UA NEGATIVE NEGATIVE [facility] MICRO EXAM Yes(A) No [facility] Urine specimen (specimen) 06/24/2008 7:48 PM OFFSET PLATE PREPARATION SUPERVISOR 06/24/2008 7:48 PM OFFSET PLATE PREPARATION SUPERVISOR Cristobal Johnson MD URINE ORDERABLES Final Result INTERFACE SYSTEM Refer to clinic/hospital department [facility] CLIA# [id number] [address] [place] [address] * (ABNORMAL) CBC WITH DIFFERENTIAL (06/24/2008 3:45 PM OFFSET PLATE PREPARATION SUPERVISOR) MONOCYTE ABSOLUTE 1.0(H) 0.1 - 0.6 K/ul [facility] MONOCYTES 9.8 2.0 - 10.0 % [facility] WBC 10.3 4.5 - 11.0 K/ul [facility] MCH 26.7(L) 27.0 - 34.[address] [facility] NEUTROPHIL ABSOLUTE 6.4 2.0 - 8.0 K/ul [facility] NEUTROPHILS 62.4 42.2 - 75.2 % [facility] HEMATOCRIT 41.2 36.0 - 46.0 % [facility] EOSINOPHILS 2.3 0.0 - 7.0 % [facility] PLATELETS 270 140 - 440 K/ul [facility] EOSINOPHIL ABSOLUTE 0.2 0.0 - 0.7 K/ul [facility] RBC 4.91 4.20 - 5.40 Mil/ul [facility] LYMPHOCYTES 24.7 24.0 - 44.0 % [facility] MCHC 31.8 30.0 - 35.0 g/dL [facility] LYMPHOCYTE ABSOLUTE 2.6 1.2 - 4.0 K/ul [facility] MCV 83.9(L) 84.0 - 103.[address] [facility] MPV 9.8 8.9 - 12.[address] [facility] BASOPHILS ABSOLUTE 0.1 0.0 - 0.2 K/ul [facility] BASOPHILS 0.8 0.0 - 1.0 % [facility] HEMOGLOBIN 13.1 12.0 - 16.0 g/dL [facility] RDW 14.1 11.0 - 14.5 % [facility] Blood specimen (specimen) 06/24/2008 3:45 PM OFFSET PLATE PREPARATION SUPERVISOR 06/24/2008 3:55 PM OFFSET PLATE PREPARATION SUPERVISOR Cristobal Johnson MD HEMATOLOGY ORDERABLES Final Res ult Performing Organization Address [facility] de Phone Number INTERFACE SYSTEM Refer to clinic/hospital department [facility] CLIA# [id number] [address] [place] [address] * PROTIME-INR (06/24/2008 3:45 PM OFFSET PLATE PREPARATION SUPERVISOR) PROTIME 14.6 12.8 - 15.[address] [facility] Comment:As of 2007 not e change in normal range. INR 1.0 [facility] Comment: Expected Values for INR: DVT/PE Goal INR 2.5; range 2.0 - 3.0 Valve Replacement Tissue Goal INR 2.5; range 2.0 - 3.0 Mechanical Goal INR 3.0; range 2.5 - 3.5 POST-AZ Goal INR 2.5; range 2.0 - 3.0 or Goal 3.0; range 2.5 - 3.5 Atrial Fibrillation Goal INR 2.5; range 2.0 - 3.0 Ischemic Stroke Goal INR 2.5; range 2.0 - 3.0 For additional information see Guidelines for Anticoagulation available from the pharmacy [facility]. [phone] Blood specimen (specimen) 06/24/2008 3:45 PM OFFSET PLATE PREPARATION SUPERVISOR 06/24/2008 3:55 PM OFFSET PLATE PREPARATION SUPERVISOR Cristobal Johnson MD HEMATOLOGY ORDERABLES Final Res ult Performing Organization Address [facility] de Phone Number INTERFACE SYSTEM Refer to clinic/hospital department [facility] CLIA# [id number] [address] [place] [address] * (ABNORMAL) COMPREHENSIVE METABOLIC PANEL (06/24/2008 3:45 PM OFFSET PLATE PREPARATION SUPERVISOR) SODIUM 141 136 - 145 mEq/L [facility] BILIRUBIN TOTAL 0.3 0.3 - 1.2 mg/dL [facility] TOTAL PROTEIN 6.9 6.3 - 8.2 g/dL [facility] BUN 6(L) 7 - 17 mg/dL [facility] AST 23 8 - 33 U/L [facility] CO2 22 22 - 32 mmol/l [facility] ANION GAP 8(L) 9 - 20 mEq/L [facility] ALBUMIN 4.2 3.5 - 5.0 g/dL [facility] POTASSIUM 3.3(L) 3.5 - 5.0 mEq/L [facility] GLOBULIN (CALC) 2.7 2.4 - 3.9 g/dL [facility] CREATININE 0.7 0.7 - 1.2 mg/dL [facility] CALCIUM 8.8 8.4 - 10.5 mg/dL [facility] OSMOLALITY, CALCULATED 286 275 - 295 mOsm/Kg [facility] ALT 17 4 - 36 IU/L [facility] GLUCOSE 98 70 - 110 mg/dL [facility] CHLORIDE 114(H) 95 - 110 mEq/L [facility] ALBUMIN/GLOBULIN RATIO 1.6 1.0 - 2.3 [facility] ALKALINE PHOSPHATASE 62 25 - 100 U/L [facility] Blood specimen (specimen) 06/24/2008 3:45 PM OFFSET PLATE PREPARATION SUPERVISOR 06/24/2008 3:55 PM OFFSET PLATE PREPARATION SUPERVISOR us Cristobal Johnson MD CHEMISTRY ORDERABLES Final Resu lt INTERFACE SYSTEM Refer to clinic/hospital department [facility] CLIA# [id number] [address] [place] [address] documented in this encounter Visit Diagnoses Diagnosis Regional enteritis of unspecified site (CMS/HCC) Regional enteritis of unspecified site Migraine, unspecified, without mention of intractable migraine without mention of status migrainosus Tobacco use disorder Dehydration Intestinal bypass or anastomosis status Other specified disorder of intestines Encounter for long-term (current) use of steroids documented in this encounter Care Teams Digital Project Manager Relationship Specialty Start Date End Date Kendrick Escobedo MD [address] [place] [address] [address] [place], [place] [phone] PCP - General Family Practice 05/09/15 documented as of this encounter
--- OUTSIDE RECORDS SUMMARY | 2025-02-14 17:23 | XMS_ITS | Encounter Summary ---
Author Organization [facility] Address [address] [place] [address] Care Team Providers Care Permit Review Assistant Name Role Phone Kendrick Escobedo MD Primary Care Provider [phone] Encounter Details Date Type Department Care Team (Latest Contact Info) Description 01/16/2005 Outpatient [facility] Gastroenterology[address] [place] [address] Cristobal Johnson MD NO ADDRESS ON FILE REGIONAL ENTERITIS NOS (CMS/HCC) (Primary Dx) Social History Tobacco Use Types Packs/Day Years Used Date Smoking Tobacco: Never Assessed Comments Unknown Sex and Gender Information Value Date Recorded Sex Assigned at Not on file Legal Sex Female 5:24 AM PATTERNMAKER BENCH Gender Identity Not on file Sexual Orientation Not on file documented as of this encounter Plan of Treatment Not on file documented as of this encounter Visit Diagnoses Diagnosis Regional enteritis of unspecified site (CMS/HCC)- Primary Regional enteritis of unspecified site documented in this encounter Care Teams Permit Review Assistant Relationship Specialty Start Date End Date Kendrick Escobedo MD [address] [place] [address] [place] [phone] PCP - General Family Practice 05/09/15 documented as of this encounter
--- OUTSIDE RECORDS SUMMARY | 2025-02-14 17:23 | XMS_ITS | Encounter Summary ---
Author Organization [facility] Address [address] [place] [address] Care Team Providers Care Warrant Server Name Role Phone Kendrick Escobedo MD Primary Care Provider [phone] Encounter Details Date Type Department Care Team (Late st Contact Info) Description 09/25/2004 Outpatient Historical [facility] [address] [place] [phone] Social History Tobacco Use Types Packs/Day Years Used Date Smoking Tobacco: Never Assessed Comments Unknown Sex and Gender Information Value Date Recorded Sex Assigned at Not on file Legal Sex Female 5:24 AM SENIOR QUALITY METHODS SPECIALIST Gender Identity Not on file Sexual Orientation Not on file documented as of this encounter Plan of Treatment Not on file documented as of this encounter Visit Diagnoses Not on filedocumented in this encounter Care Teams Warrant Server Relationship Specialty Start Date End Date Kendrick Escobedo MD [address] [place] [address] [place] [address] PCP - General Family Practice 05/09/15 documented as of this encounter
--- OUTSIDE RECORDS SUMMARY | 2025-02-14 17:23 | XMS_ITS | Encounter Summary ---
Author Organization [facility] Address [address] [place] [address] Care Team Providers Care Water Safety Teacher Name Role Phone Kendrick Escobedo MD Primary Care Provider [phone] Encounter Details Date Type Department Care Team (Latest Contact Info) Description 06/19/2004 Outpatient Historical [facility] [place] [address] [place] [address] Maximilian Silverman MD NO ADDRESS ON FILE EXCESSIVE MENSTRUATION (Primary Dx) Social History Tobacco Use Types Packs/Day Years Used Date Smoking Tobacco: Never Assessed Comments Unknown Sex and Gender Information Value Date Recorded Sex Assigned at Not on file Legal Sex Female 5:24 AM ENGINEERING PRODUCTION WORKER Gender Identity Not on file Sexual Orientation Not on file documented as of this encounter Plan of Treatment Not on file documented as of this encounter Visit Diagnoses Diagnosis Excessive or frequent menstruation- Primary documented in this encounter Care Teams Water Safety Teacher Relationship Specialty Start Date End Date Kendrick Escobedo MD [address] [place] [address] [place] [phone] PCP - General Family Practice 05/09/15 documented as of this encounter
--- OUTSIDE RECORDS SUMMARY | 2025-02-14 17:23 | XMS_ITS | Encounter Summary ---
Author Organization [facility] Address [address] [place] [address] Care Team Providers Care Route Deliverer Name Role Phone Kendrick Escobedo MD Primary Care Provider [phone] Encounter Details Date Type Department Care Team (Latest Contact Info) Description 09/06/2005 Outpatient Historical [facility] [place] [address] [facility] [address] [place] [phone] Tonny Olson MD [address] [facility] [address] [place] [phone] Routine medical exam (Primary Dx) Social History Tobacco Use Types Packs/Day Years Used Date Smoking Tobacco: Never Assessed Comments Unknown Sex and Gender Information Value Date Recorded Sex Assigned at Not on file Legal Sex Female 5:24 AM BOX OFFICE ATTENDANT Gender Identity Not on file Sexual Orientation Not on file documented as of this encounter Plan of Treatment Not on file documented as of this encounter Visit Diagnoses Diagnosis Routine medical exam- Primary Routine general medical examination at a health care facility documented in this encounter Care Teams Route Deliverer Relationship Specialty Start Date End Date Kendrick Escobedo MD [address] [place] [address] [place] [phone] PCP - General Family Practice 05/09/15 documented as of this encounter
--- OUTSIDE RECORDS SUMMARY | 2025-02-14 17:23 | XMS_ITS | Encounter Summary ---
Author Organization [facility] Address [address] [place] [address] Care Team Providers Care Loading Unit Tool Setter Name Role Phone Kendrick Escobedo MD Primary Care Provider [phone] Encounter Details Date Type Department Care Team (Latest Contact Info) Description 04/17/2005 Outpatient [facility] Gastroenterology[address] [place] [address] Cristobal Johnson MD NO ADDRESS ON FILE REGIONAL ENTERITIS NOS (CMS/HCC) (Primary Dx) Social History Tobacco Use Types Packs/Day Years Used Date Smoking Tobacco: Never Assessed Comments Unknown Sex and Gender Information Value Date Recorded Sex Assigned at Not on file Legal Sex Female 5:24 AM BINDING NICKER Gender Identity Not on file Sexual Orientation Not on file documented as of this encounter Plan of Treatment Not on file documented as of this encounter Visit Diagnoses Diagnosis Regional enteritis of unspecified site (CMS/HCC)- Primary Regional enteritis of unspecified site documented in this encounter Care Teams Loading Unit Tool Setter Relationship Specialty Start Date End Date Kendrick Escobedo MD [address] [place] [address] [place] [phone] PCP - General Family Practice 05/09/15 documented as of this encounter
--- OUTSIDE RECORDS SUMMARY | 2025-02-14 17:23 | XMS_ITS | Clinical Summary ---
Author Organization [facility] Address [address] [place] [address] Care Team Providers Care Chick Room Supervisor Name Role Phone Kendrick Escobedo MD Primary Care Provider [phone] Allergies Active Allergy Reactions Criticality Noted Date [...] 05/09/2015 Pt reports brought on coma Medications tramadol (ULTRAM) 50 mg Oral Tab Take 1 Tab by mouth every 6 hours as needed for Pain. 120 Tab 1 05/13/2009 Active esomeprazole (NEXIUM) 40 mg Oral CpDR Take 1 Cap by mouth daily. 30 Cap 12 09/15/2009 Active tiZANidine (ZANAFLEX) 4 mg Tablet Take 4 mg by mouth 3 times daily. Active diltiazem (CARDIZEM) 120 mg Tablet Take 120 mg by mouth every 12 hours. Active ondansetron (ZOFRAN, HYDROCHLORIDE,) 4 mg Tablet Take 1 Tablet (4 mg) by mouth every 6 hours as needed for Nausea/Emes is. 30 Tablet 0 05/31/2015 Active pregabalin (LYRICA) 100 mg Capsule Take 100 mg by mouth every 12 hours. Active Active Problems Problem Noted Date Diagnosed Date Tobacco use 07/16/2015 Ovarian cyst, right 07/15/2015 s/p redo ileocolic resection /IRENE/BSO 07/15/2015 for Crohn's disease 07/15/2015 Menorrhagia with irregular cycle 06/28/2015 Abdominal pain, generalized 08/30/2009 Fibromyalgia syndrome 03/09/2009 Other psoriasis 03/09/2009 Regional enteritis Overview (12/30/2008): Diagnosed 1997, ilealcecal resection 2000, anastomosis resection 2007. Urticaria with remicade, imuran and 6mp caused nausea and increased lipase. Humira resulted in joint pain and swelling. TPMT activity is normal. Immunizations Immunization Administration Dates Next Due Influenza Seasonal Unspecified Formulation IM Social History Tobacco Use Types Packs/Day Years Used Date Smoking Tobacco: Every Day Cigarettes Smokeless Tobacco: Never Comments:process of quiting Alcohol Use Standard Drinks/Week Comments No 0 (1 standard drink = 0.6 oz pur e alcohol) Comments No Sex and Gender Information Value Date Recorded Sex Assigned at Not on file Legal Sex Female 5:24 AM MANAGER INTERNET Gender Identity Not on file Sexual Orientation Not on file Last Filed Vital Signs Vital Sign Reading Time Taken Comments Blood Pressure 114/51 09/12/2015 10:41 AM MANAGER INTERNET Pulse 83 09/12/2015 10:41 AM MANAGER INTERNET Temperature 36.8 C (98.3 F) 07/18/2015 11:06 AM MANAGER INTERNET Respiratory Rate 16 07/18/2015 11:06 AM MANAGER INTERNET Oxygen Saturation 95% 07/18/2015 11:06 AM MANAGER INTERNET Inhaled Oxygen Concentration - - Weight 89.4 kg (197 lb) 09/12/2015 10:41 AM MANAGER INTERNET Height 162.6 cm (5' 4 ) 09/12/2015 10:41 AM MANAGER INTERNET Body Mass Index 33.81 09/12/2015 10:41 AM MANAGER INTERNET Plan of Treatment Health Maintenance Due Date Last Done Comments DTAP/TDAP/TD VACCINES (1 - Tdap) 1992 HEPATITIS B VACCINES (1 of 3 - 19+ 3-dose series) 1992 BREAST CANCER SCREENING 12/05/2016 12/06/2015 FIT-DNA Q 3 years 2018 FIT/FOBT Q 1 year 2018 Flex Sig/CT Colonography Q 5 years 2018 ZOSTER VACCINE (1 of 2) 2023 COLORECTAL SCREENING 03/08/2025 03/08/2015, 10/26/2010, 03/24/2009, Additional history exists Colorectal Cancer Screening 03/08/2025 INFLUENZA VACCINE (#1) 2025 09/19/2005 Insurance MEDICARE PART A AND B [employer] Advance Directives For more information, please contact: [phone] * Full Code (Latest Code Status on File) Date Activated Date Inactivated Comments 07/15/2015 11:41 AM 07/18/2015 2:11 PM * Full Code Date Activated Date Inactivated Comments 07/15/2015 7:56 AM 07/15/2015 11:41 AM * Full Code Date Activated Date Inactivated Comments 07/15/2015 5:16 AM 07/15/2015 7:56 AM * Full Code Date Activated Date Inactivated Comments 10/26/2010 9:39 AM 10/27/2010 2:01 AM * Full Code Date Activated Date Inactivated Comments 08/30/2009 7:19 AM 08/31/2009 2:01 AM Care Teams Chick Room Supervisor Relationship Specialty Start Date End Date Kendrick Escobedo MD [address] [place] [address] [place] [phone] PCP - General Family Practice 05/09/15
--- OUTSIDE RECORDS SUMMARY | 2025-02-14 17:23 | XMS_ITS | Encounter Summary ---
Author Organization [facility] Address [address] [place] [address] Care Team Providers Care Spring Tacker Name Role Phone Kendrick Escobedo MD Primary Care Provider [phone] Encounter Details Date Type Department Care Team (Latest Contact Info) Description 09/03/2006 Outpatient [facility] Gastroenterology[address] [place] [address] Cristobal Johnson MD NO ADDRESS ON FILE Regional Enteritis of Unspecified Site (CMS/HCC) (Primary Dx) Social History Tobacco Use Types Packs/Day Years Used Date Smoking Tobacco: Never Assessed Comments Unknown Sex and Gender Information Value Date Recorded Sex Assigned at Not on file Legal Sex Female 5:24 AM GAS USAGE METER CLERK Gender Identity Not on file Sexual Orientation Not on file documented as of this encounter Plan of Treatment Not on file documented as of this encounter Visit Diagnoses Diagnosis Regional enteritis of unspecified site (CMS/HCC)- Primary Regional enteritis of unspecified site documented in this encounter Care Teams Spring Tacker Relationship Specialty Start Date End Date Kendrick Escobedo MD [address] [place] [address] [place] [phone] PCP - General Family Practice 05/09/15 documented as of this encounter
--- OUTSIDE RECORDS SUMMARY | 2025-02-14 17:23 | XMS_ITS | Encounter Summary ---
Author Organization [facility] Address [address] [place] [address] Care Team Providers Care Barrel Charrer Name Role Phone Kendrick Escobedo MD Primary Care Provider [phone] Encounter Details Date Type Department Care Team (Latest Contact Info) Description 12/25/2005 Outpatient Historical [facility] Endoscopy [place] [address] [place] [phone] Cristobal Johnson MD NO ADDRESS ON FILE Abdominal Pain, Epigastric (Primary Dx) Social History Tobacco Use Types Packs/Day Years Used Date Smoking Tobacco: Never Assessed Comments Unknown Sex and Gender Information Value Date Recorded Sex Assigned at Not on file Legal Sex Female 5:24 AM DATA CENTER ENGINEER Gender Identity Not on file Sexual Orientation Not on file documented as of this encounter Plan of Treatment Not on file documented as of this encounter Visit Diagnoses Diagnosis Abdominal pain, epigastric- Primary documented in this encounter Care Teams Barrel Charrer Relationship Specialty Start Date End Date Kendrick Escobedo MD [address] [place] [address] [place] [phone] PCP - General Family Practice 05/09/15 documented as of this encounter
--- OUTSIDE RECORDS SUMMARY | 2025-02-14 17:23 | XMS_ITS | Encounter Summary ---
Author Organization [facility] Address [address] [place] [address] Care Team Providers Care Senior Market Intelligence Consultant Name Role Phone Kendrick Escobedo MD Primary Care Provider Encounter Details Date Type Department Care Team (Late st Contact Info) Description 04/11/2004 Outpatient Historical [facility] Gastroenterology- [place] [id number] [facility] [address] [place] [address] Lay Hough, DEPUTY CHIEF SHERIFF [address] [facility] [address] [place] [address] ABDOMINAL PAIN UNSPEC SITE (Primary Dx); REGIONAL ENTERITIS NOS (CMS/HCC); DIARRHEA NOS Social History Tobacco Use Types Packs/Day Years Used Date Smoking Tobacco: Never Assessed Comments Unknown Sex and Gender Information Value Date Recorded Sex Assigned at Not on file Legal Sex Female 5:24 AM BACKREST ASSEMBLER Gender Identity Not on file Sexual Orientation Not on file documented as of this encounter Plan of Treatment Not on file documented as of this encounter Visit Diagnoses Diagnosis Abdominal pain, unspecified site- Primary Regional enteritis of unspecified site (CMS/HCC) Regional enteritis of unspecified site Diarrhea documented in this encounter Care Teams Senior Market Intelligence Consultant Relationship Specialty Start Date End Date Kendrick Escobedo MD [address] [place] [address] [place] [phone] PCP - General Family Practice 05/09/15 documented as of this encounter
--- OUTSIDE RECORDS SUMMARY | 2025-02-14 17:23 | XMS_ITS | Encounter Summary ---
Author Organization [facility] Address [address] [place] [address] Care Team Providers Care Tong Carrier Name Role Phone Kendrick Escobedo MD Primary Care Provider [phone] Encounter Details Date Type Department Care Team (Late st Contact Info) Description 10/03/2004 Outpatient Historical [facility] Imaging Services [place] [address] Social History Tobacco Use Types Packs/Day Years Used Date Smoking Tobacco: Never Assessed Comments Unknown Sex and Gender Information Value Date Recorded Sex Assigned at Not on file Legal Sex Female 5:24 AM CRIMINAL ATTORNEY Gender Identity Not on file Sexual Orientation Not on file documented as of this encounter Plan of Treatment Not on file documented as of this encounter Visit Diagnoses Not on filedocumented in this encounter Care Teams Tong Carrier Relationship Specialty Start Date End Date Kendrick Escobedo MD [address] [place] [address] [place] [phone] PCP - General Family Practice 05/09/15 documented as of this encounter
--- OUTSIDE RECORDS SUMMARY | 2025-02-14 17:23 | XMS_ITS | Encounter Summary ---
Author Organization [facility] Address [address] [place] [address] Care Team Providers Care Hardware Engineer Name Role Phone Kendrick Escobedo MD Primary Care Provider Encounter Details Date Type Department Care Team (Latest Contact Info) Description 09/20/2005 Outpatient [facility] Gastroenterology[address] [place] [address] Cristobal Johnson MD NO ADDRESS ON FILE REGIONAL ENTERITIS NOS (CMS/HCC) (Primary Dx) Social History Tobacco Use Types Packs/Day Years Used Date Smoking Tobacco: Never Assessed Comments Unknown Sex and Gender Information Value Date Recorded Sex Assigned at Not on file Legal Sex Female 5:24 AM VISITOR SERVICES SPECIALIST Gender Identity Not on file Sexual Orientation Not on file documented as of this encounter Plan of Treatment Not on file documented as of this encounter Visit Diagnoses Diagnosis Regional enteritis of unspecified site (CMS/HCC)- Primary Regional enteritis of unspecified site documented in this encounter Care Teams Hardware Engineer Relationship Specialty Start Date End Date Kendrick Escobedo MD [address] [place] [address] [place] [phone] PCP - General Family Practice 05/09/15 documented as of this encounter
--- OUTSIDE RECORDS SUMMARY | 2025-02-14 17:23 | XMS_ITS | Encounter Summary ---
Author Organization [facility] Address [address] [place] [address] Care Team Providers Care Solar Sales Representative And Assessor Name Role Phone Kendrick Escobedo MD Primary Care Provider [phone] Encounter Details Date Type Department Care Team (Latest Contact Info) Description 11/20/2005 Outpatient [facility] Gastroenterology[address] [place] [address] Cristobal Johnson MD NO ADDRESS ON FILE Regional Enteritis of Unspecified Site (CMS/HCC) (Primary Dx) Social History Tobacco Use Types Packs/Day Years Used Date Smoking Tobacco: Never Assessed Comments Unknown Sex and Gender Information Value Date Recorded Sex Assigned at Not on file Legal Sex Female 5:24 AM YOUTH PROGRAM DIRECTOR Gender Identity Not on file Sexual Orientation Not on file documented as of this encounter Plan of Treatment Not on file documented as of this encounter Visit Diagnoses Diagnosis Regional enteritis of unspecified site (CMS/HCC)- Primary Regional enteritis of unspecified site documented in this encounter Care Teams Solar Sales Representative And Assessor Relationship Specialty Start Date End Date Kendrick Escobedo MD [address] [place] [address] [place] [phone] PCP - General Family Practice 05/09/15 documented as of this encounter
--- OUTSIDE RECORDS SUMMARY | 2025-02-14 17:23 | XMS_ITS | Encounter Summary ---
Author Organization [facility] Address [address] [place] [address] Care Team Providers Care Ferryboat Operator Helper Name Role Phone Kendrick Escobedo MD Primary Care Provider [phone] Encounter Details Date Type Department Care Team (Late st Contact Info) Description 07/21/2007 Outpatient [facility] Gastroenterology[address] [place] [address] Cristobal Johnson MD NO ADDRESS ON FILE Social History Tobacco Use Types Packs/Day Years Used Date Smoking Tobacco: Never Assessed Comments Unknown Sex and Gender Information Value Date Recorded Sex Assigned at Not on file Legal Sex Female 5:24 AM COUNTY RECORDS MANAGEMENT OFFICER Gender Identity Not on file Sexual Orientation Not on file documented as of this encounter Plan of Treatment Not on file documented as of this encounter Visit Diagnoses Not on filedocumented in this encounter Care Teams Ferryboat Operator Helper Relationship Specialty Start Date End Date Kendrick Escobedo MD [address] [place] [address] [place] [address] PCP - General Family Practice 05/09/15 documented as of this encounter
--- OUTSIDE RECORDS SUMMARY | 2025-02-14 17:23 | XMS_ITS | Encounter Summary ---
Author Organization [facility] Address [address] [place] [address] Care Team Providers Care Delivery Assistant Name Role Phone Kendrick Escobedo MD Primary Care Provider [phone] Encounter Details Date Type Department Care Team (Latest Contact Info) Description 10/26/2004 Outpatient Historical [facility] Multidisciplinary Chronic Pain [address] [place] [address] Timoteo Carmona MD [address] [place] [id number] CLASS MIGRAIN W/O MENTN INTRACTABLE (Primary Dx) Social History Tobacco Use Types Packs/Day Years Used Date Smoking Tobacco: Never Assessed Comments Unknown Sex and Gender Information Value Date Recorded Sex Assigned at Not on file Legal Sex Female 5:24 AM JOURNEYMAN ELECTRICIAN Gender Identity Not on file Sexual Orientation Not on file documented as of this encounter Plan of Treatment Not on file documented as of this encounter Visit Diagnoses Diagnosis Migraine with aura, without mention of intractable migraine without mention of status migrainosus- Primary documented in this encounter Care Teams Delivery Assistant Relationship Specialty Start Date End Date Kendrick Escobedo MD [address] [place] [address] [place] [phone] PCP - General Family Practice 05/09/15 documented as of this encounter
--- OUTSIDE RECORDS SUMMARY | 2025-02-14 17:23 | XMS_ITS | Encounter Summary ---
Author Organization [facility] Address [address] [place] [address] Care Team Providers Care Educational Administration Teacher Name Role Phone Kendrick Escobedo MD Primary Care Provider [phone] Encounter Details Date Type Department Care Team (Latest Contact Info) Description 05/22/2004 Outpatient Historical [facility] [place] OBG[facility]-[place] [address] [place] [address] Maximilian Silverman MD NO ADDRESS ON FILE Routine medical exam (Primary Dx); SCREENING MAL NEOP-CERVIX; OVARIAN CYST NEC/NOS; Excessive menstruation Social History Tobacco Use Types Packs/Day Years Used Date Smoking Tobacco: Never Assessed Comments Unknown Sex and Gender Information Value Date Recorded Sex Assigned at Not on file 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 Sex 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 Gender Identity Not on file Sexual Orientation Not on file documented as of this encounter Plan of Treatment Not on file documented as of this encounter Visit Diagnoses Diagnosis Routine medical exam- Primary Routine general medical examination at a health care facility Screening for malignant neoplasm of the cervix Other and unspecified ovarian cyst Excessive menstruation Excessive or frequent menstruation documented in this encounter Care Teams Educational Administration Teacher Relationship Specialty Start Date End Date Kendrick Escobedo MD [address] [place] [address] [place] [phone] PCP - General Family Practice 05/09/15 documented as of this encounter
--- OUTSIDE RECORDS SUMMARY | 2025-02-14 17:23 | XMS_ITS | Encounter Summary ---
Author Organization [facility] Address [address] [place] [address] Care Team Providers Care Mobile Product Manager Name Role Phone Kendrick Escobedo MD Primary Care Provider [phone] Encounter Details Date Type Department Care Team (Latest Contact Info) Description 11/27/2004 Outpatient Historical [facility] Imaging [facility] [place] [address] [place] [address] Cristobal Johnson MD NO ADDRESS ON FILE REGIONAL ENTERITIS NOS (CMS/HCC) (Primary Dx) Social History Tobacco Use Types Packs/Day Years Used Date Smoking Tobacco: Never Assessed Comments Unknown Sex and Gender Information Value Date Recorded Sex Assigned at Not on file 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
--- OUTSIDE RECORDS SUMMARY | 2025-02-14 17:23 | XMS_ITS | Encounter Summary ---
Author Organization [facility] Address [address] [place] [address] Care Team Providers Care Gas Substation Operator Name Role Phone Kendrick Escobedo MD Primary Care Provider [phone] Encounter Details Date Type Department Care Team (Latest Contact Info) Description 10/24/2006 Outpatient [facility] Gastroenterology[address] [place] [address] Cristobal Johnson MD NO ADDRESS ON FILE Regional Enteritis of Unspecified Site (CMS/HCC) (Primary Dx); Screening Examination for Pulmonary Tuberculosis; Routine Medical Exam Social History Tobacco Use Types Packs/Day Years Used Date Smoking Tobacco: Never Assessed Comments Unknown Sex and Gender Information Value Date Recorded Sex Assigned at Not on file 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 Sex 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 Gender Identity Not on file Sexual Orientation Not on file documented as of this encounter Plan of Treatment Not on file documented as of this encounter Visit Diagnoses Diagnosis Regional enteritis of unspecified site (CMS/HCC)- Primary Regional enteritis of unspecified site Screening examination for pulmonary tuberculosis Routine medical exam Routine general medical examination at a health care facility documented in this encounter Care Teams Gas Substation Operator Relationship Specialty Start Date End Date Kendrick Escobedo MD [address] [place] [address] [place] [phone] PCP - General Family Practice 05/09/15 documented as of this encounter
--- OUTSIDE RECORDS SUMMARY | 2025-02-14 17:23 | XMS_ITS | Encounter Summary ---
Author Organization [facility] Address [address] [place] [address] Care Team Providers Care Clean Room Operator Name Role Phone Kendrick Escobedo MD Primary Care Provider [phone] Encounter Details Date Type Department Care Team (Late st Contact Info) Description 05/22/2004 Outpatient Historical [facility] OBGYN-[place] [address] [place] [phone] Maximilian Silverman MD NO ADDRESS ON FILE Social History Tobacco Use Types Packs/Day Years Used Date Smoking Tobacco: Never Assessed Comments Unknown Sex and Gender Information Value Date Recorded Sex Assigned at Not on file Legal Sex Female 5:24 AM SPECIALIST FIELD ENGINEER Gender Identity Not on file Sexual Orientation Not on file documented as of this encounter Plan of Treatment Not on file documented as of this encounter Visit Diagnoses Not on filedocumented in this encounter Care Teams Clean Room Operator Relationship Specialty Start Date End Date Kendrick Escobedo MD [address] [place] [address] [place] [address] PCP - General Family Practice 05/09/15 documented as of this encounter
--- OUTSIDE RECORDS SUMMARY | 2025-02-14 17:23 | XMS_ITS | Encounter Summary ---
Author Organization [facility] Address [address] [place] [address] Care Team Providers Care Privacy Analyst Name Role Phone Kendrick Escobedo MD Primary Care Provider [phone] Encounter Details Date Type Department Care Team (Latest Contact Info) Description 05/29/2007 Outpatient [facility] Gastroenterology[address] [place] [address] Cristoabl Johnson MD NO ADDRESS ON FILE Regional Enteritis of Unspecified Site (CMS/HCC) (Primary Dx) Social History Tobacco Use Types Packs/Day Years Used Date Smoking Tobacco: Never Assessed Comments Unknown Sex and Gender Information Value Date Recorded Sex Assigned at Not on file 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
--- OUTSIDE RECORDS SUMMARY | 2025-02-14 17:23 | XMS_ITS | Encounter Summary ---
Author Organization [facility] Address [address] [place] [address] Care Team Providers Care Nut Grinder Name Role Phone Kendrick Escobedo MD Primary Care Provider [phone] Encounter Details Date Type Department Care Team (Late st Contact Info) Description 10/03/2004 Outpatient Historical [facility] Neurology [address] [facility], [address] [place] [address] Timoteo Carmona MD [address] [place] [id number] CLASS MIGRAIN W/O MENTN INTRACTABLE (Primary Dx) Social History Tobacco Use Types Packs/Day Years Used Date Smoking Tobacco: Never Assessed Comments Unknown Sex and Gender Information Value Date Recorded Sex Assigned at Not on file Legal Sex Female 5:24 AM RELAY WORKER Gender Identity Not on file Sexual Orientation Not on file documented as of this encounter Plan of Treatment Not on file documented as of this encounter Visit Diagnoses Diagnosis Migraine with aura, without mention of intractable migraine without mention of status migrainosus- Primary documented in this encounter Care Teams Nut Grinder Relationship Specialty Start Date End Date Kendrick Escobedo MD [address] [place] [address] [place] [phone] PCP - General Family Practice 05/09/15 documented as of this encounter
--- OUTSIDE RECORDS SUMMARY | 2025-02-14 17:23 | XMS_ITS | Encounter Summary ---
Author Organization [facility] Address [address] [place] [address] Care Team Providers Care Toll Line Repairer Name Role Phone Kendrick Escobedo MD Primary Care Provider [phone] Encounter Details Date Type Department Care Team (Latest Contact Info) Description 02/11/2004 Outpatient Historical [facility] Endoscopy [address] [place] [address] Cristobal Johnson MD NO ADDRESS ON FILE REGIONAL ENTERITIS NOS (CMS/HCC) (Primary Dx) Social History Tobacco Use Types Packs/Day Years Used Date Smoking Tobacco: Never Assessed Comments Unknown Sex and Gender Information Value Date Recorded Sex Assigned at Not on file Legal Sex Female 5:24 AM CONFIGURATION MANAGEMENT SPECIALIST Gender Identity Not on file Sexual Orientation Not on file documented as of this encounter Plan of Treatment Not on file documented as of this encounter Visit Diagnoses Diagnosis Regional enteritis of unspecified site (CMS/HCC)- Primary Regional enteritis of unspecified site documented in this encounter Care Teams Toll Line Repairer Relationship Specialty Start Date End Date Kendrick Escobedo MD [address] [place] [address] [place] [phone] PCP - General Family Practice 05/09/15 documented as of this encounter
--- OUTSIDE RECORDS SUMMARY | 2025-02-14 17:23 | XMS_ITS | Encounter Summary ---
Author Organization [facility] Address [address] [place] [address] Care Team Providers Care Oversize Load Pilot Escort Name Role Phone Kendrick Escobedo MD Primary Care Provider [phone] Encounter Details Date Type Department Care Team (Latest Contact Info) Description 03/05/2006 Outpatient [facility] Gastroenterology[address] [place] [address] Cristobal Johnson MD NO ADDRESS ON FILE Regional Enteritis of Unspecified Site (CMS/HCC) (Primary Dx) Social History Tobacco Use Types Packs/Day Years Used Date Smoking Tobacco: Never Assessed Comments Unknown Sex and Gender Information Value Date Recorded Sex Assigned at Not on file Legal Sex Female 5:24 AM TWISTER OPERATOR Gender Identity Not on file Sexual Orientation Not on file documented as of this encounter Plan of Treatment Not on file documented as of this encounter Visit Diagnoses Diagnosis Regional enteritis of unspecified site (CMS/HCC)- Primary Regional enteritis of unspecified site documented in this encounter Care Teams Oversize Load Pilot Escort Relationship Specialty Start Date End Date Kendrick Escobedo MD [address] [place] [address] [place] [phone] PCP - General Family Practice 05/09/15 documented as of this encounter
--- OUTSIDE RECORDS SUMMARY | 2025-02-14 17:23 | XMS_ITS | Encounter Summary ---
Author Organization [facility] Address [address] [place] [address] Care Team Providers Care Oceanologist Name Role Phone Kendrick Escobedo MD Primary Care Provider [phone] Encounter Details Date Type Department Care Team (Latest Contact Info) Description 02/09/2004 Outpatient [facility] Gastroenterology[address] [place] [address] Cristobal Johnson MD NO ADDRESS ON FILE REGIONAL ENTERITIS NOS (CMS/HCC) (Primary Dx) Social History Tobacco Use Types Packs/Day Years Used Date Smoking Tobacco: Never Assessed Comments Unknown Sex and Gender Information Value Date Recorded Sex Assigned at Not on file 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
--- OUTSIDE RECORDS SUMMARY | 2025-02-14 17:23 | XMS_ITS | Encounter Summary ---
Author Organization [facility] Address [address] [place] [address] Care Team Providers Care Band Sawmill Operator Name Role Phone Kendrick Escobedo MD Primary Care Provider [phone] Encounter Details Date Type Department Care Team (Latest Contact Info) Description 12/09/2003 Outpatient Historical [facility] Internal Medicine- [place] [address] [facility] [address] [place] [address] Tonny Olson MD [address] [facility] [address] [place] [address] Routine medical exam (Primary Dx) Social History Tobacco Use Types Packs/Day Years Used Date Smoking Tobacco: Never Assessed Comments Unknown Sex and Gender Information Value Date Recorded Sex Assigned at Not on file Legal Sex Female 5:24 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
--- OUTSIDE RECORDS SUMMARY | 2025-02-14 17:23 | XMS_ITS | Encounter Summary ---
Author Organization [facility] Address [address] [place] [address] Care Team Providers Care Senior Energy Market Coordinator Name Role Phone Kendrick Escobedo MD Primary Care Provider [phone] Encounter Details Date Type Department Care Team (Latest Contact Info) Description 06/06/2004 Outpatient Historical [facility] Internal Medicine- [place] [address] [facility] [address] [place] [address] Tonny Olson MD [address] [facility] [address] [place] [phone] HEADACHE (Primary Dx) Social History Tobacco Use Types Packs/Day Years Used Date Smoking Tobacco: Never Assessed Comments Unknown Sex and Gender Information Value Date Recorded Sex Assigned at Not on file Legal Sex Female 5:24 AM ACADEMIC RECORDS SPECIALIST Gender Identity Not on file Sexual Orientation Not on file documented as of this encounter Plan of Treatment Not on file documented as of this encounter Visit Diagnoses Diagnosis Headache(784.0)- Primary Headache documented in this encounter Care Teams Senior Energy Market Coordinator Relationship Specialty Start Date End Date Kendrick Escobedo MD [address] [place] [address] [place] [phone] PCP - General Family Practice 05/09/15 documented as of this encounter
--- OUTSIDE RECORDS SUMMARY | 2025-02-14 17:23 | XMS_ITS | Encounter Summary ---
Author Organization [facility] Address [address] [place] [address] Care Team Providers Care Steam Brush Operator Name Role Phone Kendrick Escobedo MD Primary Care Provider [phone] Encounter Details Date Type Department Care Team (Latest Contact Info) Description 02/28/2004 Outpatient Historical [facility] Imaging Services [address] [place] [address] Cristobal Johnson MD NO ADDRESS ON FILE ABDOMINAL PAIN UNSPEC SITE (Primary Dx) Social History Tobacco Use Types Packs/Day Years Used Date Smoking Tobacco: Never Assessed Comments Unknown Sex and Gender Information Value Date Recorded Sex Assigned at Not on file Legal Sex Female 5:24 AM APPEALS REFEREE Gender Identity Not on file Sexual Orientation Not on file documented as of this encounter Plan of Treatment Not on file documented as of this encounter Visit Diagnoses Diagnosis Abdominal pain, unspecified site- Primary documented in this encounter Care Teams Steam Brush Operator Relationship Specialty Start Date End Date Kendrick Escobedo MD [address] [place] [address] [place] [phone] PCP - General Family Practice 05/09/15 documented as of this encounter
--- OUTSIDE RECORDS SUMMARY | 2025-02-14 17:23 | XMS_ITS | Encounter Summary ---
Author Organization [facility] Address [address] [place] [address] Care Team Providers Care Counter Tacker Name Role Phone Kendrick Escobedo MD Primary Care Provider [phone] Encounter Details Date Type Department Care Team (Latest Contact Info) Description 02/04/2006 Outpatient [facility] Gastroenterology[address] [place] [address] Cristobal Johnson MD NO ADDRESS ON FILE Regional Enteritis of Unspecified Site (CMS/HCC) (Primary Dx) Social History Tobacco Use Types Packs/Day Years Used Date Smoking Tobacco: Never Assessed Comments Unknown Sex and Gender Information Value Date Recorded Sex Assigned at Not on file 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
--- OUTSIDE RECORDS SUMMARY | 2025-02-14 17:23 | XMS_ITS | Encounter Summary ---
Author Organization [facility] Address [address] [place] [address] Care Team Providers Care Electronics Test Engineer Name Role Phone Kendrick Escobedo MD Primary Care Provider [phone] Encounter Details Date Type Department Care Team (Latest Contact Info) Description 07/16/2005 Outpatient Historical [facility] OBGYN-[place] [address] [place] [address] Maximilian Silverman MD NO ADDRESS ON FILE Routine medical exam (Primary Dx); ROUTINE CUSTOMER CARE CONSULTANT EXAMINATION Social History Tobacco Use Types Packs/Day Years Used Date Smoking Tobacco: Never Assessed Comments Unknown Sex and Gender Information Value Date Recorded Sex Assigned at Not on file Legal Sex Female 5:24 AM STUDENT ACCOUNTS MANAGER Gender Identity Not on file Sexual Orientation Not on file documented as of this encounter Plan of Treatment Not on file documented as of this encounter Visit Diagnoses Diagnosis Routine medical exam- Primary Routine general medical examination at a health care facility Routine gynecological examination documented in this encounter Care Teams Electronics Test Engineer Relationship Specialty Start Date End Date Kendrick Escobedo MD [address] [place] [address] [place] [phone] PCP - General Family Practice 05/09/15 documented as of this encounter
--- OUTSIDE RECORDS SUMMARY | 2025-02-14 17:23 | XMS_ITS | Encounter Summary ---
Author Organization [facility] Address [address] [place] [address] Care Team Providers Care Talent Development Specialist Name Role Phone Kendrick Escobedo MD Primary Care Provider [phone] Encounter Details Date Type Department Care Team (Late st Contact Info) Description 03/28/2005 Outpatient Historical [facility] Imaging Services-[facility] [place] [address] [place] [address] Social History Tobacco Use Types Packs/Day Years Used Date Smoking Tobacco: Never Assessed Comments Unknown Sex and Gender Information Value Date Recorded Sex Assigned at Not on file 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
--- OUTSIDE RECORDS SUMMARY | 2025-02-14 17:23 | XMS_ITS | Encounter Summary ---
Author Organization [facility] Address [address] [place] [address] Care Team Providers Care Illusionist Name Role Phone Kendrick Escobedo MD Primary Care Provider [phone] Encounter Details Date Type Department Care Team (Late st Contact Info) Description 12/29/2010 Ancillary Orders [facility] Pre-Registration [place] CALL TO MAKE APPOINTMENT ONLY [address] [place] [address] [facility], External Provider [address] [place] [address] Social History Tobacco Use Types Packs/Day Years Used Date Smoking Tobacco: Every Day Cigarettes Smokeless Tobacco: Never Comments:process of quiting Alcohol Use Standard Drinks/Week Comments No 0 (1 standard drink = 0.6 oz pur e alcohol) Comments No Sex and Gender Information Value Date Recorded Sex Assigned at Not on file Legal Sex Female 5:24 AM CERAMIC SPRAYER Gender Identity Not on file Sexual Orientation Not on file documented as of this encounter Plan of Treatment Not on file documented as of this encounter Visit Diagnoses Not on filedocumented in this encounter Care Teams Illusionist Relationship Specialty Start Date End Date Kendrick Escobedo MD [address] [place] [address] [place] [address] PCP - General Family Practice 05/09/15 documented as of this encounter
--- OUTSIDE RECORDS SUMMARY | 2025-02-14 17:23 | XMS_ITS | Encounter Summary ---
Author Organization [facility] Address [address] [place] [address] Care Team Providers Care Asbestos Worker Helper Name Role Phone Kendrick Escobedo MD Primary Care Provider [phone] Encounter Details Date Type Department Care Team (Late st Contact Info) Description 08/17/2004 Outpatient Historical [facility] [address] [place] [address] Social History Tobacco Use Types Packs/Day Years Used Date Smoking Tobacco: Never Assessed Comments Unknown Sex and Gender Information Value Date Recorded Sex Assigned at Not on file Legal Sex Female 5:24 AM WIG DRESSER Gender Identity Not on file Sexual Orientation Not on file documented as of this encounter Plan of Treatment Not on file documented as of this encounter Visit Diagnoses Not on filedocumented in this encounter Care Teams Asbestos Worker Helper Relationship Specialty Start Date End Date Kendrick Escobedo MD [address] [place] [address] [place] [address] PCP - General Family Practice 05/09/15 documented as of this encounter
--- OUTSIDE RECORDS SUMMARY | 2025-02-14 17:23 | XMS_ITS | Encounter Summary ---
Author Organization [facility] Address [address] [place] [address] Care Team Providers Care Scrap Baller Name Role Phone Kendrick Escobedo MD Primary Care Provider [phone] Encounter Details Date Type Department Care Team (Latest Contact Info) Description 03/29/2005 Outpatient Historical [facility] Specialty Nursing Services [facility] [place] [address] Cristobal Johnson MD NO ADDRESS ON FILE REGIONAL ENTERITIS NOS (CMS/HCC) (Primary Dx) Social History Tobacco Use Types Packs/Day Years Used Date Smoking Tobacco: Never Assessed Comments Unknown Sex and Gender Information Value Date Recorded Sex Assigned at Not on file Legal Sex Female 5:24 AM NUCLEAR REACTOR ENGINEER Gender Identity Not on file Sexual Orientation Not on file documented as of this encounter Plan of Treatment Not on file documented as of this encounter Visit Diagnoses Diagnosis Regional enteritis of unspecified site (CMS/HCC)- Primary Regional enteritis of unspecified site documented in this encounter Care Teams Scrap Baller Relationship Specialty Start Date End Date Kendrick Escobedo MD [address] [place] [address] [place] [phone] PCP - General Family Practice 05/09/15 documented as of this encounter
--- OUTSIDE RECORDS SUMMARY | 2025-02-14 17:23 | XMS_ITS | Encounter Summary ---
Author Organization [facility] Address [address] [place] [address] Care Team Providers Care Legal File Clerk Name Role Phone Kendrick Escobedo MD Primary Care Provider [phone] Encounter Details Date Type Department Care Team (Latest Contact Info) Description 11/26/2004 Outpatient Historical [facility] Multidisciplinary Chronic Pain [address] [place] [address] Timoteo Carmona MD [address] [place] [phone] CLASS MIGRAIN W/O MENTN INTRACTABLE (Primary Dx) Social History Tobacco Use Types Packs/Day Years Used Date Smoking Tobacco: Never Assessed Comments Unknown Sex and Gender Information Value Date Recorded Sex Assigned at Not on file 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
--- OUTSIDE RECORDS SUMMARY | 2025-02-14 17:23 | XMS_ITS | Encounter Summary ---
Author Organization [facility] Address [address] [place] [address] Care Team Providers Care Milled Rubber Tender Name Role Phone Kendrick Escobedo MD Primary Care Provider [phone] Encounter Details Date Type Department Care Team (Latest Contact Info) Description 04/29/2005 Outpatient Historical [facility] Specialty Nursing Services Carlos Wise [facility] [place] [address] Cristobal Johnson MD NO ADDRESS ON FILE REGIONAL ENTERITIS NOS (CMS/HCC) (Primary Dx) Social History Tobacco Use Types Packs/Day Years Used Date Smoking Tobacco: Never Assessed Comments Unknown Sex and Gender Information Value Date Recorded Sex Assigned at Not on file 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
--- OUTSIDE RECORDS SUMMARY | 2025-02-14 17:23 | XMS_ITS | Encounter Summary ---
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 (Primary Dx) Social History Tobacco Use Types Packs/Day Years Used Date Smoking Tobacco: Never Assessed Comments Unknown Sex and Gender Information Value Date Recorded Sex Assigned at Not on file 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
--- OUTSIDE RECORDS SUMMARY | 2025-02-14 17:23 | XMS_ITS | Encounter Summary ---
Author Organization [facility] Address [address] [place] [address] Care Team Providers Care Technical Services Analyst Name Role Phone Kendrick Escobedo MD Primary Care Provider [phone] Encounter Details Date Type Department Care Team (Late st Contact Info) Description 10/03/2004 Outpatient Historical [facility] Imaging Services [place] [address] [place] [address] Timoteo Carmona MD [address] [place] [address] SKIN SENSATION DISTURB (Primary Dx) Social History Tobacco Use Types Packs/Day Years Used Date Smoking Tobacco: Never Assessed Comments Unknown Sex and Gender Information Value Date Recorded Sex Assigned at Not on file 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
--- OUTSIDE RECORDS SUMMARY | 2025-02-14 17:23 | XMS_ITS | Encounter Summary ---
Author Organization [facility] Address [address] [place] [address] Care Team Providers Care Ux Engineer Name Role Phone Kendrick Escobedo MD Primary Care Provider [phone] Encounter Details Date Type Department Care Team (Late st Contact Info) Description 04/05/2005 Emergency [facility] Emergency Department [address] [place] [address] Darwin Roberson MD NO ADDRESS ON FILE PRURITIC DISORDER NOS (Primary Dx) Social History Tobacco Use Types Packs/Day Years Used Date Smoking Tobacco: Never Assessed Comments Unknown Sex and Gender Information Value Date Recorded Sex Assigned at Not on file 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
--- OUTSIDE RECORDS SUMMARY | 2025-02-14 17:23 | XMS_ITS | Encounter Summary ---
Author Organization [facility] Address [address] [place] [address] Care Team Providers Care Transition Nurse Name Role Phone Kendrick Escobedo MD Primary Care Provider [phone] Encounter Details Date Type Department Care Team (Latest Contact Info) Description 04/18/2006 Outpatient [facility] Gastroenterology[address] [place] [address] Cristobal Johnson MD NO ADDRESS ON FILE Regional Enteritis of Unspecified Site (CMS/HCC) (Primary Dx) Social History Tobacco Use Types Packs/Day Years Used Date Smoking Tobacco: Never Assessed Comments Unknown Sex and Gender Information Value Date Recorded Sex Assigned at Not on file Legal Sex Female 5:24 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
--- NOTE | 2025-02-14 17:43 | W.ED.UPPEXIN ---
Documented by User: BARON Starr 02/14/25 19:50 HPI - Extremity Injury (Upper) General: Chief Complaint: Extremity Injury, Upper Stated Complaint: rt arm inj Time Seen by Provider: 02/14/25 17:40 Source: patient Mode of arrival: ambulatory Limitations: no limitations History of Present Illness: Patient is a 49-year-old female presents to ED today for evaluation of a right wrist injury that she sustained just prior to arrival. Patient states she accidentally tripped over her dog and landed on her right wrist. Deformity to the right wrist noted at time of arrival. She is not complaining of any other injuries during the fall. Denies striking her head or LOC. No neck or back pain. She has been ambulatory since the fall without difficulty or assistance. She has not complained of any numbness or tingling to the wrist or hand. MD complaint: injury to: right and wrist Onset (ago): hour(s) Other Extremity Injury: Right: wrist Other injuries: none Place: home Severity: moderate Relieving factors: immobilization Exacerbating factors: movement of extremity Context: fall Associated symptoms: Reports no associated symptoms; Denies neck pain Related Data Home Medications ?Medication ?Instructions ?Recorded ?Confirmed cholecalciferol (vitamin D3) 50 50 mcg PO .weekly 03/26/23 01/27/25 mcg (2,000 unit) capsule cyanocobalamin (vitamin B-12) See Rx Instructions PO .weekly 03/26/23 01/27/25 1,000 mcg capsule digoxin 250 mcg (0.25 mg) tablet 250 mcg PO DAILY 03/26/23 01/27/25 diltiazem HCl 120 mg capsule,24 120 mg PO DAILY 03/26/23 01/27/25 hr,extended release levothyroxine 50 mcg tablet 50 mcg PO DAILY 03/26/23 01/27/25 (Synthroid) mesalamine 1.2 gram tablet,delayed 2.4 g PO DAILY 03/26/23 01/27/25 release omeprazole 20 mg capsule,delayed 20 mg PO DAILY 03/26/23 01/27/25 release pregabalin 150 mg capsule 150 mg PO BID 03/26/23 01/27/25 sulfasalazine 500 mg tablet 0.5 g PO TID 03/26/23 01/27/25 tizanidine 4 mg capsule 4 mg PO BID PRN Pain 03/26/23 01/27/25 vit no.95-ferrous 1 tab PO DAILY 01/10/25 01/27/25 fumarate 28 mg-folic acid 800 mcg tablet () tramadol 100 mg tablet 100 mg PO TID PRN Pain (Scale 01/14/25 01/27/25 Score 4-6) Previous Rx's ?Medication ?Instructions ?Recorded folic acid 1 mg tablet 1 mg PO DAILY #30 tabs 01/27/25 hydrocodone 5 mg-acetaminophen 325 1 tab PO Q6H PRN pain #14 tabs 02/14/25 mg tablet Allergies Allergy/AdvReac Type Severity Reaction Status Date / Time vedolizumab (From [email or web address]) Allergy Severe anaphylaxis Verified 02/14/25 17:14 iodine Allergy rash Verified 02/14/25 17:14 Mercaptiourine analogues Allergy Severe Unknown Uncoded 02/14/25 17:14 Norflex Allergy Severe hives Uncoded 02/14/25 17:14 Protonix Allergy Severe hives Uncoded 02/14/25 17:14 Remicade Allergy Severe anaphylaxis Uncoded 02/14/25 17:14 Humira Allergy Intermediate Unknown Uncoded 02/14/25 17:14 Orphenadrine Allergy Intermediate unknown Uncoded 02/14/25 17:14 cimzia Allergy Unknown Uncoded 02/14/25 17:14 lasix Allergy hives Uncoded 02/14/25 17:14 Review of Systems Musc: Reports: joint pain (R wrist), joint swelling (R wrist) and limited range of motion (R wrist); Denies: neck pain or back pain Neuro: Denies: headache(s), numbness in extremities or sensory changes PFSH ED PFSH: Medical History Hypothyroidism History of anemia due to vitamin B12 deficiency History of sepsis (2013) History of supraventricular tachycardia Iron deficiency anemia Crohn's disease Psoriasis Lupus Fibromyalgia Hypertension Hyperlipemia Hemorrhoids GERD (gastroesophageal reflux disease) Surgical History History of section History of cholecystectomy H/O partial resection of colon Ileocolonic resection in 2001, in 2009, and in 2014 History of total hysterectomy with bilateral salpingo-oophorectomy (BSO) (07/2015) IRENE/BSO with redo of ileocolonic anastomosis History of ventral hernia repair History of hemorrhoidectomy Social History Smoking and tobacco/nicotine status: current every day tobacco/nicotine user cigarettes Packs smoked per day: 0.05 Alcohol intake: never Physical Exam Const: COMMON NORMALS: no acute distress, average body habitus, patient oriented x3, no limitations, alert and well nourished HENMT: COMMON NORMALS: normocephalic and atraumatic HEAD & SCALP: normal to inspection, normocephalic and atraumatic Neck/C-Spine: CERVICAL SPINE: No Cervical spine tenderness Back/Pelvis: COMMON NORMALS: thoracic and lumbar spine normal to inspection and no thoracic nor lumbar tenderness Extremity: COMMON NORMALS: capillary refill normal GENERAL: Yes normal exam except as noted RIGHT UPPER EXTREMITY: Yes wrist (deformity of R wrist consistent with fracture) Right wrist: Yes ROM (limited due to pain) and Yes neurovascular exam (normal) Neuro: COMMON NORMALS: patient oriented x3, moves all extremities, no focal motor deficits and no sensory deficits noted SENSORIUM/ORIENTATION: Yes alert Procedures Orthopedic Fracture Reduction Fracture #1: Time Out Performed: Yes Side: right Fracture Reduction Location: radius Analgesia: procedural sedation Technique: direct manipulation and traction/counter-traction Post Reduction X-rays Demonstrate: anatomical reduction Post-reduction neuro exam: intact Post-reduction vascular exam: intact Splint Applied: Yes Patient Tolerated Procedure: well Course Vital Signs: Vital signs: Vital Signs Temperature 97.9 F 02/14/25 19:33 Pulse Rate 61 02/14/25 20:13 Respiratory Rate 18 02/14/25 20:13 Blood Pressure 129/69 02/14/25 20:13 Pulse Oximetry 94 02/14/25 20:13 Oxygen Delivery Me thod Room Air 02/14/25 19:48 Oxygen Flow Rate 5 02/14/25 19:33 MDM - Extremity Injury (Upper) Medical Decision Making Patient here with distal right radial and ulnar fractures requiring conscious sedation and reduction. Please see Dr. Lr's note for conscious sedation. Patient will be splinted and will have her follow-up with orthopedics. Lab Data Radiology Impressions Wrist X-Ray 02/14/25 18:33 IMPRESSION: 1. Improved alignment status post reduction of the distal right radial metaphyseal fracture. 2. Avulsion fracture of the ulnar styloid redemonstrated. All radiology interpretation(s) finalized by discharge Discharge Plan Discharge Patient Disposition: Home Clinical Impression: Closed fracture of distal end of right radius with ulna Qualifiers: Encounter type: initial encounter Qualified Code(s): S52.501A - Unspecified fracture of the lower end of right radius, initial encounter for closed fracture Condition: Stable Prescriptions: New hydrocodone-acetaminophen 5-325 mg tablet 1 tab PO Q6H PRN (Reason: pain) Qty: 14 0RF No Action omeprazole 20 mg capsule,delayed release(DR/EC) 20 mg PO DAILY cholecalciferol (vitamin D3) 50 mcg (2,000 unit) capsule 50 mcg PO .weekly digoxin 250 mcg (0.25 mg) tablet 250 mcg PO DAILY pregabalin 150 mg capsule 150 mg PO BID tizanidine 4 mg capsule 4 mg PO BID PRN (Reason: Pain) sulfasalazine 500 mg tablet 0.5 g PO TID Rx Instructions: give with food (meal/snack) cyanocobalamin (vitamin B-12) 1,000 mcg capsule See Rx Instructions PO .weekly Rx Instructions: 1 ml inj orally WEEKLY; mesalamine 1.2 gram tablet,delayed release (DR/EC) 2.4 g PO DAILY diltiazem HCl 120 mg capsule,extended release 24 hr 120 mg PO DAILY levothyroxine [Synthroid] 50 mcg tablet 50 mcg PO DAILY folic acid 1 mg tablet 1 mg PO DAILY Qty: 30 6RF PNV cmb#95-ferrous fumarate-FA [] 28 mg iron- 800 mcg Tablet 1 tab PO DAILY tramadol 100 mg Tablet 100 mg PO TID PRN (Reason: Pain (Scale Score 4-6)) Discharge Orders: Discharge ED (Routine); Ordered 02/14/25 Ordered By: Marcelina Patterson Patient Instructions: Wrist Fracture in Adults (ED), ORIF of a Wrist Fracture (DC), Opioid Safety, Pain Management, Patient Portal & Otoniel Instructions Activity Restrictions/Additional Instructions: As we discussed, case management should reach out to you early this week to help set you up with your follow-up orthopedic appointment. You need to stay in your splint at all times until this appointment. I have given you a prescription for pain medication called into our main campus pharmacy. Do not take this along with your Tramadol-pick one or the other-whichever one better controls your pain. Print Language: Malagasy Coding Level of Care Code ED Preschool Adviser for Chg Fwd Documented by User: Valentin Lr, 02/14/25 20:47 HPI - Extremity Injury (Upper) General: Chief Complaint: Extremity Injury, Upper Stated Complaint: rt arm inj Time Seen by Provider: 02/14/25 17:40 Related Data Home Medications ?Medication ?Instructions ?Recorded ?Confirmed cholecalciferol (vitamin D3) 50 50 mcg PO .weekly 03/26/23 01/27/25 mcg (2,000 unit) capsule cyanocobalamin (vitamin B-12) See Rx Instructions PO .weekly 03/26/23 01/27/25 1,000 mcg capsule digoxin 250 mcg (0.25 mg) tablet 250 mcg PO DAILY 03/26/23 01/27/25 diltiazem HCl 120 mg capsule,24 120 mg PO DAILY 03/26/23 01/27/25 hr,extended release levothyroxine 50 mcg tablet 50 mcg PO DAILY 03/26/23 01/27/25 (Synthroid) mesalamine 1.2 gram tablet,delayed 2.4 g PO DAILY 03/26/23 01/27/25 release omeprazole 20 mg capsule,delayed 20 mg PO DAILY 03/26/23 01/27/25 release pregabalin 150 mg capsule 150 mg PO BID 03/26/23 01/27/25 sulfasalazine 500 mg tablet 0.5 g PO TID 03/26/23 01/27/25 tizanidine 4 mg capsule 4 mg PO BID PRN Pain 03/26/23 01/27/25 vit no.95-ferrous 1 tab PO DAILY 01/10/25 01/27/25 fumarate 28 mg-folic acid 800 mcg tablet () tramadol 100 mg tablet 100 mg PO TID PRN Pain (Scale 01/14/25 01/27/25 Score 4-6) Previous Rx's ?Medication ?Instructions ?Recorded folic acid 1 mg tablet 1 mg PO DAILY #30 tabs 01/27/25 hydrocodone 5 mg-acetaminophen 325 1 tab PO Q6H PRN pain #14 tabs 02/14/25 mg tablet Allergies Allergy/AdvReac Type Severity Reaction Status Date / Time vedolizumab (From Entyvio) Allergy Severe anaphylaxis Verified 02/14/25 17:14 iodine Allergy rash Verified 02/14/25 17:14 Mercaptiourine analogues Allergy Severe Unknown Uncoded 02/14/25 17:14 Norflex Allergy Severe hives Uncoded 02/14/25 17:14 Protonix Allergy Severe hives Uncoded 02/14/25 17:14 Remicade Allergy Severe anaphylaxis Uncoded 02/14/25 17:14 Humira Allergy Intermediate Unknown Uncoded 02/14/25 17:14 Orphenadrine Allergy Intermediate unknown Uncoded 02/14/25 17:14 cimzia Allergy Unknown Uncoded 02/14/25 17:14 lasix Allergy hives Uncoded 02/14/25 17:14 PFSH ED PFSH: Medical History Hypothyroidism History of anemia due to vitamin B12 deficiency History of sepsis (2013) History of supraventricular tachycardia Iron deficiency anemia Crohn's disease Psoriasis Lupus Fibromyalgia Hypertension Hyperlipemia Hemorrhoids GERD (gastroesophageal reflux disease) Surgical History History of section History of cholecystectomy H/O partial resection of colon Ileocolonic resection in 2001, in 2009, and in 2014 History of total hysterectomy with bilateral salpingo-oophorectomy (BSO) (07/2015) IRENE/BSO with redo of ileocolonic anastomosis History of ventral hernia repair History of hemorrhoidectomy Social History Smoking and tobacco/nicotine status: current every day tobacco/nicotine user cigarettes Packs smoked per day: 0.05 Alcohol intake: never Procedures Procedural Sedation Indication: fracture/dislocation reduction ASA Class: I Preparation: potline monitor applied, pulse oximeter, supplemental O2 applied, suction/airway equipment at bedside and IV secured IV Propofol dose (mg): 120 Patient Tolerated Procedure: well and no complications Complications: none Course Vital Signs: Vital signs: Vital Signs Temperature 97.9 F 02/14/25 19:33 Pulse Rate 61 02/14/25 20:13 Respiratory Rate 18 02/14/25 20:13 Blood Pressure 129/69 02/14/25 20:13 Pulse Oximetry 94 02/14/25 20:13 Oxygen Delivery Me thod Room Air 02/14/25 19:48 Oxygen Flow Rate 5 02/14/25 19:33 MDM - Extremity Injury (Upper) Medical Decision Making Patient here with distal right radial and ulnar fractures requiring conscious sedation and reduction. Please see Dr. Lr's note for conscious sedation. Patient will be splinted and will have her follow-up with orthopedics. Patient was originally seen by Mrs. Patterson?ALICIA Figueredo. I agree with her history, evaluation, and management. Successful reduction after conscious sedation. Patient is placed in a sugar-tong splint. X-ray shows improved alignment. Orthopedic follow-up. Lab Data Radiology Impressions Wrist X-Ray 02/14/25 18:33 IMPRESSION: 1. Improved alignment status post reduction of the distal right radial metaphyseal fracture. 2. Avulsion fracture of the ulnar styloid redemonstrated. Discharge Plan Discharge Patient Disposition: Home Clinical Impression: Closed fracture of distal end of right radius with ulna Qualifiers: Encounter type: initial encounter Qualified Code(s): S52.501A - Unspecified fracture of the lower end of right radius, initial encounter for closed fracture Condition: Stable Prescriptions: New hydrocodone-acetaminophen 5-325 mg tablet 1 tab PO Q6H PRN (Reason: pain) Qty: 14 0RF No Action omeprazole 20 mg capsule,delayed release(DR/EC) 20 mg PO DAILY cholecalciferol (vitamin D3) 50 mcg (2,000 unit) capsule 50 mcg PO .weekly digoxin 250 mcg (0.25 mg) tablet 250 mcg PO DAILY pregabalin 150 mg capsule 150 mg PO BID tizanidine 4 mg capsule 4 mg PO BID PRN (Reason: Pain) sulfasalazine 500 mg tablet 0.5 g PO TID Rx Instructions: give with food (meal/snack) cyanocobalamin (vitamin B-12) 1,000 mcg capsule See Rx Instructions PO .weekly Rx Instructions: 1 ml inj orally WEEKLY; mesalamine 1.2 gram tablet,delayed release (DR/EC) 2.4 g PO DAILY diltiazem HCl 120 mg capsule,extended release 24 hr 120 mg PO DAILY levothyroxine [Synthroid] 50 mcg tablet 50 mcg PO DAILY folic acid 1 mg tablet 1 mg PO DAILY Qty: 30 6RF PNV cmb#95-ferrous fumarate-FA [] 28 mg iron- 800 mcg Tablet 1 tab PO DAILY tramadol 100 mg Tablet 100 mg PO TID PRN (Reason: Pain (Scale Score 4-6)) Discharge Orders: Discharge ED (Routine); Ordered 02/14/25 Ordered By: Marcelina Patterson Patient Instructions: Wrist Fracture in Adults (ED), ORIF of a Wrist Fracture (DC), Opioid Safety, Pain Management, Patient Portal & Otoniel Instructions Activity Restrictions/Additional Instructions: As we discussed, case management should reach out to you early this week to help set you up with your follow-up orthopedic appointment. You need to stay in your splint at all times until this appointment. I have given you a prescription for pain medication called into our main campus pharmacy. Do not take this along with your Tramadol-pick one or the other-whichever one better controls your pain. Print Language: Malagasy Coding Level of Care Code ED Preschool Adviser for Radha Garcia
[2025-02-14] MEDS: ondansetron 2 mg/ML SDV 2 mL 4 MG IM (18:21)
[2025-02-14] MEDS: morphine 4 mg/mL SDV 1 mL IM (18:22)
--- NOTE | 2025-02-14 18:33 | XRR_ITS ---
PROCEDURE INFORMATION: Exam: XR Right Wrist Exam date and time: 02/14/2025 7:27 PM Age: 49 years old Clinical indication: Injury or trauma; Fall; Fracture, traumatic injury; Displaced; Right; Check S/P reduction of RT wrist fracture. ; Additional info: Post reduc TECHNIQUE: Imaging protocol: Radiologic exam of the right wrist. Views: 1 or 2 views. COMPARISON: CR (UP EXM, ) 02/14/2025 5:43 PM FINDINGS: Bones/joints: Improved alignment status post reduction of the distal right radial metaphyseal fracture. Avulsion fracture of the ulnar styloid redemonstrated. Soft tissues: Normal. XR/XR wrist RT 2V [id number] IMPRESSION: 1. Improved alignment status post reduction of the distal right radial metaphyseal fracture. 2. Avulsion fracture of the ulnar styloid redemonstrated.
[2025-02-14] MEDS: propofol 10 mg/mL SDV 20 mL 200 MG IVP (19:31)
--- NOTE | 2025-02-17 07:31 | DCPLANNER ---
Message sent to Ortho for follow up-Medical Decision Making Patient here with distal right radial and ulnar fractures requiring conscious sedation and reduction. Please see Dr. Lr's note for conscious sedation. Patient will be splinted and will have her follow-up with orthopedics.
== END 2025-02-14 20:15 | disposition home or self-care (01) ==
PROVIDERS: Emergency Provider Physician Assistant
DX: S52.501A Unspecified fracture of the lower end of right radius, initial encounter for closed fracture (principal); F17.210 Nicotine dependence, cigarettes, uncomplicated; I10 Essential (primary) hypertension; E78.5 Hyperlipidemia, unspecified; W01.0XXA Fall on same level from slipping, tripping and stumbling without subsequent striking against object, initial encounter
CPT/HCPCS: 25605; 73100; 73110; 96372; 99152; 99285; J2270; J2405; J2704

== ENCOUNTER 2025-02-24 12:18 | Oncology outpatient (recurring) (ONCR) | payer MEDICARE, OTHER, SELFPAY ==
[2025-02-24 12:41] LABS: Hematocrit 29.9 % (36-47); Hemoglobin 9.30 g/dL (11.27-16.99); Mean Corpuscular HGB Conc 31.1 g/dL (30-55); Mean Corpuscular Hemoglobin 28.3 pg (27-33); Mean Corpuscular Volume 90.9 fl (85-98); Nucleated Red Blood Cells % 0 %; Platelet Count 55 10^3/cmm (157-399); Red Blood Count 3.29 10^6/uL (3.85-5.65); White Blood Count 3.80 10^3/uL (3.29-11.43)
[2025-02-24 13:06] LABS: Alanine Aminotransferase 18 U/L (0-33); Albumin Level 2.9 g/dL (3.5-5.2); Alkaline Phosphatase 107 U/L (35-105); Anion Gap 14.3 (5-19); Aspartate Amino Transferase 37 U/L (0-32); Blood Urea Nitrogen 5 mg/dL (6-20); Calcium 8.3 mg/dL (8.5-10.5); Carbon Dioxide 23 mmol/L (22-29); Chloride 104 mmol/L (98-107); Creatinine Clr Calc Pharmacy 125.4662; Ferritin 105 ng/mL (15-150); Globulin 3.0 g/dL (1.3-4.6); Glucose 106 mg/dL (65-115); Osmolality Calculated 284 mOsm/kg (285-295); Potassium 3.3 mmol/L (3.5-5.1); Sodium 138 mmol/L (136-145); Total Protein 5.9 g/dL (6.6-8.7)
[2025-02-24 13:20] LABS: Vitamin B12 1263 pg/mL (232-1245)
== END 2025-03-11 23:59 | disposition home or self-care (01) ==
PROVIDERS: Internal Medicine; PCP Family Medicine; Visit Provider Nurse Practitioner Family
DX: D61.818 Other pancytopenia (principal); D50.8 Other iron deficiency anemias; Z79.899 Other long term (current) drug therapy; S52.501A Unspecified fracture of the lower end of right radius, initial encounter for closed fracture; S52.601A Unspecified fracture of lower end of right ulna, initial encounter for closed fracture; W19.XXXA Unspecified fall, initial encounter; F17.210 Nicotine dependence, cigarettes, uncomplicated; R60.0 Localized edema; K50.90 Crohn's disease, unspecified, without complications; D69.6 Thrombocytopenia, unspecified; Z71.6 Tobacco abuse counseling
CPT/HCPCS: 36415; 73110; 80053; 82607; 82728; 82746; 83010; 83615; 83921; 85025; 99204; 99215

== ENCOUNTER 2025-02-25 12:20 | Day surgery (SDC) | payer MEDICARE, OTHER, SELFPAY ==
[2025-02-25] VITALS (13 sets, daily range): BP systolic 97–118; BP diastolic 52–73; PULSE 66–72; RESP 15–20; TEMP 36.1–36.7; O2SAT 92–99; BMI 36.7
--- NOTE | 2025-02-25 12:41 | ANES.PREANE2 ---
Pre-Anesthetic Assessment Height/Weight: Height 5 ft 4 in Preop Diagnosis: Distal radius fracture Operation Date: 02/25/25 14:20 Proposed Procedures p Open Reduction Internal Fixation RIGHT Distal Radius(Right) - Cindy Lauren MD Was Beta Edith taken within 24 hours: Yes Was Clonidine taken within 24 hours: N/A Social No alcohol and No tobacco Exam alert, oriented x 3 and clear to auscultation bilaterally Airway Submandibular: within normal limits Cervical ROM: within normal limits Mallampati: Class III Comments: Comments: Edentulous Anesthetic Plan ASA status: 4 Anesthesia: General Other: No prior issues with anesthesia NPO since yesterday evening History of chronic pancytopenia. Platelets 55. Patient states that she has had 6 surgeries and never had to have transferred fusion of platelets History of SVT, on digoxin, diltiazem and and metoprolol Patient is on Crohn's and chronic immunosuppression Tick borne illness resulting in septic shock last month, patient was admitted to ICU with pneumonia Echo from January 2025 showing EF of 60-65% with mild pulmonary hypertension Labs from 02/24/2025 reviewed. Hemoglobin 9.3, platelet 55, K+ 3.3 Type and screen performed Plan for general anesthesia Medications/Allergies Home Medications ?Medication ?Instructions ?Recorded ?Confirmed ?Last Taken ?Type cholecalciferol (vitamin D3) 50 50 mcg PO .weekly 03/26/23 02/25/25 02/17/25 History mcg (2,000 unit) capsule cyanocobalamin (vitamin B-12) See Rx Instructions PO .weekly 03/26/23 02/25/25 02/10/25 History 1,000 mcg capsule digoxin 250 mcg (0.25 mg) tablet 250 mcg PO DAILY 03/26/23 02/25/25 02/24/25 History diltiazem HCl 120 mg capsule,24 120 mg PO BID 03/26/23 02/25/25 02/25/25 History hr,extended release levothyroxine 50 mcg tablet 50 mcg PO DAILY 03/26/23 02/25/25 02/25/25 History (Synthroid) omeprazole 20 mg capsule,delayed 20 mg PO BID 03/26/23 02/25/25 02/25/25 History release pregabalin 150 mg capsule 150 mg PO BID 03/26/23 02/25/25 02/24/25 History sulfasalazine 500 mg tablet 0.5 g PO TID 03/26/23 02/25/25 02/24/25 History tizanidine 4 mg capsule 4 mg PO BID PRN Pain 03/26/23 02/25/25 Unknown History tramadol 100 mg tablet 100 mg PO BID PRN Pain (Scale 01/14/25 02/25/25 02/25/25 History Score 4-6) folic acid 1 mg tablet 1 mg PO DAILY #30 tabs 01/27/25 02/25/25 02/24/25 Rx metoprolol succinate 50 mg 25 mg PO BEDTIME 02/24/25 02/25/25 02/23/25 History tablet,extended release 24 hr potassium chloride 20 mEq 20 meq PO DAILY #30 tabs 02/24/25 02/25/25 Unknown Rx tablet,extended release (K-Tab) ustekinumab 90 mg/mL subcutaneous 90 mg SUBCUT DIRECTED 02/25/25 02/25/25 12/23/24 History syringe (Stelara) ustekinumab 90 mg/mL subcutaneous mg SUBCUT 02/25/25 Unknown History syringe (Stelara) Allergies Allergy/AdvReac Type Severity Reaction Status Date / Time vedolizumab (From Entyvio) Allergy Severe anaphylaxis Verified 02/24/25 16:34 iodine Allergy rash Verified 02/24/25 16:34 Mercaptiourine analogues Allergy Severe Unknown Uncoded 02/24/25 16:34 Norflex Allergy Severe hives Uncoded 02/25/25 08:43 Protonix Allergy Severe hives Uncoded 02/25/25 08:43 Remicade Allergy Severe anaphylaxis Uncoded 02/24/25 16:34 Humira Allergy Intermediate Unknown Uncoded 02/24/25 16:34 Orphenadrine Allergy Intermediate unknown Uncoded 02/24/25 16:34 cimzia Allergy Unknown Uncoded 02/24/25 16:34 [facility] Anesthesia Medical History Hypothyroidism History of anemia due to vitamin B12 deficiency History of sepsis (2013) History of supraventricular tachycardia Iron deficiency anemia Crohn's disease Psoriasis Lupus Fibromyalgia Hypertension Hyperlipemia Hemorrhoids GERD (gastroesophageal reflux disease) Surgical History History of section History of cholecystectomy H/O partial resection of colon Ileocolonic resection in 2001, in 2009, and in 2014 History of total hysterectomy with bilateral salpingo-oophorectomy (BSO) (07/2015) IRENE/BSO with redo of ileocolonic anastomosis History of ventral hernia repair History of hemorrhoidectomy Social History Smoking and tobacco/nicotine status: current every day tobacco/nicotine user cigarettes Packs smoked per day: 0.05 Alcohol intake: never Data Anesthesia Cardiac Studies: Echocardiogram 01/10/25
--- NOTE | 2025-02-25 13:19 | P.HPUD_ITS ---
Surgery/Procedure H&P Update DATE OF PROCEDURE: February 25, 2025 DATE H&P PERFORMED: 02/25/25 H&P UPDATE INFORMATION: I have reviewed H&P completed within last 30 days, I have examined patient prior to procedure, No changes to prior documentation, H&P is in [facility] EMR on date indicated and Risks and benefits of the procedure reviewed PREOP DIAGNOSIS: Right Distal radius fracture PLANNED PROCEDURE: Operation Date: 02/25/25 14:20 Proposed Procedures p Open Reduction Internal Fixation RIGHT Distal Radius(Right) - Cindy Lauren MD Related Problem List Diagnoses 1. Closed fracture of distal ends of right radius and ulna, initial encounter: Qualifiers: Encounter type: initial encounter
[2025-02-25] MEDS: acetaminophen 1,000 MG/100 ML PIGGYBACK 400 MG IV (13:20)
[2025-02-25] MEDS: ceFAZolin 2,000 mg SDV 2000 MG IVP (13:38)
[2025-02-25] MEDS: ceFAZolin 1,000 mg SDV 1000 MG IRRIGATION (14:59)
[2025-02-25] MEDS: BUPivacaine 0.5% INJ 30 mL INJECTION (14:59)
--- NOTE | 2025-02-25 15:20 | PM.OP ---
Operative Report Date of procedure: February 25, 2025 Pre-op diagnosis: Right comminuted displaced shortened distal radius fracture Post-op diagnosis: Right comminuted displaced shortened distal radius fracture Post-op findings: Significant shortening with partial healing right distal radius fracture Procedure done: Open reduction internal fixation right distal radius fracture with [place] DBM plus paste with cancellous bone grafting Implants: Juan Miguel narrow extra short right volar wrist plate [place] DBM plus paste with cancellous bone graft material Specimens removed/disposition: None Pathology: None Surgeon: Cindy Lauren MD Welder Assembler: Lety Ruiz, nurse practitioner, whose services were required for distraction and retraction. Maintenance of distal radius reduction, placement of hardware, and closure. Anesthesia: General (Per LMA, ASA 4) Estimated blood loss (mL): 1 Tourniquet time (min): 73 (At 250 mmHg) IV fluids (mL): 500 Urine output (mL): 0 (No Chery) Complications: None Findings: Significant shortening and early healing right comminuted distal radius fracture Condition: stable Disposition: PACU (Then return to same-day surgery for discharge to home) Brief History: This 49-year-old woman presented to the clinic earlier this week after an injury on February 14, 2025. The patient was returning a text when she tripped over her dog and landed on all fours. She had her fracture initially reduced in the emergency department. Upon evaluation yesterday, the fracture was found to have settled back to its shortened and reduced position, therefore, plans were made for open reduction internal fixation. Risks and complications were discussed with her. Consents were signed and questions were answered. Procedure: Patient was brought to the operating theater, and after undergoing adequate general anesthesia, per LMA, ASA 4, the patient's right upper extremity was prepped and draped in usual fashion utilizing DuraPrep.? No block was placed secondary to low platelet count. The patient had a tourniquet placed high on the arm prior to prepping and draping.? Following prepping and draping, the arm was exsanguinated and the tourniquet was elevated.? Total tourniquet time was 73 minutes at 250 mmHg.? Prior to commencement of the surgical procedure, a surgical pause was performed.? At the time of the surgical pause, we confirmed the site and side of surgery as well as the patient's identity and preoperative surgical markings.? We also confirmed availability of equipment and appropriate preoperative IV antibiotics which was Ancef 2 g.? Fluoroscopy was brought into position so that we could visualize the fracture and hardware throughout the surgical procedure.? The fracture was evaluated prior to tourniquet placement. Following elevation of the tourniquet as well as the surgical pause, appropriate plate was chosen. The skin was marked for appropriate incision length and location. An incision was made along the palmaris longus and continued down onto the volar surface of the radius.? Care was taken to avoid injury throughout the surgical procedure to the median nerve as well as to the radial artery.? The flexor carpi radialis was retracted medially.? We were able to essentially elevate the sheath of the flexor carpi radialis, and then I was able to place my finger directly onto the distal radius.? For the most part, the patient did her own dissection at the time of her injury.? Soft tissues were elevated off the distal radius to allow access to the fracture and also to the volar aspect of the distal radial shaft.? Reduction required manipulation as well as insertion of a [place] to break apart previous fracture callus and allow jehovah's witness of length. Following manipulation, the fracture was essentially anatomic. Fluoroscopy was used to determine whether or not the reduction was appropriate.? We were able to reduce the fracture nearly anatomically.? We then evaluated the plate and chose the extra short [place] volar distal radius plate.? The plate was attached proximally and distally without difficulty.? A combination of locking and 1 nonlocking screw was utilized to attach the plate.? We had excellent fixation and reduction of the fracture. Fluoroscopy was utilized during the procedure.? Once the plate was fully attached, we had a near anatomic position to the distal radius and the distal radius was out to length.? Being satisfied with position, the area was copiously irrigated. There were no fascial tissues to close, and therefore, we closed the subcutaneous tissues with 3-0 interrupted Monocryl.? Skin was closed in a subcuticular fashion with 4-0 Monocryl.?Sterile dressing was then placed consisting of Dermabond, Steri-Strips, Opsite, 4x4's, fluffs, sterile soft roll, a volar splint, and an Junior wrap. The tourniquet was released after 73 minutes. There were no complications. There were no specimens. The procedure was well tolerated. Plan is the patient will be discharged home. Related Problem List Diagnoses 1. Closed fracture of distal ends of right radius and ulna, initial encounter:
[2025-02-25] MEDS: ondansetron 2 mg/ML SDV 2 mL 4 MG IVP ×2 (15:51→15:56)
[2025-02-25] MEDS: fentaNYL 50 mcg/mL INJ 2mL IVP (15:56)
--- NOTE | 2025-02-25 16:03 | XR_ITS ---
WS: [id number] XR wrist RT 2V [id number] REASON FOR EXAM: OR PIC, ORIF FINDINGS: Volar plate and screw fixation of transverse comminuted fracture with involvement of the medial radial articular surface. Reduction of radial foreshortening. Surgical appliances intact and in good position and alignment. Fracture fragments are in good apposition and alignment. XR/XR wrist RT 2V [id number] IMPRESSION: Internal fixation of wrist fracture without abnormality.
[2025-02-25] MEDS: HYDROcodone-acetaminophen 5-325 mg Tablet 1 TAB PO (16:52)
--- NOTE | 2025-02-25 17:15 | ANE.PACU2 ---
Inpatient post-anesthesia follow up: Airway intact: Yes Vital signs: Temperature 97.9 F Pulse Rate 70 Respiratory Rate 16 Blood Pressure 110/71 Pulse Oximetry 94 Oxygen Delivery Me thod Room Air Oxygen Flow Rate 6 Fraction of Inspir ed Oxygen Hydration adequate: Yes Nausea and vomiting: No Pain level: 2 Mental status: Baseline
== END 2025-02-25 17:15 | disposition home or self-care (01) ==
PROVIDERS: PCP Family Medicine; Visit Provider Specialist
PROC: (CPT 25609; principal; 2025-02-25 14:10)
DX: S52.571A Other intraarticular fracture of lower end of right radius, initial encounter for closed fracture (principal); X58.XXXA Exposure to other specified factors, initial encounter; D61.818 Other pancytopenia; I47.10 Supraventricular tachycardia, unspecified; K50.90 Crohn's disease, unspecified, without complications; M79.7 Fibromyalgia; I10 Essential (primary) hypertension; E78.5 Hyperlipidemia, unspecified; K21.9 Gastro-esophageal reflux disease without esophagitis; E03.9 Hypothyroidism, unspecified; F17.210 Nicotine dependence, cigarettes, uncomplicated; D50.9 Iron deficiency anemia, unspecified; M32.9 Systemic lupus erythematosus, unspecified
CPT/HCPCS: 25609; 36415; 73100; 76000; 86850; 86870; 86900; 86920; C1713; C1734; J0131; J0690; J1100; J1171; J2405; J2704; J3010; J3373; J3490; J7030; J7050; J9999

== ENCOUNTER → 2025-03-03 11:00 | Outpatient (BNVA) | payer MEDICARE, OTHER, SELFPAY | PROVIDERS: PCP Family Medicine; Visit Provider Specialist | DX: Z98.890 Other specified postprocedural states (principal) | CPT/HCPCS: 73110 ==

== ENCOUNTER 2025-03-03 15:23 | Outpatient (CLI) | payer MEDICARE, OTHER, SELFPAY | END 2025-03-03 15:24 | disposition home or self-care (01) | LOC: SPT 15:24 | PROVIDERS: PCP Family Medicine; Visit Provider Specialist | DX: Z46.89 Encounter for fitting and adjustment of other specified devices (principal); S52.501D Unspecified fracture of the lower end of right radius, subsequent encounter for closed fracture with routine healing; S52.601D Unspecified fracture of lower end of right ulna, subsequent encounter for closed fracture with routine healing; X58.XXXD Exposure to other specified factors, subsequent encounter | CPT/HCPCS: 97760; L3982 ==

== ENCOUNTER → 2025-03-19 10:37 | Outpatient (BNVA) | payer MEDICARE, OTHER, SELFPAY | PROVIDERS: PCP Family Medicine; Visit Provider Nurse Practitioner | DX: Z98.890 Other specified postprocedural states (principal) | CPT/HCPCS: 73110; 99024 ==

== ENCOUNTER 2025-03-24 12:44 | Oncology outpatient (recurring) (ONCR) | payer MEDICARE, OTHER, SELFPAY ==
[2025-03-24 13:05] LABS: Hematocrit 33.2 % (36-47); Hemoglobin 10.30 g/dL (11.27-16.99); Mean Corpuscular HGB Conc 31.0 g/dL (30-55); Mean Corpuscular Hemoglobin 27.4 pg (27-33); Mean Corpuscular Volume 88.3 fl (85-98); Nucleated Red Blood Cells % 0 %; Platelet Count 62 10^3/cmm (157-399); Red Blood Count 3.76 10^6/uL (3.85-5.65); White Blood Count 4.98 10^3/uL (3.29-11.43)
[2025-03-24 13:24] LABS: Alanine Aminotransferase 13 U/L (0-33); Albumin Level 2.8 g/dL (3.5-5.2); Alkaline Phosphatase 98 U/L (35-105); Anion Gap 10.9 (5-19); Aspartate Amino Transferase 34 U/L (0-32); Blood Urea Nitrogen 5 mg/dL (6-20); Calcium 8.4 mg/dL (8.5-10.5); Carbon Dioxide 23 mmol/L (22-29); Chloride 107 mmol/L (98-107); Creatinine Clr Calc Pharmacy 94.0997; Globulin 3.8 g/dL (1.3-4.6); Glucose 105 mg/dL (65-115); Osmolality Calculated 282 mOsm/kg (285-295); Potassium 3.9 mmol/L (3.5-5.1); Sodium 137 mmol/L (136-145); Total Protein 6.6 g/dL (6.6-8.7)
[2025-03-24 13:33] LABS: Slide Review Slide Review Perform
== END 2025-04-11 23:59 | disposition home or self-care (01) ==
PROVIDERS: PCP Family Medicine; Visit Provider Nurse Practitioner Family
DX: D61.818 Other pancytopenia (principal); D50.8 Other iron deficiency anemias; Z79.899 Other long term (current) drug therapy; F17.210 Nicotine dependence, cigarettes, uncomplicated; K50.90 Crohn's disease, unspecified, without complications; D69.6 Thrombocytopenia, unspecified; E63.8 Other specified nutritional deficiencies
CPT/HCPCS: 36415; 80053; 85025; 99213

== ENCOUNTER → 2025-04-09 10:20 | Outpatient (BNVA) | payer MEDICARE, OTHER, SELFPAY | PROVIDERS: PCP Family Medicine; Visit Provider Nurse Practitioner | DX: Z98.890 Other specified postprocedural states (principal) | CPT/HCPCS: 73110; 99024 ==

== ENCOUNTER → 2025-05-03 09:38 | Outpatient (BNVA) | payer MEDICARE, OTHER, SELFPAY | PROVIDERS: PCP Family Medicine; Visit Provider Specialist | DX: Z98.890 Other specified postprocedural states (principal) | CPT/HCPCS: 73110; 99024 ==

== ENCOUNTER 2025-05-07 09:21 | Outpatient (CLI) | payer MEDICARE, OTHER, SELFPAY | END 2025-05-07 09:22 | disposition home or self-care (01) | LOC: RAD 09:22 | PROVIDERS: PCP Family Medicine; Visit Provider Family Medicine | DX: Z12.31 Encounter for screening mammogram for malignant neoplasm of breast (principal) | CPT/HCPCS: 77063; 77067 ==

== ENCOUNTER 2025-05-27 13:35 | Outpatient (CLI) | payer MEDICARE, OTHER, SELFPAY ==
[2025-05-27 14:38] LABS: Hematocrit 34.3 % (36-47); Hemoglobin 10.80 g/dL (11.27-16.99); Mean Corpuscular HGB Conc 31.5 g/dL (30-55); Mean Corpuscular Hemoglobin 26.8 pg (27-33); Mean Corpuscular Volume 85.1 fl (85-98); Nucleated Red Blood Cells % 0 %; Platelet Count 51 10^3/cmm (157-399); Red Blood Count 4.03 10^6/uL (3.85-5.65); White Blood Count 3.69 10^3/uL (3.29-11.43)
[2025-05-27 15:20] LABS: Alanine Aminotransferase 10 U/L (0-33); Albumin Level 3.3 g/dL (3.5-5.2); Alkaline Phosphatase 98 U/L (35-105); Anion Gap 16.7 (5-19); Aspartate Amino Transferase 28 U/L (0-32); Blood Urea Nitrogen 8 mg/dL (6-20); Calcium 8.7 mg/dL (8.5-10.5); Carbon Dioxide 22 mmol/L (22-29); Chloride 106 mmol/L (98-107); Ferritin 46 ng/mL (15-150); Globulin 3.8 g/dL (1.3-4.6); Glucose 107 mg/dL (65-115); Iron 90 ug/dL (37-145); Osmolality Calculated 291 mOsm/kg (285-295); Potassium 3.7 mmol/L (3.5-5.1); Sodium 141 mmol/L (136-145); Thyroid Stimulating Hormone 4.96 uIU/mL (0.27-4.20); Total Iron Binding Capacity 296 mcg/dl; Total Protein 7.1 g/dL (6.6-8.7); Unsaturated Iron Binding 206 ug/dL (112-347); Vitamin B12 836 pg/mL (232-1245)
[2025-05-27 16:37] LABS: Free T4 Free Thyroxine 1.12 ng/dL (0.82-1.77)
== END 2025-05-27 13:36 | disposition home or self-care (01) ==
LOC: LAB 13:39
PROVIDERS: Internal Medicine; PCP Family Medicine; Visit Provider Family Medicine
DX: E03.9 Hypothyroidism, unspecified (principal); D50.8 Other iron deficiency anemias; I10 Essential (primary) hypertension
CPT/HCPCS: 36415; 80053; 82607; 82728; 82746; 83010; 83090; 83540; 83550; 83615; 83921; 84439; 84443; 85025; 85045

== ENCOUNTER 2025-06-30 08:50 | Oncology outpatient (recurring) (ONCR) | payer MEDICARE, OTHER, SELFPAY ==
[2025-06-30 09:32] LABS: Hematocrit 32.8 % (36-47); Hemoglobin 10.10 g/dL (11.27-16.99); Mean Corpuscular HGB Conc 30.8 g/dL (30-55); Mean Corpuscular Hemoglobin 26.6 pg (27-33); Mean Corpuscular Volume 86.3 fl (85-98); Nucleated Red Blood Cells % 0 %; Platelet Count 52 10^3/cmm (157-399); Red Blood Count 3.80 10^6/uL (3.85-5.65); White Blood Count 2.88 10^3/uL (3.29-11.43)
[2025-06-30 10:00] LABS: Alanine Aminotransferase 9 U/L (0-33); Albumin Level 2.9 g/dL (3.5-5.2); Alkaline Phosphatase 87 U/L (35-105); Anion Gap 11.0 (5-19); Aspartate Amino Transferase 27 U/L (0-32); Blood Urea Nitrogen 9 mg/dL (6-20); Calcium 8.5 mg/dL (8.5-10.5); Carbon Dioxide 24 mmol/L (22-29); Chloride 110 mmol/L (98-107); Ferritin 38 ng/mL (15-150); Globulin 3.4 g/dL (1.3-4.6); Glucose 119 mg/dL (65-115); Iron 78 ug/dL (37-145); Osmolality Calculated 292 mOsm/kg (285-295); Potassium 4.0 mmol/L (3.5-5.1); Sodium 141 mmol/L (136-145); Total Iron Binding Capacity 251 mcg/dl; Total Protein 6.3 g/dL (6.6-8.7); Unsaturated Iron Binding 173 ug/dL (112-347)
--- NOTE | 2025-06-30 11:15 | CT_ITS ---
WS: [id number] LDCT LUNG CANCER SCREENING TECHNIQUE: Noncontrast CT of the chest with coronal and sagittal reformatted images. CLINICAL INFORMATION: screening COMPARISON: CT chest 01/09/2025 previously described multifocal infiltrates have resolved. Subsegmental atelectasis in the lingula. A few tiny scattered micronodules more numerous in the lung bases. 5 mm nodule RIGHT upper lobe. 5 mm nodule RIGHT lower lobe. No suspicious pulmonary parenchymal abnormalities. Cardiomegaly. Normal caliber thoracic aorta. No mediastinal or hilar lymphadenopathy. No axillary lymphadenopathy. Mild thoracic curve. Mild thoracic kyphosis. Marked hepatomegaly and splenomegaly. Marked splenomegaly measuring 16.5 cm [id number]. Cholecystectomy clips. Adrenal glands are normal. DLP: 47.72 mGy.cm DIvol: Mean CTDIvol: 0.90 (mGy) All CT scans at [facility] use at least one of these dose optimization techniques: automated exposure control; mA and/or kV adjustment per patient size (includes targeted exams where dose is matched to clinical indication); or iterative reconstruction. FINDINGS: Marked hepatomegaly and splenomegaly. Recommend correlation with liver function tests and history of portal venous hypertension. Findings are similar to the prior CT abdomen pelvis 01/09/2025. CT/CT lung screening [id number] IMPRESSION: LUNG-RADS: 2S-Benign Appearance or Behavior with Significant Findings FOLLOW UP: 12 Month: Continue annual screening with LDCT
== END 2025-07-11 23:59 | disposition home or self-care (01) ==
PROVIDERS: Internal Medicine Medical Oncology; PCP Family Medicine; Visit Provider Nurse Practitioner Family
DX: Z12.2 Encounter for screening for malignant neoplasm of respiratory organs (principal); F17.219 Nicotine dependence, cigarettes, with unspecified nicotine-induced disorders; D50.8 Other iron deficiency anemias; K50.111 Crohn's disease of large intestine with rectal bleeding; J98.11 Atelectasis; R91.1 Solitary pulmonary nodule; M43.8X4 Other specified deforming dorsopathies, thoracic region; M40.294 Other kyphosis, thoracic region; I51.7 Cardiomegaly; R16.0 Hepatomegaly, not elsewhere classified; R16.1 Splenomegaly, not elsewhere classified; Z90.49 Acquired absence of other specified parts of digestive tract; D61.818 Other pancytopenia; D75.9 Disease of blood and blood-forming organs, unspecified
CPT/HCPCS: 36415; 71271; 80053; 82728; 82746; 83010; 83540; 83550; 83615; 83921; 85025; 85045; 99214

== ENCOUNTER 2025-07-13 10:03 | Outpatient (CLI) | payer MEDICARE, OTHER, SELFPAY ==
--- NOTE | 2025-07-13 10:10 | MM_ITS ---
WS: [id number] ADDITIONAL VIEWS LEFT MAMMOGRAM WITH DIGITAL BREAST TOMOSYNTHESIS. HISTORY: LEFT breast calcifications. COMPARISON: 05/07/2025, 11/10/2018 Magnification views LEFT breast in CC, MLO projections and true ML submitted with digital breast tomosynthesis and SM. Breast composition: The breasts are heterogeneously dense, which may obscure small masses. Small cluster of coarse calcifications noted in the lateral LEFT breast near 3:00. These calcifications are very coarse and smooth. Calcifications are new since 2019. No associated soft tissue mass. MM/MM diag LT tomosynthesis [id number] IMPRESSION: BI-RADS: 3 - Probably Benign FOLLOW UP: 6 Month Follow-up Recommend diagnostic mammogram in 6 months of the LEFT breast to reevaluate the calcifications. These calcifications are very benign in appearance but new sin ce 2019.
== END 2025-07-13 10:04 | disposition home or self-care (01) ==
LOC: RAD 10:04
PROVIDERS: PCP Family Medicine; Visit Provider Family Medicine
DX: Z12.31 Encounter for screening mammogram for malignant neoplasm of breast (principal); R92.333 Mammographic heterogeneous density, bilateral breasts; R92.1 Mammographic calcification found on diagnostic imaging of breast
CPT/HCPCS: 77061; 77063